=== PATIENT | female | born 1935 | race Caucasian/White ===

== ENCOUNTER 2017-08-19 23:49 | Emergency (ER) | payer MEDICARE, SELFPAY ==
[2017-08-19 23:57] VITALS: BP 188/83; PULSE 70; RESP 16; TEMP 36.3; O2SAT 97; BMI 29.0
[2017-08-20 00:06] VITALS: BP 188/83; PULSE 70; RESP 16; TEMP 36.3; O2SAT 97; BMI 29.0
--- NOTE | 2017-08-20 00:19 | ED_ITS ---
HPI - Animal Bite General Chief Complaint: Animal Bite Stated Complaint: her cat bit her on the right hand Time Seen by Provider: 08/19/17 23:51 Source: patient Mode of arrival: ambulatory Limitations: no limitations History of Present Illness HPI narrative: 82-year-old female here for evaluation of a cat bite to right hand. Patient states that just prior to arrival her domesticated cat who is up- to-date on its shots bit her in the right hand. Patient does not know when her last tetanus shot was. She has not done anything the wound prior to arrival. Related Data Home Medications Medication Instructions Recorded Confirmed ESTRADIOL (Estrace) 1 mg PO AM #0 07/06/09 NITROGLYCERIN (Nitrostat) 0.4 mg SUBLINGUAL PRN #0 07/06/09 POTASSIUM CHLORIDE (K-Dur) 10 meq PO Q DAY #0 07/06/09 SPIRONOLACTONE (Aldactone) 25 mg PO Q DAY #0 07/06/09 amlodipine [Norvasc] 20 mg PO QDAY #0 05/30/12 cyclobenzaprine 10 mg PO TIDP PRN #0 10/05/16 Previous Rx's Medication Instructions Recorded indomethacin 25 mg PO Q8HP PRN #15 cap 10/05/16 prednisone 50 mg PO AMCC #4 tab 10/05/16 amoxicillin-pot clavulanate 1 tab PO Q12H 5 Days #10 tab 08/20/17 Allergies Allergy/AdvReac Type Severity Reaction Status Date / Time MJ Inhibitors Allergy Intermediate Verified 08/19/17 23:57 guaifenesin Allergy Intermediate Verified 08/19/17 23:57 azithromycin Allergy Unknown Verified 08/19/17 23:57 dextromethorphan Allergy Unknown Verified 08/19/17 23:57 enalapril Allergy Unknown Verified 08/19/17 23:57 meloxicam Allergy Unknown Verified 08/19/17 23:57 pneumococcal vaccine Allergy Unknown Verified 08/19/17 23:57 [From PNEUMOVAX 23] ibuprofen AdvReac Unknown Verified 08/19/17 23:57 lidocaine AdvReac Unknown Verified 08/19/17 23:57 morphine AdvReac Unknown Verified 08/19/17 23:57 Review of Systems Constitutional Denies fever(s) Musculoskeletal Comments: Cat bite to right hand Integumentary/Breasts Comments: Cat bite to right hand Neurologic Comments: No sensation differences to right hand Hematologic/Lymphatic Denies easy bruising PFSH Social History Smoking Status: Never smoker Exam Initial Vital Signs Initial Vital Signs: Vital Signs Temperature 97.4 F L 08/19/17 23:57 Pulse Rate 70 08/19/17 23:57 Respiratory Rate 16 08/19/17 23:57 Blood Pressure 188/83 H 08/19/17 23:57 Pulse Oximetry 97 08/19/17 23:57 Const General: cooperative and well developed Nutritional Appearance: well nourished Orientation: alert, awake, oriented x3 and not confused Skin Other: Patient with 2x 1 cm cuts to the dorsum aspect her right hand radial aspect. No active bleeding. Neuro Other: Sensation intact to light touch right and Extrem Other: Full range of motion right elbow right forearm right hand right fingers Course Orders Ordered: Discontinued Medications Amoxicillin/Clavulanate Potassium (Augmentin 875-125 Mg) 1 tab PO NOW ONE Stop: 08/20/17 00:19 Last Admin: 08/20/17 00:22 Dose: 1 tab Diphtheria/Tetanus/Acell Pertussis (Adacel) 0.5 ml IM .ONCE ONE Stop: 08/20/17 00:20 Last Admin: 08/20/17 00:23 Dose: 0.5 ml Vital Signs - 8 hr 08/19/17 23:57 08/20/17 00:06 08/20/17 00:36 Temperature 97.4 F L 97.4 F L 97.1 F L Pulse Rate 70 70 61 Respiratory Rate 16 16 16 Blood Pressure 188/83 H 188/83 H 161/77 H Pulse Oximetry 97 97 100 MDM - Animal Bite MDM Narrative Medical decision making narrative: Patient with superficial cuts to her right hand. No need for sutures. Patient wound was irrigated here in the emergency department with tap water and soap. Her tetanus was updated. Will send home with antibiotics secondary to the fact that it was an animal bite is on her hand. She was given return precautions with regard to infection. She expressed understanding and agreement with plan Discharge Plan Departure Patient Disposition: Home, Self-Care Clinical Impression: Bite by animal Discharge Date/Time: 08/20/17 00:36 Interventions: ED Discharge Assessment Last Done: 08/20/17 00:36 Instructions: How to Care for a Domestic Animal Bite, DI for Animal Bites Activity Restrictions/Additional Instructions: Take the antibiotics as directed. Keep the wound clean with soap and water. Return to the emergency department for any new symptoms, pain, increasing redness, or any other concerning symptoms Prescriptions: New amoxicillin-pot clavulanate 875-125 mg tablet 1 tab PO Q12H 5 Days Qty: 10 RF: 0 No Action POTASSIUM CHLORIDE (K-Dur) 10 meq PO Q DAY Qty: 0 RF: 0 ESTRADIOL (Estrace) 1 mg PO AM Qty: 0 RF: 0 SPIRONOLACTONE (Aldactone) 25 mg PO Q DAY Qty: 0 RF: 0 NITROGLYCERIN (Nitrostat) 0.4 mg Sublingual PRN Qty: 0 RF: 0 amlodipine [Norvasc] 5 MG tablet 20 mg PO QDAY Qty: 0 RF: 0 cyclobenzaprine 10 MG tablet 10 mg PO TIDP PRNQty: 0 RF: 0 prednisone 50 MG tablet 50 mg PO AMCC Qty: 4 RF: 0 indomethacin 25 MG capsule 25 mg PO Q8HP PRNQty: 15 RF: 0
[2017-08-20] MEDS: AMOXICILLIN/CLAV 875/125 MG 1 TAB PO (00:22)
[2017-08-20] MEDS: TET,DIPH,PERTUSS(ACELL),VAC/PF 0.5 ML SYRINGE IM (00:23)
[2017-08-20 00:36] VITALS: BP 161/77; PULSE 61; RESP 16; TEMP 36.2; O2SAT 100
--- NOTE | 2017-08-20 10:39 | PC.NURSE ---
Patient called ED stating that she did not have prescription for medication from last nights visit. This was confirmed. Scott (Donna) called and verbal prescription given. Pt aware and verbalized understanding.
== END 2017-08-20 00:36 | disposition home or self-care (01) ==
PROVIDERS: Emergency Provider Emergency Medicine; Family Provider Family Medicine; PCP Family Medicine
DX: S69.91XA Unspecified injury of right wrist, hand and finger(s), initial encounter (principal); W55.01XA Bitten by cat, initial encounter
CPT/HCPCS: 90471; 99282; 99283; 90715

== ENCOUNTER → 2017-09-06 08:38 | Outpatient (CLI) | payer MEDICARE, SELFPAY ==
--- NOTE | 2017-09-06 | DI.RAD.S_ITS ---
PROCEDURE: FL UPPER GI SMALL BOWEL INDICATIONS: 82 year-old female status post remote fundoplication surgery, with recurrent reflux symptoms. COMPARISON: [facility], , UPPER GI AIR CONTRAST WITH KUB, 02/27/2015, 9:22. FINDINGS: KUB: Preprocedural solar energy specialist film shows a normal bowel gas pattern. Patient is status post cholecystectomy. Additional epigastric abdominal surgical clips are present, presumably from remote fundoplication surgery. No suspicious abdominal calcifications. Visualized solid organ contours appear normal in size. No suspicious bony abnormalities. Esophagus: Air-contrast views demonstrate a normal mucosal pattern of the esophagus and hypopharynx. On single-contrast views, there is normal peristalsis. No fixed strictures or diverticula. There is a large paraesophageal hiatal hernia as before, exerting extrinsic mass effect on the distal esophagus. No elicited gastroesophageal reflux with patient rollover, coughing, or Valsalva. There is delayed transit of a calibrated barium tablet through the esophagus. Stomach: The gastric lumen is normally distensible, and has normal rugal fold thickness. No mucosal masses or ulcers. The pylorus and duodenal bulb have a normal morphology. Small bowel: Duodenal folds appear normal in thickness. There is normal transit time of barium through the small intestine of less than 15 minutes. Small bowel loops appear normal in caliber throughout. Jejunal and ileal folds are smooth and normal in thickness. No strictures, intraluminal masses, or extrinsic mass effects. The terminal ileum is identified and appears normal. IMPRESSION: 1. Large paraesophageal hernia is unchanged since February 2015, exerting extrinsic mass effect on the distal esophagus, with delayed transit of a calibrated barium tablet. 2. No mucosal abnormalities identified of the esophagus or stomach. 3. Normal morphology to the small bowel, with rapid overall transit time of oral contrast into the colon. Dictated by: Mauro Fung M.D. on 09/06/2017 at 10:47 Approved by: Mauro Fung M.D. on 09/06/2017 at 10:53
== END ==
PROVIDERS: Family Provider Family Medicine; PCP Family Medicine; Visit Provider Specialist
DX: K44.9 Diaphragmatic hernia without obstruction or gangrene (principal)
CPT/HCPCS: 74245

== ENCOUNTER 2017-09-15 07:22 | Emergency (ER) | payer MEDICARE, SELFPAY ==
[2017-09-15 07:33] VITALS: BP 161/85; PULSE 82; RESP 18; TEMP 36.6; O2SAT 97
--- NOTE | 2017-09-15 07:39 | ED.BACK ---
HPI - Back Pain/Injury General Chief Complaint: Back Pain/Injury Stated Complaint: headaches, falling spells Time Seen by Provider: 09/15/17 07:38 History of Present Illness HPI Narrative: Patient is an 82-year-old female presents after 2 falls. She says she was prescribed a muscle relaxer by her primary and she fell once a couple nights ago and then the following day. She does have an abrasion on her head she has been having some back pain and she has a bruise all on her hip as well. She has been ambulatory. She did not fall yesterday or last night. She denies any dizziness nausea or vomiting. No vision changes no weakness. SHe has not had any fever chills chest pain shortness of breath abdominal pain MD Complaint: back pain Related Data Home Medications Medication Instructions Recorded Confirmed ESTRADIOL (Estrace) 1 mg PO AM #0 07/06/09 NITROGLYCERIN (Nitrostat) 0.4 mg SUBLINGUAL PRN #0 07/06/09 POTASSIUM CHLORIDE (K-Dur) 10 meq PO Q DAY #0 07/06/09 08/30/17 SPIRONOLACTONE (Aldactone) 25 mg PO Q DAY #0 07/06/09 cyclobenzaprine 10 mg PO TIDP PRN #0 10/05/16 amlodipine 5 mg tablet 10 mg PO QDAY #0 tab 08/30/17 08/30/17 atenolol 100 mg tablet 100 mg PO DAILY 08/30/17 08/30/17 doxepin 25 mg capsule 25 mg PO BEDTIME 08/30/17 08/30/[address] 40 mg 40 mg PO DAILY 08/30/17 08/30/17 granules delayed release for susp fluoxetine 20 mg capsule 20 mg PO DAILY 08/30/17 08/30/17 lovastatin 20 mg tablet 20 mg PO BEDTIME 08/30/17 08/30/17 metformin 500 mg tablet 500 mg PO QAM tab 08/30/17 08/30/17 Previous Rx's Medication Instructions Recorded indomethacin 25 mg PO Q8HP PRN #15 cap 10/05/16 prednisone 50 mg PO AMCC #4 tab 10/05/16 Allergies Allergy/AdvReac Type Severity Reaction Status Date / Time MJ Inhibitors Allergy Intermediate Verified 08/30/17 15:17 guaifenesin Allergy Intermediate Verified 06/19/18 15:17 azithromycin Allergy Unknown Verified 08/30/17 15:17 dextromethorphan Allergy Unknown Verified 08/30/17 15:17 enalapril Allergy Unknown Verified 08/30/17 15:17 meloxicam Allergy Unknown Verified 08/30/17 15:17 pneumococcal vaccine Allergy Unknown Verified 08/30/17 15:17 [From PNEUMOVAX 23] ibuprofen AdvReac Unknown Verified 08/30/17 15:17 lidocaine AdvReac Unknown Verified 08/30/17 15:17 morphine AdvReac Unknown Verified 08/30/17 15:17 Review of Systems Review of Systems All systems reviewed & are unremarkable except as noted in HPI and below Constitutional Denies chills, Denies fever(s), Reports frequent falls, Denies headache(s), Denies lethargy and Denies weakness Eyes Denies change in vision, Denies eye discharge, Denies irritation and Denies loss of vision ENT Ears, Nose, Mouth, and Throat: Denies vertigo, Denies dizziness, Denies headache(s), Denies hearing loss and Reports neck pain Cardiovascular Denies chest pain, Denies irregular heart rhythm, Denies lightheadedness, Denies palpitations, Denies dyspnea, Denies dyspnea on exertion and Denies orthopnea Respiratory Denies cough, Denies dyspnea, Denies dyspnea on exertion and Denies wheezing Gastrointestinal Gastrointestinal: Denies abdominal pain, Denies change in bowel habits, Denies diarrhea, Denies nausea and Denies vomiting Musculoskeletal Reports back pain, Denies deformity, Denies muscle cramps, Denies muscle weakness, Reports neck pain and Denies numbness Integumentary/Breasts Comments: Ecchymosis, left hip and chest Neurologic Denies vertigo, Denies dizziness, Reports frequent falls, Denies headache(s), Denies loss of vision, Denies numbness and Denies weakness Endocrine Denies palpitations Allergic/Immunologic Denies wheezing [facility] Social History Smoking Status: Never smoker Exam Initial Vital Signs Initial Vital Signs: Vital Signs Temperature 97.9 F 09/15/17 07:33 Pulse Rate 82 09/15/17 07:33 Respiratory Rate 18 09/15/17 07:33 Blood Pressure 161/85 H 09/15/17 07:33 Pulse Oximetry 97 09/15/17 07:33 Const General: cooperative and well developed Nutritional Appearance: well nourished Orientation: alert, awake, oriented x3 and not confused HENMT Head: abrasion (right temporal), No laceration, No scalp tenderness and No periorbital ecchymosis Nose: external nose normal Face and sinus: normal facial exam Chest Chest: normal palpation of entire chest wall and abnormal inspection of the chest Resp Effort & Inspection: normal respiratory effort, able to speak in complete sentences, no respiratory distress and no use of accessory muscles Auscultation: clear to auscultation bilaterally, no rales, no rhonchi and no wheezes Cardio Rate: regular rate Rhythm: regular rhythm Heart Sounds: no click, no gallops, no murmurs and no rubs Pulses: normal peripheral pulses GI Inspection: non-distended Palpation: soft, no hepatosplenomegaly, No guarding, No pulsatile mass and No tender Auscultation: normal bowel sounds Back/Spine/Pelvis Cervical Spine: collar present and cervical spinal tenderness (Tender C7-T1 area no step-offs) Skin General: ecchymosis (right chest and left back) Neuro General: alert, oriented x3, gait normal and no focal motor deficits Cranial Nerves: CN's II-XI intact bilaterally Speech: speech normal Motor: muscle tone normal throughout and strength 5/5 throughout Sensory Exam: no sensory deficits noted Extrem General: normal to inspection Right upper extremity: normal to inspection Left upper extremity: normal to inspection Right lower extremity: normal to inspection Left lower extremity: normal to inspection Course Orders Ordered: ED Orders 09/15/17 08:06 XR chest 2V Stat 09/15/17 08:07 CT cervical spine wo con Stat CT head/brain wo con Stat 09/15/17 08:30 Complete Blood Count AUTO DIFF Stat Comprehensive Metabolic Panel Stat Vital Signs - 8 hr 09/15/17 07:33 09/15/17 08:00 09/15/17 10:00 Temperature 97.9 F Pulse Rate 82 72 72 Respiratory Rate 18 18 16 Blood Pressure 161/85 H Blood Pressure [Right Arm] 162/79 H 173/79 H Pulse Oximetry 97 98 MDM - Back Pain/Injury Lab Data Result diagrams: 09/15/17 08:30 09/15/17 08:30 Lab Results 09/15/17 09/15/17 Range/Units 08:30 08:30 WBC 12.4 H (4.5-11.0) X10^3/uL RBC 4.01 (4.0-5.2) X10^6/uL Hgb 10.0 L (12.0-16.0) g/dL Hct 32.0 L (36-46) % MCV 79.9 L (80-100) fL MCH 25.0 L (26-34) PG MCHC 31.3 (30-36) % RDW 15.9 H (11.6-14.8) % Plt Count 252 (150-400) X10^3/uL Neut % (Auto) 48.3 L (50-75) % Lymph % (Auto) 40.7 H (25-40) % Nye % (Auto) 8.8 (3-14) % Eos % (Auto) 1.8 L (2-4) % Baso % (Auto) 0.4 (0-2) % Neut # (Auto) 6000 H (3007-3058) /uL Sodium 137 (137-145) mmol/L Potassium 4.4 (3.4-5.1) mmol/L Chloride 97 L (98-107) mmol/L Carbon Dioxide 28 (22-32) mmol/L BUN 12 (7-17) mg/dL Creatinine 0.70 (0.52-1.04) mg/dL Estimated GFR > 60.0 (>60) mL/min BUN/Creatinine Ratio 17.1 (6-22) Glucose 119 H (80-110) mg/dL Calcium 9.0 (8.4-10.2) mg/dL Total Bilirubin 0.5 (0.2-1.3) mg/dL AST 19 (14-36) IU/L ALT 19 (9-52) IU/L Alkaline Phosphatase 50 (38-126) U/L Total Protein 7.5 (6.3-8.2) g/dL Albumin 4.2 (3.5-5.0) g/dL Globulin 3.3 (1.7-4.1) g/dL Albumin/Globulin Ratio 1.3 (1.0-2.8) Imaging Data CT scan - head: Radiologist's impression: PROCEDURE: CT HEAD/BRAIN WO CON INDICATIONS: 82 year-old woman with multiple falls. TECHNIQUE: Noncontrast 4.5 mm thick angled axial sections acquired from the foramen magnum to the vertex, with coronal and sagittal reformats. For radiation dose reduction, the following was used: automated exposure control, adjustment of mA and/or kV according to patient size. [facility], 7:46. FINDINGS: Image quality: Excellent. CSF spaces: Basal cisterns are patent. No extra-axial fluid collections. The ventricles are symmetric in size and shape. Brain: There is a small focus of hyperdensity in the left frontal lobe along a sulcus, probably dystrophic calcification. No intracranial bleeds or masses. There is mild cerebral volume loss for age, with resultant ventricular and sulcal prominence. There are mild periventricular and deep white matter chronic small vessel ischemic changes. There is intracranial internal carotid artery atherosclerosis. Skull and face: Calvarium and visualized facial bones appear intact, without suspicious lesions. Sinuses: Visualized sinuses and mastoids are clear. IMPRESSION: 1. No acute intracranial abnormalities. 2. A small focus of hyperdensity in the left frontal lobe along a sulcus, most likely related to dystrophic calcification or vascular calcification rather than intracranial bleed. 3. Mild cerebral volume loss and chronic microvascular ischemic changes. Dictated by: Emilee Marcelo M.D. on 09/15/2017 at 8:27 ct c spine: Radiologist's impression: PROCEDURE: CT CERVICAL SPINE WO CON INDICATIONS: fall x2 with neck pain midline C7 trina TECHNIQUE: Noncontrast 3 mm thick sections acquired from the skull base to the T4 level. Sagittal and coronal reformats were then constructed. For radiation dose reduction, the following was used: automated exposure control, adjustment of mA and/or kV according to patient size. [facility], 05/16/2008, 10:59. [facility] 2-3V, 11/22/2004, 11:09. [facility] C-[facility] 4-6V, 02/04/2003, 9:48. [facility] C-SPINE W/O CONTRAST, 03/17/2000, 11:04. FINDINGS: Image quality: Excellent. Bones: There is grade 1 anterolisthesis of C3 on C4, which is new since 05/17/2008. No fractures or dislocations. There is severe degenerative disc disease at C4-C5, C5-C6 and C6-C7. Bilateral facet arthropathy, severe C2-C3 and C3-C4. Visualized superior ribs are intact. Soft tissues: Prevertebral soft tissues are normal in thickness. No paravertebral hematomas. No apical pneumothoraces. Ossified nodules are noted in the left thyroid lobe. IMPRESSION: 1. No fractures. 2. Severe degenerative disc disease and facet arthropathy in cervical spine. 3. Grade 1 anterolisthesis of C3 on C4, new since 05/17/2008. Although this finding is most likely secondary to degenerative facet disease, ligamentous injuries are not excluded. If clinical symptoms persist or clinical suspicion for pathology is high, MRI is suggested for further evaluation. Dictated by: Emilee Marcelo M.D. on 09/15/2017 at 8:33 Approved by: Emilee Marcelo M.D. on 09/15/2017 at 8:39 Chest x-ray: Radiologist's impression: PROCEDURE: XR CHEST 2V INDICATIONS: multiple falls TECHNIQUE: 2 views of the chest were acquired. COMPARISON: [facility], , CHEST 2 VIEW, 03/15/2016, 13:05. [facility], , CHEST 2 VIEW, 08/22/2012, 9:40. FINDINGS: Surgical changes and devices: None. Lungs and pleura: No pleural effusions or pneumothorax. Lungs are clear. Mediastinum: Mediastinal contours are normal except for moderate-sized hiatal hernia behind the heart. Heart size is normal. Bones and chest wall: No suspicious bony abnormalities. Soft tissues appear unremarkable. IMPRESSION: Moderate-sized hiatal hernia behind the heart. Dictated by: Warren Aguilera M.D. on 09/15/2017 at 8:30 [facility] Narrative Medical decision making narrative: Patient are has not fallen the last 24 hr. I think that her Flexeril has made her on steady on her feet. No sign of acute trauma or electrolyte abnormality. She is ambulatory in the ED. I instructed her not to take this medication any longer. She agrees she understands. Discharge Plan Departure Patient Disposition: Home, Self-Care Clinical Impression: Closed head injury, Contusion Discharge Date/Time: 09/15/17 10:12 Interventions: ED Discharge Assessment Last Done: 09/15/17 10:12 Instructions: Closed Head Injury Activity Restrictions/Additional Instructions: *You have been diagnosed with closed head injury and contusion *What to do: Falls are likely related to muscle relaxer-cyclobenzaprine stop taking this medication *Continue to take medications as directed -stop taking cyclobenzaprine *Follow up with your primary care provider in 2-3 days *Return to ER if you should have increased pain, recurrent and multiple falls, unsteadiness, confusion, weakness or any new, worsening or concerning symptoms Prescriptions: No Action POTASSIUM CHLORIDE (K-Dur) 10 meq PO Q DAY Qty: 0 RF: 0 ESTRADIOL (Estrace) 1 mg PO AM Qty: 0 RF: 0 SPIRONOLACTONE (Aldactone) 25 mg PO Q DAY Qty: 0 RF: 0 NITROGLYCERIN (Nitrostat) 0.4 mg Sublingual PRN Qty: 0 RF: 0 cyclobenzaprine 10 MG tablet 10 mg PO TIDP PRNQty: 0 RF: 0 prednisone 50 MG tablet 50 mg PO AMCC Qty: 4 RF: 0 indomethacin 25 MG capsule 25 mg PO Q8HP PRNQty: 15 RF: 0 amlodipine [Norvasc] 5 mg tablet 10 mg PO QDAY Qty: 0 RF: 0 lovastatin 20 mg tablet 20 mg PO BEDTIME RF: 0 atenolol 100 mg tablet 100 mg PO DAILY RF: 0 metformin 500 mg tablet 500 mg PO QAM RF: 0 esomeprazole magnesium [address] for susp in packet 40 mg PO DAILY RF: 0 fluoxetine 20 mg capsule 20 mg PO DAILY RF: 0 doxepin 25 mg capsule 25 mg PO BEDTIME RF: 0 Referrals: Kennedy Acosta MD [Primary Care Provider] -
[2017-09-15 08:00] VITALS: BP 162/79; PULSE 72; RESP 18; O2SAT 98
--- NOTE | 2017-09-15 08:06 | DI.RAD.S_ITS ---
PROCEDURE: XR CHEST 2V INDICATIONS: multiple falls TECHNIQUE: 2 views of the chest were acquired. COMPARISON: [facility], CHEST 2 VIEW, 03/15/2016, 13:05. [facility], CHEST 2 VIEW, 08/22/2012, 9:40. FINDINGS: Surgical changes and devices: None. Lungs and pleura: No pleural effusions or pneumothorax. Lungs are clear. Mediastinum: Mediastinal contours are normal except for moderate-sized hiatal hernia behind the heart. Heart size is normal. Bones and chest wall: No suspicious bony abnormalities. Soft tissues appear unremarkable. IMPRESSION: Moderate-sized hiatal hernia behind the heart. Dictated by: Warren Aguilera M.D. on 09/15/2017 at 8:30 Approved by: Warren Aguilera M.D. on 09/15/2017 at 8:31
--- NOTE | 2017-09-15 08:07 | DI.CT.S_ITS ---
PROCEDURE: CT CERVICAL SPINE WO CON INDICATIONS: fall x2 with neck pain midline C7 trina TECHNIQUE: Noncontrast 3 mm thick sections acquired from the skull base to the T4 level. Sagittal and coronal reformats were then constructed. For radiation dose reduction, the following was used: automated exposure control, adjustment of mA and/or kV according to patient size. COMPARISON: [facility], , CERVICAL SPINE 2 OR 3 VIEWS, 05/16/2008, 10:59. [facility], RG, XR C-SPINE 2-3V, 11/22/2004, 11:09. [facility], RG, XR C-SPINE 4-6V, 02/04/2003, 9:48. [facility], , MRI C-SPINE W/O CONTRAST, 03/17/2000, 11:04. FINDINGS: Image quality: Excellent. Bones: There is grade 1 anterolisthesis of C3 on C4, which is new since 05/17/2008. No fractures or dislocations. There is severe degenerative disc disease at C4-C5, C5-C6 and C6-C7. Bilateral facet arthropathy, severe C2-C3 and C3-C4. Visualized superior ribs are intact. Soft tissues: Prevertebral soft tissues are normal in thickness. No paravertebral hematomas. No apical pneumothoraces. Ossified nodules are noted in the left thyroid lobe. IMPRESSION: 1. No fractures. 2. Severe degenerative disc disease and facet arthropathy in cervical spine. 3. Grade 1 anterolisthesis of C3 on C4, new since 05/17/2008. Although this finding is most likely secondary to degenerative facet disease, ligamentous injuries are not excluded. If clinical symptoms persist or clinical suspicion for pathology is high, MRI is suggested for further evaluation. Dictated by: Emilee Marcelo M.D. on 09/15/2017 at 8:33 Approved by: Emilee Marcelo M.D. on 09/15/2017 at 8:39
--- NOTE | 2017-09-15 08:07 | DI.CT.S_ITS ---
PROCEDURE: CT HEAD/BRAIN WO CON INDICATIONS: 82 year-old woman with multiple falls. TECHNIQUE: Noncontrast 4.5 mm thick angled axial sections acquired from the foramen magnum to the vertex, with coronal and sagittal reformats. For radiation dose reduction, the following was used: automated exposure control, adjustment of mA and/or kV according to patient size. COMPARISON: [facility], , CT HEAD W/O CONTRAST, 04/09/2004, 7:46. FINDINGS: Image quality: Excellent. CSF spaces: Basal cisterns are patent. No extra-axial fluid collections. The ventricles are symmetric in size and shape. Brain: There is a small focus of hyperdensity in the left frontal lobe along a sulcus, probably dystrophic calcification. No intracranial bleeds or masses. There is mild cerebral volume loss for age, with resultant ventricular and sulcal prominence. There are mild periventricular and deep white matter chronic small vessel ischemic changes. There is intracranial internal carotid artery atherosclerosis. Skull and face: Calvarium and visualized facial bones appear intact, without suspicious lesions. Sinuses: Visualized sinuses and mastoids are clear. IMPRESSION: 1. No acute intracranial abnormalities. 2. A small focus of hyperdensity in the left frontal lobe along a sulcus, most likely related to dystrophic calcification or vascular calcification rather than intracranial bleed. 3. Mild cerebral volume loss and chronic microvascular ischemic changes. Dictated by: Emilee Marcelo M.D. on 09/15/2017 at 8:27 Approved by: Emilee Marcelo M.D. on 09/15/2017 at 8:33
--- NOTE | 2017-09-15 08:33 | PC.NURSE ---
pt states, took muscle relaxant, pt fell last tuesday and again the next day, pt here due to neck and upper back pain, bilateral shoulder pain, at one time left forearm and wrist was numb, but resolved now. noted bruising right upper chest, left hip area. pt alert and awake no resp distress maews. pt ambulate to room 10 with steady gait.
[2017-09-15 08:47] LABS: Add Manual Diff / Slide Review NO; Basophils Percent Auto 0.4 % (0-2); Eosinophils Percent Auto 1.8 % (2-4); Lymphocytes Percent Auto 40.7 % (25-40); Mean Corpuscular HGB Conc 31.3 % (30-36); Mean Corpuscular Volume 79.9 fL (80-100); Monocytes Percent Auto 8.8 % (3-14); Neutrophils Absolute Auto 6000 /uL (3000-5900); Neutrophils Percent Auto 48.3 % (50-75); Platelet Count 252 X10^3/uL (150-400); Red Blood Cell Count 4.01 X10^6/uL (4.0-5.2); Red Cell Distribution Width 15.9 % (11.6-14.8); White Blood Cell Count 12.4 X10^3/uL (4.5-11.0)
[2017-09-15 09:01] LABS: Alanine Aminotransferase 19 IU/L (9-52); Albumin 4.2 g/dL (3.5-5.0); Albumin Globulin Ratio 1.3 (1.0-2.8); Alkaline Phosphatase 50 U/L (38-126); Aspartate Aminotransferase 19 IU/L (14-36); BUN Creatinine Ratio 17.1 (6-22); Bilirubin Total 0.5 mg/dL (0.2-1.3); Blood Urea Nitrogen 12 mg/dL (7-17); Carbon Dioxide 28 mmol/L (22-32); Chloride 97 mmol/L (98-107); Estimated Glomerular Filt Rate > 60.0 mL/min (>60); Globulin 3.3 g/dL (1.7-4.1); Glucose 119 mg/dL (80-110); HEMOLYSIS < 15 (0-50); Potassium 4.4 mmol/L (3.4-5.1); Sodium 137 mmol/L (137-145); Total Protein 7.5 g/dL (6.3-8.2)
[2017-09-15 10:00] VITALS: BP 173/79; PULSE 72; RESP 16
== END 2017-09-15 10:12 | disposition home or self-care (01) ==
PROVIDERS: Emergency Provider Emergency Medicine; Family Provider Family Medicine; PCP Family Medicine
DX: S09.90XA Unspecified injury of head, initial encounter (principal); S00.93XA Contusion of unspecified part of head, initial encounter; W18.30XA Fall on same level, unspecified, initial encounter
CPT/HCPCS: 36591; 70450; 71046; 72125; 80053; 85025; 99283; 99284

== ENCOUNTER → 2017-09-17 10:58 | Outpatient (CLI) | payer MEDICARE, SELFPAY ==
--- NOTE | 2017-09-17 | DI.RAD.S_ITS ---
PROCEDURE: XR WRIST LT MIN 3V INDICATIONS: LEFT WRIST ARM PAIN TECHNIQUE: 4 views of the wrist were acquired. COMPARISON: None. FINDINGS: Bones: No definite fractures or dislocations. There is mild widening of the scapholunate interval. There is ulnar negative variance. No suspicious bony lesions. Scaphoid view: Limited evaluation of the scaphoid secondary to projection. Soft tissues: No suspicious soft tissue calcifications. IMPRESSION: 1. No definite fracture or dislocation. 2. Mild widening of the scapholunate interval may reflect ligamentous injury. Dictated by: Donovan Lechuga M.D. on 09/17/2017 at 12:09 Approved by: Donovan Lechuga M.D. on 09/17/2017 at 12:13
== END ==
PROVIDERS: PCP Family Medicine; Visit Provider Family Medicine
DX: M79.602 Pain in left arm (principal)
CPT/HCPCS: 73110

== ENCOUNTER 2017-09-18 23:13 | Emergency (ER) | payer MEDICARE, SELFPAY ==
[2017-09-18 23:35] VITALS: BP 157/68; PULSE 74; RESP 16; TEMP 36.5; O2SAT 98; BMI 28.7
--- NOTE | 2017-09-18 23:40 | PC.NURSE ---
left hand grossly swollen - no injury
[2017-09-18 23:57] VITALS: BP 129/64; PULSE 68; RESP 18; O2SAT 99
[2017-09-19 00:34] LABS: Add Manual Diff / Slide Review NO; Basophils Percent Auto 0.4 % (0-2); Eosinophils Percent Auto 1.2 % (2-4); Hematocrit 29.7 % (36-46); Hemoglobin 9.5 g/dL (12.0-16.0); Lymphocytes Percent Auto 53.9 % (25-40); Mean Corpuscular HGB Conc 32.2 % (30-36); Mean Corpuscular Hemoglobin 25.7 PG (26-34); Mean Corpuscular Volume 79.7 fL (80-100); Monocytes Percent Auto 8.5 % (3-14); Neutrophils Absolute Auto 5100 /uL (3000-5900); Platelet Count 288 X10^3/uL (150-400); Red Blood Cell Count 3.72 X10^6/uL (4.0-5.2); Red Cell Distribution Width 15.4 % (11.6-14.8); White Blood Cell Count 14.2 X10^3/uL (4.5-11.0)
[2017-09-19 00:55] LABS: Blood Urea Nitrogen 16 mg/dL (7-17); C-Reactive Protein Quant 4.2 mg/dL (<1.0); Calcium 8.9 mg/dL (8.4-10.2); Carbon Dioxide 26 mmol/L (22-32); Chloride 93 mmol/L (98-107); Estimated Glomerular Filt Rate > 60.0 mL/min (>60); Glucose 182 mg/dL (80-110); HEMOLYSIS < 15 (0-50); Potassium 3.6 mmol/L (3.4-5.1); Sodium 129 mmol/L (137-145)
[2017-09-19 01:06] LABS: Erythrocyte Sedimentation Rate 62 MM/HR (0-20)
[2017-09-19 01:35] LABS: Procalcitonin < 0.05 ng/mL (<0.5)
--- NOTE | 2017-09-19 02:04 | ED.EXTPRO ---
HPI - Extremity Problem General Chief complaint: Extremity Problem,Nontraumatic Stated complaint: left hand swelling Time Seen by Provider: 09/18/17 23:30 Source: patient and family Mode of arrival: ambulatory Limitations: no limitations History of Present Illness HPI Narrative: Patient to the ED with complaint of pain and swelling of L hand in the absence of injury. She denies fever or chills. She denies any cuts, scrapes, or bites. She does have history of gout. Pain is worse with motion of hand. She can make a fist. She denies red streaks. MD Complaint: extremity pain and extremity swelling Onset (ago): day(s) Pain Consistency: constant Location: left Quality: aching Radiation: none Relieving factors: nothing Exacerbating factors: range of motion Associated symptoms: denies other symptoms Related Data Home Medications Medication Instructions Recorded Confirmed ESTRADIOL (Estrace) 1 mg PO AM #0 07/06/09 NITROGLYCERIN (Nitrostat) 0.4 mg SUBLINGUAL PRN #0 07/06/09 POTASSIUM CHLORIDE (K-Dur) 10 meq PO Q DAY #0 07/06/09 08/30/17 SPIRONOLACTONE (Aldactone) 25 mg PO Q DAY #0 07/06/09 cyclobenzaprine 10 mg PO TIDP PRN #0 10/05/16 amlodipine 5 mg tablet 10 mg PO QDAY #0 tab 08/30/17 08/30/17 atenolol 100 mg tablet 100 mg PO DAILY 08/30/17 08/30/17 doxepin 25 mg capsule 25 mg PO BEDTIME 08/30/17 08/30/[address] 40 mg 40 mg PO DAILY 08/30/17 08/30/17 granules delayed release for susp fluoxetine 20 mg capsule 20 mg PO DAILY 08/30/17 08/30/17 lovastatin 20 mg tablet 20 mg PO BEDTIME 08/30/17 08/30/17 metformin 500 mg tablet 500 mg PO QAM tab 08/30/17 08/30/17 Previous Rx's Medication Instructions Recorded indomethacin 25 mg PO Q8HP PRN #15 cap 10/05/16 prednisone 50 mg PO AMCC #4 tab 10/05/16 doxycycline hyclate 100 mg PO BID 10 Days #20 tab 09/19/17 Allergies Allergy/AdvReac Type Severity Reaction Status Date / Time MJ Inhibitors Allergy Intermediate Verified 08/30/17 15:17 guaifenesin Allergy Intermediate Verified 08/30/17 15:17 azithromycin Allergy Unknown Verified 08/30/17 15:17 dextromethorphan Allergy Unknown Verified 08/30/17 15:17 enalapril Allergy Unknown Verified 08/30/17 15:17 meloxicam Allergy Unknown Verified 08/30/17 15:17 pneumococcal vaccine Allergy Unknown Verified 08/30/17 15:17 [From PNEUMOVAX 23] ibuprofen AdvReac Unknown Verified 08/30/17 15:17 lidocaine AdvReac Unknown Verified 08/30/17 15:17 morphine AdvReac Unknown Verified 08/30/17 15:17 Review of Systems Review of Systems All systems reviewed & are unremarkable except as noted in HPI and below Constitutional Denies chills, Denies fever(s), Denies lethargy and Denies weakness Eyes Denies change in vision, Denies eye discharge, Denies irritation and Denies loss of vision ENT Ears, Nose, Mouth, and Throat: Denies change in voice, Denies neck pain and Denies sore throat Cardiovascular Denies chest pain, Denies irregular heart rhythm, Denies lightheadedness, Denies palpitations, Denies dyspnea, Denies dyspnea on exertion and Denies orthopnea Respiratory Denies cough, Denies dyspnea, Denies dyspnea on exertion and Denies wheezing Gastrointestinal Gastrointestinal: Denies abdominal pain, Denies change in bowel habits, Denies diarrhea, Denies nausea and Denies vomiting Genitourinary Denies hematuria, Denies flank pain, Denies urinary incontinence and Denies urinary urgency Musculoskeletal Reports joint swelling, Reports limited range of motion, Denies neck pain, Reports radiating pain into limb and Reports stiffness Integumentary/Breasts Denies pruritus, Reports erythema, Denies rash and Denies wounds Neurologic Denies confusion, Denies loss of vision and Denies weakness Psychiatric Denies anxiety, Denies confusion, Denies depression, Denies homicidal ideation and Denies suicidal ideation Endocrine Denies palpitations Hematologic/Lymphatic Denies easy bruising Allergic/Immunologic Denies wheezing [facility] Medical History Diabetes mellitus type II, non insulin dependent (Chronic) HTN (hypertension) (Chronic) Hypercholesterolemia (Chronic) Social History Smoking Status: Never smoker Exam Initial Vital Signs Initial Vital Signs: Vital Signs Temperature 97.7 F 09/18/17 23:35 Pulse Rate 74 09/18/17 23:35 Respiratory Rate 16 09/18/17 23:35 Blood Pressure 157/68 H 09/18/17 23:35 Pulse Oximetry 98 09/18/17 23:35 Const General: cooperative and well developed Nutritional Appearance: well nourished Orientation: alert, awake, oriented x3 and not confused [facility] Head: normocephalic and atraumatic Ears: external ears normal and TM's normal bilaterally Nose: external nose normal and No nasal discharge Face and sinus: sinuses nontender, face symmetric, no sinus tenderness and No dry mucous membranes Mouth: oral mucosae normal and moist mucous membranes Teeth and gingiva: dentition normal Throat: tonsils normal and uvula midline Eyes General: appearance normal, both eyes and all related structures Eyelids: eyelids normal Conjunctivae: conjunctivae normal Sclera: sclerae normal Pupils: PERRL EOM: EOM intact bilaterally Neck Neck: normal visual inspection, trachea midline, No lymphadenopathy, No midline deformity and No JVD Lymphatic: No lymphedema Chest Chest: normal inspection of the chest Resp Effort & Inspection: normal respiratory effort, able to speak in complete sentences, no respiratory distress and no use of accessory muscles Auscultation: clear to auscultation bilaterally, no rales, no rhonchi and no wheezes Cardio Rate: regular rate Rhythm: regular rhythm Heart Sounds: no click, no gallops, no murmurs and no rubs Pulses: normal peripheral pulses GI Inspection: non-distended Palpation: soft, no hepatosplenomegaly, No guarding, No pulsatile mass and No tender Auscultation: normal bowel sounds Back/Spine/Pelvis Back: No CVA tenderness Cervical Spine: cervical ROM normal and No pain with cervical ROM Thoracic/Lumbar Spine: thoracic and lumbar spine normal to inspection Skin General: no rashes or lesions noted, erythema (left hand only), No jaundice and No petechiae Neuro General: alert, oriented x3, gait normal and no focal motor deficits Speech: speech normal Extrem General: full ROM, no clubbing, cyanosis or edema, no pedal edema and no calf tenderness Left upper extremity: hand Details: neurosensory exam abnormal, tenderness, warmth and swelling; no ecchymosis Psych Appearance: well kempt Mental Status: mental status grossly normal Attitude: cooperative Thought Content: normal and suicidality Judgment: judgment good Course Orders Ordered: ED Orders 09/19/17 00:09 Basic Metabolic Panel Stat C-Reactive Protein Quant Stat Complete Blood Count AUTO DIFF Stat Erythrocyte Sedimentation Rate Stat Procalcitonin Stat 09/19/17 01:59 Uric Acid Stat Discontinued Medications Doxycycline Hyclate (Vibramycin) 100 mg PO NOW ONE Stop: 09/19/17 02:41 Vital Signs - 8 hr 09/18/17 23:35 09/18/17 23:57 09/19/17 02:05 Temperature 97.7 F Pulse Rate 74 68 73 Respiratory Rate 16 18 Blood Pressure 157/68 H Blood Pressure [Left Arm] 129/64 H 154/66 H Pulse Oximetry 98 99 95 MDM - Extremity (Nontraumatic) Lab Data Result diagrams: 09/18/17 23:48 09/18/17 23:48 Lab Results 09/18/17 09/18/17 09/18/17 Range/Units 23:48 23:48 23:48 WBC 14.2 H (4.5-11.0) X10^3/uL RBC 3.72 L (4.0-5.2) X10^6/uL Hgb 9.5 L (12.0-16.0) g/dL Hct 29.7 L (36-46) % MCV 79.7 L (80-100) fL MCH 25.7 L (26-34) PG MCHC 32.2 (30-36) % RDW 15.4 H (11.6-14.8) % Plt Count 288 (150-400) X10^3/uL Neut % (Auto) 36.0 L (50-75) % Lymph % (Auto) 53.9 H (25-40) % [place] % (Auto) 8.5 (3-14) % Eos % (Auto) 1.2 L (2-4) % Baso % (Auto) 0.4 (0-2) % Neut # (Auto) 5100 (5604-1030) /uL ESR 62 H (0-20) MM/HR Sodium 129 L (137-145) mmol/L Potassium 3.6 (3.4-5.1) mmol/L Chloride 93 L (98-107) mmol/L Carbon Dioxide 26 (22-32) mmol/L BUN 16 (7-17) mg/dL Creatinine 0.80 (0.52-1.04) mg/dL Estimated GFR > 60.0 (>60) mL/min BUN/Creatinine Ratio 20.0 (6-22) Glucose 182 H (80-110) mg/dL Uric Acid (2.5-6.2) mg/dL Calcium 8.9 (8.4-10.2) mg/dL C-Reactive Protein 4.2 H (<1.0) mg/dL Procalcitonin < 0.05 (<0.5) ng/mL 09/18/17 Range/Units 23:48 WBC (4.5-11.0) X10^3/uL RBC (4.0-5.2) X10^6/uL Hgb (12.0-16.0) g/dL Hct (36-46) % MCV (80-100) fL MCH (26-34) PG MCHC (30-36) % RDW (11.6-14.8) % Plt Count (150-400) X10^3/uL Neut % (Auto) (50-75) % Lymph % (Auto) (25-40) % [place] % (Auto) (3-14) % Eos % (Auto) (2-4) % Baso % (Auto) (0-2) % Neut # (Auto) (6269-6504) /uL ESR (0-20) MM/HR Sodium (137-145) mmol/L Potassium (3.4-5.1) mmol/L Chloride (98-107) mmol/L Carbon Dioxide (22-32) mmol/L BUN (7-17) mg/dL Creatinine (0.52-1.04) mg/dL Estimated GFR (>60) mL/min BUN/Creatinine Ratio (6-22) Glucose (80-110) mg/dL Uric Acid 4.0 (2.5-6.2) mg/dL Calcium (8.4-10.2) mg/dL C-Reactive Protein (<1.0) mg/dL Procalcitonin (<0.5) ng/mL [facility] Narrative Medical decision making narrative: patient presents with red, swollen, warm left hand and absence of injury. She denies any fever or chills nor any red streaks but does state it has been worsening over the course of the day. It is not isolated to a solitary joint. Additionally patient is diabetic. The white blood cells and procalcitonin were normal it seems most likely to be cellulitis as opposed to gout. Will treat with antibiotics and encourage close follow-up with her primary Discharge Plan Departure Patient Disposition: Home, Self-Care Clinical Impression: Cellulitis Instructions: DI for Cellulitis -- Adult Activity Restrictions/Additional Instructions: *You have been diagnosed with [ acute left hand cellulitis ] *What to do: *Take medications as directed *Follow up with your primary care provider in 2-3 days, call in the morning for appointmen *Return to ER if you should have any new, worsening or concerning symptomts Prescriptions: New doxycycline hyclate 100 mg tablet 100 mg PO BID 10 Days Qty: 20 RF: 0 No Action POTASSIUM CHLORIDE (K-Dur) 10 meq PO Q DAY Qty: 0 RF: 0 ESTRADIOL (Estrace) 1 mg PO AM Qty: 0 RF: 0 SPIRONOLACTONE (Aldactone) 25 mg PO Q DAY Qty: 0 RF: 0 NITROGLYCERIN (Nitrostat) 0.4 mg Sublingual PRN Qty: 0 RF: 0 cyclobenzaprine 10 MG tablet 10 mg PO TIDP PRNQty: 0 RF: 0 prednisone 50 MG tablet 50 mg PO AMCC Qty: 4 RF: 0 indomethacin 25 MG capsule 25 mg PO Q8HP PRNQty: 15 RF: 0 amlodipine [Norvasc] 5 mg tablet 10 mg PO QDAY Qty: 0 RF: 0 lovastatin 20 mg tablet 20 mg PO BEDTIME RF: 0 atenolol 100 mg tablet 100 mg PO DAILY RF: 0 metformin 500 mg tablet 500 mg PO QAM RF: 0 esomeprazole magnesium [address] for susp in packet 40 mg PO DAILY RF: 0 fluoxetine 20 mg capsule 20 mg PO DAILY RF: 0 doxepin 25 mg capsule 25 mg PO BEDTIME RF: 0 Referrals: Kennedy Acosta MD [Primary Care Provider] -
[2017-09-19 02:05] VITALS: BP 154/66; PULSE 73; O2SAT 95
[2017-09-19] MEDS: DOXYCYCLINE HYCLATE 100 MG TABLET PO (02:53)
== END 2017-09-19 02:59 | disposition home or self-care (01) ==
PROVIDERS: Emergency Provider Emergency Medicine; Family Provider Family Medicine; PCP Family Medicine
DX: L03.114 Cellulitis of left upper limb (principal)
CPT/HCPCS: 36591; 80048; 84145; 84550; 85025; 85651; 86140; 99283

== ENCOUNTER → 2017-09-30 09:44 | Outpatient (CLI) | payer MEDICARE, SELFPAY ==
--- NOTE | 2017-09-30 | DI.US.S_ITS ---
PROCEDURE: US CAROTID DOPPLER BI INDICATIONS: DIZZINESS TECHNIQUE: Color and pulse Doppler interrogation was performed of both carotid systems, with image documentation and velocity measurements. COMPARISON: None. FINDINGS: Stenosis calculations are based on SRU (Society of Radiologists in Ultrasound) criteria. Right side: Brachial blood pressure: 183/81 mm Hg. Common carotid artery peak systolic velocity: 72 cm/sec. Internal carotid artery peak systolic velocity: 62 cm/sec. Internal carotid artery end diastolic velocity: 12 cm/sec. External carotid artery peak systolic velocity: 67 cm/sec. ICA/CCA peak systolic ratio: 0.86. Kennedy scale imaging description: Mild echogenic plaque Percent internal carotid artery stenosis: Less than 50%. Vertebral artery: Flow direction is antegrade. Left side: Brachial blood pressure: 149/79 mm Hg. Common carotid artery peak systolic velocity: 85 cm/sec. Internal carotid artery peak systolic velocity: 79 cm/sec. Internal carotid artery end diastolic velocity: 19 cm/sec. External carotid artery peak systolic velocity: 65 cm/sec. ICA/CCA peak systolic ratio: 0.93. Kennedy scale imaging description: Mild echogenic plaque Percent internal carotid artery stenosis: Less than 50%. Vertebral artery: Flow direction is antegrade. IMPRESSION: 1. Mild atheromatous plaque bilaterally with no hemodynamically significant stenosis. 2. Hypertension. Asymmetry in systolic pressure is right to left Dictated by: Misael Narayan M.D. on 09/30/2017 at 13:29 Approved by: Misael Narayan M.D. on 09/30/2017 at 13:32
== END ==
PROVIDERS: Family Provider Family Medicine; PCP Family Medicine; Visit Provider Family Medicine
DX: R42 Dizziness and giddiness (principal); I10 Essential (primary) hypertension
CPT/HCPCS: 93880

== ENCOUNTER → 2018-03-20 14:43 | Outpatient (CLI) | payer MEDICARE, SELFPAY ==
--- NOTE | 2018-03-20 | DI.MG.S_ITS ---
BILATERAL DIGITAL SCREENING MAMMOGRAM 3D/2D WITH CAD: 03/20/2018 CLINICAL: Routine screening. Family history of breast cancer. Comparison is made to exams dated: 01/27/2017 mammogram, 01/09/2015 mammogram, and 12/17/2013 mammogram - [facility]. The tissue of both breasts is heterogeneously dense. This may lower the sensitivity of mammography. Current study was also evaluated with a Computer Aided Detection (CAD) system. There are benign vascular calcifications in both breasts. No significant masses, calcifications, or other findings are seen in either breast. There has been no significant interval change. IMPRESSION: There is no mammographic evidence of malignancy. A 1 year screening mammogram is recommended. This exam was interpreted at Station ID: [id number]. NOTE: For mammograms, a report in lay terms will be sent to the patient. Approximately 15% of breast malignancies will not be visualized mammographically. In the management of a palpable breast mass, a negative mammogram must not discourage biopsy of a clinically suspicious lesion. Electronically Signed By: Donovan larios/jon:03/20/2018 15:56:42 letter sent: Normal Exam ACR BI-RADS Category 2: Benign Finding(s) 3342F
== END ==
PROVIDERS: Family Provider Family Medicine; PCP Family Medicine; Visit Provider Family Medicine
DX: Z12.31 Encounter for screening mammogram for malignant neoplasm of breast (principal); Z80.3 Family history of malignant neoplasm of breast
CPT/HCPCS: 77063; 77067

== ENCOUNTER 2018-04-25 16:19 | Emergency (ER) | payer MEDICARE, SELFPAY ==
[2018-04-25 16:37] VITALS: BP 163/72; PULSE 64; RESP 16; TEMP 36.8; O2SAT 98; BMI 28.3
--- NOTE | 2018-04-25 16:43 | DI.RAD.S_ITS ---
PROCEDURE: XR WRIST LT MIN 3V INDICATIONS: fell out of bed, now with left wrist pain TECHNIQUE: 4 views of the wrist were acquired. COMPARISON: [facility], CR, XR WRIST LT MIN 3V, 09/17/2017, 10:52. FINDINGS: Bones: No fractures or dislocations. No suspicious bony lesions. Scaphoid view: Negative Soft tissues: No suspicious soft tissue calcifications. IMPRESSION: No acute fracture. No osseous lesion. If symptoms and/or clinical suspicion for pathology persist, further assessment with repeat, or advanced imaging (e.g., CT, MRI, or bone scan) may be helpful for further assessment. Dictated by: Eduardo López M.D. on 04/25/2018 at 16:07 Approved by: Eduardo López M.D. on 04/25/2018 at 16:08
--- NOTE | 2018-04-25 19:11 | ED.UPPEXIN ---
HPI - Extremity Injury (Upper) General Chief Complaint: Extremity Injury, Upper Stated Complaint: FALL LEFT ARM INJURY Time Seen by Provider: 04/25/18 18:58 Source: patient History of Present Illness HPI narrative: patient is an 82-year-old female who presents with left wrist pain. She says she recently got a new bed to help her with acid reflux. His about 4 days ago she fell out of bed landing on her wrist. She denies any head injury shoulder injury. She does have significant pain is in her carpal bones And distal wrist. She has had some swelling. She actually also had 2 teeth pulled 2 days ago and has been placed on amoxicillin. She does take aspirin daily. No other injuries. She currently does have an Jose Francisco wrap on her left wrist. MD complaint: injury to: left Related Data Home Medications Medication Instructions Recorded Confirmed nitroglycerin [Nitrostat] 0.4 mg SUBLINGUAL Q5-15M PRN #0 07/06/09 04/25/18 atenolol 100 mg tablet 100 mg PO DAILY 08/30/17 04/25/18 doxepin 25 mg capsule 25 mg PO BEDTIME 08/30/17 04/25/18 fluoxetine 20 mg capsule 40 mg PO DAILY 08/30/17 04/25/18 amlodipine 10 mg PO DAILY 04/25/18 04/25/18 amoxicillin 500 mg PO TID 04/25/18 04/25/18 esomeprazole magnesium 80 mg PO DAILY 04/25/18 04/25/18 estradiol 0.5 mg PO DAILY 04/25/18 04/25/18 furosemide 20 mg PO DAILY 04/25/18 04/25/18 lovastatin 20 mg PO BEDTIME 04/25/18 04/25/18 metformin 500 mg PO QAM 04/25/18 04/25/18 potassium chloride 10 meq PO DAILY 04/25/18 04/25/18 triamcinolone acetonide 1 applic TOPICAL BID-TID 04/25/18 Allergies Allergy/AdvReac Type Severity Reaction Status Date / Time JOSE FRANCISCO Inhibitors Allergy Intermediate Verified 04/25/18 16:41 guaifenesin Allergy Intermediate Verified 04/25/18 16:41 azithromycin Allergy Unknown Verified 04/25/18 16:41 dextromethorphan Allergy Unknown Verified 04/25/18 16:41 enalapril Allergy Unknown Verified 04/25/18 16:41 meloxicam Allergy Unknown Verified 04/25/18 16:41 pneumococcal vaccine Allergy Unknown Verified 04/25/18 16:41 [From PNEUMOVAX 23] ibuprofen AdvReac Unknown Verified 04/25/18 16:41 lidocaine AdvReac Unknown Verified 04/25/18 16:41 morphine AdvReac Unknown Verified 04/25/18 16:41 Review of Systems Review of Systems ROS Unobtainable: All systems reviewed & are unremarkable except as noted in HPI and below Constitutional Denies chills, Denies fever(s), Denies lethargy and Denies weakness ENT Ears, Nose, Mouth, and Throat: Denies neck pain Cardiovascular Denies chest pain, Denies irregular heart rhythm, Denies lightheadedness, Denies palpitations, Denies dyspnea, Denies dyspnea on exertion and Denies orthopnea Respiratory Denies cough, Denies dyspnea, Denies dyspnea on exertion and Denies wheezing Gastrointestinal Gastrointestinal: Denies abdominal pain, Denies change in bowel habits, Denies diarrhea, Denies nausea and Denies vomiting Musculoskeletal Reports as per HPI, Reports joint swelling ( Left wrist) and Denies neck pain Integumentary/Breasts Denies pruritus, Denies erythema, Denies rash and Denies wounds Neurologic Denies weakness Endocrine Denies palpitations Allergic/Immunologic Denies wheezing [facility] Medical History Diabetes mellitus type II, non insulin dependent (Chronic) HTN (hypertension) (Chronic) Hypercholesterolemia (Chronic) Surgical History History of repair of hiatal hernia (Chronic) History of bladder surgery (Resolved) Status post hysterectomy (Resolved) History of cholecystectomy (Inactive) Family History Sister Cancer Brother Cancer Sister Cancer Mother Cancer Social History Smoking Status: Never smoker Family History Sister Cancer Brother Cancer Sister Cancer Mother Cancer Social History Smoking Status: Never smoker Exam Initial Vital Signs Initial Vital Signs: Vital Signs Temperature 98.3 F 04/25/18 16:37 Pulse Rate 64 04/25/18 16:37 Respiratory Rate 16 04/25/18 16:37 Blood Pressure 163/72 H 04/25/18 16:37 Pulse Oximetry 98 04/25/18 16:37 GENERAL: alert pleasant elderly female no acute distress HEENT: Head atraumatic,EOMI, pupils reactive, no cervical pain CARDIOVASCULAR: Regular rate and rhythm without murmurs, rubs or gallops. RESPIRATORY: Breath sounds equal bilaterally, no wheezes rales or rhonchi. ABDOMEN: Soft, nontender. Normoactive bowel sounds all 4 quadrants. No guarding or rebound. EXTREMITIES: Normal range of motion, no clubbing or edema. Neurovascularly intact left upper extremity. Mild distal swelling decreased his thenar opposition, and wrist flexion and extension. Pain in carpal bones. Neurovascularly intact. no sign of contusion NEUROLOGICAL: Alert and oriented x4.Normal gait and speech. Cranial nerves II through XII grossly intact. SKIN: Warm, dry, no laceration, no petechiae, no rashes or lesions. Procedures Orthopedic Splinting/Casting Injury #1: Side: left Upper Extremity Injury Location: wrist Upper Extremity Immobilizer: thumb spica ( Velcro) Post splinting neuro exam: intact and no change Post splinting vascular exam: intact Placed by: Nursing Course Orders Ordered: ED Orders 04/25/18 16:43 XR wrist LT min 3V Stat Vital Signs - 8 hr 04/25/18 16:37 04/25/18 19:30 Temperature 98.3 F 98.1 F Pulse Rate 64 61 Respiratory Rate 16 18 Blood Pressure 163/72 H Blood Pressure [Right Arm] 156/63 H Pulse Oximetry 98 100 MDM - Extremity Injury (Upper) Imaging Data left wrist x-ray: Radiologist's impression: PROCEDURE: XR WRIST LT MIN 3V INDICATIONS: fell out of bed, now with left wrist pain TECHNIQUE: 4 views of the wrist were acquired. COMPARISON: [facility], [place], XR WRIST LT MIN 3V, 09/17/2017, 10:52. FINDINGS: Bones: No fractures or dislocations. No suspicious bony lesions. Scaphoid view: Negative Soft tissues: No suspicious soft tissue calcifications. IMPRESSION: No acute fracture. No osseous lesion. If symptoms and/or clinical suspicion for pathology persist, further assessment with repeat, or advanced imaging (e.g., CT, MRI, or bone scan) may be helpful for further assessment. Dictated by: Eduardo López M.D. on 04/25/2018 at 16:07 Discharge Plan Departure Patient Disposition: Home Clinical Impression: Left wrist sprain Qualifiers: Encounter type: initial encounter Qualified Code(s): S63.502A - Unspecified sprain of left wrist, initial encounter Discharge Date/Time: 04/25/18 19:33 Interventions: ED Discharge Assessment Last Done: 04/25/18 19:32 Instructions: DI for Wrist Sprain Activity Restrictions/Additional Instructions: *You have been diagnosed with left wrist sprain *What to do: wear splint as needed, may take off to shower/ bathe. Ice 20 minutes at time if needed. If still having the pain is in 7-10 days and may require repeat x-ray shows either your primary doctor, walking sinus it ER. *Continue to take medications as directed - Tylenol 650 mg every 4-6 hours if needed for pain *Follow up with your primary care provider in 2-3 days *Return to ER if you should have Increasing pain, numbness, tingling the, weakness or any new, worsening or concerning symptoms Prescriptions: No Action nitroglycerin [Nitrostat] 0.4 mg Tablet, Sublingual 0.4 mg SUBLINGUAL Q5-15M PRN (Reason: Chest Pain) Qty: 0 RF: 0 atenolol 100 mg tablet 100 mg PO DAILY RF: 0 fluoxetine 20 mg capsule 40 mg PO DAILY RF: 0 doxepin 25 mg capsule 25 mg PO BEDTIME RF: 0 amoxicillin 500 mg capsule 500 mg PO TID RF: 0 metformin 500 mg tablet 500 mg PO QAM RF: 0 potassium chloride 10 mEq tablet extended release 10 meq PO DAILY RF: 0 amlodipine 10 mg tablet 10 mg PO DAILY RF: 0 esomeprazole magnesium 40 mg capsule,delayed release(DR/EC) 80 mg PO DAILY RF: 0 furosemide 20 mg tablet 20 mg PO DAILY RF: 0 estradiol 0.5 mg tablet 0.5 mg PO DAILY RF: 0 lovastatin 20 mg tablet 20 mg PO BEDTIME RF: 0 triamcinolone acetonide 0.025 % cream 1 applic Topical BID-TID RF: 0 Referrals: Kennedy Acosta MD [Primary Care Provider] -
[2018-04-25 19:30] VITALS: BP 156/63; PULSE 61; RESP 18; TEMP 36.7; O2SAT 100
== END 2018-04-25 19:33 | disposition home or self-care (01) ==
PROVIDERS: Emergency Provider Emergency Medicine; Family Provider Family Medicine; PCP Family Medicine
DX: S63.502A Unspecified sprain of left wrist, initial encounter (principal); W06.XXXA Fall from bed, initial encounter
CPT/HCPCS: 73110; 99282; 99283

== ENCOUNTER 2018-05-06 11:30 | Emergency (ER) | payer MEDICARE, SELFPAY ==
[2018-05-06 11:41] VITALS: BP 179/72; PULSE 69; RESP 18; TEMP 36.6; O2SAT 99
--- NOTE | 2018-05-06 12:14 | ED.EYEPROB ---
HPI - Eye Problem General Chief complaint: Eye Problems Stated complaint: FELL OFF BED/SWOLLEN EYE Time Seen by Provider: 05/06/18 11:50 Source: patient Mode of arrival: ambulatory Limitations: no limitations History of Present Illness HPI Narrative: patient is a 82-year-old female who presents with right eye pain. She rolled out of bed about 1 week ago. She landed on the right side of her face she was initially doing okay however over time she has noted some redness around her eye and some tearing. She denies any foreign body sensation no gross drainage from the eye no blurry vision or double vision. She denies loss of consciousness there is an obvious contusion on her forehead. She denies any neck injury numbness or tingling. MD chief complaint: eye injury Onset (ago): day(s) () Onset description: sudden Location: right eye Related Data Home Medications Medication Instructions Recorded Confirmed nitroglycerin [Nitrostat] 0.4 mg SUBLINGUAL Q5-15M PRN #0 07/06/09 04/25/18 atenolol 100 mg tablet 100 mg PO DAILY 08/30/17 04/25/18 doxepin 25 mg capsule 25 mg PO BEDTIME 08/30/17 04/25/18 fluoxetine 20 mg capsule 40 mg PO DAILY 08/30/17 04/25/18 amlodipine 10 mg PO DAILY 04/25/18 04/25/18 amoxicillin 500 mg PO TID 04/25/18 04/25/18 esomeprazole magnesium 80 mg PO DAILY 04/25/18 04/25/18 estradiol 0.5 mg PO DAILY 04/25/18 04/25/18 furosemide 20 mg PO DAILY 04/25/18 04/25/18 lovastatin 20 mg PO BEDTIME 04/25/18 04/25/18 metformin 500 mg PO QAM 04/25/18 04/25/18 potassium chloride 10 meq PO DAILY 04/25/18 04/25/18 triamcinolone acetonide 1 applic TOPICAL BID-TID 04/25/18 Allergies Allergy/AdvReac Type Severity Reaction Status Date / Time MJ Inhibitors Allergy Intermediate Verified 05/06/18 12:09 guaifenesin Allergy Intermediate Verified 05/06/18 12:09 azithromycin Allergy Unknown Verified 05/06/18 12:09 dextromethorphan Allergy Unknown Verified 05/06/18 12:09 enalapril Allergy Unknown Verified 05/06/18 12:09 meloxicam Allergy Unknown Verified 05/06/18 12:09 pneumococcal vaccine Allergy Unknown Verified 05/06/18 12:09 [From PNEUMOVAX ] ibuprofen AdvReac Unknown Verified 05/06/18 12:09 lidocaine AdvReac Unknown Verified 05/06/18 12:09 morphine AdvReac Unknown Verified 05/06/18 12:09 Review of Systems Review of Systems ROS Unobtainable: All systems reviewed & are unremarkable except as noted in HPI and below Constitutional Denies chills, Denies fever(s), Denies lethargy and Denies weakness Eyes Reports as per HPI ENT Ears, Nose, Mouth, and Throat: Denies change in voice, Denies neck pain and Denies sore throat Genitourinary Denies hematuria, Denies flank pain, Denies urinary incontinence and Denies urinary urgency Musculoskeletal Denies neck pain Integumentary/Breasts Denies pruritus, Denies erythema, Denies rash and Denies wounds Neurologic Denies weakness [facility] Social History Smoking Status: Never smoker Exam Initial Vital Signs Initial Vital Signs: Vital Signs Temperature 97.8 F 05/06/18 11:41 Pulse Rate 69 05/06/18 11:41 Respiratory Rate 18 05/06/18 11:41 Blood Pressure 179/72 H 05/06/18 11:41 Pulse Oximetry 99 05/06/18 11:41 GENERAL: alert pleasant elderly female no acute distress HEENT: Head atraumatic,EOMI, pupils reactive, face symmetric, neck is supple full range of motion. No vertebral tenderness no step-offs EYES: pressure in right eye and 19 mg of mercury, pressure and left eye 25 mg making. EOMI. right eye has minimal swelling periorbital, she is able to open eye completely. she also has some mild erythema and contusion CARDIOVASCULAR: Regular rate and rhythm without murmurs, rubs or gallops. RESPIRATORY: Breath sounds equal bilaterally, no wheezes rales or rhonchi. ABDOMEN: Soft, nontender. Normoactive bowel sounds all 4 quadrants. No guarding or rebound. EXTREMITIES: Normal range of motion, no clubbing or edema. Neurovascularly intact NEUROLOGICAL: Alert and oriented x4.Normal gait and speech. Cranial nerves II through XII grossly intact. Towel Cabinet Repairer strength equal bilaterally good [id number] SKIN: Warm, dry, no laceration, no petechiae, no rashes or lesions. Course Orders Ordered: ED Orders 05/06/18 12:15 CT facial bones wo con Stat CT head/brain wo con Stat Discontinued Medications Proparacaine HCl (Parcaine 0.5% Ophth Lolis) 1 drops EYE-RIGHT NOW ONE Stop: 05/06/18 13:13 Last Admin: 05/06/18 13:15 Dose: 1 drops Vital Signs - 8 hr 05/06/18 11:41 05/06/18 13:11 Temperature 97.8 F Pulse Rate 69 63 Respiratory Rate 18 18 Blood Pressure 179/72 H Blood Pressure [Left Arm] 164/68 H Pulse Oximetry 99 96 MDM - Eye Problem Imaging Data CT scan - head: Radiologist's impression: PROCEDURE: CT HEAD/BRAIN WO CON INDICATIONS: fall off bed TECHNIQUE: Noncontrast 4.5 mm thick angled axial sections acquired from the foramen magnum to the vertex, with coronal and sagittal reformats. For radiation dose reduction, the following was used: automated exposure control, adjustment of mA and/or kV according to patient size. COMPARISON: [facility], CT, CT CERVICAL SPINE WO CON, 09/15/2017, 8:04. [facility], CT, CT HEAD/BRAIN WO CON, 09/15/2017, 8:04. FINDINGS: Image quality: Excellent. CSF spaces: Basal cisterns are patent. No extra-axial fluid collections. The ventricles are symmetric in size and shape. Brain: No intracranial bleeds or masses. There is cerebral volume loss for age, with resultant ventricular and sulcal prominence. There are periventricular and deep white matter chronic small vessel ischemic changes. There is intracranial internal carotid artery and vertebral artery atherosclerosis. Skull and face: Calvarium and visualized facial bones appear intact, without suspicious lesions. Minimal right frontal/right periorbital soft tissue swelling. Sinuses: Visualized sinuses and mastoids are clear. IMPRESSION: No acute intracranial disease process. Dictated by: Bertha Yanez MD, PhD on 05/06/2018 at 12:55 ct facial: Radiologist's impression: PROCEDURE: CT FACIAL BONES WO CON INDICATIONS: fall off bed brusing right eye TECHNIQUE: Noncontrast 2.5 mm thick axial images acquired from the mandible through the frontal sinuses, with coronal and sagittal reformatting. For radiation dose reduction, the following was used: automated exposure control, adjustment of mA and/or kV according to patient size. COMPARISON: None. FINDINGS: Image quality: Excellent. Bones and teeth: Orbital singer are intact. Sinus singer show no fracture or deformity. Nasal bones and septum are intact. Visualized portions of the mandible demonstrate no fractures or subluxation. Zygomatic arches are intact. Pterygoid plates are intact. Visualized portions of the skull base and auditory canals are intact. Upper augmentation is absent. Numerous low teeth are missing. 3 mm of C3-C4 anterolisthesis noted. Sinuses: Mild mucosal thickening noted in the left maxillary sinus. Mastoid air cells are aerated. Soft tissues: No edema, masses, or fluid collections. No enlarged lymph nodes. No soft tissue lacerations or debris. Vascular: Visualized vascular structures appear normal in the absence of contrast. Bony vascular foramina and canals are intact. Atherosclerotic calcifications noted in the cavernous segments of the internal carotid arteries. IMPRESSION: No facial bone fracture Dictated by: Bertha Yanez MD, PhD on 05/06/2018 at 12:51 MDM Narrative Medical decision making narrative: CT does not show any sign of fracture. Fall from bed 1 week ago. This is still likely contusion healing pressure in eye within normal limits. Discharge Plan Departure Patient Disposition: Home Clinical Impression: Contusion of eye, right Qualifiers: Encounter type: initial encounter Qualified Code(s): S05.11XA - Contusion of eyeball and orbital tissues, right eye, initial encounter Discharge Date/Time: 05/06/18 13:17 Interventions: ED Discharge Assessment Last Done: 05/06/18 13:17 Instructions: DI for Eye Contusion Activity Restrictions/Additional Instructions: *You have been diagnosed with right eye contusion *What to do: no injury or fracture noted to the eye this will heal on its own continue with Tylenol if needed for pain *Continue to take medications as directed *Follow up with your primary care provider in 2-3 days *Return to ER if you should have blurry vision, double vision, weakness or any new, worsening or concerning symptoms Prescriptions: No Action nitroglycerin [Nitrostat] 0.4 mg Tablet, Sublingual 0.4 mg SUBLINGUAL Q5-15M PRN (Reason: Chest Pain) Qty: 0 RF: 0 atenolol 100 mg tablet 100 mg PO DAILY RF: 0 fluoxetine 20 mg capsule 40 mg PO DAILY RF: 0 doxepin 25 mg capsule 25 mg PO BEDTIME RF: 0 amoxicillin 500 mg capsule 500 mg PO TID RF: 0 metformin 500 mg tablet 500 mg PO QAM RF: 0 potassium chloride 10 mEq tablet extended release 10 meq PO DAILY RF: 0 amlodipine 10 mg tablet 10 mg PO DAILY RF: 0 esomeprazole magnesium 40 mg capsule,delayed release(DR/EC) 80 mg PO DAILY RF: 0 furosemide 20 mg tablet 20 mg PO DAILY RF: 0 estradiol 0.5 mg tablet 0.5 mg PO DAILY RF: 0 lovastatin 20 mg tablet 20 mg PO BEDTIME RF: 0 triamcinolone acetonide 0.025 % cream 1 applic Topical BID-TID RF: 0 Referrals: Kennedy Acosta MD [Primary Care Provider] -
--- NOTE | 2018-05-06 12:36 | PC.NURSE ---
R eye teary and lids red and swollen. Denies rashes on temporal or eyelids prior the fall and injury to R side face. Noticed dry abrasion on R side forehead and bruises to R side face. Bilateral upper thigh have ecchymosis
[2018-05-06 13:11] VITALS: BP 164/68; PULSE 63; RESP 18; O2SAT 96
[2018-05-06] MEDS: PROPARACAINE 0.5% OPHTH SOL 1 DROPS EYE-RIGHT (13:15)
== END 2018-05-06 13:17 | disposition home or self-care (01) ==
PROVIDERS: Emergency Provider Emergency Medicine; Family Provider Family Medicine; PCP Family Medicine
DX: S05.11XA Contusion of eyeball and orbital tissues, right eye, initial encounter (principal); W06.XXXA Fall from bed, initial encounter
CPT/HCPCS: 70450; 70486; 99283; 99284

== ENCOUNTER 2018-06-20 15:17 | Emergency (ER) | payer MEDICARE, SELFPAY ==
[2018-06-20 15:20] VITALS: BP 183/87; PULSE 74; RESP 18; O2SAT 100; BMI 27.4
--- NOTE | 2018-06-20 15:25 | DI.RAD.S_ITS ---
PROCEDURE: XR WRIST RT MIN 3V INDICATIONS: pain TECHNIQUE: 3 views of the wrist were acquired. COMPARISON: [facility], [place], XR WRIST LT MIN 3V, 04/25/2018, 16:57. FINDINGS: Bones: No fractures or dislocations. No suspicious bony lesions. Slight widening of scapholunate interval is seen, concerning for scapholunate ligament injury. Scaphoid view: Scaphoid is grossly intact. Soft tissues: No suspicious soft tissue calcifications. IMPRESSION: No acute wrist fracture or dislocation. Widening of scapholunate interval concerning for injury to scapholunate ligament. Dictated by: Abhilash Espinoza M.D. on 06/20/2018 at 15:51 Approved by: Abhilash Espinoza M.D. on 06/20/2018 at 15:56
--- NOTE | 2018-06-20 17:17 | ED_ITS ---
HPI - Extremity Problem <Loraine Ibrahim PA-C - Last Filed: 06/20/18 22:25> General Chief complaint: Extremity Problem,Nontraumatic Stated complaint: woke up with pain in rt hand, cant move hand Time Seen by Provider: 06/20/18 17:13 Source: patient Mode of arrival: ambulatory Limitations: no limitations History of Present Illness HPI Narrative: This 83-year-old female awoke with throbbing, achy pain in her right wrist this morning, more severe with any movement of her wrist or fingers. She denies any specific trauma, but states that she woke with her hand curled under her a little bit (shows inverted slightly flexed wrist). She states she has not had symptoms like this before, no history of gout. She denies any fever, recent bites or wounds. She has not taken any pain medicine, states that she usually takes Tylenol and has also used prednisone before for joint problems and inflammation. Medical history does show gout Related Data Home Medications Medication Instructions Recorded Confirmed nitroglycerin [Nitrostat] 0.4 mg SUBLINGUAL Q5-15M PRN #0 07/06/09 04/25/18 atenolol 100 mg tablet 100 mg PO DAILY 08/30/17 06/20/18 doxepin 25 mg capsule 25 mg PO BEDTIME 08/30/17 06/20/18 fluoxetine 20 mg capsule 40 mg PO DAILY 08/30/17 06/20/18 amlodipine 10 mg PO DAILY 04/25/18 06/20/18 esomeprazole magnesium 80 mg PO DAILY 04/25/18 06/20/18 estradiol 0.5 mg PO DAILY 04/25/18 06/20/18 furosemide 20 mg PO DAILY 04/25/18 06/20/18 lovastatin 20 mg PO BEDTIME 04/25/18 06/20/18 metformin 500 mg PO QAM 04/25/18 06/20/18 potassium chloride 10 meq PO DAILY 04/25/18 06/20/18 triamcinolone acetonide 1 applic TOPICAL BID-TID 04/25/18 06/20/18 hydroxyzine HCl 10 mg PO QID 06/20/18 06/20/18 Previous Rx's Medication Instructions Recorded prednisone 20 mg PO DAILY 4 Days #4 tab 06/20/18 Allergies Allergy/AdvReac Type Severity Reaction Status Date / Time MJ Inhibitors Allergy Intermediate Verified 05/06/18 12:09 guaifenesin Allergy Intermediate Verified 05/06/18 12:09 azithromycin Allergy Unknown Verified 05/06/18 12:09 dextromethorphan Allergy Unknown Verified 05/06/18 12:09 enalapril Allergy Unknown Verified 05/06/18 12:09 meloxicam Allergy Unknown Verified 05/06/18 12:09 pneumococcal vaccine Allergy Unknown Verified 05/06/18 12:09 [From PNEUMOVAX 23] ibuprofen AdvReac Unknown Verified 05/06/18 12:09 lidocaine AdvReac Unknown Verified 05/06/18 12:09 morphine AdvReac Unknown Verified 05/06/18 12:09 Review of Systems <Loraine Ibrahim PA-C - Last Filed: 06/20/18 22:25> Review of Systems ROS Unobtainable: All systems reviewed & are unremarkable except as noted in HPI and below PFSH <Loraine Ibrahmi PA-C - Last Filed: 06/20/18 22:25> Medical History Diabetes mellitus type II, non insulin dependent (Chronic) HTN (hypertension) (Chronic) Hypercholesterolemia (Chronic) Surgical History History of repair of hiatal hernia (Chronic) History of bladder surgery (Resolved) Status post hysterectomy (Resolved) History of cholecystectomy (Inactive) Family History Sister Cancer Brother Cancer Sister Cancer Mother Cancer Social History Smoking Status: Never smoker Social History Smoking Status: Never smoker Exam <Loraine Ibrahim PA-C - Last Filed: 06/20/18 22:25> Narrative Exam Narrative: GENERAL APPEARANCE: Patient sitting comfortably, in no distress. LUNGS: Clear to auscultation bilaterally. HEART: Rate and rhythm regular without murmur, normal S1 and S2, no S3 or S4. MUSCULOSKELETAL: Right wrist there is moderate effusion, no erythema. No warmth to touch. There is tenderness across the joint line more on the anterior surface, also some tenderness through the proximal forearm. She has very limited range of motion in the wrist and fingers secondary to tenderness, strength in the fingers appears to be intact against resistance. Able to flex the elbow. DERMATOLOGIC: No right upper extremity erythema or wounds NEUROVASCULAR: Right radial and ulnar pulses intact, fingers are warm and pink, sensation is grossly intact Initial Vital Signs Initial Vital Signs: Vital Signs Pulse Rate 74 06/20/18 15:20 Respiratory Rate 18 06/20/18 15:20 Blood Pressure 183/87 H 06/20/18 15:20 Pulse Oximetry 100 06/20/18 15:20 <Jun Coon DO - Last Filed: 06/21/18 03:29> Initial Vital Signs Initial Vital Signs: Vital Signs Pulse Rate 74 06/20/18 15:20 Respiratory Rate 18 06/20/18 15:20 Blood Pressure 183/87 H 06/20/18 15:20 Pulse Oximetry 100 06/20/18 15:20 Course <Loraine Ibrahim PA-C - Last Filed: 06/20/18 22:25> Orders Ordered: Discontinued Medications Acetaminophen (Tylenol) 650 mg PO NOW ONE Stop: 06/20/18 17:40 Last Admin: 06/20/18 17:48 Dose: 650 mg Prednisone (Deltasone) 20 mg PO NOW ONE Stop: 06/20/18 17:40 Last Admin: 06/20/18 17:48 Dose: 20 mg Vital Signs - 8 hr 06/20/18 15:20 06/20/18 18:28 Pulse Rate 74 58 L Respiratory Rate 18 20 Blood Pressure 183/87 H 166/77 H Pulse Oximetry 100 100 <Jun Coon DO - Last Filed: 06/21/18 03:29> Orders Ordered: Discontinued Medications Acetaminophen (Tylenol) 650 mg PO NOW ONE Stop: 06/20/18 17:40 Last Admin: 06/20/18 17:48 Dose: 650 mg Prednisone (Deltasone) 20 mg PO NOW ONE Stop: 06/20/18 17:40 Last Admin: 06/20/18 17:48 Dose: 20 mg Vital Signs - 8 hr 06/20/18 15:20 06/20/18 18:28 Pulse Rate 74 58 L Respiratory Rate 18 20 Blood Pressure 183/87 H 166/77 H Pulse Oximetry 100 100 MDM - Extremity (Nontraumatic) <Loraine Ibrahim PA-C - Last Filed: 06/20/18 22:25> Imaging Data wrist: Radiologist's impression: [address] [address] XRay Report Signed Patient: Deyanira Mauricio MMR#: [id number] : 8Acct:[id number] Age/Sex: 83 / FDate of Service: 06/20/18 Loc: ED Accession Number: [id number] Procedure: XR wrist RT min 3V Ordering Provider: Twan Fonseca D.O. PROCEDURE: XR WRIST RT MIN 3V INDICATIONS: pain TECHNIQUE: 3 views of the wrist were acquired. COMPARISON: [facility], [place], XR WRIST LT MIN 3V, 04/25/2018, 16:57. FINDINGS: Bones: No fractures or dislocations. No suspicious bony lesions. Slight widening of scapholunate interval is seen, concerning for scapholunate ligament injury. Scaphoid view: Scaphoid is grossly intact. Soft tissues: No suspicious soft tissue calcifications. IMPRESSION: No acute wrist fracture or dislocation. Widening of scapholunate interval concerning for injury to scapholunate ligament. Dictated by: Abhilash Espinoza M.D. on 06/20/2018 at 15:51 Approved by: Abhilash Espinoza M.D. on 06/20/2018 at 15:56 Discharge Plan Departure Patient Disposition: Home Clinical Impression: Right wrist tendinitis Gout attack Qualifiers: Gout site: wrist Gout etiology: unspecified cause Laterality: right Qualified Code(s): M10.9 - Gout, unspecified Discharge Date/Time: 06/20/18 18:30 Interventions: ED Discharge Assessment Last Done: 06/20/18 18:28 Instructions: DI for Tendinitis, DI for Gout Activity Restrictions/Additional Instructions: Please wear the wrist immobilizer splint for protection and to help with pain. take Tylenol every 4-6 hours for the next day or 2 (or you can take Tylenol Arthritis/extended release every 8 hours) to help with pain. bulk picker the additional prednisone tomorrow and continue that once daily as well. if this is at least partly due to a gout attack, the prednisone should help quickly. Please call your PCP office tomorrow and arrange a follow-up visit for recheck this week. Return if you have any acutely worsening symptoms in the interim Prescriptions: New prednisone 20 mg tablet 20 mg PO DAILY 4 Days Qty: 4 RF: 0 No Action nitroglycerin [Nitrostat] 0.4 mg Tablet, Sublingual 0.4 mg SUBLINGUAL Q5-15M PRN (Reason: Chest Pain) Qty: 0 RF: 0 atenolol 100 mg tablet 100 mg PO DAILY RF: 0 fluoxetine 20 mg capsule 40 mg PO DAILY RF: 0 doxepin 25 mg capsule 25 mg PO BEDTIME RF: 0 metformin 500 mg tablet 500 mg PO QAM RF: 0 potassium chloride 10 mEq tablet extended release 10 meq PO DAILY RF: 0 amlodipine 10 mg tablet 10 mg PO DAILY RF: 0 esomeprazole magnesium 40 mg capsule,delayed release(DR/EC) 80 mg PO DAILY RF: 0 furosemide 20 mg tablet 20 mg PO DAILY RF: 0 estradiol 0.5 mg tablet 0.5 mg PO DAILY RF: 0 lovastatin 20 mg tablet 20 mg PO BEDTIME RF: 0 triamcinolone acetonide 0.025 % cream 1 applic Topical BID-TID RF: 0 hydroxyzine HCl 10 mg tablet 10 mg PO QID RF: 0 Referrals: Kennedy Acosta MD [Primary Care Provider] - <Jun Coon DO - Last Filed: 06/21/18 03:29> Cosign ED Attending Lucia Attestation: I was immediately available in the department for consultation. Documentation has been reviewed. I agree with assessment and plan.
--- NOTE | 2018-06-20 17:22 | PC.NURSE ---
Patient not moving wrist secondary to pain. States it hurts just to touch the lateral aspect of right wrist and cannot tolerate movement.
[2018-06-20] MEDS: ACETAMINOPHEN 325 MG TABLET 650 MG PO (17:48)
[2018-06-20] MEDS: predniSONE 20 MG TABLET PO (17:48)
[2018-06-20 18:28] VITALS: BP 166/77; PULSE 58; RESP 20; O2SAT 100
== END 2018-06-20 18:30 | disposition home or self-care (01) ==
PROVIDERS: Emergency Provider Internal Medicine; PCP Family Medicine
DX: M77.8 Other enthesopathies, not elsewhere classified (principal)
CPT/HCPCS: 73110; 99283

== ENCOUNTER 2018-11-20 16:02 | Emergency (ER) | payer OTHER, SELFPAY ==
[2018-11-20 16:11] VITALS: BP 151/67; PULSE 66; RESP 20; TEMP 36.8; O2SAT 97
--- NOTE | 2018-11-20 16:17 | DI.CT.S_ITS ---
PROCEDURE: CT HEAD/BRAIN WO CON INDICATIONS: fall, hit head, lt side headache TECHNIQUE: Noncontrast 4.5 mm thick angled axial sections acquired from the foramen magnum to the vertex, with coronal and sagittal reformats. For radiation dose reduction, the following was used: automated exposure control, adjustment of mA and/or kV according to patient size. COMPARISON: [facility], CT, CT HEAD/BRAIN WO CON, 05/06/2018, 12:16. FINDINGS: Image quality: Excellent. CSF spaces: Basal cisterns are patent. No extra-axial fluid collections. The ventricles are symmetric in size and shape. Brain: No intracranial bleeds or masses. There is cerebral volume loss for age, with resultant ventricular and sulcal prominence. There are periventricular and deep white matter chronic small vessel ischemic changes. There is intracranial internal carotid artery atherosclerosis. Skull and face: Calvarium and visualized facial bones appear intact, without suspicious lesions. Sinuses: Visualized sinuses and mastoids are clear. IMPRESSION: 1. Stable findings: Age related volume loss and small vessel ischemic change. 2. No evidence acute stroke, hemorrhage, or mass. Dictated by: Darius Rizo M.D. on 11/20/2018 at 16:42 Approved by: Darius Rizo M.D. on 11/20/2018 at 16:43
--- NOTE | 2018-11-20 16:17 | DI.CT.S_ITS ---
PROCEDURE: CT CERVICAL SPINE WO CON INDICATIONS: fall, hit head, lt side headache TECHNIQUE: Noncontrast 3 mm thick sections acquired from the skull base to the T4 level. Sagittal and coronal reformats were then constructed. For radiation dose reduction, the following was used: automated exposure control, adjustment of mA and/or kV according to patient size. COMPARISON: [facility], CT, CT CERVICAL SPINE WO CON, 09/15/2017, 8:04. FINDINGS: Image quality: Excellent. Bones: No fractures or dislocations. Severe cervical spondylitic change with multilevel severe chronic disc height loss and a lateral uncovertebral joint hypertrophy at C4-C5 and C5-C6. Advanced bilateral cervical facet arthropathy, most notably at C2-C3 through C4-C5. Slight interval increase in grade 1 anterolisthesis of C3 on C4, now 3 mm, secondary to facet arthropathy. Visualized superior ribs are intact. Soft tissues: Prevertebral soft tissues are normal in thickness. No paravertebral hematomas. No apical pneumothoraces. IMPRESSION: 1. No evidence acute cervical fracture or dislocation. 2. Severe cervical spondylitic change. 3. Slight interval increase in anterolisthesis of C3 on C4, secondary to facet arthropathy. Dictated by: Darius Rizo M.D. on 11/20/2018 at 16:37 Approved by: Darius Rizo M.D. on 11/20/2018 at 16:42
--- NOTE | 2018-11-20 17:34 | DI.US.S_ITS ---
PROCEDURE: US PERIPH VENOUS LOW EXTREM RT INDICATIONS: PAIN TECHNIQUE: Real-time imaging, as well as color and pulse Doppler interrogation, were performed of the lower extremity deep veins from the inguinal ligament to the popliteal fossa. COMPARISON: None. FINDINGS: The common femoral, femoral and popliteal veins are normally compressible, and free of intraluminal thrombus. Color and pulse Doppler demonstrate normal phasic intraluminal flow. There is normal augmentation response to distal compression maneuver. IMPRESSION: No deep venous thrombosis. Mild lower extremity soft tissue edema is present. Dictated by: Karen Guzman M.D. on 11/20/2018 at 17:50 Approved by: Karen Guzman M.D. on 11/20/2018 at 17:50
--- NOTE | 2018-11-20 17:49 | ED.HA ---
HPI - Headache <DELLA Marie - Last Filed: 11/20/18 22:06> General Chief Complaint: Fall Stated Complaint: FALL HEADACHE GOES TO ONE SIDE Time Seen by Provider: 11/20/18 16:26 Source: patient Mode of arrival: ambulatory Limitations: no limitations History of Present Illness HPI Narrative: This is 83-year-old female, nonsmoker, who presents to ED with fall x2 about a week ago and now she is having headache, bilateral neck pain, right lower extremity swelling, discomfort. Patient was sent by her primary care physician. The patient reports she fell out of bed and found herself on a carpeted floor during the sleep. Patient denies having chest pain, palpitation, irregular heartbeat, breathing difficulty prior or during fall. Patient denies nausea, seizure, but states has dizziness and balance problem, vision change, tingling/numbness. Patient denies using any ambulatory pediatric physician assistant device such as walker or cane at home. Also she reports right leg swelling and pain from her mid food to groin area for last 1-2 weeks. Patient reports bearing weight aggravates pain. She was using Jose Francisco wrap prior to ED. Patient denies warmth or redness to affected side. Related Data Home Medications Medication Instructions Recorded Confirmed nitroglycerin [Nitrostat] 0.4 mg SUBLINGUAL Q5-15M PRN #0 07/06/09 04/25/18 atenolol 100 mg tablet 100 mg PO DAILY 08/30/17 11/20/18 doxepin 25 mg capsule 25 mg PO BEDTIME 08/30/17 11/20/18 fluoxetine 20 mg capsule 40 mg PO DAILY 08/30/17 06/20/18 amlodipine 10 mg PO DAILY 04/25/18 06/20/18 esomeprazole magnesium 80 mg PO DAILY 04/25/18 06/20/18 estradiol 0.5 mg PO DAILY 04/25/18 06/20/18 furosemide 20 mg PO DAILY 04/25/18 11/20/18 lovastatin 20 mg PO BEDTIME 04/25/18 06/20/18 metformin 500 mg PO QAM 04/25/18 06/20/18 triamcinolone acetonide 1 applic TOPICAL BID-TID 04/25/18 06/20/18 hydroxyzine HCl 10 mg PO QID 06/20/18 06/20/18 fluocinonide 1 applic TOPICAL DIRECTED 11/20/18 11/20/18 permethrin 1 applic TOPICAL DIRECTED 11/20/18 11/20/18 potassium chloride 10 meq PO DAILY 11/20/18 11/20/18 Allergies Allergy/AdvReac Type Severity Reaction Status Date / Time JOSE FRANCISCO Inhibitors Allergy Intermediate Verified 05/06/18 12:09 guaifenesin Allergy Intermediate Verified 05/06/18 12:09 azithromycin Allergy Unknown Verified 05/06/18 12:09 dextromethorphan Allergy Unknown Verified 05/06/18 12:09 enalapril Allergy Unknown Verified 05/06/18 12:09 meloxicam Allergy Unknown Verified 05/06/18 12:09 pneumococcal vaccine Allergy Unknown Verified 05/06/18 12:09 [From PNEUMOVAX 23] ibuprofen AdvReac Unknown Verified 05/06/18 12:09 lidocaine AdvReac Unknown Verified 05/06/18 12:09 morphine AdvReac Unknown Verified 05/06/18 12:09 Review of Systems <DELLA Marie - Last Filed: 11/20/18 22:06> Review of Systems Narrative: General: Denies fever, chills, fatigue, malaise, sweats. HEENT: Denies sinus pain, ear pain, sore throat, difficulty swallowing, dizziness. Respiratory: Denies dyspnea, cough, wheezing, hemoptysis, sputum. Cardiovascular: Denies chest pain, palpitations, orthopnea, edema. Gastrointestinal: Denies nausea, vomiting, abdominal pain, diarrhea, constipation, melena. : Denies dysuria, frequency, incontinence, hematuria, urinary retention. Musculoskeletal: See HPI Skin: See HPI Neurologic: See HPI Psychiatric: No concerning psychosocial issues. 12-point review of systems is negative except for those stated above. PFS <DELLA Marie - Last Filed: 11/20/18 22:06> Medical History Diabetes mellitus type II, non insulin dependent (Chronic) HTN (hypertension) (Chronic) Hypercholesterolemia (Chronic) Surgical History History of bladder surgery (Resolved) History of cholecystectomy (Inactive) History of repair of hiatal hernia (Chronic) Status post hysterectomy (Resolved) Family History Sister Cancer Brother Cancer Sister Cancer Mother Cancer Social History Smoking Status: Never smoker Family History Sister Cancer Brother Cancer Sister Cancer Mother Cancer Social History Smoking Status: Never smoker Exam <DELLA Marie - Last Filed: 11/20/18 22:06> Narrative Exam Narrative: General appearance: well developed, well nourished, in no acute distress. Head: normocephalic, atraumatic, no scalp lesions, non-tender. Eye: pupil equal, round. EOMI. Nose: nares patent. Oral: mucosa moist. Neck/Thyroid: neck supple, full range of motion, no visible masses. Skin: no suspicious rashes, lesions over visible areas. Warm and dry. Heart: no clubbing, no cyanosis, no edema. Lungs: Breathing even and unlabored. No stridor. No accessory muscles used. Chest: normal shape and expansion. Abdomen: non-obese, non-distended. Neurologic: alert and oriented. Cognitive exam, FOURDRINIER TENDER and PNS grossly intact on informal exam. Psych: good eye contact, normal affect. Initial Vital Signs Initial Vital Signs: Vital Signs Temperature 98.3 F 11/20/18 16:11 Pulse Rate 66 11/20/18 16:11 Respiratory Rate 20 11/20/18 16:11 Blood Pressure 151/67 H 11/20/18 16:11 Pulse Oximetry 97 11/20/18 16:11 Extrem Right upper extremity: normal to inspection and full ROM Left upper extremity: normal to inspection and full ROM Right lower extremity: lower leg Details: tenderness, localized swelling and non-pitting edema; no deformity and no unusual warmth, ankle Details: tenderness, swelling, edema and abnormal ROM Details: pain with passive ROM; no unusual warmth and foot Details: normal capillary refill, tenderness, toes with normal ROM, edema and vascular exam Details: dorsalis pedis pulse present; no unusual warmth Left lower extremity: normal to inspection and full ROM <Andreea Carter DO - Last Filed: 11/21/18 08:16> Initial Vital Signs Initial Vital Signs: Vital Signs Temperature 98.3 F 11/20/18 16:11 Pulse Rate 66 11/20/18 16:11 Respiratory Rate 20 11/20/18 16:11 Blood Pressure 151/67 H 11/20/18 16:11 Pulse Oximetry 97 11/20/18 16:11 Procedures <SANJEEV MarieP - Last Filed: 11/20/18 22:06> Orthopedic Splinting/Casting Injury #1: Other Orthopedic Equipment: cane Post splinting neuro exam: intact Post splinting vascular exam: intact Placed by: Nursing Additional Comments: Applied patient's own acewrap and provided a cane for support, balance and ambulation. Scores <SANJEEV MarieP - Last Filed: 11/20/18 22:06> GCS [place] coma scale eye opening: Spontaneous [place] coma scale verbal response: Orientated [place] coma scale motor response: Obey commands [place] coma scale total score: 15 Nexus Score for C-Spine Focal Neurologic deficit present: No Midline spinal tenderness present: No Altered level of conciousness present: No Intoxication present: No Distracting Injury Present: Yes Nexus Criteria for C-spine: 1 Citation:: Due to patient's advanced age and headache, decided to proceed with CT scan of head and neck. Course <SANJEEV MarieP - Last Filed: 11/20/18 22:06> Orders Ordered: ED Orders 11/20/18 16:17 CT cervical spine wo con Stat CT head/brain wo con Stat 11/20/18 17:34 US periph venous low extrem rt Stat 11/20/18 17:51 XR foot RT min 3V Stat XR tibia fibula RT 2V Stat Vital Signs Vital signs: Vital Signs - 8 hr 11/20/18 16:11 11/20/18 18:41 11/20/18 19:00 Temperature 98.3 F Pulse Rate 66 65 69 Respiratory Rate 20 19 18 Blood Pressure 151/67 H Blood Pressure [Left Arm] 162/67 H 157/58 H Pulse Oximetry 97 98 97 11/20/18 19:30 Temperature 97.6 F Pulse Rate 67 Respiratory Rate 18 Blood Pressure Blood Pressure [Left Arm] 157/65 H Pulse Oximetry 100 <Andreea Carter DO - Last Filed: 11/21/18 08:16> Orders Ordered: ED Orders 11/20/18 16:17 CT cervical spine wo con Stat CT head/brain wo con Stat 11/20/18 17:34 US periph venous low extrem rt Stat 11/20/18 17:51 XR foot RT min 3V Stat XR tibia fibula RT 2V Stat Vital Signs Vital signs: Vital Signs - 8 hr 11/20/18 16:11 11/20/18 18:41 11/20/18 19:00 Temperature 98.3 F Pulse Rate 66 65 69 Respiratory Rate 20 19 18 Blood Pressure 151/67 H Blood Pressure [Left Arm] 162/67 H 157/58 H Pulse Oximetry 97 98 97 11/20/18 19:30 Temperature 97.6 F Pulse Rate 67 Respiratory Rate 18 Blood Pressure Blood Pressure [Left Arm] 157/65 H Pulse Oximetry 100 MDM - Headache <DELLA Marie - Last Filed: 11/20/18 22:06> Differential Diagnosis Differential diagnosis: Likely headache and other (Closed head injury, DVT, sprain of right ankle and foot, fracture of ankle or foot) Medical Records Attestation: I reviewed the patient's medical records. Imaging Data CT scan - head: Radiologist's impression: [place] [address] CT Scan Report Signed Patient: Deyanira Mauricio MMR#: [id number] : 8Acct:[id number] Age/Sex: 83 / FDate of Service: 11/20/18 Loc: ED Accession Number: [id number] Procedure: CT head/brain wo con Ordering Provider: Vidal Alonso PROCEDURE: CT HEAD/BRAIN WO CON INDICATIONS: fall, hit head, lt side headache TECHNIQUE: Noncontrast 4.5 mm thick angled axial sections acquired from the foramen magnum to the vertex, with coronal and sagittal reformats. For radiation dose reduction, the following was used: automated exposure control, adjustment of mA and/or kV according to patient size. COMPARISON: [facility], CT, CT HEAD/BRAIN WO CON, 05/06/2018, 12:16. FINDINGS: Image quality: Excellent. CSF spaces: Basal cisterns are patent. No extra-axial fluid collections. The ventricles are symmetric in size and shape. Brain: No intracranial bleeds or masses. There is cerebral volume loss for age, with resultant ventricular and sulcal prominence. There are periventricular and deep white matter chronic small vessel ischemic changes. There is intracranial internal carotid artery atherosclerosis. Skull and face: Calvarium and visualized facial bones appear intact, without suspicious lesions. Sinuses: Visualized sinuses and mastoids are clear. IMPRESSION: 1. Stable findings: Age related volume loss and small vessel ischemic change. 2. No evidence acute stroke, hemorrhage, or mass. Dictated by: Darius Rizo M.D. on 11/20/2018 at 16:42 Approved by: Darius Rizo M.D. on 11/20/2018 at 16:43 CT-neck: Radiologist's impression: [address] [address] [address] Scan Report Signed Patient: Deyanira Mauricio [facility]#: [id number] : 8Acct:[id number] Age/Sex: 83 / FDate of Service: 11/20/18 Loc: ED Accession Number: [id number] Procedure: CT cervical spine wo con Ordering Provider: Vidal Alonso PROCEDURE: CT CERVICAL SPINE WO CON INDICATIONS: fall, hit head, lt side headache TECHNIQUE: Noncontrast 3 mm thick sections acquired from the skull base to the T4 level. Sagittal and coronal reformats were then constructed. For radiation dose reduction, the following was used: automated exposure control, adjustment of mA and/or kV according to patient size. COMPARISON: [facility], CT, CT CERVICAL SPINE WO CON, 09/15/2017, 8:04. FINDINGS: Image quality: Excellent. Bones: No fractures or dislocations. Severe cervical spondylitic change with multilevel severe chronic disc height loss and a lateral uncovertebral joint hypertrophy at C4-C5 and C5-C6. Advanced bilateral cervical facet arthropathy, most notably at C2-C3 through C4-C5. Slight interval increase in grade 1 anterolisthesis of C3 on C4, now 3 mm, secondary to facet arthropathy. Visualized superior ribs are intact. Soft tissues: Prevertebral soft tissues are normal in thickness. No paravertebral hematomas. No apical pneumothoraces. IMPRESSION: 1. No evidence acute cervical fracture or dislocation. 2. Severe cervical spondylitic change. 3. Slight interval increase in anterolisthesis of C3 on C4, secondary to facet arthropathy. Dictated by: Darius Rizo M.D. on 11/20/2018 at 16:37 Approved by: Darius Rizo M.D. on 11/20/2018 at 16:42 US-venous RT LLE: Radiologist's impression: [address] [address] Ultrasound Report Signed Patient: Deyanira Mauricio MMR#: [id number] : 8Acct:[id number] Age/Sex: 83 / FDate of Service: 11/20/18 Loc: ED Accession Number: [id number] Procedure: US periph venous low extrem rt Ordering Provider: Vidal Alonso PROCEDURE: US PERIPH VENOUS LOW EXTREM RT INDICATIONS: PAIN TECHNIQUE: Real-time imaging, as well as color and pulse Doppler interrogation, were performed of the lower extremity deep veins from the inguinal ligament to the popliteal fossa. COMPARISON: None. FINDINGS: The common femoral, femoral and popliteal veins are normally compressible, and free of intraluminal thrombus. Color and pulse Doppler demonstrate normal phasic intraluminal flow. There is normal augmentation response to distal compression maneuver. IMPRESSION: No deep venous thrombosis. Mild lower extremity soft tissue edema is present. Dictated by: Karen Guzman M.D. on 11/20/2018 at 17:50 Approved by: Karen Guzman M.D. on 11/20/2018 at 17:50 XR-Foot R: Radiologist's impression: [address] [address] XRay Report Signed Patient: Deyanira Mauricio MMR#: [id number] : 8Acct:[id number] Age/Sex: 83 / FDate of Service: 11/20/18 Loc: ED Accession Number: [id number] Procedure: XR foot RT min 3V Ordering Provider: Vidal Alonso PROCEDURE: XR FOOT RT MIN 3V INDICATIONS: R midfoot pain and swelling, s/p fall TECHNIQUE: 3 views of the foot were acquired. COMPARISON: [facility], , FOOT 3V RIGHT, 05/17/2017, 16:09. FINDINGS: Bones: No fractures or dislocations. There is moderate mid foot degeneration redemonstrated with joint space narrowing and osteophytosis most prominent along the 2nd through 4th tarsometatarsal joints. There is also moderate degeneration of the 1st metatarsophalangeal joint again noted. No suspicious bony lesions. Soft tissues: There is dorsal soft tissue swelling in the forefoot. No tibiotalar joint effusion. Achilles tendon appears intact. IMPRESSION: 1. No definite fracture or dislocation. 2. Moderate mid foot degeneration and moderate degeneration of the 1st metatarsophalangeal joint redemonstrated. Dictated by: Donovan Lechuga M.D. on 11/20/2018 at 18:46 Approved by: Donovan Lechuga M.D. on 11/20/2018 at 18:47 XR-Tib/fib RT: Radiologist's impression: [place] [address] XRay Report Signed Patient: Deyanira Mauricio [facility]#: [id number] : 1935cct:[id number] Age/Sex: 83 / FDate of Service: 11/20/18 Loc: ED Accession Number: [id number] Procedure: XR tibia fibula RT 2V Ordering Provider: Vidal Alonso PROCEDURE: XR TIBIA FUBULA RT 2V INDICATIONS: R lower leg pain and swelling, s/p fall TECHNIQUE: 2 views of the tibia and fibula were acquired. COMPARISON: [facility], , KNEE 3V RIGHT, 05/17/2017, 16:09. [facility], CR, TIB/FIB 2V LEFT, 05/28/2014, 14:43. FINDINGS: Bones: No fractures or dislocations. There is a lateral unicompartmental arthroplasty partially visualized. No suspicious bony lesions. Soft tissues: No suspicious soft tissue calcifications or masses. IMPRESSION: 1. No definite fracture or dislocation of the visualized tibia or fibula. 2. Partially visualized lateral unicompartmental arthroplasty in the proximal tibia. Dictated by: Donovan Lechuga M.D. on 11/20/2018 at 18:45 Approved by: Donovan Lechuga M.D. on 11/20/2018 at 18:46 MDM Narrative Medical decision making narrative: The patient was referred to ED by her primary care physician after she sustained a fallx2 off her bed during sleep and she had headache, right leg pain. Due to her advanced age and headache, CT scan of head and neck was obtained. There was no acute findings were found her this imaging. Her GCS was 15. She is neurological intact. She reports has been having dizziness, balance problem recently but is not using ambulation assisting device at this time. Patient also has moderate swelling to right lower leg for last 1-2 weeks. Patient reports discomfort in mid food and ankle by palpation. Her neurovascular exam was intact distally. Patient has been using Jose Francisco wrap at home. X-ray test was obtained on right foot and tib-fib and no acute findings such as fracture or dislocation was found. Venous ultrasound on right lower leg and there was no DVT but mild lower extremity soft tissue edema was indicated. Patient was provided with a cane for ambulation assistance and to help with balance. The patient is own jose francisco wrap was reapplied on right leg for support and swelling. The patient was advised to follow up with her primary care physician for re-evaluation and possible a referral to physical therapy for gait evaluation and balance. Patient advised to take [id number] Tylenol and/or Motrin as needed for pain and elevated affected limb during rest for swelling. Patient agrees with treatment plan a further questions were expressed at this time. Discharge Plan Departure Patient Disposition: Home Clinical Impression: Contusion of leg, right Qualifiers: Encounter type: initial encounter Qualified Code(s): S80.11XA - Contusion of right lower leg, initial encounter Fall Qualifiers: Encounter type: initial encounter Qualified Code(s): W19.XXXA - Unspecified fall, initial encounter Head injury Qualifiers: Encounter type: initial encounter Qualified Code(s): S09.90XA - Unspecified injury of head, initial encounter Discharge Date/Time: 11/20/18 19:55 Instructions: DI for Contusion, How to Prevent Falls, DI for Closed Head Injury Activity Restrictions/Additional Instructions: You have been diagnosed with [right leg contusion from fall, balance difficulty, and closed head injury. Your x-ray test on your low right leg not have acute findings such as fracture, the CT scan of head and neck without acute findings as well. There was no signs of blood clot in you're right leg. Please use a cane that has been provided to you for support and balance to prevent further falls. You may need your doctors referral to physical therapy for gait evaluation and therapy for balance]. What to do: *Take your medications as directed. *Follow up with your primary care provider in 2-3 days, call for an appointment. Let them know you were seen in the ED and that we asked you to be seen in follow up. *Return to ED if you have any new, worsening, or concerning symptoms, such as [chest pain, breathing difficulty, unable to tolerate fluids, severe dizziness, any acute findings]. Prescriptions: No Action nitroglycerin [Nitrostat] 0.4 mg Tablet, Sublingual 0.4 mg SUBLINGUAL Q5-15M PRN (Reason: Chest Pain) Qty: 0 RF: 0 atenolol 100 mg tablet 100 mg PO DAILY RF: 0 fluoxetine 20 mg capsule 40 mg PO DAILY RF: 0 doxepin 25 mg capsule 25 mg PO BEDTIME RF: 0 permethrin 5 % cream 1 applic TOPICAL DIRECTED RF: 0 potassium chloride 10 mEq tablet extended release 10 meq PO DAILY RF: 0 fluocinonide 0.05 % ointment 1 applic TOPICAL DIRECTED RF: 0 metformin 500 mg tablet 500 mg PO QAM RF: 0 amlodipine 10 mg tablet 10 mg PO DAILY RF: 0 esomeprazole magnesium 40 mg capsule,delayed release(DR/EC) 80 mg PO DAILY RF: 0 furosemide 20 mg tablet 20 mg PO DAILY RF: 0 estradiol 0.5 mg tablet 0.5 mg PO DAILY RF: 0 lovastatin 20 mg tablet 20 mg PO BEDTIME RF: 0 triamcinolone acetonide 0.025 % cream 1 applic Topical BID-TID RF: 0 hydroxyzine HCl 10 mg tablet 10 mg PO QID RF: 0 Referrals: Kennedy Acosta MD [Primary Care Provider] -
[2018-11-20 18:41] VITALS: BP 162/67; PULSE 65; RESP 19; O2SAT 98
[2018-11-20 19:00] VITALS: BP 157/58; PULSE 69; RESP 18; O2SAT 97
[2018-11-20 19:30] VITALS: BP 157/65; PULSE 67; RESP 18; TEMP 36.4; O2SAT 100
== END 2018-11-20 19:55 | disposition home or self-care (01) ==
PROVIDERS: Emergency Provider Nurse Practitioner Family; PCP Family Medicine
DX: S80.11XA Contusion of right lower leg, initial encounter (principal); S09.90XA Unspecified injury of head, initial encounter; W19.XXXA Unspecified fall, initial encounter
CPT/HCPCS: 70450; 72125; 73590; 73630; 93971; 99283

== ENCOUNTER 2018-11-22 23:38 | Emergency (ER) | payer OTHER, SELFPAY ==
--- NOTE | 2018-11-22 23:40 | DI.RAD.S_ITS ---
PROCEDURE: XR ANKLE RT MIN 3V INDICATIONS: fall 2 days ago with right ankle pain TECHNIQUE: 3 views of the ankle were acquired. COMPARISON: None. FINDINGS: Bones: No fractures or dislocations. Ankle mortise is normally aligned. No suspicious bony lesions. Calcaneal bone spur. Soft tissues: No tibiotalar joint effusion. Achilles tendon appears normal. Lateral soft tissue swelling is noted and ligamentous injury cannot be excluded. IMPRESSION: No fracture. No acute osseous lesion. If symptoms and/or clinical suspicion for pathology persists, further assessment with repeat radiographs (7-10 days) or advanced imaging (e.g. CT, MRI or bone scan) may be helpful. Dictated by: Bertha Yanez MD, PhD on 11/23/2018 at 9:27 Approved by: Bertha Yanez MD, PhD on 11/23/2018 at 9:28
--- NOTE | 2018-11-22 23:40 | DI.RAD.S_ITS ---
PROCEDURE: XR TIBIA FUBULA RT 2V INDICATIONS: fall 2 days ago withright leg pain TECHNIQUE: 2 views of the tibia and fibula were acquired. COMPARISON: [facility], CR, XR TIBIA FIBULA RT 2V, 11/20/2018, 18:01. FINDINGS: Bones: No fractures or dislocations. No suspicious bony lesions. Postsurgical changes compatible with lateral compartment unicondylar arthroplasty. Soft tissues: No suspicious soft tissue calcifications or masses. Atherosclerotic calcifications noted. IMPRESSION: No fracture. No osseous lesion. If symptoms and/or clinical suspicion for pathology persists, further assessment with repeat radiographs (7-10 days) or advanced imaging (e.g. CT, MRI or bone scan) may be helpful. Dictated by: Bertha Yanez MD, PhD on 11/23/2018 at 9:26 Approved by: Bertha Yanez MD, PhD on 11/23/2018 at 9:27
--- NOTE | 2018-11-22 23:41 | ED.LOWEXIN ---
HPI - Extremity Injury (Lower) General Chief Complaint: Extremity Injury, Lower Stated Complaint: ankle injury Time Seen by Provider: 11/22/18 23:39 Source: patient Mode of arrival: EMS Limitations: no limitations History of Present Illness HPI Narrative: 83-year-old female here for evaluation of right ankle and leg injury. Approximately 2 weeks ago patient sustained a mechanical fall injuring her right ankle. She states that her symptoms were improving until 2 days ago where she tripped while going up some stairs after taking the garbage out and re-injuring the ankle. She has had pain and swelling since then. She arrived by EMS for evaluation of these symptoms. She has been keeping her leg elevated and putting ice on it. Related Data Home Medications Medication Instructions Recorded Confirmed nitroglycerin [Nitrostat] 0.4 mg SUBLINGUAL Q5-15M PRN #0 07/06/09 04/25/18 atenolol 100 mg tablet 100 mg PO DAILY 08/30/17 11/20/18 doxepin 25 mg capsule 25 mg PO BEDTIME 08/30/17 11/20/18 fluoxetine 20 mg capsule 40 mg PO DAILY 08/30/17 06/20/18 amlodipine 10 mg PO DAILY 04/25/18 06/20/18 esomeprazole magnesium 80 mg PO DAILY 04/25/18 06/20/18 estradiol 0.5 mg PO DAILY 04/25/18 06/20/18 furosemide 20 mg PO DAILY 04/25/18 11/20/18 lovastatin 20 mg PO BEDTIME 04/25/18 06/20/18 metformin 500 mg PO QAM 04/25/18 06/20/18 triamcinolone acetonide 1 applic TOPICAL BID-TID 04/25/18 06/20/18 hydroxyzine HCl 10 mg PO QID 06/20/18 06/20/18 fluocinonide 1 applic TOPICAL DIRECTED 11/20/18 11/20/18 permethrin 1 applic TOPICAL DIRECTED 11/20/18 11/20/18 potassium chloride 10 meq PO DAILY 11/20/18 11/20/18 Allergies Allergy/AdvReac Type Severity Reaction Status Date / Time JOSE FRANCISCO Inhibitors Allergy Intermediate Verified 05/06/18 12:09 guaifenesin Allergy Intermediate Verified 05/06/18 12:09 azithromycin Allergy Unknown Verified 05/06/18 12:09 dextromethorphan Allergy Unknown Verified 05/06/18 12:09 enalapril Allergy Unknown Verified 05/06/18 12:09 meloxicam Allergy Unknown Verified 05/06/18 12:09 pneumococcal vaccine Allergy Unknown Verified 05/06/18 12:09 [From PNEUMOVAX 23] ibuprofen AdvReac Unknown Verified 05/06/18 12:09 lidocaine AdvReac Unknown Verified 05/06/18 12:09 morphine AdvReac Unknown Verified 05/06/18 12:09 Review of Systems Constitutional Constitutional: Denies fever(s) Musculoskeletal Musculoskeletal: Reports tingling Comments: Right ankle pain Integumentary/Breasts Comments: Bruising around the right ankle Neurologic Neurologic: Reports tingling Hematologic/Lymphatic Hematologic/Lymphatic: Denies easy bleeding and Denies easy bruising [facility] Medical History Diabetes mellitus type II, non insulin dependent (Chronic) HTN (hypertension) (Chronic) Hypercholesterolemia (Chronic) Social History Smoking Status: Never smoker Exam Initial Vital Signs Initial Vital Signs: Vital Signs Temperature 99.2 F 11/22/18 23:45 Pulse Rate 73 11/22/18 23:45 Respiratory Rate 20 11/22/18 23:45 Blood Pressure 164/66 H 11/22/18 23:45 Pulse Oximetry 99 11/22/18 23:45 Const General: cooperative Orientation: alert and awake Resp Effort & Inspection: normal respiratory effort Cardio Rate: regular rate Pulses: dorsalis pedis present on the right Skin Other: Bruising below the lateral malleolus and around the toes. Neuro Other: Patient states she can feel sensation to light touch but other times states that her foot is ?numb ? Extrem General: edema Other: Patient with tenderness to palpation of the proximal fibula and along the lateral malleolus of the right ankle Procedures Orthopedic Splinting/Casting Injury #1: Side: right Lower Extremity Injury Location: ankle Lower Extremity Immobilizer: Jose Francisco wrap Post splinting neuro exam: intact Post splinting vascular exam: intact Placed by: Nursing Course Orders Ordered: ED Orders 11/22/18 23:40 XR ankle RT min 3V Stat XR tibia fibula RT 2V Stat Discontinued Medications Acetaminophen/Codeine Phosphate (Tylenol #3 Prepack) 1 bottle MISC SEEINSTR ONE Stop: 11/23/18 00:08 Acetaminophen/Codeine Phosphate (Tylenol #3) 1 tab PO NOW ONE Stop: 11/23/18 00:08 Vital Signs Vital signs: Vital Signs - 8 hr 11/22/18 23:45 Temperature 99.2 F Pulse Rate 73 Respiratory Rate 20 Blood Pressure 164/66 H Pulse Oximetry 99 MDM - Extremity Injury (Lower) Imaging Data X-ray tib-fib right: Attestation: I personally reviewed and interpreted this imaging study as follows: My impression: No fractures, no dislocations, X-ray ankle right: Attestation: I personally reviewed and interpreted this imaging study as follows: My impression: No fractures, no dislocations, MDM Narrative Medical decision making narrative: Patient is neurovascularly intact. This was a mechanical fall that occurred 2 days ago. There were no fractures on the tib-fib or the ankle x-rays. I suspect ankle sprain. We did discuss rice, patient was given pain control here in the ER. She does have a cane with her. We did discuss the use of a walker as needed where she could get a walker. We will hold on crutches due to the fall risk associated with these. Patient given return precautions and follow-up instructions. She expressed understanding and agreement with plan. Discharge Plan Departure Patient Disposition: Home Clinical Impression: Right ankle sprain Qualifiers: Encounter type: initial encounter Involved ligament of ankle: unspecified ligament Qualified Code(s): S93.401A - Sprain of unspecified ligament of right ankle, initial encounter Instructions: DI for Ankle Sprain, How To Perform RICE (Rest, Ice, Compress, Elevate), How to Apply an Elastic Wrap on Ankle Activity Restrictions/Additional Instructions: There were no fractures noted on the x-rays. Use the Jose Francisco bandage as directed in as needed. Keep your foot elevated and iced. Contact your primary provider for a follow-up. Continue all of your medications. You can walk on your ankle as tolerated. Return to the emergency department for any new symptoms Prescriptions: No Action nitroglycerin [Nitrostat] 0.4 mg Tablet, Sublingual 0.4 mg SUBLINGUAL Q5-15M PRN (Reason: Chest Pain) Qty: 0 RF: 0 atenolol 100 mg tablet 100 mg PO DAILY RF: 0 fluoxetine 20 mg capsule 40 mg PO DAILY RF: 0 doxepin 25 mg capsule 25 mg PO BEDTIME RF: 0 permethrin 5 % cream 1 applic TOPICAL DIRECTED RF: 0 potassium chloride 10 mEq tablet extended release 10 meq PO DAILY RF: 0 fluocinonide 0.05 % ointment 1 applic TOPICAL DIRECTED RF: 0 metformin 500 mg tablet 500 mg PO QAM RF: 0 amlodipine 10 mg tablet 10 mg PO DAILY RF: 0 esomeprazole magnesium 40 mg capsule,delayed release(DR/EC) 80 mg PO DAILY RF: 0 furosemide 20 mg tablet 20 mg PO DAILY RF: 0 estradiol 0.5 mg tablet 0.5 mg PO DAILY RF: 0 lovastatin 20 mg tablet 20 mg PO BEDTIME RF: 0 triamcinolone acetonide 0.025 % cream 1 applic Topical BID-TID RF: 0 hydroxyzine HCl 10 mg tablet 10 mg PO QID RF: 0 Referrals: Kennedy Acosta MD [Primary Care Provider] -
[2018-11-22 23:45] VITALS: BP 164/66; PULSE 73; RESP 20; TEMP 37.3; O2SAT 99
[2018-11-23] MEDS: CODEINE/APAP 30/300 PREPACK 1 BOTTLE MISC (00:16)
[2018-11-23] MEDS: CODEINE/ACETAMINOPHEN 30/300 TABLET 1 TAB PO (00:16)
[2018-11-23 00:32] VITALS: BP 153/76; PULSE 69; O2SAT 99
== END 2018-11-23 00:32 | disposition home or self-care (01) ==
LOC: ED 11-23 00:28
PROVIDERS: Emergency Provider Emergency Medicine
DX: S93.401A Sprain of unspecified ligament of right ankle, initial encounter (principal); W01.0XXA Fall on same level from slipping, tripping and stumbling without subsequent striking against object, initial encounter
CPT/HCPCS: 73590; 73610; 99282; 99283

== ENCOUNTER 2018-11-25 10:36 | Emergency (ER) | payer OTHER, SELFPAY ==
[2018-11-25 10:43] VITALS: BP 155/79; PULSE 62; RESP 18; TEMP 36.4; O2SAT 96
== END 2018-11-25 12:54 | disposition left against medical advice (07) ==
PROVIDERS: Emergency Provider Emergency Medicine
DX: R21 Rash and other nonspecific skin eruption (principal)
CPT/HCPCS: 99281

== ENCOUNTER → 2018-12-01 10:36 | Outpatient (CLI) | payer OTHER, SELFPAY ==
--- NOTE | 2018-12-01 | DI.RAD.S_ITS ---
PROCEDURE: XR ANKLE RT MIN 3V INDICATIONS: RIGHT ANKLE PAIN TECHNIQUE: 3 views of the ankle were acquired. COMPARISON: [facility], CR, XR ANKLE RT MIN 3V, 11/22/2018, 23:41. [facility], , ANKLE 3 VIEWS RIGHT, 10/05/2016, 19:25. FINDINGS: Bones: No fractures or dislocations. Ankle mortise is normally aligned. No suspicious bony lesions. Soft tissues: No tibiotalar joint effusion. Achilles tendon appears normal. IMPRESSION: Normal for age, source of current ankle pain symptoms is not seen. Dictated by: Warren Aguilera M.D. on 12/01/2018 at 11:31 Approved by: Warren Aguilera M.D. on 12/01/2018 at 11:32
== END ==
PROVIDERS: PCP Student in an Organized Health Care Education/Training Program; Visit Provider Student in an Organized Health Care Education/Training Program
DX: M25.571 Pain in right ankle and joints of right foot (principal)
CPT/HCPCS: 73610

== ENCOUNTER 2018-12-10 07:51 | Inpatient (IN) | payer OTHER, SELFPAY ==
[2018-12-10] VITALS (13 sets, daily range): BP systolic 132–176; BP diastolic 54–93; PULSE 69–94; RESP 16–26; TEMP 36.6–37.7; O2SAT 93–99; BMI 28.7
--- NOTE | 2018-12-10 07:59 | DI.RAD.S_ITS ---
PROCEDURE: XR CHEST 1V INDICATIONS: short of breath TECHNIQUE: One view of the chest was acquired. COMPARISON: [facility], CR, XR CHEST 2V, 09/15/2017, 8:13. FINDINGS: Surgical changes and devices: None. Lungs and pleura: There is bilateral moderate pulmonary edema. Bibasilar medial opacities are also demonstrated consistent with consolidation/pneumonia or atelectasis. The distribution also suggests possible aspiration. There is hyperinflation of the lungs with flattening of the hemidiaphragms compatible with COPD. No definite pleural effusions or pneumothorax. Mediastinum: There is a large hiatal hernia redemonstrated. Heart size appears enlarged, increased in size from the prior study. Bones and chest wall: No suspicious bony lesions. Overlying soft tissues appear unremarkable. IMPRESSION: 1. Moderate pulmonary edema. 2. Bibasilar medial opacities consistent with consolidation/pneumonia versus atelectasis. The distribution of findings also suggests possible aspiration. 3. Enlargement of the cardiac contour compared to the prior study. Although this may be due in part to differences in technique, the findings also raise the possibility of a pericardial effusion and correlation is recommended clinically. 4. Findings consistent with COPD redemonstrated. Dictated by: Donovan Lechuga M.D. on 12/10/2018 at 7:42 Approved by: Donovan Lechuga M.D. on 12/10/2018 at 7:48
[2018-12-10] MEDS: ALBUTEROL/IPRATROPIUM 3 ML AMPUL INH (08:17)
--- NOTE | 2018-12-10 08:30 | ED.SOB ---
HPI - SOB/Dyspnea General Chief Complaint: Shortness of Breath/Dyspnea Stated Complaint: SOB Time Seen by Provider: 12/10/18 07:58 Source: patient Mode of arrival: EMS History of Present Illness HPI Narrative: Patient is a 83-year-old female who presents with increasing shortness of breath. She says this started suddenly this morning. EMS thought that she was warm with low-grade fever. She feels like she can't get her breath. She denies any history of smoking. She said she had some cough yesterday she was having some difficulty getting around a doing things yesterday she was able to sleep flat last night. She denies any chest pain. MD Complaint: shortness of breath Onset (ago): hour(s) Severity: moderate Relieving factors: oxygen Exacerbating factors: nothing Related Data Home Medications Medication Instructions Recorded Confirmed nitroglycerin [Nitrostat] 0.4 mg SUBLINGUAL Q5-15M PRN #0 07/06/09 04/25/18 atenolol 100 mg tablet 100 mg PO DAILY 08/30/17 11/20/18 doxepin 25 mg capsule 25 mg PO BEDTIME 08/30/17 11/20/18 fluoxetine 20 mg capsule 40 mg PO DAILY 08/30/17 06/20/18 amlodipine 10 mg PO DAILY 04/25/18 06/20/18 esomeprazole magnesium 80 mg PO DAILY 04/25/18 06/20/18 estradiol 0.5 mg PO DAILY 04/25/18 06/20/18 furosemide 20 mg PO DAILY 04/25/18 11/20/18 lovastatin 20 mg PO BEDTIME 04/25/18 06/20/18 metformin 500 mg PO QAM 04/25/18 06/20/18 triamcinolone acetonide 1 applic TOPICAL BID-TID 04/25/18 06/20/18 hydroxyzine HCl 10 mg PO QID 06/20/18 06/20/18 fluocinonide 1 applic TOPICAL DIRECTED 11/20/18 11/20/18 permethrin 1 applic TOPICAL DIRECTED 11/20/18 11/20/18 potassium chloride 10 meq PO DAILY 11/20/18 11/20/18 Allergies Allergy/AdvReac Type Severity Reaction Status Date / Time MJ Inhibitors Allergy Intermediate Verified 11/25/18 10:46 guaifenesin Allergy Intermediate Verified 11/25/18 10:46 azithromycin Allergy Unknown Verified 11/25/18 10:46 dextromethorphan Allergy Unknown Verified 11/25/18 10:46 enalapril Allergy Unknown Verified 11/25/18 10:46 meloxicam Allergy Unknown Verified 11/25/18 10:46 pneumococcal vaccine Allergy Unknown Verified 11/25/18 10:46 [From PNEUMOVAX 23] ibuprofen AdvReac Unknown Verified 11/25/18 10:46 lidocaine AdvReac Unknown Verified 11/25/18 10:46 morphine AdvReac Unknown Verified 11/25/18 10:46 Review of Systems Review of Systems ROS Unobtainable: All systems reviewed & are unremarkable except as noted in HPI and below Constitutional Constitutional: Denies chills, Denies fever(s), Denies lethargy and Denies weakness Eyes Eyes: Denies change in vision, Denies eye discharge, Denies irritation and Denies loss of vision ENT Ears, Nose, Mouth, and Throat: Denies change in voice, Denies neck pain and Denies sore throat Cardiovascular Cardiovascular: Denies chest pain, Denies irregular heart rhythm, Denies lightheadedness, Denies palpitations, Reports dyspnea and Denies orthopnea Respiratory Respiratory: Reports as per HPI, Reports cough and Reports dyspnea Gastrointestinal Gastrointestinal: Denies abdominal pain, Denies change in bowel habits, Denies diarrhea, Denies nausea and Denies vomiting Genitourinary Genitourinary: Denies hematuria, Denies flank pain, Denies urinary incontinence and Denies urinary urgency Musculoskeletal Musculoskeletal: Denies neck pain Integumentary/Breasts Skin/Breast: Denies pruritus, Denies erythema, Denies rash and Denies wounds Neurologic Neurologic: Denies loss of vision and Denies weakness Endocrine Endocrine: Denies palpitations [facility] Medical History Diabetes mellitus type II, non insulin dependent (Chronic) HTN (hypertension) (Chronic) Hypercholesterolemia (Chronic) Surgical History History of bladder surgery (Resolved) History of cholecystectomy (Inactive) History of repair of hiatal hernia (Chronic) Status post hysterectomy (Resolved) Family History Sister Cancer Brother Cancer Sister Cancer Mother Cancer Social History Smoking Status: Never smoker Family History Sister Cancer Brother Cancer Sister Cancer Mother Cancer Social History household members: significant other Smoking Status: Never smoker Exam Initial Vital Signs Initial Vital Signs: Vital Signs Temperature 98.8 F 12/10/18 07:58 Pulse Rate 94 H 12/10/18 07:58 Respiratory Rate 24 12/10/18 07:58 Blood Pressure 176/65 H 12/10/18 07:58 Pulse Oximetry 98 12/10/18 07:58 GENERAL: Alert elderly female in [id number] respiratory distress and in no acute distress. HEENT: Head atraumatic,EOMI, pupils reactive, face symmetric, CARDIOVASCULAR: Regular rate and rhythm without murmurs, rubs or gallops. RESPIRATORY: Breath sounds equal bilaterally, no wheezes rales or rhonchi. ABDOMEN: Soft, nontender. Normoactive bowel sounds all 4 quadrants. No guarding or rebound. EXTREMITIES: Normal range of motion, no clubbing or edema. Neurovascularly intact RECTAL: Hemorrhoids noted guaiac-negative NEUROLOGICAL: Alert and oriented x4.Normal gait and speech. Cranial nerves II through XII grossly intact. SKIN: Multiple sores all over body legs arms Course Orders Ordered: ED Orders 12/10/18 07:58 Consult to Respiratory Therapy Evaluate & Treat EKG-12 Lead Stat 12/10/18 07:59 XR chest 1V Stat 12/10/18 08:19 B Type Natriuretic Peptide Stat Complete Blood Count AUTO DIFF Stat Comprehensive Metabolic Panel Stat Lactate (Lactic Acid) Stat Magnesium Stat Partial Thromboplastin Time Stat Procalcitonin Stat Prothrombin Time INR Stat Troponin & CK Cardiac Panel Stat 12/10/18 08:50 Blood Culture Stat 12/10/18 09:30 Packed Cells Stat Type and Screen Stat Urinalysis and Microscopic Stat Urine Culture Stat Discontinued Medications Albuterol/Ipratropium (Duoneb) 3 ml INH NOW ONE Stop: 12/10/18 07:59 Last Admin: 12/10/18 08:17 Dose: 3 ml Documented by: JFREELA Furosemide (Lasix) 40 mg IV NOW ONE Stop: 12/10/18 08:55 Last Admin: 12/10/18 09:10 Dose: 40 mg Documented by: JOSE Furosemide (Lasix) 20 mg IV NOW ONE Stop: 12/10/18 10:06 Levofloxacin (Levaquin) 750 mg in 150 mls @ 100 mls/hr IV NOW ONE Stop: 12/10/18 10:23 Last Admin: 12/10/18 09:10 Dose: 100 mls/hr Documented by: JOSE Vital Signs Vital signs: Vital Signs - 8 hr 12/10/18 07:58 12/10/18 08:18 12/10/18 08:30 Temperature 98.8 F Pulse Rate 94 H 89 83 Respiratory Rate 24 23 18 Blood Pressure 176/65 H Blood Pressure [Right Arm] 166/78 H Pulse Oximetry 98 99 96 12/10/18 09:00 Temperature Pulse Rate 86 Respiratory Rate 26 H Blood Pressure Blood Pressure [Right Arm] 143/54 H Pulse Oximetry 94 MDM - SOB/Dyspnea Lab Data Attestation: I reviewed the patient's lab results. Result diagrams: 12/10/18 08:19 12/10/18 08:19 Labs: Lab Results 12/10/18 12/10/18 12/10/18 Range/Units 08:19 08:19 08:19 WBC 11.5 H (4.5-11.0) X10^3/uL RBC 3.20 L (4.0-5.2) X10^6/uL Hgb 7.5 L (12.0-16.0) g/dL Hct 24.1 L (36-46) % MCV 75.4 L (80-100) fL MCH 23.4 L (26-34) PG MCHC 31.0 (30-36) % RDW 16.7 H (11.6-14.8) % Plt Count 288 (150-400) X10^3/uL Neut % (Auto) 58.2 (50-75) % Lymph % (Auto) 29.6 (25-40) % [place] % (Auto) 9.4 (3-14) % Eos % (Auto) 2.4 (2-4) % Baso % (Auto) 0.4 (0-2) % Neut # (Auto) 6700 (6590-6076) /uL Lymph # (Auto) 3400 (0917-1282) /uL [place] # (Auto) 1100 H (0-900) /uL Eos # (Auto) 300 (0-450) /uL Baso # (Auto) 0 (0-100) /uL PT 13.1 H (10.1-12.7) SECONDS INR 1.1 (0.9-1.3) APTT 29 (26.4-36.2) SECONDS Sodium (137-145) mmol/L Potassium (3.4-5.1) mmol/L Chloride (98-107) mmol/L Carbon Dioxide (22-32) mmol/L BUN (7-17) mg/dL Creatinine (0.52-1.04) mg/dL Estimated GFR (>60) mL/min BUN/Creatinine Ratio (6-22) Glucose (80-110) mg/dL Lactate (0.7-2.1) mmol/L Calcium (8.4-10.2) mg/dL Magnesium 1.6 (1.6-2.3) mg/dL Total Bilirubin (0.2-1.3) mg/dL AST (14-36) IU/L ALT (9-52) IU/L Alkaline Phosphatase (38-126) U/L Total Creatine Kinase 49 (30-135) U/L CK-MB (CK-2) TNP CK-MB (CK-2) Rel Index TNP Troponin I < 0.012 (0.01-0.034) ng/mL B-Natriuretic Peptide 695 H (<100) Total Protein (6.3-8.2) g/dL Albumin (3.5-5.0) g/dL Globulin (1.7-4.1) g/dL Albumin/Globulin Ratio (1.0-2.8) Procalcitonin (<0.5) ng/mL Urine Color Urine Appearance Urine pH (4.5-8.0) Ur Specific [place] (1.000-1.035) Urine Protein (Negative) Urine Glucose (UA) (Negative) g/dL Urine Ketones (NEGATIVE) Urine Occult Blood (Negative) Urine Nitrate (Negative) Urine Bilirubin (NEGATIVE) Urine Urobilinogen (0.2) E.U./dL Ur Leukocyte Esterase (NEGATIVE) Urine RBC (0-5/HPF) Urine WBC (0-5/HPF) Urine Bacteria (None) Ur Culture Indicated? Blood Type Antibody Screen Crossmatch 12/10/18 12/10/18 12/10/18 Range/Units 08:19 08:19 08:19 WBC (4.5-11.0) X10^3/uL RBC (4.0-5.2) X10^6/uL Hgb (12.0-16.0) g/dL Hct (36-46) % MCV (80-100) fL MCH (26-34) PG MCHC (30-36) % RDW (11.6-14.8) % Plt Count (150-400) X10^3/uL Neut % (Auto) (50-75) % Lymph % (Auto) (25-40) % [place] % (Auto) (3-14) % Eos % (Auto) (2-4) % Baso % (Auto) (0-2) % Neut # (Auto) (0004-0763) /uL Lymph # (Auto) (1782-6394) /uL [place] # (Auto) (0-900) /uL Eos # (Auto) (0-450) /uL Baso # (Auto) (0-100) /uL PT (10.1-12.7) SECONDS INR (0.9-1.3) APTT (26.4-36.2) SECONDS Sodium 137 (137-145) mmol/L Potassium 3.4 (3.4-5.1) mmol/L Chloride 98 (98-107) mmol/L Carbon Dioxide 29 (22-32) mmol/L BUN 14 (7-17) mg/dL Creatinine 0.60 (0.52-1.04) mg/dL Estimated GFR > 60.0 (>60) mL/min BUN/Creatinine Ratio 23.3 H (6-22) Glucose 146 H (80-110) mg/dL Lactate 1.0 (0.7-2.1) mmol/L Calcium 9.0 (8.4-10.2) mg/dL Magnesium (1.6-2.3) mg/dL Total Bilirubin 0.6 (0.2-1.3) mg/dL AST 20 (14-36) IU/L ALT 15 (9-52) IU/L Alkaline Phosphatase 45 (38-126) U/L Total Creatine Kinase (30-135) U/L CK-MB (CK-2) CK-MB (CK-2) Rel Index Troponin I (0.01-0.034) ng/mL B-Natriuretic Peptide (<100) Total Protein 6.7 (6.3-8.2) g/dL Albumin 3.8 (3.5-5.0) g/dL Globulin 2.9 (1.7-4.1) g/dL Albumin/Globulin Ratio 1.3 (1.0-2.8) Procalcitonin < 0.05 (<0.5) ng/mL Urine Color Urine Appearance Urine pH (4.5-8.0) Ur Specific [place] (1.000-1.035) Urine Protein (Negative) Urine Glucose (UA) (Negative) g/dL Urine Ketones (NEGATIVE) Urine Occult Blood (Negative) Urine Nitrate (Negative) Urine Bilirubin (NEGATIVE) Urine Urobilinogen (0.2) E.U./dL Ur Leukocyte Esterase (NEGATIVE) Urine RBC (0-5/HPF) Urine WBC (0-5/HPF) Urine Bacteria (None) Ur Culture Indicated? Blood Type Antibody Screen Crossmatch 12/10/18 12/10/18 Range/Units 09:30 09:30 WBC (4.5-11.0) X10^3/uL RBC (4.0-5.2) X10^6/uL Hgb (12.0-16.0) g/dL Hct (36-46) % MCV (80-100) fL MCH (26-34) PG MCHC (30-36) % RDW (11.6-14.8) % Plt Count (150-400) X10^3/uL Neut % (Auto) (50-75) % Lymph % (Auto) (25-40) % [place] % (Auto) (3-14) % Eos % (Auto) (2-4) % Baso % (Auto) (0-2) % Neut # (Auto) (8304-6702) /uL Lymph # (Auto) (4687-9967) /uL [place] # (Auto) (0-900) /uL Eos # (Auto) (0-450) /uL Baso # (Auto) (0-100) /uL PT (10.1-12.7) SECONDS INR (0.9-1.3) APTT (26.4-36.2) SECONDS Sodium (137-145) mmol/L Potassium (3.4-5.1) mmol/L Chloride (98-107) mmol/L Carbon Dioxide (22-32) mmol/L BUN (7-17) mg/dL Creatinine (0.52-1.04) mg/dL Estimated GFR (>60) mL/min BUN/Creatinine Ratio (6-22) Glucose (80-110) mg/dL Lactate (0.7-2.1) mmol/L Calcium (8.4-10.2) mg/dL Magnesium (1.6-2.3) mg/dL Total Bilirubin (0.2-1.3) mg/dL AST (14-36) IU/L ALT (9-52) IU/L Alkaline Phosphatase (38-126) U/L Total Creatine Kinase (30-135) U/L CK-MB (CK-2) CK-MB (CK-2) Rel Index Troponin I (0.01-0.034) ng/mL B-Natriuretic Peptide (<100) Total Protein (6.3-8.2) g/dL Albumin (3.5-5.0) g/dL Globulin (1.7-4.1) g/dL Albumin/Globulin Ratio (1.0-2.8) Procalcitonin (<0.5) ng/mL Urine Color Yellow Urine Appearance Cloudy Urine pH 7.0 (4.5-8.0) Ur Specific [place] 1.010 (1.000-1.035) Urine Protein Negative (Negative) Urine Glucose (UA) Negative (Negative) g/dL Urine Ketones Negative (NEGATIVE) Urine Occult Blood Trace-lysed (Negative) Urine Nitrate Positive (Negative) Urine Bilirubin Negative (NEGATIVE) Urine Urobilinogen 0.2 (0.2) E.U./dL Ur Leukocyte Esterase 3+ H (NEGATIVE) Urine RBC 0-1/hpf (0-5/HPF) Urine WBC >100/hpf H (0-5/HPF) Urine Bacteria Many (>30) H (None) Ur Culture Indicated? Specimen cultured Blood Type A Positive Antibody Screen Negative Crossmatch See Detail Imaging Data Chest x-ray: Radiologist's impression: PROCEDURE: XR CHEST 1V INDICATIONS: short of breath TECHNIQUE: One view of the chest was acquired. COMPARISON: [facility], CR, XR CHEST 2V, 09/15/2017, 8:13. FINDINGS: Surgical changes and devices: None. Lungs and pleura: There is bilateral moderate pulmonary edema. Bibasilar medial opacities are also demonstrated consistent with consolidation/pneumonia or atelectasis. The distribution also suggests possible aspiration. There is hyperinflation of the lungs with flattening of the hemidiaphragms compatible with COPD. No definite pleural effusions or pneumothorax. Mediastinum: There is a large hiatal hernia redemonstrated. Heart size appears enlarged, increased in size from the prior study. Bones and chest wall: No suspicious bony lesions. Overlying soft tissues appear unremarkable. IMPRESSION: 1. Moderate pulmonary edema. 2. Bibasilar medial opacities consistent with consolidation/pneumonia versus atelectasis. The distribution of findings also suggests possible aspiration. 3. Enlargement of the cardiac contour compared to the prior study. Although this may be due in part to differences in technique, the findings also raise the possibility of a pericardial effusion and correlation is recommended clinically. 4. Findings consistent with COPD redemonstrated. Dictated by: Donovan Lechuga M.D. on 12/10/2018 at 7:42 Approved by: Donovan Lechuga M.D. on 12/10/2018 at 7:48 MDM Narrative Medical decision making narrative: Patient overall breathing much better after oxygen administration. She did get a DuoNeb treatment it seemed to help a little bit. X-ray does demonstrate some pulmonary edema questionable pneumonia. Her BNP is also noted to be slightly elevated at 695 she appears to be on Lasix at home no history of CHF that I see. She is given Lasix, and Levaquin she is allergic to azithromycin. He is also found to be anemic. She denies any bloody or black stool she says she does have some blood when she strains but has known hemorrhoids. Guaiac has no gross blood. I called and spoke with Dr. last, who agrees with admission blood transfusion and Lasix between units Discharge Plan Departure Patient Disposition: Admitted As Inpatient Clinical Impression: Ventral incisional hernia without obstruction or gangrene Discharge Date/Time: 12/10/18 11:04 Admit Date/Time: 12/10/18 10:14 Admit Provider: Samaria Last
[2018-12-10 08:35] LABS: Add Manual Diff / Slide Review NO; Basophils Absolute Auto 0 /uL (0-100); Basophils Percent Auto 0.4 % (0-2); Eosinophils Absolute Auto 300 /uL (0-450); Eosinophils Percent Auto 2.4 % (2-4); Hematocrit 24.1 % (36-46); Hemoglobin 7.5 g/dL (12.0-16.0); Lymphocytes Absolute Auto 3400 /uL (1100-4500); Lymphocytes Percent Auto 29.6 % (25-40); Mean Corpuscular Hemoglobin 23.4 PG (26-34); Mean Corpuscular Volume 75.4 fL (80-100); Monocytes Absolute Auto 1100 /uL (0-900); Monocytes Percent Auto 9.4 % (3-14); Neutrophils Absolute Auto 6700 /uL (1500-7000); Neutrophils Percent Auto 58.2 % (50-75); Platelet Count 288 X10^3/uL (150-400); Red Cell Distribution Width 16.7 % (11.6-14.8); White Blood Cell Count 11.5 X10^3/uL (4.5-11.0)
[2018-12-10 08:45] LABS: INR 1.1 (0.9-1.3); Prothrombin Time 13.1 SECONDS (10.1-12.7)
[2018-12-10 08:48] LABS: PTT Partial Thromboplastin Tim 29 SECONDS (26.4-36.2)
[2018-12-10 08:49] LABS: Creatine Kinase 49 U/L (30-135); Magnesium 1.6 mg/dL (1.6-2.3)
[2018-12-10 08:50] LABS: Alanine Aminotransferase 15 IU/L (9-52); Albumin 3.8 g/dL (3.5-5.0); Albumin Globulin Ratio 1.3 (1.0-2.8); Alkaline Phosphatase 45 U/L (38-126); Aspartate Aminotransferase 20 IU/L (14-36); BUN Creatinine Ratio 23.3 (6-22); Bilirubin Total 0.6 mg/dL (0.2-1.3); Blood Urea Nitrogen 14 mg/dL (7-17); Carbon Dioxide 29 mmol/L (22-32); Chloride 98 mmol/L (98-107); Estimated Glomerular Filt Rate > 60.0 mL/min (>60); Globulin 2.9 g/dL (1.7-4.1); Glucose 146 mg/dL (80-110); HEMOLYSIS < 15 (0-50); Potassium 3.4 mmol/L (3.4-5.1); Sodium 137 mmol/L (137-145); Total Protein 6.7 g/dL (6.3-8.2)
[2018-12-10 09:01] LABS: Troponin I < 0.012 ng/mL (0.01-0.034)
[2018-12-10 09:10] LABS: Procalcitonin < 0.05 ng/mL (<0.5)
[2018-12-10] MEDS: FUROSEMIDE 40 MG/4 ML VIAL IV (09:10)
[2018-12-10] MEDS: levoFLOXacin 750 MG/150 ML PIGGYBACK 100 MG IV (09:10)
[2018-12-10 09:11] LABS: B Type Natriuretic Peptide 695 (<100)
[2018-12-10 09:35] LABS: Appearance Urine UA CLOUDY; Bilirubin Urine UA NEGATIVE (NEGATIVE); Color Urine UA YELLOW; Glucose Urine UA NEGATIVE (Negative); Ketones Urine UA NEGATIVE (NEGATIVE); Leukocyte Esterase Urine UA 3+ (NEGATIVE); Nitrite Urine UA POSITIVE (Negative); Occult Blood Urine UA TRACE-LYSED (Negative); Protein Urine UA NEGATIVE (Negative); Urobilinogen Urine UA 0.2 E.U./dL (0.2)
[2018-12-10 09:51] LABS: Bacteria Urine Many (>30); RBC Urine 0-1/HPF (0-5/HPF); WBC Urine >100/HPF (0-5/HPF)
[2018-12-10 09:52] LABS: Culture Indicated Urine Specimen Cultured
--- NOTE | 2018-12-10 14:28 | PC.NURSE ---
Addendum entered by Vitor Naidu R.N. 12/10/18 14:51: Dr. Last here to see Pt. see new orders. Original Note: Pt alert and oriented., URI somewhat coarse intermittent wheeze. BT's hypo. IV AC. Blood TX 1st unit started at 14:07. running at 75cc/hr. needs lasix then second unit. Dr. Last here to see Pt. Orders to follow. S.O. Hector home get Pt's teeth and glasses.
--- NOTE | 2018-12-10 14:39 | DI.ECHO.S_ITS ---
[facility]---------+ [facility] +---------+ : : [address] : : : : [id number] : : : : Phone: [phone]+ Echocardiogram Report + + :Name: NICCI PEREZ Study Date: 12/11/2018 Height: 62 in : :[facility] Weight: 157 lb : : Gender: Female BSA: 1.7 m2 : :: 1935 Age: 83 yrs BP: 140/71 mmHg: :Reason For Study: SOB : : Performed By: Makenzie Tate : :Referring: CAROL GUTIÉRREZ : + + Interpretation Summary Left ventricular wall thickness is mild-moderately increased. The left ventricular ejection fraction is normal. Diastolic parameters suggest a restrictive filling pattern consistent with probable significantly elevated filling pressures. The right ventricle grossly appears normal in size with probable normal systolic function. The right ventricular systolic pressure is estimated to be at least 57 mmHg based on an estimated right atrial pressure of 8 mm Hg. -Overall this echo shows diastolic dysfunction with elevated filling pressures, moderate MR and moderate pulmonary hypertension. -There is no prior echocardiogram for comparison. Procedure: A two-dimensional transthoracic echocardiogram with color flow and Doppler was performed. The study quality was technically good. There is no prior echocardiogram noted for this patient. The patient was in normal sinus rhythm during the exam. Left Ventricle: The left ventricle is normal in size. Left ventricular wall thickness is mild-moderately increased. The ejection fraction is estimated to be 60-65%. The left ventricular ejection fraction is normal. Diastolic parameters suggest a restrictive filling pattern consistent with probable significantly elevated filling pressures. Right Ventricle: The right ventricle grossly appears normal in size with probable normal systolic function. Atria: The left atrium is severely dilated. The right atrium is mildly dilated. The interatrial septum is intact with no evidence for an atrial septal defect. Mitral Valve: The mitral valve leaflets appear mildly thickened, but open well. There is moderate mitral regurgitation. There is an eccentric jet of mitral regurgitation that is directed posteriorly. Aortic Valve: The aortic valve is trileaflet. The aortic valve opens well. No aortic regurgitation is present. Tricuspid Valve: The tricuspid valve leaflets are thin and pliable. There is mild tricuspid regurgitation. The right ventricular systolic pressure is estimated to be at least 57 mmHg based on an estimated right atrial pressure of 8 mm Hg. Pulmonic Valve: The pulmonic valve is not well seen, but is grossly normal. There is trace pulmonic regurgitation. Great Vessels: The aortic root is normal size. The dimensions of the ascending aorta are normal. The aortic arch is at the upper limits of normal in size. The IVC is dilated (diameter is greater than 2.1 cm) yet it collapses greater than 50% with a sniff. This suggests a right atrial pressure of 8 mm Hg. Pericardium/ Pleura There is no pericardial effusion. There is no pleural effusion. MMode/2D Measurements & Calculations LVIDd: 5.3 cm LVOT diam: 3.0 cm LVIDs: 3.3 cm Ao root diam: 3.0 cm FS: 37.5 % Aortic Jxn: 2.3 cm IVSd: 1.1 cm asc Aorta Diam: 2.9 cm LVPWd: 1.0 cm Ao Arch Diam (Prox Trans): 3.2 cm LV dunn. diameter/BSA (cm/m^2): 3.1 LV sys. diameter/BSA (cm/m^2): 1.9 LA dimension: 3.9 cm RA long axis: 6.0 cm LA A2 area: 28.3 cm2 RA area: 22.4 cm2 LA A4 area: 29.9 cm2 RA vol: 71.0 ml LA length (vol): 6.2 cm RA : 41.2 ml/m2 LA vol: 115.5 ml IVC diam: 1.9 cm LA vol index: 67.0 ml/m2 RVDd major: 4.8 cm RVD1 (basal): 3.0 cm LVAd ap2: 27.7 cm2 RVD2 (mid): 2.7 cm LVLd ap2: 7.4 cm LVAs ap2: 15.8 cm2 LVLs ap2: 6.1 cm Doppler Measurements & Calculations Ao V2 max: 156.4 cm/sec MV E max brandon: 172.5 cm/sec Ao V2 mean: 95.6 cm/sec MV A max brandon: 118.6 cm/sec Ao max P.8 mmHg MV E/A: 1.5 Ao mean P.5 mmHg Med Peak E' Brandon: 6.3 cm/sec Ao V2 VTI: 35.5 cm E/E' med: 27.3 Lat Peak E' Brandon: 7.2 cm/sec E/E' lat: 24.1 E/e' average: 25.7 MV dec time: 0.15 sec MV P1/2t: 43.1 msec MR ERO: 0.12 cm2 TR max brandon: 351.5 cm/sec MV P1/2t max brandon: 172.6 cm/sec TR max P.4 mmHg MVA(P1/2t): 5.1 cm2 PA V2 max: 89.1 cm/sec PA V2 mean: 57.6 cm/sec PA mean P.6 mmHg PA Accel Time: 0.17 sec MR flow rate: 66.7 cm3/sec MR PISA radius: 0.52 cm Electronically signed by: Jewel Jenkins M.D. on Reading Physician:12/11/2018 02:14 PM
--- NOTE | 2018-12-10 15:11 | P.HP_ITS ---
History of Present Illness History of Present Illness Date Patient Seen: 12/10/18 Time Patient Seen: 15:14 Chief complaint: SOB Narrative: Patient presented to emergency room shortness of breath. She was found to have significant anemia and hypoxemia in the ER. It was thought that hypoxemia etiology was multifocal including related to anemia, possible congestive heart failure exacerbation, possible COPD exacerbation, possible pneumonia, possible UTI. She was given IV Lasix, oxygen and IV Levaquin 750 mg. She states that she is feeling less short of breath at that time. She has been in her usual state health however has been suffering from a diffuse body rash that causes itching to the point that she scratches it and that it bleeds. She has seen her primary care provider at by Dr. Reyes as well as ict project manager and they have not provided any solution but have given her multiple different topical creams. This is caused her difficulty sleeping so she has been less energetic and over the last 1-2 weeks has felt much less energetic. She states that yesterday she walked to the store and had to sit down because she was so breathless when she was walking home. She awakened this morning panicky struggling for air and sat up and that was the point that she contacted her boyfriend and told him to take her to the ER. She denies any palpitations. She denies any lightheadedness or dizziness but admits that her balance has been poor over the last year so. She has had multiple falls on review of her history in her chart. She has not had any chest pain. She does state she has had a cough and that she ?picked up a cold 2 days ago ?. She den ies any GI blood loss or change in her bowel movements although does have hemorrhoids which from time to time she will have bright red blood per rectum. She has felt tired. She has felt weak. She has not had nausea or vomiting or fever. She has not had headaches. Past medical history: 1. Type 2 diabetes well controlled with oral medications 2. Hypertension 3. Hyperlipidemia 4. Depression 5. Degenerative joint disease 6. GERD Past surgical history: 1. Bladder surgery 2. Cholecystectomy 3. Hiatal hernia repair 4. Status post hysterectomy for benign reasons 5. Right total knee replacement Family history: Two daughters recently for unknown reason Siblings have from various cancers Mother from cancer of unknown type No family history of strokes or heart attacks Health related behavior Patient has intermittently spoke but never very much. She has not smoked for a long time. She does not use alcohol on a regular basis. She does not use illicit drugs. She describes herself as an active person Social history: Patient lives here in and [place] close to the hospital. Patient is a of 6 years and has been living with her boyfriend for the last 3 years. She had 6 children and 2 have Patient History Medical History Diabetes mellitus type II, non insulin dependent (Chronic) HTN (hypertension) (Chronic) Hypercholesterolemia (Chronic) Surgical History History of bladder surgery (Resolved) History of cholecystectomy (Inactive) History of repair of hiatal hernia (Chronic) Status post hysterectomy (Resolved) Family History Sister Cancer Brother Cancer Sister Cancer Mother Cancer Social History Smoking Status: Never smoker Family & Social History Family History Sister Cancer Brother Cancer Sister Cancer Mother Cancer Social History: household members significant other Prior Living Arrangements Apartment/Condo Safety & Behavioral: Feels Safe in Current Yes Environment Been Physically Hurt or No Threatened By a Person Tobacco & Substance use: Smoking Status Never smoker alcohol intake frequency 0-2 drinks per day Substance Use Type does not use Meds Home Medications and Allergies Home Medications Medication Instructions Recorded Confirmed Type nitroglycerin [Nitrostat] 0.4 mg SUBLINGUAL Q5-15M PRN #0 07/06/09 04/25/18 History atenolol 100 mg tablet 100 mg PO DAILY 08/30/17 11/20/18 History doxepin 25 mg capsule 25 mg PO BEDTIME 08/30/17 11/20/18 History fluoxetine 20 mg capsule 40 mg PO DAILY 08/30/17 06/20/18 History amlodipine 10 mg PO DAILY 04/25/18 06/20/18 History esomeprazole magnesium 80 mg PO DAILY 04/25/18 06/20/18 History estradiol 0.5 mg PO DAILY 04/25/18 06/20/18 History furosemide 20 mg PO DAILY 04/25/18 11/20/18 History lovastatin 20 mg PO BEDTIME 04/25/18 06/20/18 History metformin 500 mg PO QAM 04/25/18 06/20/18 History triamcinolone acetonide 1 applic TOPICAL BID-TID 04/25/18 06/20/18 History hydroxyzine HCl 10 mg PO QID 06/20/18 06/20/18 History fluocinonide 1 applic TOPICAL DIRECTED 11/20/18 11/20/18 History permethrin 1 applic TOPICAL DIRECTED 11/20/18 11/20/18 History potassium chloride 10 meq PO DAILY 11/20/18 11/20/18 History Allergies Allergy/AdvReac Type Severity Reaction Status Date / Time MJ Inhibitors Allergy Intermediate Verified 11/25/18 10:46 guaifenesin Allergy Intermediate Verified 11/25/18 10:46 azithromycin Allergy Unknown Verified 11/25/18 10:46 dextromethorphan Allergy Unknown Verified 11/25/18 10:46 enalapril Allergy Unknown Verified 11/25/18 10:46 meloxicam Allergy Unknown Verified 11/25/18 10:46 pneumococcal vaccine Allergy Unknown Verified 11/25/18 10:46 [From PNEUMOVAX 23] ibuprofen AdvReac Unknown Verified 11/25/18 10:46 lidocaine AdvReac Unknown Verified 11/25/18 10:46 morphine AdvReac Unknown Verified 11/25/18 10:46 Review of Systems Cardiovascular Cardiovascular: Reports shortness of breath with activity, Reports shortness of breath when lying down and Reports shortness of breath causing sudden awakening Respiratory Respiratory: Reports cough and Reports dyspnea on exertion Gastrointestinal Gastrointestinal: Reports change in bowel habits Comments: Denies any bright red blood per rectum or black tarry stools but does have a history of hemorrhoids and intermittently when they are flaring will have blood per rectum but no acute problems Genitourinary Genitourinary: Reports urinary urgency Comments: Complains of pressure in pelvis as well as some slightly distention urine may be pinkish Musculoskeletal Comments: Right ankle pain Neurologic Comments: Feels balance is not good and on review of her chart she has had multiple ER visits for falling Psychiatric Comments: Has some sadness because recently lost 2 children Exam Vital Signs (past 8 hours): - 12/10/18 07:58 12/10/18 08:18 12/10/18 08:30 Temperature 98.8 F Pulse Rate 94 H 89 83 Respiratory Rate 24 23 18 Blood Pressure 176/65 H Blood Pressure [Right Arm] 166/78 H Pulse Oximetry 98 99 96 12/10/18 09:00 12/10/18 11:03 12/10/18 12:18 Temperature 98.1 F Pulse Rate 86 76 83 Respiratory Rate 26 H 18 18 Blood Pressure 142/58 H 144/93 H Blood Pressure [Right Arm] 143/54 H Pulse Oximetry 94 96 94 12/10/18 14:13 12/10/18 14:30 12/10/18 14:32 Temperature 99.1 F 99.8 F H 99.8 F H Pulse Rate 83 78 78 Respiratory Rate 22 24 24 Blood Pressure 154/66 H 155/70 H 155/70 H Blood Pressure [Right Arm] Pulse Oximetry 95 Oxygen Delivery Method Nasal Cannula Oxygen Flow Rate 2 Narrative Exam Narrative: Alert and oriented x3. Very pleasant elderly woman who is s omewhat difficult to understand because she is edentulous. She is in no apparent distress HEENT: Unremarkable other than edentulous Neck: Supple without adenopathy, jugular venous distention or bruit. No masses Chest: Decreased breath sounds baseline with scattered expiratory wheezes and rhonchi. No increased work of breathing, intercostal retraction or nasal flaring Cor: Regular rate and rhythm with distant S1 and S2 Abdomen: Positive bowel sounds, soft, nontender, nondistended, no hepa tosplenomegaly Extremities: Trace lower extremity edema right greater than left. Right knee with some tenderness to palpation previous knee replacement Skin diffuse excoriated macules legs arms back Objective Labs Result Diagrams: 12/10/18 08:19 12/10/18 08:19 Labs: Laboratory Results - last 24 hr 12/10/18 12/10/18 12/10/18 08:19 08:19 08:19 WBC 11.5 H RBC 3.20 L Hgb 7.5 L Hct 24.1 L MCV 75.4 L MCH 23.4 L MCHC 31.0 RDW 16.7 H Plt Count 288 Neut % (Auto) 58.2 Lymph % (Auto) 29.6 [place] % (Auto) 9.4 Eos % (Auto) 2.4 Baso % (Auto) 0.4 Neut # (Auto) 6700 Lymph # (Auto) 3400 [place] # (Auto) 1100 H Eos # (Auto) 300 Baso # (Auto) 0 PT 13.1 H INR 1.1 APTT 29 Sodium Potassium Chloride Carbon Dioxide BUN Creatinine Estimated GFR BUN/Creatinine Ratio Glucose Lactate Calcium Magnesium 1.6 Total Bilirubin AST ALT Alkaline Phosphatase Total Creatine Kinase 49 CK-MB (CK-2) TNP CK-MB (CK-2) Rel Index TNP Troponin I < 0.012 B-Natriuretic Peptide 695 H Total Protein Albumin Globulin Albumin/Globulin Ratio Procalcitonin Urine Color Urine Appearance Urine pH Ur Specific [place] Urine Protein Urine Glucose (UA) Urine Ketones Urine Occult Blood Urine Nitrate Urine Bilirubin Urine Urobilinogen Ur Leukocyte Esterase Urine RBC Urine WBC Urine Bacteria Ur Culture Indicated? Blood Type Antibody Screen Crossmatch 12/10/18 12/10/18 12/10/18 08:19 08:19 08:19 WBC RBC Hgb Hct MCV MCH MCHC RDW Plt Count Neut % (Auto) Lymph % (Auto) [place] % (Auto) Eos % (Auto) Baso % (Auto) Neut # (Auto) Lymph # (Auto) [place] # (Auto) Eos # (Auto) Baso # (Auto) PT INR APTT Sodium 137 Potassium 3.4 Chloride 98 Carbon Dioxide 29 BUN 14 Creatinine 0.60 Estimated GFR > 60.0 BUN/Creatinine Ratio 23.3 H Glucose 146 H Lactate 1.0 Calcium 9.0 Magnesium Total Bilirubin 0.6 AST 20 ALT 15 Alkaline Phosphatase 45 Total Creatine Kinase CK-MB (CK-2) CK-MB (CK-2) Rel Index Troponin I B-Natriuretic Peptide Total Protein 6.7 Albumin 3.8 Globulin 2.9 Albumin/Globulin Ratio 1.3 Procalcitonin < 0.05 Urine Color Urine Appearance Urine pH Ur Specific [place] Urine Protein Urine Glucose (UA) Urine Ketones Urine Occult Blood Urine Nitrate Urine Bilirubin Urine Urobilinogen Ur Leukocyte Esterase Urine RBC Urine WBC Urine Bacteria Ur Culture Indicated? Blood Type Antibody Screen Crossmatch 12/10/18 12/10/18 09:30 09:30 WBC RBC Hgb Hct MCV MCH MCHC RDW Plt Count Neut % (Auto) Lymph % (Auto) [place] % (Auto) Eos % (Auto) Baso % (Auto) Neut # (Auto) Lymph # (Auto) [place] # (Auto) Eos # (Auto) Baso # (Auto) PT INR APTT Sodium Potassium Chloride Carbon Dioxide BUN Creatinine Estimated GFR BUN/Creatinine Ratio Glucose Lactate Calcium Magnesium Total Bilirubin AST ALT Alkaline Phosphatase Total Creatine Kinase CK-MB (CK-2) CK-MB (CK-2) Rel Index Troponin I B-Natriuretic Peptide Total Protein Albumin Globulin Albumin/Globulin Ratio Procalcitonin Urine Color Yellow Urine Appearance Cloudy Urine pH 7.0 Ur Specific [place] 1.010 Urine Protein Negative Urine Glucose (UA) Negative Urine Ketones Negative Urine Occult Blood Trace-lysed Urine Nitrate Positive Urine Bilirubin Negative Urine Urobilinogen 0.2 Ur Leukocyte Esterase 3+ H Urine RBC 0-1/hpf Urine WBC >100/hpf H Urine Bacteria Many (>30) H Ur Culture Indicated? Specimen cultured Blood Type A Positive Antibody Screen Negative Crossmatch See Detail Assessment & Plan Assessment & Plan narrative: 83-year-old female admitted for hypoxemia suspect multifactorial Assessment 1. Possible pneumonia Plan: Continuous supplemental oxygen and IV Levaquin will give 750 mg IV Q 48 hours could she has normal renal function. And because of her age. Repeat CBC in a.m. Assessment 2. Hypoxemia with elevated BNP and history of possible heart failure. Unclear if this is an acute exacerbation but certainly complicated by possible pneumonia and anemia Plan: Patient received Lasix. We will give additional Lasix after 1 unit of blood. We will reassess in a.m.. We will continue with supplemental oxygen. We will watch for recurrence. We will do echo in a.m.. We will continue atenolol which patient has been on as an outpatient. Assessment 3. Normocytic anemia without evidence of acute blood loss Plan: Will transfuse 1 unit of blood. Will give IV Lasix after. Will guaiac stools. Will continue to monitor closely. Will continue with proton pump inhibitor Assessment 4. Infectious Disease. Chest x-ray with possible pneumonia and urine suspicious for bacteremia with some symptoms Plan: Continue with Levaquin. Await culture of urine. Assessment 5. Hypertension stable Plan: Continue with outpatient medications amlodipine 10 mg daily, atenolol 100 mg daily, Lasix 20 mg daily but I will not write for this we will reassess in the a.m.. To see her fluid status. Assessment 6. History of hypokalemia on potassium Plan continue outpatient supplement Assessment 7. Depression without acute exacerbation Plan: Continue on doxepin, fluoxetine Assessment 8. Frequent falls with weakness and balance instability Plan: PT evaluate and treat Assessment 9. Diffuse pruritus Plan: Will continue with outpatient treatment. Hydroxyzine as needed and triamcinolone as needed Assessment 10. GERD Pl an: Continue proton pump inhibitor Assessment 11. Type 2 diabetes Plan: Will continue outpatient treatment with metformin. Will do CBGS q.a.c. and q.h.s. and will do sliding scale insulin Code status: Full code Son is durable power of water systems designer. She will discuss this further with him.
[2018-12-10] MEDS: ATENOLOL 50 MG TABLET 100 MG PO (15:43)
[2018-12-10] MEDS: FLUoxetine 20 MG CAPSULE 40 MG PO (15:43)
[2018-12-10] MEDS: POTASSIUM CHLORIDE 10 MEQ TAB PO (15:44)
--- NOTE | 2018-12-10 16:17 | PC.NURSE ---
Addendum entered by Klarissa Virk R.N. 12/10/18 21:39: Blood transfusion complete at 1720. Lasix given, IV saline locked. Patient voiding q1-2 hours, SBA w/4ww to BSC. Remains Ox3, cooperative & friendly. VS are stable. Weaned to 1L O2 with sats 92-96%, patient reports less SOB tonight, respirations 18/minute, lungs diminished posteriorly with slight expiratory wheeze anteriorly. Sitting in bed watching TV, instructed to call nurse if has any needs/concerns--she agrees to this plan. Original Note: Evening note: Deyanira resting in bed, denies SOB at rest. 2L O2 sat 92-93% 1st unit of PRBC's transfusing to LAC with no observed difficulty, VS remain stable. Low grade temp 99.8. Patient voided 350 ml clear dilute yellow urine, 1 asst to BSC. She is oriented to situation & using call button appropriately, fall precautions in place for high fall risk.
[2018-12-10] MEDS: FUROSEMIDE 20 MG/2 ML VIAL IV (18:42)
[2018-12-10] MEDS: LOVASTATIN 20 MG TABLET PO (21:14)
[2018-12-10] MEDS: PANTOPRAZOLE 40 MG TABLET PO (21:15)
[2018-12-10] MEDS: DOXEPIN 25 MG CAPSULE PO (21:15)
[2018-12-11] VITALS (8 sets, daily range): BP systolic 140–153; BP diastolic 63–93; PULSE 59–70; RESP 15–24; TEMP 36.4–36.9; O2SAT 92–97
[2018-12-11 05:17] LABS: Add Manual Diff / Slide Review NO; Basophils Absolute Auto 100 /uL (0-100); Basophils Percent Auto 1.2 % (0-2); Eosinophils Absolute Auto 100 /uL (0-450); Eosinophils Percent Auto 0.5 % (2-4); Hemoglobin 8.3 g/dL (12.0-16.0); Lymphocytes Absolute Auto 3500 /uL (1100-4500); Lymphocytes Percent Auto 29.7 % (25-40); Mean Corpuscular HGB Conc 32.6 % (30-36); Mean Corpuscular Hemoglobin 24.6 PG (26-34); Mean Corpuscular Volume 75.5 fL (80-100); Monocytes Absolute Auto 1100 /uL (0-900); Monocytes Percent Auto 9.7 % (3-14); Neutrophils Absolute Auto 6900 /uL (1500-7000); Neutrophils Percent Auto 58.9 % (50-75); Platelet Count 244 X10^3/uL (150-400); Red Blood Cell Count 3.36 X10^6/uL (4.0-5.2); Red Cell Distribution Width 17.5 % (11.6-14.8); White Blood Cell Count 11.6 X10^3/uL (4.5-11.0)
[2018-12-11 05:23] LABS: Hematocrit 25.3 % (36-46)
[2018-12-11 05:24] LABS: Alanine Aminotransferase 19 IU/L (9-52); Albumin 3.5 g/dL (3.5-5.0); Albumin Globulin Ratio 1.3 (1.0-2.8); Alkaline Phosphatase 40 U/L (38-126); Aspartate Aminotransferase 17 IU/L (14-36); BUN Creatinine Ratio 18.3 (6-22); Bilirubin Total 0.9 mg/dL (0.2-1.3); Blood Urea Nitrogen 11 mg/dL (7-17); Calcium 8.6 mg/dL (8.4-10.2); Carbon Dioxide 30 mmol/L (22-32); Chloride 95 mmol/L (98-107); Estimated Glomerular Filt Rate > 60.0 mL/min (>60); Globulin 2.8 g/dL (1.7-4.1); Glucose 114 mg/dL (80-110); HEMOLYSIS < 15 (0-50); Potassium 3.7 mmol/L (3.4-5.1); Sodium 135 mmol/L (137-145); Total Protein 6.3 g/dL (6.3-8.2)
[2018-12-11 05:43] LABS: B Type Natriuretic Peptide 763 (<100)
--- NOTE | 2018-12-11 06:25 | PC.NURSE ---
Pt has been up in chair this night, she states that it feels more comfortable. Pt has been on 2 liters NC at 94%. Pt has bilateral Diminished lung sounds and wheezing. Pt is unable to lie flat and has SOB on exertion. Pt is stand by assist to the bathroom. Pt has rgt sided lower leg and foot edema 1+. Pt is on tele: NS.
[2018-12-11] MEDS: PANTOPRAZOLE 40 MG TABLET PO ×2 (08:14→21:00)
[2018-12-11] MEDS: METFORMIN HCL 500 MG TABLET PO (08:15)
[2018-12-11] MEDS: POTASSIUM CHLORIDE 10 MEQ TAB PO (08:15)
[2018-12-11] MEDS: AMLODIPINE 5 MG TABLET 10 MG PO (08:17)
[2018-12-11] MEDS: ATENOLOL 50 MG TABLET 100 MG PO (08:18)
[2018-12-11] MEDS: ESTRADIOL 0.5 MG TABLET PO (08:18)
[2018-12-11] MEDS: FLUoxetine 20 MG CAPSULE 40 MG PO (08:19)
--- NOTE | 2018-12-11 08:19 | PM.PN.1 ---
Subjective Subjective Date Patient Seen: 12/11/18 Time Patient Seen: 08:19 Interval history: Doing better this morning, breathing improved. Awaiting echo. Tolerating diet, no nausea or vomiting. Denies pain. Main complaint is her rash, very itchy, denies that she has had any cream placed on it. Exam Vital Signs (past 8 hours): - 12/11/18 04:00 12/11/18 04:06 12/11/18 08:06 Temperature 97.7 F 97.7 F 97.6 F Pulse Rate 70 70 69 Respiratory Rate 20 20 24 Blood Pressure 153/71 H 153/71 H 140/71 Pulse Oximetry 94 94 97 Oxygen Delivery Method Nasal Cannula Oxygen Flow Rate 2 Narrative Exam Narrative: GENERAL: Alert and oriented, appearing stated age and in no acute distress. HEENT: Head normocephalic/atraumatic. Pupils equal, round, and reactive to light and accomodation. Extraocular muscles intact. Tympanic membranes clear. Nasal mucosa moist, septum midline. Oral mucosa moist, no lesions. Neck soft and supple, no lymphadenopathy. LUNGS: Diminished inspiratory effort, mild expiratory wheeze heard throughout. No crackles. CV: Normal S1 and S2 with regular rate and rhythm, 3/5 systolic murmurs, no rubs or gallops. ABDOMEN: Soft, non-tender, non-distended, no organomegaly. Positive bowel sounds. EXTREMITIES: No clubbing, cyanosis, or edema. NEURO: Cranial nerves II through XII grossly intact, no focal deficits. PSYCH: Alert and oriented x 3. SKIN: Generalized, pruritic, ulcerated rash sparing soles, feet, groin with multiple excoriations. Objective Labs Result Diagrams: 12/11/18 05:00 12/11/18 05:00 Labs: Laboratory Results - last 24 hr 12/10/18 12/10/18 12/10/18 08:19 08:19 08:19 WBC 11.5 H RBC 3.20 L Hgb 7.5 L Hct 24.1 L MCV 75.4 L MCH 23.4 L MCHC 31.0 RDW 16.7 H Plt Count 288 Neut % (Auto) 58.2 Lymph % (Auto) 29.6 [place] % (Auto) 9.4 Eos % (Auto) 2.4 Baso % (Auto) 0.4 Neut # (Auto) 6700 Lymph # (Auto) 3400 [place] # (Auto) 1100 H Eos # (Auto) 300 Baso # (Auto) 0 PT 13.1 H INR 1.1 APTT 29 Sodium Potassium Chloride Carbon Dioxide BUN Creatinine Estimated GFR BUN/Creatinine Ratio Glucose Lactate Calcium Magnesium 1.6 Total Bilirubin AST ALT Alkaline Phosphatase Total Creatine Kinase 49 CK-MB (CK-2) TNP CK-MB (CK-2) Rel Index TNP Troponin I < 0.012 B-Natriuretic Peptide 695 H Total Protein Albumin Globulin Albumin/Globulin Ratio Procalcitonin Urine Color Urine Appearance Urine pH Ur Specific [place] Urine Protein Urine Glucose (UA) Urine Ketones Urine Occult Blood Urine Nitrate Urine Bilirubin Urine Urobilinogen Ur Leukocyte Esterase Urine RBC Urine WBC Urine Bacteria Ur Culture Indicated? Blood Type Antibody Screen Crossmatch 12/10/18 12/10/18 12/10/18 08:19 08:19 08:19 WBC RBC Hgb Hct MCV MCH MCHC RDW Plt Count Neut % (Auto) Lymph % (Auto) [place] % (Auto) Eos % (Auto) Baso % (Auto) Neut # (Auto) Lymph # (Auto) [place] # (Auto) Eos # (Auto) Baso # (Auto) PT INR APTT Sodium 137 Potassium 3.4 Chloride 98 Carbon Dioxide 29 BUN 14 Creatinine 0.60 Estimated GFR > 60.0 BUN/Creatinine Ratio 23.3 H Glucose 146 H Lactate 1.0 Calcium 9.0 Magnesium Total Bilirubin 0.6 AST 20 ALT 15 Alkaline Phosphatase 45 Total Creatine Kinase CK-MB (CK-2) CK-MB (CK-2) Rel Index Troponin I B-Natriuretic Peptide Total Protein 6.7 Albumin 3.8 Globulin 2.9 Albumin/Globulin Ratio 1.3 Procalcitonin < 0.05 Urine Color Urine Appearance Urine pH Ur Specific [place] Urine Protein Urine Glucose (UA) Urine Ketones Urine Occult Blood Urine Nitrate Urine Bilirubin Urine Urobilinogen Ur Leukocyte Esterase Urine RBC Urine WBC Urine Bacteria Ur Culture Indicated? Blood Type Antibody Screen Crossmatch 12/10/18 12/10/18 12/11/18 09: 09: 05:00 WBC 11.6 H RBC 3.36 L Hgb 8.3 L Hct 25.3 L MCV 75.5 L MCH 24.6 L MCHC 32.6 RDW 17.5 H Plt Count 244 Neut % (Auto) 58.9 Lymph % (Auto) 29.7 [place] % (Auto) 9.7 Eos % (Auto) 0.5 L Baso % (Auto) 1.2 Neut # (Auto) 6900 Lymph # (Auto) 3500 [place] # (Auto) 1100 H Eos # (Auto) 100 Baso # (Auto) 100 PT INR APTT Sodium Potassium Chloride Carbon Dioxide BUN Creatinine Estimated GFR BUN/Creatinine Ratio Glucose Lactate Calcium Magnesium Total Bilirubin AST ALT Alkaline Phosphatase Total Creatine Kinase CK-MB (CK-2) CK-MB (CK-2) Rel Index Troponin I B-Natriuretic Peptide 763 H Total Protein Albumin Globulin Albumin/Globulin Ratio Procalcitonin Urine Color Yellow Urine Appearance Cloudy Urine pH 7.0 Ur Specific [place] 1.010 Urine Protein Negative Urine Glucose (UA) Negative Urine Ketones Negative Urine Occult Blood Trace-lysed Urine Nitrate Positive Urine Bilirubin Negative Urine Urobilinogen 0.2 Ur Leukocyte Esterase 3+ H Urine RBC 0-1/hpf Urine WBC >100/hpf H Urine Bacteria Many (>30) H Ur Culture Indicated? Specimen cultured Blood Type A Positive Antibody Screen Negative Crossmatch See Detail 12/11/18 05:00 WBC RBC Hgb Hct MCV MCH MCHC RDW Plt Count Neut % (Auto) Lymph % (Auto) [place] % (Auto) Eos % (Auto) Baso % (Auto) Neut # (Auto) Lymph # (Auto) [place] # (Auto) Eos # (Auto) Baso # (Auto) PT INR APTT Sodium 135 L Potassium 3.7 Chloride 95 L Carbon Dioxide 30 BUN 11 Creatinine 0.60 Estimated GFR > 60.0 BUN/Creatinine Ratio 18.3 Glucose 114 H Lactate Calcium 8.6 Magnesium Total Bilirubin 0.9 AST 17 ALT 19 Alkaline Phosphatase 40 Total Creatine Kinase CK-MB (CK-2) CK-MB (CK-2) Rel Index Troponin I B-Natriuretic Peptide Total Protein 6.3 Albumin 3.5 Globulin 2.8 Albumin/Globulin Ratio 1.3 Procalcitonin Urine Color Urine Appearance Urine pH Ur Specific [place] Urine Protein Urine Glucose (UA) Urine Ketones Urine Occult Blood Urine Nitrate Urine Bilirubin Urine Urobilinogen Ur Leukocyte Esterase Urine RBC Urine WBC Urine Bacteria Ur Culture Indicated? Blood Type Antibody Screen Crossmatch Assessment & Plan Assessment & Plan narrative: 83 yo F admitted for hypoxemia suspect multifactorial. Assessment 1. Possible pneumonia Plan: Continue supplemental oxygen and IV Levaquin 750 mg IV Q 48 hours, renal dosing. Repeat CBC in a.m. Assessment 2. Hypoxemia with elevated BNP and history of possible heart failure. Unclear if this is acute exacerbation but certainly complicated by possible pneumonia and anemia. Plan: Patient received Lasix in ED and again after 1 unit of blood. H/H improved, BNP worsened. Will give additional dose of lasix and continue with supplemental oxygen. Echo pending this a.m.. Continue outpatient atenolol. BNP in am. Assessment 3. Normocytic anemia without evidence of acute blood loss, improving status post transfusion. Plan: Status post 1 unit of blood. BUN trending up, we will repeat Lasix 40 mg IV x1. Guaiac pending. Will continue to monitor closely with repeat CBC and BMP in am. Will continue with proton pump inhibitor Assessment 4. Infectious Disease. Chest x-ray with possible pneumonia and urine suspicious for bacteremia with some symptoms Plan: Continue with Levaquin. Await culture of urine. Assessment 5. Hypertension stable Plan: Continue with outpatient medications amlodipine 10 mg daily and atenolol 100 mg daily. Holding patient's usual dose of oral Lasix secondary to IV Lasix. Assessment 6. History of hypokalemia on potassium, stable. Plan: Continue outpatient supplement. Assessment 7. Depression without acute exacerbation Plan: Continue on doxepin, fluoxetine. Assessment 8. Frequent falls with weakness and balance instability Plan: PT evaluate and treat. Assessment 9. Diffuse pruritus Plan: Will continue with outpatient treatment, patient has Dermatology follow-up. Hydroxyzine as needed and triamcinolone as needed. Assessment 10. GERD Plan: Continue proton pump inhibitor. Assessment 11. Type 2 diabetes Plan: Will continue outpatient treatment with metformin. Will do CBGS q.a.c. and q.h.s. and will do sliding scale insulin. Code status: Full code Son is durable power of commonwealth attorney. She will discuss this further with him.
--- NOTE | 2018-12-11 08:27 | PC.NURSE ---
Addendum entered by Nany Francois R.N. 12/11/18 11:34: Patient ambulated with PT. Denied SOB, O2 removed, patient stating at 96% on room air. Original Note: Paitient sitting on edge of bed eating breakfast. Denies SOB, or pain at this time. On NC at 2 L, pulse ox taken off for breakfast. Pt. knows we need to collect a stool guiac. Hat placed. Patient A/O x4. Denies further needs at this time.
--- NOTE | 2018-12-11 09:17 | PT.IIE ---
Surgical History (Last Reviewed 12/10/18 @ 08:37 by Andreea Carter DO) History of bladder surgery (Resolved) History of cholecystectomy (Inactive) History of repair of hiatal hernia (Chronic) Status post hysterectomy (Resolved) Medical History (Last Reviewed 12/10/18 @ 08:37 by Andreea Carter DO) Diabetes mellitus type II, non insulin dependent (Chronic) HTN (hypertension) (Chronic) Hypercholesterolemia (Chronic) Physical Therapy Inpatient Evaluation/Re-Eval M1 PT/OT-IP Prior Functional Status Start: 12/11/18 08:18 Freq: NEEDED Status: Active Protocol: Document 12/11/18 09:06 RS (Rec: 12/11/18 09:17 RS [id number]) Medical Review Prior Functional Status Medical History Reviewed Yes Diet/Fluid Consistency Regular Communication no known deficits Mobility and Gait recently was given a SPC but rarely uses it, mostly ind without AD for household and community amb, will walk to the store with a rolling basket/buggy (pt describes using it for her groceries and for support on the longer walk) Activities of Daily Living and IADL's denies needing assist with any self-care Prior Functional Level (Other details) doesn't drive, does endorse a few falls mostly because I'm not paying attention to where I'm going Social History Household Members significant other Living Arrangements Apartment/Condo Number of Floors (Floors) One Floor Number of Stairs To Enter/Railing? 0 Home Equipment Straight Cane Additional Social History Comment pt reports SO can help as much as is needed M2 PT-IP Current Condition Start: 12/11/18 08:18 Freq: NEEDED Status: Active Protocol: Document 12/11/18 09:06 RS (Rec: 12/11/18 09:17 RS [id number]) Physical Therapy Current Condition Current Condition Evaluation Date 12/11/18 Treatment Diagnosis SOB, limited activity tolerance Onset Date a few days ago M3 PT-IP Subjective Start: 12/11/18 08:18 Freq: NEEDED Status: Active Protocol: Document 12/11/18 09:06 RS (Rec: 12/11/18 09:17 RS [id number]) Subjective Physical Therapy Visit Type Type Initial Evaluation Visit Start Time 08:08 Visit Stop Time 09:06 Total Visit Minutes 58 Number of TRAINING SYSTEMS OFFICER Visits 0 Physical Therapy Visit Comments Patient Comments Pt reports not feeling back to 100% but does feel significantly better than she did before the blood transfusion Patient Goals go back to apartment with SO Therapy Pain Assessment Pain When Pain Assessed During Mobility Pain Present Pain Present Denied Pain M4 PT-IP Mobility and Gait Start: 12/11/18 08:18 Freq: NEEDED Status: Active Protocol: Document 12/11/18 09:06 RS (Rec: 12/11/18 09:17 RS [id number]) PT-Bed Mobility Assessment Supine to Sit Supine to Sit Independent Sit to Supine Sit to Supine Independent Scooting Scooting to Edge of Bed Independent Scooting Up and Down in Bed Independent PT-Transfer Assessment Sit to and From Stand Sit to and from Stand Standby Assistance Equipment Transfer Assistive Device Gait Belt Transfers Transfer Destination Bed,Chair Transfer Technique walked Transfer Ability Level of Assist Standby Assistance Gait Assessment Gait Gait Assistance Required: Standby Assistance Distance (Feet) 250 Assistive Devices Assistive Device Gait Belt Gait Deviations General Gait Pattern Within Normal Limits PT-Balance Assessment Sitting Balance and Reactions Static Sitting Balance Ability Normal Dynamic Sitting Balance Ability Normal Standing Balance and Reactions Static Standing Balance Ability Normal Dynamic Standing Balance Ability Good Device Used none M5 PT-IP Objective Assessments Start: 12/11/18 08:18 Freq: NEEDED Status: Active Protocol: Document 12/11/18 09:06 RS (Rec: 12/11/18 09:17 RS [id number]) Orientation Orientation/Cognition Level of Alertness Alert Orientation Name,Age,Birthday,Month,Date, Year,Day of Week,Place, Situation Language Function Ability No Deficits Noted Safety Awareness Understands Safety Issues Memory Description No Deficits Noted Gross Range of Motion Upper Extremity ROM Assessment Within Functional Limits Lower Extremity ROM Assessment Within Functional Limits Strength Upper Extremity Strength Assessment Within Functional Limits Lower Extremity Strength Assessment Within Functional Limits M6 PT-IP Treatment Start: 12/11/18 08:18 Freq: NEEDED Status: Active Protocol: Document 12/11/18 09:06 RS (Rec: 12/11/18 09:17 RS [id number]) Physical Therapy Treatment Education Education Provided Safety M7 PT-IP Assessment and Plan Start: 12/11/18 08:18 Freq: NEEDED Status: Active Protocol: Document 12/11/18 09:06 RS (Rec: 12/11/18 09:17 RS [id number]) PT Summary Assessment and Plan Potential Rehabilitation Potential Excellent Status of Condition at Evaluation Stable Summary Impairments Activity Tolerance Progress Towards Goals Safe For Discharge Assessment Summary Pt presents with significantly improving SOB with activity but still with limited activity tolerance compared to reported baseline. Pt is currently requiring SBA<> supervision for all OOB mobility, but this is more of a precaution as pt was just weaned from 2L to RA during this session. Anticipate that with regular/frequent mobility with nursing staff during the day that pt will be back to completely ind mobility by time of discharge. Pt will be seen by acute PT while still admitted to also address activity tolerance in addition to some higher level balance deficits. Pt will be safe for discharge home once medically ready, no DME needed, likely no f/u therapy. Goals Bed Mobility Goal Independent Transfer Goal Independent Gait Goal Independent Gait Distance 500 Days to Meet Goals 3 Frequency of Treatment Frequency Of Treatment Once a Day Treatment Plan Physical Therapy Treatment Plan Gait Training,Balance Retraining,Discharge Planning Other Recommendations and Next Treatment balance and longer gait Focus distance Recommendations To Nursing Amount of Assist Needed Standby Assistance Discharge Recommendations PT Discharge Recommendations Home with Assistance Other Discharge Recommendations might benefit from OPPT for balance (does have a hx of falls), but this isn't related to why pt is here Equipment Needed for Home Before none Discharge
[2018-12-11] MEDS: FUROSEMIDE 40 MG/4 ML VIAL IV (09:55)
--- NOTE | 2018-12-11 12:31 | CM.DANOTE ---
Discharge Planning/Care Management DCP: assessment: case received, EMR reviewed and met with pt. Introduced self and role. Pt as found sitting on edge of bed, eating lunch. Agreed to discussion. Info re current living situation obtained: see Template below. Pt is an 83 year old female who admitted to care of Dr. Last yesterday. Her PCP: Dr. Mariajose Reyes saw her today. She also follows with a retread mold operator for on ongoing generalized rash. Payer: [employer]. Admissions status: INPT: confirmed by [facility] RN Donovan. PT Soila (Marva) has worked with pt today and reports she did very well and says should be fine for return to the home setting. She does say PT will continue to see her during her stay. Pt does admit to some falls in past. She says the last one was related to a new medication she received and made her feel woozy and like I was standing out in a field somewhere. Did ask about HH services but pt at this point does not consider herself homebound. Will check in tomorrow and follow prn. P: likely home when stable for same with continued prn support from Alberto and Erasmo. She reports that Erasmo does live in [place] but checks in with them frequently. CM Discharge Assessment Start: 12/11/18 12:23 Freq: Status: Active Protocol: Document 12/11/18 12:26 ITV (Rec: 12/11/18 12:31 ITV [id number]) Discharge Planning Assessment Advance Directives? No History Provided By Patient,Significant Other Prior Living Arrangements Apartment/Condo Household Members significant other Comment pt says she lives with my boyfriend Hector (Jaydon Jasso Type of transporation used prior to Relies on Others admit Comment Erasmo and pt's nephew Alberto/ DPOA do the driving. Pt says she is NOT homebound and enjoys getting out. DME Already Rented / Owned Cane Comment just started using a cane at the recommendation of ER staff Transportation Arrangement via Alberto or Erasmo Whiteboard Updated in Patient Room with Yes name and ext. # of It Consulting Director Review Status In Process
[2018-12-11] MEDS: DOXEPIN 25 MG CAPSULE PO (20:59)
[2018-12-11] MEDS: LOVASTATIN 20 MG TABLET PO (21:00)
[2018-12-11] MEDS: TRIAMCINOLONE 0.5% CREAM 1 APPLIC TOP (21:02)
--- NOTE | 2018-12-11 23:27 | PC.NURSE ---
Converted to A-fib at 2209, per VALVE FITTER watching tele monitor. HR briefly tachy up to 180 bpm, then dropped to 110-120's, AFIB/RVR. VALVE FITTER ordered 12-lead EKG which confirmed AFIB/RVR. Patient denied chest pain or SOB, RA oxygen 96%, dozing intermittently on her side. She did say I just blew my nose really hard. I paged Dr Pratt twice now through [facility] answering service, 1st page around [phone], 2nd page at [phone], still no response from physician. Full patient report given to Leonela MONTANA RN who is aware of this situation.
[2018-12-12] VITALS (13 sets, daily range): BP systolic 120–169; BP diastolic 49–80; PULSE 53–129; RESP 14–18; TEMP 36.2–37.1; O2SAT 90–99
--- NOTE | 2018-12-12 01:07 | PC.NURSE ---
Dr Pratt called at 0100. Notified that the patient's heart rate is varying from 108 to 140's with a new onset rhythm of atrial fibrillation. Ordered cardizem PO every six hours with parameters in place.
[2018-12-12] MEDS: dilTIAZem 30 MG TABLET PO (01:27)
[2018-12-12] MEDS: levoFLOXacin 750 MG/150 ML PIGGYBACK 100 MG IV (06:47)
[2018-12-12] MEDS: PANTOPRAZOLE 40 MG TABLET PO ×2 (06:47→21:11)
[2018-12-12 06:59] LABS: BUN Creatinine Ratio 23.3 (6-22); Blood Urea Nitrogen 14 mg/dL (7-17); Calcium 8.3 mg/dL (8.4-10.2); Carbon Dioxide 31 mmol/L (22-32); Chloride 97 mmol/L (98-107); Estimated Glomerular Filt Rate > 60.0 mL/min (>60); Glucose 102 mg/dL (80-110); HEMOLYSIS < 15 (0-50); Potassium 2.8 mmol/L (3.4-5.1); Sodium 135 mmol/L (137-145)
[2018-12-12 07:01] LABS: Hematocrit 26.6 % (36-46); Hemoglobin 8.5 g/dL (12.0-16.0); Mean Corpuscular Hemoglobin 24.4 PG (26-34); Platelet Count 251 X10^3/uL (150-400); Red Blood Cell Count 3.51 X10^6/uL (4.0-5.2); Red Cell Distribution Width 17.5 % (11.6-14.8); White Blood Cell Count 8.7 X10^3/uL (4.5-11.0)
[2018-12-12 07:18] LABS: B Type Natriuretic Peptide 617 (<100)
[2018-12-12 07:35] LABS: Neutrophils Absolute Manual 4524 /uL (3000-5900); Total Cells Counted 100
[2018-12-12 07:36] LABS: Anisocytosis 1+
[2018-12-12 07:37] LABS: Hypochromasia 1+; Microcytosis 1+; Polychromasia 1+; Smudge Cells 1+
--- NOTE | 2018-12-12 08:36 | P.PN_ITS ---
Subjective Subjective Date Patient Seen: 12/12/18 Time Patient Seen: 08:37 Interval history: Had episode of atrial fibrillation overnight, was started on oral diltiazem 30 mg PO q 6 hours, heart rate now 53 beats per minute. First time echo yesterday revealed a normal left ventricular ejection fraction. She did have moderate mitral regurgitation and diastolic dysfunction restrictive filling pattern. She also has hypertension. Reports that her breathing is im proved. Tolerating diet, no nausea or vomiting. Denies pain. Continues to complain of her rash, very itchy, worsening yesterday when lotion applied. Nursing reports possible difficulty with swallowing, concern for aspiration risk. Exam Vital Signs (past 8 hours): - 12/12/18 01:27 12/12/18 03:37 12/12/18 05:46 Temperature 97.9 F Pulse Rate 122 H 54 L 53 L Respiratory Rate 18 Blood Pressure 128/80 120/49 L Pulse Oximetry 99 Oxygen Delivery Method Room Air Oxygen Flow Rate 2 Narrative Exam Narrative: GENERAL: Alert and oriented, appearing stated age and in no acute distress. HEENT: Head normocephalic/atraumatic. Pupils equal, round, and reactive to light and accomodation. Extraocular muscles intact. Tympanic membranes clear. Nasal mucosa moist, septum midline. Oral mucosa moist, no lesions. Neck soft and supple, no lymphadenopathy. LUNGS: Diminished inspiratory effort, mild expiratory wheeze heard throughout. No crackles. CV: Normal S1 and S2 with regular rate and rhythm, 3/5 systolic murmur, no rubs or gallops. ABDOMEN: Soft, non-tender, non-distended, no organomegaly. Positive bowel sounds. EXTREMITIES: No clubbing, cyanosis, or edema. NEURO: Cranial nerves II through XII grossly intact, no focal deficits. PSYCH: Alert and oriented x 3. SKIN: Generalized, pruritic, ulcerated rash sparing soles, feet, groin with multiple excoriations. Objective Labs Result Diagrams: 12/12/18 06:30 12/12/18 06:30 Labs: Laboratory Results - last 24 hr 12/12/18 12/12/18 06:30 06:30 WBC 8.7 RBC 3.51 L Hgb 8.5 L Hct 26.6 L MCV 76.0 L MCH 24.4 L MCHC 32.0 RDW 17.5 H Plt Count 251 Total Counted 100 Seg Neutrophils % 51.0 Band Neutrophils % 1.0 L Lymphocytes % (Manual) 30.0 Atypical Lymphs % 3.0 H Monocytes % (Manual) 9.0 Eosinophils % (Manual) 5.0 H Basophils % (Manual) 1.0 Neutrophils # (Manual) 4524 Smudge Cells 1+ H RBC Morphology See below Polychromasia 1+ H Hypochromasia 1+ H Anisocytosis 1+ H Microcytosis 1+ H Sodium 135 L Potassium 2.8 L Chloride 97 L Carbon Dioxide 31 BUN 14 Creatinine 0.60 Estimated GFR > 60.0 BUN/Creatinine Ratio 23.3 H Glucose 102 Calcium 8.3 L B-Natriuretic Peptide 617 H Assessment & Plan Assessment & Plan narrative: 83 yo F admitted for hypoxemia suspect multifactorial. New onset atrial fibrillation might have occurred prior to admission and prompted the hypoxemia. Assessment 1. Possible pneumonia, WBC normalized. Risk for aspiration. Plan: Continue supplemental oxygen and IV Levaquin 750 mg IV Q 48 hours, renal dosing. Repeat CBC in a.m. Swallow study today. Assessment 2. Hypoxemia with diastolic heart failure in the setting of new onset atrial fibrillation; complicated by possible pneumonia, UTI and anemia. Atrial fibrillation could be secondary to patient's infectious state, unclear at this point. Plan: Patient received Lasix in ED and again after 1 unit of blood. H/H improved, BNP now trending down. Will continue with higher dose of lasix and continue with supplemental oxygen. Continue outpatient atenolol and amlodipine. Continue new dose of diltiazem in the short term for the fibrilation, will watch heart rate closely and consult cardiology for persistent disease as patient may need anticoagulation and antiarrhythmics. BNP in am. Assessment 3. Anemia, hypochromic, microcytic. Status post transfusion. Peripheral smear now atypical with anisocytosis, polychromasia, hypochromasia, and smudge cells, concern for chronic lymphocytic leukemia. Plan: Status post 1 unit of blood. Guaiac pending. Will consult Hematology/Oncology. Will continue to monitor closely with repeat CBC and BMP in am. Will get iron studies and start iron if indicated. Assessment 4. Infectious Disease. Chest x-ray with possible pneumonia and urine suspicious for bacteremia with some symptoms. Plan: Continue with Levaquin. Await culture of urine. Assessment 5. Hypertension stable Plan: Continue with outpatient medications amlodipine 10 mg daily and atenolol 100 mg daily. Holding patient's usual dose of oral Lasix secondary to IV Lasix. Assessment 6. History of hypokalemia on potassium, trending down with increased lasix. Plan: Will increase potassium to 40 meq p.o. q.day and trend labs. Assessment 7. Depression without acute exacerbation Plan: Continue on doxepin, fluoxetine. Assessment 8. Frequent falls with weakness and balance instability Plan: PT evaluate and treat. Assessment 9. Diffuse pruritus Plan: Will continue with outpatient treatment, patient has Dermatology follow- up. Hydroxyzine as needed and triamcinolone as needed. Avoid lotion. Assessment 10. GERD Plan: Continue proton pump inhibitor. Assessment 11. Type 2 diabetes Plan: Will continue outpatient treatment with metformin. Will do CBGS q.a.c. and q.h.s. and will do sliding scale insulin. Code status: Full code Son is durable power of attorney recruiter. She will discuss this further with him.
[2018-12-12] MEDS: METFORMIN HCL 500 MG TABLET PO (10:25)
[2018-12-12] MEDS: FLUoxetine 20 MG CAPSULE 40 MG PO (10:25)
[2018-12-12] MEDS: ESTRADIOL 0.5 MG TABLET PO (10:26)
[2018-12-12] MEDS: ATENOLOL 50 MG TABLET 100 MG PO (10:28)
[2018-12-12] MEDS: AMLODIPINE 5 MG TABLET 10 MG PO (10:35)
[2018-12-12] MEDS: FUROSEMIDE 40 MG/4 ML VIAL IV (10:42)
--- NOTE | 2018-12-12 11:44 | PT.IPTN ---
Current Diagnoses Pneumonia, unspecified organism (12/10/18) Physical Therapy Treatment Note M2 PT-IP Current Condition Start: 12/11/18 08:18 Freq: NEEDED Status: Active Protocol: Document 12/11/18 09:06 RS (Rec: 12/11/18 09:17 RS [id number]) Physical Therapy Current Condition Current Condition Evaluation Date 12/11/18 Treatment Diagnosis SOB, limited activity tolerance Onset Date a few days ago M3 PT-IP Subjective Start: 12/11/18 08:18 Freq: NEEDED Status: Active Protocol: Document 12/12/18 11:25 CLB (Rec: 12/12/18 13:17 CLB [id number]) Subjective Physical Therapy Visit Type Type Treatment Note Visit Start Time 11:25 Visit Stop Time 11:44 Total Visit Minutes 19 Number of EDUCATIONAL MANAGER Visits 1 Physical Therapy Visit Comments Patient Comments Pt eager to take a walk. Patient Goals go back to apartment with SO Therapy Pain Assessment Pain When Pain Assessed During Mobility Pain Present Pain Present Denied Pain M4 PT-IP Mobility and Gait Start: 12/11/18 08:18 Freq: NEEDED Status: Active Protocol: Document 12/12/18 11:25 CLB (Rec: 12/12/18 13:17 CLB [id number]) PT-Transfer Assessment Sit to and From Stand Sit to and from Stand Standby Assistance Equipment Transfer Assistive Device Gait Belt Transfers Transfer Destination Chair Transfer Technique walked Transfer Ability Level of Assist Standby Assistance Gait Assessment Gait Gait Assistance Required: Standby Assistance Distance (Feet) 250 Assistive Devices Assistive Device Gait Belt M5 PT-IP Objective Assessments Start: 12/11/18 08:18 Freq: NEEDED Status: Active Protocol: Document 12/11/18 09:06 RS (Rec: 12/11/18 09:17 RS [id number]) Orientation Orientation/Cognition Level of Alertness Alert Orientation Name,Age,Birthday,Month,Date, Year,Day of Week,Place, Situation Language Function Ability No Deficits Noted Safety Awareness Understands Safety Issues Memory Description No Deficits Noted Gross Range of Motion Upper Extremity ROM Assessment Within Functional Limits Lower Extremity ROM Assessment Within Functional Limits Strength Upper Extremity Strength Assessment Within Functional Limits Lower Extremity Strength Assessment Within Functional Limits M6 PT-IP Treatment Start: 12/11/18 08:18 Freq: NEEDED Status: Active Protocol: Document 12/12/18 11:25 CLB (Rec: 12/12/18 13:17 CLB [id number]) Physical Therapy Treatment Other Treatments Other Treatment Performed Standing balance: NBOS EO/EC, modified tandem EO/EC M7 PT-IP Assessment and Plan Start: 12/11/18 08:18 Freq: NEEDED Status: Active Protocol: Document 12/12/18 11:25 CLB (Rec: 12/12/18 13:17 CLB [id number]) PT Summary Assessment and Plan Summary Assessment Summary Pt requires SBA for all mobility and gait. Pt able to ambulate ~250ft in [place] without c/o SOB or need of rest break. Goals Bed Mobility Goal Independent Transfer Goal Independent Gait Goal Independent Gait Distance 500 Days to Meet Goals 3 Frequency of Treatment Frequency Of Treatment Once a Day Treatment Plan Physical Therapy Treatment Plan Gait Training,Balance Retraining,Discharge Planning Other Recommendations and Next Treatment balance and longer gait Focus distance Recommendations To Nursing Amount of Assist Needed Standby Assistance Discharge Recommendations PT Discharge Recommendations Home with Assistance Other Discharge Recommendations might benefit from OPPT for balance (does have a hx of falls), but this isn't related to why pt is here Equipment Needed for Home Before none Discharge
[2018-12-12] MEDS: POTASSIUM CHLORIDE 20 MEQ TAB 40 MEQ PO (13:20)
[2018-12-12 14:26] LABS: Add Manual Diff / Slide Review NO; Basophils Absolute Auto 100 /uL (0-100); Basophils Percent Auto 0.9 % (0-2); Eosinophils Absolute Auto 300 /uL (0-450); Eosinophils Percent Auto 2.6 % (2-4); Hematocrit 27.8 % (36-46); Hemoglobin 8.8 g/dL (12.0-16.0); Lymphocytes Absolute Auto 3100 /uL (1100-4500); Lymphocytes Percent Auto 30.7 % (25-40); Mean Corpuscular HGB Conc 31.6 % (30-36); Mean Corpuscular Hemoglobin 24.1 PG (26-34); Mean Corpuscular Volume 76.5 fL (80-100); Monocytes Absolute Auto 1100 /uL (0-900); Monocytes Percent Auto 10.6 % (3-14); Neutrophils Absolute Auto 5500 /uL (1500-7000); Neutrophils Percent Auto 55.2 % (50-75); Platelet Count 256 X10^3/uL (150-400); Red Blood Cell Count 3.63 X10^6/uL (4.0-5.2); Red Cell Distribution Width 17.7 % (11.6-14.8)
--- NOTE | 2018-12-12 15:29 | PC.NURSE ---
Pt has a red rash to her trunk. Red in color. Unable to edit physical assessment. Pt is getting cream for this .
--- NOTE | 2018-12-12 17:11 | P.CONONC_ITS ---
History of Present Illness - Data of Consult Consult date: 12/12/18 Requesting Physician: Dr Reyes Primary Care Provider: Mariajose Reyes MD - Consult Narrative Narrative: Diagnosis: Anemia and presence of smudge cells on peripheral smear History of present illness: Deyanira Mauricio is a 83 year old female who was hospitalized 2 days ago with acute onset of shortness of breath. She was brought to the emergency room and found to have hypoxia in addition to a significant anemia. Her white count was 11.5 hemoglobin 7.5 hematocrit 24.1 with an MCV of 75 and platelets were normal at 288,000 hundred eighty eight thousand. She had an echocardiogram done that showed a normal ejection fraction. She did get a unit of blood and felt better after that. She notes that her shortness of breath has improved. She has had some easy bruising. She has had some skin rash on her back arms and legs that been present for several months. She has had some bleeding from excoriated lesions. She also has had hemorrhoids with occasional blood in the bowel movements. She has not noted any other unusual bleeding. She denies any epistaxis or gingival bleeding. She has not had any vaginal bleeding or hematuria. She has never required a prior transfusion. She is unaware of any history of anemia. However, review of old CBC shows that she is generally run hematocrit around 32 dating back as far as 2017. She has not been taking any iron that she has been aware of. She does not believe that she has ever had a colonoscopy. She has been bothered by a persistent rash. She has been working with a cargo and container inspector and tells me that she has had a biopsy. She has been using some various creams but has not found them to be helpful. Her appetite has been low. She has lost about 30 lb over the last several months. She does report some early satiety. She denies any nausea vomiting or abdominal pain. Bowels have been moving normally. She has not noticed any adenopathy. No fevers chills or night sweats. Her past medical history is notable for prior hysterectomy. She has had a history of a hiatal hernia. She has had a prior cholecystectomy and knee replacement. She has a history of hypertension and arthritis as well as GERD. Social history: She does not smoke. She does not use alcohol. Family history: She had a brother from colon cancer. She thinks someone else had stomach cancer. There is no family history of blood dyscrasias. CC: Samaria Last MD Home Medications and Allergies Home Medications Medication Instructions Recorded Confirmed Type nitroglycerin [Nitrostat] 0.4 mg SUBLINGUAL Q5-15M PRN #0 07/06/09 12/11/18 History atenolol 100 mg tablet 100 mg PO DAILY 08/30/17 12/11/18 History doxepin 25 mg capsule 25 mg PO BEDTIME 08/30/17 12/11/18 History fluoxetine 20 mg capsule 40 mg PO DAILY 08/30/17 12/11/18 History amlodipine 10 mg PO DAILY 04/25/18 12/11/18 History esomeprazole magnesium 80 mg PO DAILY 04/25/18 12/11/18 History estradiol 0.5 mg PO DAILY 04/25/18 12/11/18 History furosemide 20 mg PO DAILY 04/25/18 12/11/18 History lovastatin 20 mg PO BEDTIME 04/25/18 06/20/18 History metformin 500 mg PO QAM 04/25/18 12/11/18 History hydroxyzine HCl 10 mg PO QID 06/20/18 06/20/18 History fluocinonide 1 applic TOPICAL DIRECTED 11/20/18 12/11/18 History permethrin 1 applic TOPICAL DIRECTED 11/20/18 11/20/18 History potassium chloride 10 meq PO DAILY 11/20/18 12/11/18 History clobetasol 1 applic TOPICAL DIRECTED 12/11/18 12/11/18 History triamcinolone acetonide 1 applic TOPICAL DIRECTED 12/11/18 12/11/18 History Allergies Allergy/AdvReac Type Severity Reaction Status Date / Time MJ Inhibitors Allergy Intermediate Verified 11/25/18 10:46 guaifenesin Allergy Intermediate Verified 11/25/18 10:46 azithromycin Allergy Unknown Verified 11/25/18 10:46 dextromethorphan Allergy Unknown Verified 11/25/18 10:46 enalapril Allergy Unknown Verified 11/25/18 10:46 meloxicam Allergy Unknown Verified 11/25/18 10:46 pneumococcal vaccine Allergy Unknown Verified 11/25/18 10:46 [From PNEUMOVAX 23] ibuprofen AdvReac Unknown Verified 11/25/18 10:46 lidocaine AdvReac Unknown Verified 11/25/18 10:46 morphine AdvReac Unknown Verified 11/25/18 10:46 Medical History - Medical, Surgical, Family History Medical History: Medical History (Last Reviewed 12/10/18 @ 08:37 by Andreea Carter DO) Diabetes mellitus type II, non insulin dependent HTN (hypertension) Hypercholesterolemia Surgical History: Surgical History (Last Reviewed 12/10/18 @ 08:37 by Andreea Carter DO) History of bladder surgery History of cholecystectomy History of repair of hiatal hernia Status post hysterectomy Family History: Family History (Last Reviewed 12/10/18 @ 08:37 by Andreea Carter DO) Sister Cancer Brother Cancer Sister Cancer Mother Cancer - Social History Smoking Status: Never smoker Review of Systems Constitutional: weight loss, decreased activity level Ears, nose, mouth, throat: no headaches Cardiovascular: dyspnea on exertion Respiratory: shortness of breath Gastrointestinal: change in appetite, hemorrhoids, no constipation, no diarrhea Integumentary: rash, bleeding or bruising, itching Hematologic/Lymphatic: anemia, no enlarged lymph nodes Exam Vital signs: Vital Signs Temp Pulse Resp BP Pulse Ox 12/12/18 16:36 55 L 12/12/18 16:00 98.3 F 61 16 151/71 H 97 12/12/18 13:45 97.4 F L 61 14 147/67 H 96 12/12/18 11:50 97.3 F L 61 18 147/67 H 96 12/12/18 10:03 96 12/12/18 09:54 63 99 12/12/18 08:20 97.2 F L 74 14 169/78 H 96 12/12/18 05:46 53 L 12/12/18 03:37 97.9 F 54 L 18 120/49 L 99 12/12/18 01:27 122 H 128/80 12/12/18 00:00 129 H 18 136/72 90 L 12/11/18 19:40 98.5 F 59 L 17 148/93 H 95 Intake and Output 12/12/18 12/12/18 12/12/18 07:59 15:59 23:59 Intake Total 1050 / 1050 Output Total 150 / 700 550 / 700 Balance -150 / 350 500 / 350 Intake: IV 150 / 150 levoFLOXacin 750 mg In 150 ml @ 150 / 150 100 mls/hr IV Q48H [facility] Rx#: [id number] Oral 900 / 900 Output: Urine 150 / 700 550 / 700 Other: Percent Meal Consumed 75% Weight 67.5 kg 67.4 kg Patient Weight 12/12/18 23:59 Weight 67.4 kg - Constitutional positive no acute distress, positive average body habitus - Routine HEENT Exam Head: Present: normocephalic, atraumatic Eye: Present: EOMI, PERRL. Absent: conjunctival icterus, scleral injection ENT: Present: mucous membranes moist, oropharynx clear - Routine Neck Exam Present: supple. Absent: lymphadenopathy, thyromegaly - Routine Chest/Breast/Axilla Exam Axillae: Absent: lymphadenopathy - Routine Respiratory Exam Present: Clear to auscultation bilaterally. Absent: rales, wheezes - Routine Cardiovascular Exam Present: RRR, S1, S2. Absent: murmur - Routine Abdominal Exam Present: soft, normoactive bowel sounds. Absent: tenderness, organomegaly, mass - Routine Extremities Exam Absent: cyanosis, clubbing, edema - Routine Back/Spine Exam Back/Spine: Absent: vertebral tenderness, pain with flexion - Routine Skin Exam Present: intact, rash. Absent: petechiae Comments: She has a rash involving her back arms and legs. She has a little bit on the scalp as well. There are some punctate lesions other somewhat raised. Several them are excoriated in scabbed. There is no purulence or drainage. There is no erythema between the lesions. - Routine Neurological Exam Present: alert, oriented X3 - Routine Psychiatric Exam Present: normal affect, normal thought process Results - Labs Laboratory Last Values WBC 10.0 X10^3/uL (4.5-11.0) 12/12/18 14:00 RBC 3.63 X10^6/uL (4.0-5.2) L 12/12/18 14:00 Hgb 8.8 g/dL (12.0-16.0) L 12/12/18 14:00 Hct 27.8 % (36-46) L 12/12/18 14:00 MCV 76.5 fL (80-100) L 12/12/18 14:00 MCH 24.1 PG (26-34) L 12/12/18 14:00 MCHC 31.6 % (30-36) 12/12/18 14:00 RDW 17.7 % (11.6-14.8) H 12/12/18 14:00 Plt Count 256 X10^3/uL (150-400) 12/12/18 14:00 Neut % (Auto) 55.2 % (50-75) 12/12/18 14:00 Lymph % (Auto) 30.7 % (25-40) 12/12/18 14:00 [place] % (Auto) 10.6 % (3-14) 12/12/18 14:00 Eos % (Auto) 2.6 % (2-4) 12/12/18 14:00 Baso % (Auto) 0.9 % (0-2) 12/12/18 14:00 Neut # (Auto) 5500 /uL (1729-6511) 12/12/18 14:00 Lymph # (Auto) 3100 /uL (3489-0532) 12/12/18 14:00 [place] # (Auto) 1100 /uL (0-900) H 12/12/18 14:00 Eos # (Auto) 300 /uL (0-450) 12/12/18 14:00 Baso # (Auto) 100 /uL (0-100) 12/12/18 14:00 Total Counted 100 12/12/18 06:30 Seg Neutrophils % 51.0 % (38-70) 12/12/18 06:30 Band Neutrophils % 1.0 % (3-7) L 12/12/18 06:30 Lymphocytes % (Manual) 30.0 % (25-45) 12/12/18 06:30 Atypical Lymphs % 3.0 % (-0) H 12/12/18 06:30 Monocytes % (Manual) 9.0 % (2-11) 12/12/18 06:30 Eosinophils % (Manual) 5.0 % (2-4) H 12/12/18 06:30 Basophils % (Manual) 1.0 % (0-1) 12/12/18 06:30 Neutrophils # (Manual) 4524 /uL (9437-4897) 12/12/18 06:30 Smudge Cells 1+ H 12/12/18 06:30 RBC Morphology See below 12/12/18 06:30 Polychromasia 1+ H 12/12/18 06:30 Hypochromasia 1+ H 12/12/18 06:30 Anisocytosis 1+ H 12/12/18 06:30 Microcytosis 1+ H 12/12/18 06:30 PT 13.1 SECONDS (10.1-12.7) H 12/10/18 08:19 INR 1.1 (0.9-1.3) 12/10/18 08:19 APTT 29 SECONDS (26.4-36.2) 12/10/18 08:19 Sodium 135 mmol/L (137-145) L 12/12/18 06:30 Potassium 2.8 mmol/L (3.4-5.1) L 12/12/18 06:30 Chloride 97 mmol/L (98-107) L 12/12/18 06:30 Carbon Dioxide 31 mmol/L (22-32) 12/12/18 06:30 BUN 14 mg/dL (7-17) 12/12/18 06:30 Creatinine 0.60 mg/dL (0.52-1.04) 12/12/18 06:30 Estimated GFR > 60.0 mL/min (>60) 12/12/18 06:30 BUN/Creatinine Ratio 23.3 (6-22) H 12/12/18 06:30 Glucose 102 mg/dL (80-110) 12/12/18 06:30 Lactate 1.0 mmol/L (0.7-2.1) 12/10/18 08:19 Calcium 8.3 mg/dL (8.4-10.2) L 12/12/18 06:30 Magnesium 1.6 mg/dL (1.6-2.3) 12/10/18 08:19 Total Bilirubin 0.9 mg/dL (0.2-1.3) 12/11/18 05:00 AST 17 IU/L (14-36) 12/11/18 05:00 ALT 19 IU/L (9-52) 12/11/18 05:00 Alkaline Phosphatase 40 U/L (38-126) 12/11/18 05:00 Total Creatine Kinase 49 U/L (30-135) 12/10/18 08:19 CK-MB (CK-2) TNP 12/10/18 08:19 CK-MB (CK-2) Rel Index TNP 12/10/18 08:19 Troponin I < 0.012 ng/mL (0.01-0.034) 12/10/18 08:19 B-Natriuretic Peptide 617 (<100) H 12/12/18 06:30 Total Protein 6.3 g/dL (6.3-8.2) 12/11/18 05:00 Albumin 3.5 g/dL (3.5-5.0) 12/11/18 05:00 Globulin 2.8 g/dL (1.7-4.1) 12/11/18 05:00 Albumin/Globulin Ratio 1.3 (1.0-2.8) 12/11/18 05:00 Procalcitonin < 0.05 ng/mL (<0.5) 12/10/18 08:19 Urine Color Yellow 12/10/18 09:30 Urine Appearance Cloudy 12/10/18 09:30 Urine pH 7.0 (4.5-8.0) 12/10/18 09:30 Ur Specific [place] 1.010 (1.000-1.035) 12/10/18 09:30 Urine Protein Negative (Negative) 12/10/18 09:30 Urine Glucose (UA) Negative g/dL (Negative) 12/10/18 09:30 Urine Ketones Negative (NEGATIVE) 12/10/18 09:30 Urine Occult Blood Trace-lysed (Negative) 12/10/18 09:30 Urine Nitrate Positive (Negative) 12/10/18 09:30 Urine Bilirubin Negative (NEGATIVE) 12/10/18 09:30 Urine Urobilinogen 0.2 E.U./dL (0.2) 12/10/18 09:30 Ur Leukocyte Esterase 3+ (NEGATIVE) H 12/10/18 09:30 Urine RBC 0-1/hpf (0-5/HPF) 12/10/18 09:30 Urine WBC >100/hpf (0-5/HPF) H 12/10/18 09:30 Urine Bacteria Many (>30) (None) H 12/10/18 09:30 Ur Culture Indicated? Specimen cultured 12/10/18 09:30 Blood Type A Positive 12/10/18 09:30 Antibody Screen Negative 12/10/18 09:30 Crossmatch See Detail 12/10/18 09:30 - Imaging Additional studies: Procedures Control of epistaxis by anterior nasal packing (11/01/10) Control of epistaxis by cauterization (and packing) (05/30/12) Injection of anesthetic into spinal canal for analgesia (08/27/13) Injection of other agent into spinal canal (08/27/13) Injection of steroid (08/27/13) Other x-ray of lumbosacral spine (08/27/13) Assessment and Plan (1) Anemia Problem details: 83-year-old woman with chronic mild anemia with acute w orsening. She does have microcytosis. The most likely etiology would be iron deficiency. She does have iron studies ordered for tomorrow. If iron deficiency is confirmed, she should start on oral replacement. She may benefit from a colonoscopy with as well. If her labs are not consistent with iron deficiency, may be reasonable to look at the a reticulocyte count, B12, folate, TSH, SPEP and UPEP for further evaluation. She does have rather noticeable weight loss. If no other obvious diagnosis is made, we might want to consider a bone marrow biopsy. She did have some smudge cells noted on her peripheral smear. This would raise the specter of CLL. She does not however have an absolute lymphocytosis or adenopathy. There is no evidence of hepatosplenomegaly on exam. It is possible that this may represent a monoclonal B-cell lymphocytosis. The it is reasonable to check flow cytometry to evaluate for monoclonal B-cell process. I am not sure that her anemia or smudge cells are in any way related to her rash. Current visit: Yes Status: Acute
[2018-12-12] MEDS: DOXEPIN 25 MG CAPSULE PO (21:11)
[2018-12-12] MEDS: LOVASTATIN 20 MG TABLET PO (21:11)
[2018-12-13] VITALS (10 sets, daily range): BP systolic 134–158; BP diastolic 63–78; PULSE 60–78; RESP 14–20; TEMP 36.4–37.1; O2SAT 94–98
[2018-12-13] MEDS: PANTOPRAZOLE 40 MG TABLET PO ×2 (05:43→20:26)
[2018-12-13 05:59] LABS: Add Manual Diff / Slide Review NO; Basophils Absolute Auto 0 /uL (0-100); Basophils Percent Auto 0.5 % (0-2); Eosinophils Absolute Auto 400 /uL (0-450); Hematocrit 28.2 % (36-46); Hemoglobin 8.9 g/dL (12.0-16.0); Lymphocytes Absolute Auto 3300 /uL (1100-4500); Lymphocytes Percent Auto 32.2 % (25-40); Mean Corpuscular HGB Conc 31.6 % (30-36); Mean Corpuscular Hemoglobin 24.3 PG (26-34); Mean Corpuscular Volume 77.1 fL (80-100); Monocytes Absolute Auto 1200 /uL (0-900); Monocytes Percent Auto 11.5 % (3-14); Neutrophils Absolute Auto 5300 /uL (1500-7000); Neutrophils Percent Auto 51.8 % (50-75); Platelet Count 254 X10^3/uL (150-400); Red Blood Cell Count 3.65 X10^6/uL (4.0-5.2); Red Cell Distribution Width 17.7 % (11.6-14.8); White Blood Cell Count 10.1 X10^3/uL (4.5-11.0)
[2018-12-13 06:01] LABS: Blood Urea Nitrogen 15 mg/dL (7-17); Calcium 8.8 mg/dL (8.4-10.2); Carbon Dioxide 28 mmol/L (22-32); Chloride 98 mmol/L (98-107); Estimated Glomerular Filt Rate > 60.0 mL/min (>60); Glucose 118 mg/dL (80-110); HEMOLYSIS < 15 (0-50); Potassium 3.8 mmol/L (3.4-5.1); Sodium 134 mmol/L (137-145)
[2018-12-13 06:11] LABS: B Type Natriuretic Peptide 428 (<100); Total Iron Binding Capacity 367 ug/dL (265-497); Transferrin 286 mg/dL (206-381)
[2018-12-13 06:38] LABS: Ferritin 27.6 ng/mL (11.1-264)
--- NOTE | 2018-12-13 08:10 | P.PN_ITS ---
Subjective Subjective Date Patient Seen: 12/13/18 Time Patient Seen: 09:21 Interval history: Patient is present with her son this morning. She reports that she is feeling much better, the best since she arrived in the hospital. They are feeding me well. No n/v. Has been up to ambulate to the bathroom. Still feels tired and weak with some dizziness upon changing positions. Iron studies returned and confirmed iron deficiency anemia. Denies a history of ma labsorption. No family history of celiac disease or bleeding disorders. Last colonoscopy in 2012 secondary to change of bowel habits family history of colon cancer was incomplete in no polyps were found but pooling of fluid was noted. Other than baby aspirin, denies regular NSAID use. Rash slightly better. Exam Vital Signs (past 8 hours): - 12/13/18 00:16 12/13/18 04:50 12/13/18 05:46 Temperature 97.7 F Pulse Rate 60 78 62 Respiratory Rate 19 Blood Pressure 151/63 H Pulse Oximetry 94 Oxygen Delivery Method Room Air Oxygen Flow Rate 0 Narrative Exam Narrative: GENERAL: Alert and oriented, appearing stated age and in no acute distress. HEENT: Head normocephalic/atraumatic. Pupils equal, round, and reactive to light and accomodation. Extraocular muscles intact. Tympanic membranes clear. Nasal mucosa moist, septum midline. Oral mucosa moist, no lesions. Neck soft and supple, no lymphadenopathy. LUNGS: Diminished inspiratory effort, mild expiratory wheeze heard throughout. No crackles. CV: Normal S1 and S2 with regular rate and rhythm, 3/5 systolic murmur, no rubs or gallops. ABDOMEN: Soft, non-tender, non-distended, no organomegaly. Positive bowel sounds. EXTREMITIES: No clubbing, cyanosis, or edema. NEURO: Cranial nerves II through XII grossly intact, no focal deficits. PSYCH: Alert and oriented x 3. SKIN: Generalized, pruritic, ulcerated rash sparing soles, feet, groin with multiple excoriations. Objective Labs Result Diagrams: 12/13/18 05:30 12/13/18 05:30 Labs: Laboratory Results - last 24 hr 12/12/18 12/13/18 12/13/18 14:00 05:30 05:30 WBC 10.0 10.1 RBC 3.63 L 3.65 L Hgb 8.8 L 8.9 L Hct 27.8 L 28.2 L MCV 76.5 L 77.1 L MCH 24.1 L 24.3 L MCHC 31.6 31.6 RDW 17.7 H 17.7 H Plt Count 256 254 Neut % (Auto) 55.2 51.8 Lymph % (Auto) 30.7 32.2 [place] % (Auto) 10.6 11.5 Eos % (Auto) 2.6 4.0 Baso % (Auto) 0.9 0.5 Neut # (Auto) 5500 5300 Lymph # (Auto) 3100 3300 [place] # (Auto) 1100 H 1200 H Eos # (Auto) 300 400 Baso # (Auto) 100 0 Sodium Potassium Chloride Carbon Dioxide BUN Creatinine Estimated GFR BUN/Creatinine Ratio Glucose Calcium Iron 27 L TIBC 367 Transferrin 286 Ferritin B-Natriuretic Peptide 428 H 12/13/18 12/13/18 05:30 05:30 WBC RBC Hgb Hct MCV MCH MCHC RDW Plt Count Neut % (Auto) Lymph % (Auto) [place] % (Auto) Eos % (Auto) Baso % (Auto) Neut # (Auto) Lymph # (Auto) [place] # (Auto) Eos # (Auto) Baso # (Auto) Sodium 134 L Potassium 3.8 Chloride 98 Carbon Dioxide 28 BUN 15 Creatinine 0.60 Estimated GFR > 60.0 BUN/Creatinine Ratio 25.0 H Glucose 118 H Calcium 8.8 Iron TIBC Transferrin Ferritin 27.6 B-Natriuretic Peptide Assessment & Plan Assessment & Plan narrative: 83 yo F admitted for hypoxemia suspect multifactorial. New onset atrial fibrillation might have occurred prior to admission and prompted the hypoxemia. Assessment 1. Possible pneumonia, WBC normalized. Risk for aspiration, swallow study pending. Patient denies any difficulty with swallowing. Plan: Continue supplemental oxygen and IV Levaquin 750 mg IV Q 48 hours, renal d osing. Repeat CBC in a.m. Assessment 2. Hypoxemia with diastolic heart failure in the setting of new onset atrial fibrillation; complicated by possible pneumonia, UTI and anemia. Atrial fibrillation could be secondary to patient's infectious state, unclear at this point. Plan: Patient received Lasix in ED and again after 1 unit of blood. H/H improved, BNP now trending down. Will continue with higher dose of lasix and continue with supplemental oxygen as needed. Continue outpatient atenolol and amlodipine. Continue new dose of diltiazem in the short term for the fibrilation, will watch heart rate closely and consult cardiology for persistent disease as patient may need anticoagulation and antiarrhythmics. BNP in am. Assessment 3. Anemia, iron deficiency. Peripheral smear atypical with anisocytosis, polychromasia, hypochromasia, and smudge cells, concern for chronic lymphocytic leukemia. Status post transfusion of 1 unit of PRBCs. Plan: Will start IV iron today, 200 mg of iron sucrose, will continue weekly in the outpatient setting for a total of 5 doses if needed. Patient is not a good candidate for oral therapy secondary to her age, GERD, and infectious state. G uaiac pending as patient has yet had a bowel movement. Will also start workup for etiology including tissue transglutaminase and possibly EGD/colonoscopy. Patient is fragile and will not plan to do endoscopic procedures in the inpatient setting. Will discuss the appropriateness of this after discharge. Dr. Last did see her yesterday and his consultation is appreciated. Will continue to coordinate care. Repeat CBC and BMP in the morning. Assessment 4. Infectious Disease. Chest x-ray with possible pneumonia and E coli UTI. Plan: Continue with Levaquin. Assessment 5. Hypertension, has been elevated during inpatient stay. Patient is on extra Lasix and diltiazem, not bradycardic, watching closely. Plan: Continue with outpatient medications amlodipine 10 mg daily and atenolol 100 mg daily. Holding patient's usual dose of oral Lasix secondary to IV Lasix. Diltiazem as noted above. Assessment 6. History of hypokalemia on potassium, normalized. Plan: Continue potassium 40 meq p.o. q.day and trend labs. Assessment 7. Depression without acute exacerbation Plan: Continue on doxepin, fluoxetine. Assessment 8. Frequent falls with weakness and balance instability Plan: PT evaluate and treat. Assessment 9. Diffuse pruritus Plan: Will continue with outpatient treatment, patient has Dermatology follow- up. Hydroxyzine as needed and triamcinolone as needed. Avoid lotion. Assessment 10. GERD Plan: Continue proton pump inhibitor. Assessment 11. Type 2 diabetes Plan: Will continue outpatient treatment with metformin. Will do CBGS q.a.c. and q.h.s. and will do sliding scale insulin. Code status: Full code Son is durable power of commercial real estate attorney. She will discuss this further with him.
[2018-12-13] MEDS: POTASSIUM CHLORIDE 20 MEQ TAB 40 MEQ PO (08:35)
[2018-12-13] MEDS: FLUoxetine 20 MG CAPSULE 40 MG PO (08:35)
[2018-12-13] MEDS: ESTRADIOL 0.5 MG TABLET PO (08:35)
[2018-12-13] MEDS: METFORMIN HCL 500 MG TABLET PO (08:36)
[2018-12-13] MEDS: ATENOLOL 50 MG TABLET 100 MG PO (08:36)
[2018-12-13] MEDS: AMLODIPINE 5 MG TABLET 10 MG PO (08:36)
[2018-12-13] MEDS: TRIAMCINOLONE 0.5% CREAM 1 APPLIC TOP (08:42)
--- NOTE | 2018-12-13 10:08 | PT.IPTN ---
Current Diagnoses Iron deficiency anemia, unspecified (12/10/18) Pneumonia, unspecified organism (12/10/18) Physical Therapy Treatment Note M2 PT-IP Current Condition Start: 12/11/18 08:18 Freq: NEEDED Status: Active Protocol: Document 12/11/18 09:06 RS (Rec: 12/11/18 09:17 RS [id number]) Physical Therapy Current Condition Current Condition Evaluation Date 12/11/18 Treatment Diagnosis SOB, limited activity tolerance Onset Date a few days ago M3 PT-IP Subjective Start: 12/11/18 08:18 Freq: NEEDED Status: Active Protocol: Document 12/13/18 10:01 SAK (Rec: 12/13/18 10:05 SAK [email or web address]) Subjective Physical Therapy Visit Type Type Treatment Note Visit Start Time 09:27 Visit Stop Time 09:58 Total Visit Minutes 31 Number of INSPECTOR REPA[employer]ER S[employer]STONE Visits 0 Physical Therapy Visit Comments Patient Comments Patient reports feeling a little better, willing to participate in PT. Patient Goals go back to apartment with SO M4 PT-IP Mobility and Gait Start: 12/11/18 08:18 Freq: NEEDED Status: Active Protocol: Document 12/13/18 10:01 SAK (Rec: 12/13/18 10:08 SAK [email or web address]) PT-Transfer Assessment Sit to and From Stand Sit to and from Stand Standby Assistance Equipment Transfer Assistive Device Gait Belt Transfers Transfer Destination Chair Transfer Technique walked Transfer Ability Level of Assist Standby Assistance,Contact Guard Assistance Gait Assessment Gait Gait Assistance Required: Standby Assistance Distance (Feet) 75 Assistive Devices Assistive Device Gait Belt,Front Wheeled Walker Gait Deviations General Gait Pattern Decreased Stride Length,Flexed Trunk Comments Gait Comments CGA and verbal cues for gait with use of quad cane for 100' M5 PT-IP Objective Assessments Start: 12/11/18 08:18 Freq: NEEDED Status: Active Protocol: Document 12/11/18 09:06 RS (Rec: 12/11/18 09:17 RS [id number]) Orientation Orientation/Cognition Level of Alertness Alert Orientation Name,Age,Birthday,Month,Date, Year,Day of Week,Place, Situation Language Function Ability No Deficits Noted Safety Awareness Understands Safety Issues Memory Description No Deficits Noted Gross Range of Motion Upper Extremity ROM Assessment Within Functional Limits Lower Extremity ROM Assessment Within Functional Limits Strength Upper Extremity Strength Assessment Within Functional Limits Lower Extremity Strength Assessment Within Functional Limits M6 PT-IP Treatment Start: 12/11/18 08:18 Freq: NEEDED Status: Active Protocol: Document 12/13/18 10:01 SAK (Rec: 12/13/18 10:05 [facility] [email or web address]) Physical Therapy Treatment Other Treatments Other Treatment Performed Standing balance: NBOS EO/EC, heel raises, sidestepping M7 PT-IP Assessment and Plan Start: 12/11/18 08:18 Freq: NEEDED Status: Active Protocol: Document 12/13/18 10:01 SAK (Rec: 12/13/18 10:05 [facility] [email or web address]) PT Summary Assessment and Plan Summary Assessment Summary Patient required CGA with use of quad cane, SBA with FWW. She agreed she would like to obtain a FWW and interested in outpatient PT after discharge to work on gait and balance. Goals Bed Mobility Goal Independent Transfer Goal Independent Gait Goal Independent Gait Distance 500 Days to Meet Goals 3 Frequency of Treatment Frequency Of Treatment Once a Day Treatment Plan Physical Therapy Treatment Plan Gait Training,Balance Retraining,Discharge Planning Other Recommendations and Next Treatment balance and longer gait Focus distance Recommendations To Nursing Amount of Assist Needed Standby Assistance,1 Person Assist Discharge Recommendations PT Discharge Recommendations Home with Assistance, Outpatient PT
[2018-12-13] MEDS: FUROSEMIDE 40 MG/4 ML VIAL IV (10:11)
[2018-12-13] MEDS: IRON SUCROSE 200 MG in SODIUM CHLORIDE 0.9% 100 ML 220 ML IV (10:12)
--- NOTE | 2018-12-13 10:18 | ST.IPSCREEN ---
Order for swallowing evaluation received. Pt was in the room with family. She indicated that she can swallow just fine. Initiated swallow screen. Pt observed with thin liquids swallowing x3 without overt s/sx aspiration. Pt reported that yesterday she did have a large pill that caused her to cough, but stated I tried to swallow it too fast.
--- NOTE | 2018-12-13 11:35 | PC.NURSE ---
Pt has a rash on her trunk and faintly on her arms and legs. Applying special creams to area and helpful.. Pt has scabbed area's that look like old hives. She as an iron infusion going now and is heplocked after. Crit up to 28. Working with physical therapy and walking with walker. Tolerating well. Denies pain or itching.
--- NOTE | 2018-12-13 15:12 | ONC.PN ---
PN -Subjective Interval history: Diagnosis: Anemia, likely iron deficiency Interval history: Patient is an 83-year-old woman who I saw initially yesterday. She presented with acute onset of shortness of breath and was found to have significant anemia as well as hypoxia. She has had some improvement in her symptoms after transfusion. She has not been aware of any unusual bleeding or bruising. No fevers or chills. She has not noticed any adenopathy. She has been eating well. She still has some cough. She has been able to walk with physical therapy and a walker. Home Medications and Allergies Home Medications Medication Instructions Recorded Confirmed Type nitroglycerin [Nitrostat] 0.4 mg SUBLINGUAL Q5-15M PRN #0 07/06/09 12/11/18 History atenolol 100 mg tablet 100 mg PO DAILY 08/30/17 12/11/18 History doxepin 25 mg capsule 25 mg PO BEDTIME 08/30/17 12/11/18 History fluoxetine 20 mg capsule 40 mg PO DAILY 08/30/17 12/11/18 History amlodipine 10 mg PO DAILY 04/25/18 12/11/18 History esomeprazole magnesium 80 mg PO DAILY 04/25/18 12/11/18 History estradiol 0.5 mg PO DAILY 04/25/18 12/11/18 History furosemide 20 mg PO DAILY 04/25/18 12/11/18 History lovastatin 20 mg PO BEDTIME 04/25/18 06/20/18 History metformin 500 mg PO QAM 04/25/18 12/11/18 History hydroxyzine HCl 10 mg PO QID 06/20/18 06/20/18 History fluocinonide 1 applic TOPICAL DIRECTED 11/20/18 12/11/18 History permethrin 1 applic TOPICAL DIRECTED 11/20/18 11/20/18 History potassium chloride 10 meq PO DAILY 11/20/18 12/11/18 History clobetasol 1 applic TOPICAL DIRECTED 12/11/18 12/11/18 History triamcinolone acetonide 1 applic TOPICAL DIRECTED 12/11/18 12/11/18 History Allergies Allergy/AdvReac Type Severity Reaction Status Date / Time MJ Inhibitors Allergy Intermediate Verified 11/25/18 10:46 guaifenesin Allergy Intermediate Verified 11/25/18 10:46 azithromycin Allergy Unknown Verified 11/25/18 10:46 dextromethorphan Allergy Unknown Verified 11/25/18 10:46 enalapril Allergy Unknown Verified 11/25/18 10:46 meloxicam Allergy Unknown Verified 11/25/18 10:46 pneumococcal vaccine Allergy Unknown Verified 11/25/18 10:46 [From PNEUMOVAX 23] ibuprofen AdvReac Unknown Verified 11/25/18 10:46 lidocaine AdvReac Unknown Verified 11/25/18 10:46 morphine AdvReac Unknown Verified 11/25/18 10:46 Exam Vital signs: Vital Signs Temp Pulse Resp BP Pulse Ox 12/13/18 12:00 98.7 F 63 14 151/74 H 97 12/13/18 08:00 97.9 F 65 15 158/78 H 98 12/13/18 05:46 62 12/13/18 04:50 97.7 F 78 19 151/63 H 94 12/13/18 00:16 60 12/12/18 23:50 98.7 F 70 17 143/59 H 95 12/12/18 20:00 98.7 F 66 16 149/74 H 95 12/12/18 16:36 55 L 12/12/18 16:00 98.3 F 61 16 151/71 H 97 Intake and Output 12/12/18 12/13/18 12/13/18 23:59 07:59 15:59 Intake Total 350 / 1400 200 / 200 Output Total 150 / 850 800 / 1000 200 / 1000 Balance 200 / 550 -600 / -800 -200 / -800 Intake: Oral 350 / 1250 200 / 200 Output: Urine 150 / 850 800 / 1000 200 / 1000 Other: Percent Meal Consumed 50% Stool Size Moderate # Unmeasured Voids 1 # Bowel Movements 1 Weight 65.1 kg Patient Weight 12/13/18 23:59 Weight 65.1 kg - Constitutional positive no acute distress, positive average body habitus Comments: She is coughing on exam. She is not further examined. Results - Labs Laboratory Last Values WBC 10.1 X10^3/uL (4.5-11.0) 12/13/18 05:30 RBC 3.65 X10^6/uL (4.0-5.2) L 12/13/18 05:30 Hgb 8.9 g/dL (12.0-16.0) L 12/13/18 05:30 Hct 28.2 % (36-46) L 12/13/18 05:30 MCV 77.1 fL (80-100) L 12/13/18 05:30 MCH 24.3 PG (26-34) L 12/13/18 05:30 MCHC 31.6 % (30-36) 12/13/18 05:30 RDW 17.7 % (11.6-14.8) H 12/13/18 05:30 Plt Count 254 X10^3/uL (150-400) 12/13/18 05:30 Neut % (Auto) 51.8 % (50-75) 12/13/18 05:30 Lymph % (Auto) 32.2 % (25-40) 12/13/18 05:30 [place] % (Auto) 11.5 % (3-14) 12/13/18 05:30 Eos % (Auto) 4.0 % (2-4) 12/13/18 05:30 Baso % (Auto) 0.5 % (0-2) 12/13/18 05:30 Neut # (Auto) 5300 /uL (1289-8103) 12/13/18 05:30 Lymph # (Auto) 3300 /uL (6300-9623) 12/13/18 05:30 [place] # (Auto) 1200 /uL (0-900) H 12/13/18 05:30 Eos # (Auto) 400 /uL (0-450) 12/13/18 05:30 Baso # (Auto) 0 /uL (0-100) 12/13/18 05:30 Total Counted 100 12/12/18 06:30 Seg Neutrophils % 51.0 % (38-70) 12/12/18 06:30 Band Neutrophils % 1.0 % (3-7) L 12/12/18 06:30 Lymphocytes % (Manual) 30.0 % (25-45) 12/12/18 06:30 Atypical Lymphs % 3.0 % (-0) H 12/12/18 06:30 Monocytes % (Manual) 9.0 % (2-11) 12/12/18 06:30 Eosinophils % (Manual) 5.0 % (2-4) H 12/12/18 06:30 Basophils % (Manual) 1.0 % (0-1) 12/12/18 06:30 Neutrophils # (Manual) 4524 /uL (6237-6563) 12/12/18 06:30 Smudge Cells 1+ H 12/12/18 06:30 RBC Morphology See below 12/12/18 06:30 Polychromasia 1+ H 12/12/18 06:30 Hypochromasia 1+ H 12/12/18 06:30 Anisocytosis 1+ H 12/12/18 06:30 Microcytosis 1+ H 12/12/18 06:30 PT 13.1 SECONDS (10.1-12.7) H 12/10/18 08:19 INR 1.1 (0.9-1.3) 12/10/18 08: APTT 29 SECONDS (26.4-36.2) 12/10/18 08:19 Sodium 134 mmol/L (137-145) L 12/13/18 05:30 Potassium 3.8 mmol/L (3.4-5.1) 12/13/18 05:30 Chloride 98 mmol/L (98-107) 12/13/18 05:30 Carbon Dioxide 28 mmol/L (22-32) 12/13/18 05:30 BUN 15 mg/dL (7-17) 12/13/18 05:30 Creatinine 0.60 mg/dL (0.52-1.04) 12/13/18 05:30 Estimated GFR > 60.0 mL/min (>60) 12/13/18 05:30 BUN/Creatinine Ratio 25.0 (6-22) H 12/13/18 05:30 Glucose 118 mg/dL (80-110) H 12/13/18 05:30 Lactate 1.0 mmol/L (0.7-2.1) 12/10/18 08:19 Calcium 8.8 mg/dL (8.4-10.2) 12/13/18 05:30 Magnesium 1.6 mg/dL (1.6-2.3) 12/10/18 08:19 Iron 27 ug/dL (37-170) L 12/13/18 05:30 TIBC 367 ug/dL (265-497) 12/13/18 05:30 Transferrin 286 mg/dL (206-381) 12/13/18 05:30 Ferritin 27.6 ng/mL (11.1-264) 12/13/18 05:30 Total Bilirubin 0.9 mg/dL (0.2-1.3) 12/11/18 05:00 AST 17 IU/L (14-36) 12/11/18 05:00 ALT 19 IU/L (9-52) 12/11/18 05:00 Alkaline Phosphatase 40 U/L (38-126) 12/11/18 05:00 Total Creatine Kinase 49 U/L (30-135) 12/10/18 08:19 CK-MB (CK-2) TNP 12/10/18 08:19 CK-MB (CK-2) Rel Index TNP 12/10/18 08: Troponin I < 0.012 ng/mL (0.01-0.034) 12/10/18 08: B-Natriuretic Peptide 428 (<100) H 12/13/18 05:30 Total Protein 6.3 g/dL (6.3-8.2) 12/11/18 05:00 Albumin 3.5 g/dL (3.5-5.0) 12/11/18 05:00 Globulin 2.8 g/dL (1.7-4.1) 12/11/18 05:00 Albumin/Globulin Ratio 1.3 (1.0-2.8) 12/11/18 05:00 Procalcitonin < 0.05 ng/mL (<0.5) 12/10/18 08:19 Urine Color Yellow 12/10/18 09:30 Urine Appearance Cloudy 12/10/18 09:30 Urine pH 7.0 (4.5-8.0) 12/10/18 09:30 Ur Specific [place] 1.010 (1.000-1.035) 12/10/18 09:30 Urine Protein Negative (Negative) 12/10/18 09:30 Urine Glucose (UA) Negative g/dL (Negative) 12/10/18 09:30 Urine Ketones Negative (NEGATIVE) 12/10/18 09:30 Urine Occult Blood Trace-lysed (Negative) 12/10/18 09:30 Urine Nitrate Positive (Negative) 12/10/18 09:30 Urine Bilirubin Negative (NEGATIVE) 12/10/18 09:30 Urine Urobilinogen 0.2 E.U./dL (0.2) 09/29/19 09:30 Ur Leukocyte Esterase 3+ (NEGATIVE) H 12/10/18 09:30 Urine RBC 0-1/hpf (0-5/HPF) 12/10/18 09:30 Urine WBC >100/hpf (0-5/HPF) H 12/10/18 09:30 Urine Bacteria Many (>30) (None) H 12/10/18 09:30 Ur Culture Indicated? Specimen cultured 12/10/18 09:30 Blood Type A Positive 12/10/18 09:30 Antibody Screen Negative 12/10/18 09:30 Crossmatch See Detail 12/10/18 09:30 - Imaging Additional studies: Procedures Control of epistaxis by anterior nasal packing (11/01/10) Control of epistaxis by cauterization (and packing) (05/30/12) Injection of anesthetic into spinal canal for analgesia (08/27/13) Injection of other agent into spinal canal (08/27/13) Injection of steroid (08/27/13) Other x-ray of lumbosacral spine (08/27/13) Assessment and Plan (1) Anemia Problem details: 83-year-old woman with chronic mild anemia with acute worsening. Symptomaticly, she is improved after transfusion. Her iron level was low. Her ferritin was low normal and TIBC was normal. This is compatible with iron deficiency although typically TIBC will be elevated. Ferritin is an acute phase reactant and could be falsely elevated. I agree with treating her with IV iron. If iron deficiency truly is only reason for her anemia, her hemoglobin should improve by a about 1/2 to 1 g weekly. Will have her follow up in clinic in about 3-4 weeks to make sure that she is improving. I think it is reasonable to look at other possible causes of anemia in the meantime. She did have some smudge cells noted on her peripheral smear. This would raise the specter of CLL. She does not however have an absolute lymphocytosis or adenopathy. There is no evidence of hepatosplenomegaly on exam. It is possible that this may represent a monoclonal B-cell lymphocytosis. The it is reasonable to check flow cytometry to evaluate for monoclonal B-cell process. I am not sure that her anemia or smudge cells are in any way related to her rash. Current visit: Yes Status: Acute
--- NOTE | 2018-12-13 15:39 | CM.DPC ---
DCP Cont: Was able to meet with patient. Introduced self and role. Patient was sitting on the edge of her bed. Alert and oriented, had just seen Dr. Reyes. Patient stated, she will probably be here for several more days, according to her provider. She was not on oxygen when this case planner spoke to her. She mentioned that her significant, alberto, is supportive at home. She stated that she had lost her recently, as well as her significant had also lost his. Let patient know that this case liner is available for any needs. Confirmed that Alberto takes patient to her appointments, for she is not driving. P: DCP to continue to follow closely and be available for any needs. Plan is for home when she is medically stable. Rachel Bui RN/Religious Education Teacher
--- NOTE | 2018-12-13 17:38 | PC.NURSE ---
Addendum entered by Aga Costa R.N. 12/13/18 21:00: Pt resting quietly at this time. HL intact/patent. Tele shows NSR fper ICU staff. Condition remains essentially unchanged. Call light w/in reach, bed alarm on for pt safety. Continue w/plan of care. Original Note: Pt sitting in chair. Denies discomfort, SpO2 96% RA Lungs clear, HL left wrist, intact/patent. Call light w/in reach, chair alarm on for pt safety.
[2018-12-13] MEDS: LOVASTATIN 20 MG TABLET PO (20:24)
[2018-12-13] MEDS: DOXEPIN 25 MG CAPSULE PO (20:26)
[2018-12-13 22:16] LABS: HEMOLYSIS < 15 (0-50)
[2018-12-13 22:17] LABS: Iron 27 ug/dL (37-170); Percent Iron Saturation 7 % (15-50)
[2018-12-14] VITALS (8 sets, daily range): BP systolic 129–149; BP diastolic 44–68; PULSE 60–70; RESP 16–18; TEMP 36.3–37.5; O2SAT 91–98
--- NOTE | 2018-12-14 | PC.NURSE ---
Financial Reporting Specialist Note: 2350: Awake, assisted up to bathroom. Vital signs stable. Pt alert,oriented X3. She denies pain or discomfort. IV in place in lt wrist. Pt remains on telemetry.
[2018-12-14 06:46] LABS: Add Manual Diff / Slide Review NO; Basophils Absolute Auto 0 /uL (0-100); Basophils Percent Auto 0.4 % (0-2); Eosinophils Absolute Auto 300 /uL (0-450); Eosinophils Percent Auto 2.3 % (2-4); Hematocrit 28.9 % (36-46); Hemoglobin 9.3 g/dL (12.0-16.0); Lymphocytes Absolute Auto 4100 /uL (1100-4500); Mean Corpuscular HGB Conc 32.2 % (30-36); Mean Corpuscular Hemoglobin 24.4 PG (26-34); Mean Corpuscular Volume 75.6 fL (80-100); Monocytes Absolute Auto 1300 /uL (0-900); Monocytes Percent Auto 11.5 % (3-14); Neutrophils Absolute Auto 5400 /uL (1500-7000); Neutrophils Percent Auto 48.8 % (50-75); Platelet Count 261 X10^3/uL (150-400); Red Blood Cell Count 3.83 X10^6/uL (4.0-5.2); Red Cell Distribution Width 18.1 % (11.6-14.8); White Blood Cell Count 11.1 X10^3/uL (4.5-11.0)
[2018-12-14] MEDS: PANTOPRAZOLE 40 MG TABLET PO ×2 (06:49→21:00)
[2018-12-14] MEDS: dilTIAZem 30 MG TABLET PO (06:49)
[2018-12-14 06:53] LABS: BUN Creatinine Ratio 23.3 (6-22); Blood Urea Nitrogen 14 mg/dL (7-17); Carbon Dioxide 29 mmol/L (22-32); Chloride 97 mmol/L (98-107); Estimated Glomerular Filt Rate > 60.0 mL/min (>60); Glucose 111 mg/dL (80-110); HEMOLYSIS < 15 (0-50); Potassium 3.4 mmol/L (3.4-5.1); Sodium 135 mmol/L (137-145)
--- NOTE | 2018-12-14 07:09 | PM.PN.1 ---
Subjective Subjective Date Patient Seen: 12/14/18 Time Patient Seen: 07:09 Interval history: Feeling better this morning after the iron therapy. Rash has improved and is less itchy. She is tolerating her diet with no nausea or vomiting. Dyspnea improved. Blood pressure remains elevated. Exam Vital Signs (past 8 hours): - 12/13/18 23:35 12/13/18 23:58 12/14/18 05:20 Temperature 97.6 F 98.7 F Pulse Rate 73 66 70 Respiratory Rate 18 18 Blood Pressure 147/66 H 149/65 H Pulse Oximetry 94 91 12/14/18 06:49 Temperature Pulse Rate 70 Respiratory Rate Blood Pressure 149/64 H Pulse Oximetry Oxygen Delivery Method Room Air Oxygen Flow Rate 0 Narrative Exam Narrative: GENERAL: Alert and oriented, appearing stated age and in no acute distress. HEENT: Head normocephalic/atraumatic. Pupils equal, round, and reactive to light and accomodation. Extraocular muscles intact. Tympanic membranes clear. Nasal mucosa moist, septum midline. Oral mucosa moist, no lesions. Neck soft and supple, no lymphadenopathy. LUNGS: Diminished inspiratory effort, mild expiratory wheeze heard throughout. No crackles. CV: Normal S1 and S2 with regular rate and rhythm, 3/5 systolic murmur, no rubs or gallops. ABDOMEN: Soft, non-tender, non-distended, no organomegaly. Positive bowel sounds. EXTREMITIES: No clubbing, cyanosis, or edema. NEURO: Cranial nerves II through XII grossly intact, no focal deficits. PSYCH: Alert and oriented x 3. SKIN: Generalized, pruritic, ulcerated rash sparing soles, feet, groin with multiple excoriations. Objective Labs Result Diagrams: 12/14/18 06:20 12/14/18 06:20 Labs: Laboratory Results - last 24 hr 12/10/18 12/13/18 12/14/18 09:30 05:30 06:20 WBC 11.1 H RBC 3.83 L Hgb 9.3 L Hct 28.9 L MCV 75.6 L MCH 24.4 L MCHC 32.2 RDW 18.1 H Plt Count 261 Neut % (Auto) 48.8 L Lymph % (Auto) 37.0 [place] % (Auto) 11.5 Eos % (Auto) 2.3 Baso % (Auto) 0.4 Neut # (Auto) 5400 Lymph # (Auto) 4100 [place] # (Auto) 1300 H Eos # (Auto) 300 Baso # (Auto) 0 Sodium Potassium Chloride Carbon Dioxide BUN Creatinine Estimated GFR BUN/Creatinine Ratio Glucose Calcium Iron 27 L TIBC 367 % Saturation 7 L Transferrin 286 Crossmatch See Detail 12/14/18 06:20 WBC RBC Hgb Hct MCV MCH MCHC RDW Plt Count Neut % (Auto) Lymph % (Auto) [place] % (Auto) Eos % (Auto) Baso % (Auto) Neut # (Auto) Lymph # (Auto) [place] # (Auto) Eos # (Auto) Baso # (Auto) Sodium 135 L Potassium 3.4 Chloride 97 L Carbon Dioxide 29 BUN 14 Creatinine 0.60 Estimated GFR > 60.0 BUN/Creatinine Ratio 23.3 H Glucose 111 H Calcium 9.0 Iron TIBC % Saturation Transferrin Crossmatch Assessment & Plan Assessment & Plan narrative: 83 yo F admitted for hypoxemia suspect multifactorial. New onset atrial fibrillation might have occurred prior to admission and prompted the hypoxemia. Assessment 1. Possible pneumonia, WBC has normalized, now with slight upward trend but clinically improved. Risk for aspiration, swallow study still pending. Patient denies any difficulty with swallowing. Plan: Continue supplemental oxygen and will transition Levaquin 750 mg to PO dosing Q 48 hours, renal dosing. Repeat CBC in a.m. Assessment 2. Hypoxemia with diastolic heart failure in the setting of new onset atrial fibrillation x 1 episode that responded to oral diltiazem; complicated by possible pneumonia, UTI and anemia. Atrial fibrillation could be secondary to patient's infectious state, unclear at this point. [id number] = 5. Plan: Patient received Lasix in ED and again after 1 unit of blood. H/H improved, BNP now trending up again. Will transition back to oral lasix at increased dose of 60 mg daily. Patient is off her oxygen. Spoke with Dr. Guzman today, cardiology. He recommended discontinuing atenolol and amlodipine secondary to uncontrolled blood pressures and in setting of new onset atrial fibrillation, increasing diltiazem to 360 mg p.o. q.a.m. and adding losartan 50 mg p.o. q.day. Advised titrating losartan as needed to achieve good blood pressure control prior to discharge. Discussed patient's poor candidacy for anticoagulation secondary to her iron deficiency anemia and risk of falls. Will watch blood pressure closely today and trend labs in the morning. Dr. Guzman will see patient in outpatient setting. Assessment 3. Anemia, iron deficiency. Peripheral smear atypical with anisocytosis, polychromasia, hypochromasia, and smudge cells, concern for chronic lymphocytic leukemia. Status post transfusion of [address] Last consulting. Plan: Status post 200 mg of IV iron sucrose x 1. Will continue weekly therapy in the outpatient setting for a total of 5 doses, if needed. Patient is not a good candidate for oral therapy secondary to her age, GERD, and infectious state. Guaiac pending as patient has yet had a bowel movement. Will also start workup for etiology including tissue transglutaminase (pending) and possibly EGD/colonoscopy. Patient is fragile and will not plan to do endoscopic procedures in the inpatient setting. Will discuss the appropriateness of this after discharge. Dr. Last follow up as an outpatient. Will continue to coordinate care. Repeat CBC and BMP in the morning. Assessment 4. Infectious Disease. Chest x-ray with possible pneumonia and E coli UTI. Plan: Continue with Levaquin, transitioning to orals, will complete 10 day course. Assessment 5. Hypertension, has been elevated during inpatient stay. Plan: Please see #2. Assessment 6. History of hypokalemia on potassium, normalized. Plan: Continue potassium 40 meq p.o. q.day and trend labs. Assessment 7. Depression without acute exacerbation Plan: Continue on doxepin, fluoxetine. Assessment 8. Frequent falls with weakness and balance instability Plan: PT evaluate and treat. Contraindication for anticoagulation for atrial fibrillation. Assessment 9. Diffuse pruritus Plan: Will continue with outpatient treatment, patient has Dermatology follow-up. Hydroxyzine as needed and triamcinolone as needed. Avoid lotion. Assessment 10. GERD Plan: Continue proton pump inhibitor. Assessment 11. Type 2 diabetes Plan: Will continue outpatient treatment with metformin. Will do CBGS q.a.c. and q.h.s. and will do sliding scale insulin. Code status: Full code Son is durable power of divorce attorney. She will discuss this further with him.
[2018-12-14 07:11] LABS: Reticulocyte Count, Percent 2.5 % (1.06-2.63)
[2018-12-14 07:13] LABS: B Type Natriuretic Peptide 562 (<100)
[2018-12-14 07:26] LABS: TSH w/ Reflex to FT4 1.49 uIU/mL (0.47-4.68)
[2018-12-14 07:42] LABS: Vitamin B12 450 pg/mL (239-931)
[2018-12-14 07:59] LABS: Folate 9.1 ng/mL (2.76-20.0)
[2018-12-14] MEDS: FLUoxetine 20 MG CAPSULE 40 MG PO (09:45)
[2018-12-14] MEDS: POTASSIUM CHLORIDE 20 MEQ TAB 40 MEQ PO (09:46)
[2018-12-14] MEDS: FUROSEMIDE 20 MG TABLET 60 MG PO (09:47)
[2018-12-14] MEDS: LOSARTAN 50 MG TABLET PO (09:48)
[2018-12-14] MEDS: levoFLOXacin 250 MG TABLET 750 MG PO (09:50)
[2018-12-14] MEDS: METFORMIN HCL 500 MG TABLET PO (09:50)
[2018-12-14] MEDS: ESTRADIOL 0.5 MG TABLET PO (09:52)
[2018-12-14] MEDS: dilTIAZem CD 180 MG CAP 360 MG PO (09:52)
--- NOTE | 2018-12-14 12:06 | PT.IPTN ---
Current Diagnoses Iron deficiency anemia, unspecified (12/10/18) Anemia, unspecified (12/10/18) Pneumonia, unspecified organism (12/10/18) Physical Therapy Treatment Note M2 PT-IP Current Condition Start: 12/11/18 08:18 Freq: NEEDED Status: Active Protocol: Document 12/11/18 09:06 RS (Rec: 12/11/18 09:17 RS [id number]) Physical Therapy Current Condition Current Condition Evaluation Date 12/11/18 Treatment Diagnosis SOB, limited activity tolerance Onset Date a few days ago M3 PT-IP Subjective Start: 12/11/18 08:18 Freq: NEEDED Status: Active Protocol: Document 12/14/18 11:50 AW (Rec: 12/14/18 12:06 AW [id number]) Subjective Physical Therapy Visit Type Type Treatment Note Visit Start Time 11:31 Visit Stop Time 11:48 Total Visit Minutes 17 Number of DOCTOR OF PODIATRIC MEDICINE Visits 0 Physical Therapy Visit Comments Patient Comments Pt sitting up in bed, ambiable and happy to work with PT. Therapy Pain Assessment Pain When Pain Assessed During Mobility Pain Present Pain Present Denied Pain M4 PT-IP Mobility and Gait Start: 12/11/18 08:18 Freq: NEEDED Status: Active Protocol: Document 12/14/18 11:50 AW (Rec: 12/14/18 12:06 AW [id number]) PT-Bed Mobility Assessment Supine to Sit Supine to Sit Standby Assistance Scooting Scooting to Edge of Bed Standby Assistance PT-Transfer Assessment Sit to and From Stand Sit to and from Stand Standby Assistance Equipment Transfer Assistive Device Gait Belt,Front Wheeled Walker Orthotic/Prosthetic Devices or Brace: No Transfers Transfer Destination Chair,Toilet Transfer Technique pt ambulated with FWW Transfer Ability Level of Assist Standby Assistance Comments Mobility Comments Pt able to manage undergarments and transfer to toilet SBA. Gait Assessment Gait Gait Assistance Required: Standby Assistance Distance (Feet) 200 Assistive Devices Assistive Device Gait Belt,Front Wheeled Walker Gait Deviations General Gait Pattern Decreased Stride Length,Flexed Trunk Comments Gait Comments Pt ambulated 200 feet using FWW SBA. She was able to change speeds and perform head turns/nods during ambulation with only mild path deviations noted with head turns. M5 PT-IP Objective Assessments Start: 12/11/18 08:18 Freq: NEEDED Status: Active Protocol: Document 12/11/18 09:06 RS (Rec: 12/11/18 09:17 RS [id number]) Orientation Orientation/Cognition Level of Alertness Alert Orientation Name,Age,Birthday,Month,Date, Year,Day of Week,Place, Situation Language Function Ability No Deficits Noted Safety Awareness Understands Safety Issues Memory Description No Deficits Noted Gross Range of Motion Upper Extremity ROM Assessment Within Functional Limits Lower Extremity ROM Assessment Within Functional Limits Strength Upper Extremity Strength Assessment Within Functional Limits Lower Extremity Strength Assessment Within Functional Limits M6 PT-IP Treatment Start: 12/11/18 08:18 Freq: NEEDED Status: Active Protocol: Document 12/14/18 11:50 AW (Rec: 12/14/18 12:06 AW [id number]) Physical Therapy Treatment Other Treatments Other Treatment Performed Standing balance: NBOS EO/EC, heel raises, staggered stance M7 PT-IP Assessment and Plan Start: 12/11/18 08:18 Freq: NEEDED Status: Active Protocol: Document 12/14/18 11:50 AW (Rec: 12/14/18 12:06 AW [id number]) PT Summary Assessment and Plan Summary Assessment Summary Pt required SBA for all mobilities including managing undergarments for toileting with no UE support. She reported no SOB and had no need for rest breaks. She reported feeling much steadier with FWW and would like to have one for home use. Pt will be safe to discharge home when cleared medically. Goals Bed Mobility Goal Independent Transfer Goal Independent Gait Goal Independent Gait Distance 500 Days to Meet Goals 2 Frequency of Treatment Frequency Of Treatment Once a Day Treatment Plan Physical Therapy Treatment Plan Gait Training,Balance Retraining,Discharge Planning Other Recommendations and Next Treatment balance and longer gait Focus distance Recommendations To Nursing Amount of Assist Needed Standby Assistance Discharge Recommendations PT Discharge Recommendations Home with Assistance, Outpatient PT Equipment Needed for Home Before FWW for home use Discharge
[2018-12-14] MEDS: TRIAMCINOLONE 0.5% CREAM 1 APPLIC TOP (12:59)
--- NOTE | 2018-12-14 13:03 | CM.DPC ---
DCP Cont: Left message with son, Alberto, to reach out and discuss discharge plan. At this time, patient is requesting home, but is still medically unstable. Will continue to be available for any concerns. Dr. Reyes had seen patient today. P: DCP to continue to follow closely and assist with any needs or resources. Rachel Bui RN/Coroner/Medical Examiner
[2018-12-14] MEDS: DOXEPIN 25 MG CAPSULE PO (21:00)
[2018-12-14] MEDS: LOVASTATIN 20 MG TABLET PO (21:01)
[2018-12-15 03:56] VITALS: O2SAT 97
--- NOTE | 2018-12-15 04:01 | PC.NURSE ---
Doctor Assistant Note: 0010: Resting in bed. Vital signs stable. Remains on telemetry. IV in place in lt wrist. Pt denies any pain or discomfort. Bed alarm remains on.
[2018-12-15 05:25] VITALS: BP 144/72; PULSE 71; RESP 16; TEMP 36.9; O2SAT 93
[2018-12-15 05:30] LABS: Add Manual Diff / Slide Review NO; Basophils Absolute Auto 0 /uL (0-100); Basophils Percent Auto 0.3 % (0-2); Eosinophils Absolute Auto 200 /uL (0-450); Eosinophils Percent Auto 1.3 % (2-4); Hematocrit 29.1 % (36-46); Hemoglobin 9.1 g/dL (12.0-16.0); Lymphocytes Absolute Auto 4100 /uL (1100-4500); Lymphocytes Percent Auto 33.4 % (25-40); Mean Corpuscular HGB Conc 31.2 % (30-36); Mean Corpuscular Hemoglobin 24.1 PG (26-34); Mean Corpuscular Volume 77.3 fL (80-100); Monocytes Absolute Auto 1500 /uL (0-900); Monocytes Percent Auto 12.5 % (3-14); Neutrophils Absolute Auto 6400 /uL (1500-7000); Neutrophils Percent Auto 52.5 % (50-75); Platelet Count 235 X10^3/uL (150-400); Red Blood Cell Count 3.76 X10^6/uL (4.0-5.2); Red Cell Distribution Width 18.7 % (11.6-14.8); White Blood Cell Count 12.2 X10^3/uL (4.5-11.0)
[2018-12-15 05:47] LABS: B Type Natriuretic Peptide 242 (<100)
[2018-12-15 05:51] LABS: BUN Creatinine Ratio 21.4 (6-22); Blood Urea Nitrogen 15 mg/dL (7-17); Calcium 8.9 mg/dL (8.4-10.2); Carbon Dioxide 29 mmol/L (22-32); Chloride 97 mmol/L (98-107); Estimated Glomerular Filt Rate > 60.0 mL/min (>60); Glucose 117 mg/dL (80-110); HEMOLYSIS < 15 (0-50); Potassium 4.1 mmol/L (3.4-5.1); Sodium 135 mmol/L (137-145)
[2018-12-15 07:20] VITALS: BP 143/67; PULSE 67; RESP 18; TEMP 36.6; O2SAT 97
--- NOTE | 2018-12-15 08:37 | P.DS_ITS ---
History of Present Illness History of Present Illness Date Patient Seen: 12/15/18 Time Patient Seen: 08:37 Chief complaint: SOB Narrative: Patient presented to emergency room shortness of breath. She was found to have significant anemia and hypoxemia in the ER. It was thought that hypoxemia etiology was multifocal including related to anemia, possible congestive heart failure exacerbation, possible COPD exacerbation, possible pneumonia, possible UTI. She was given IV Lasix, oxygen and IV Levaquin 750 mg. She states that she is feeling less short of breath at that time. She has been in her usual state health however has been suffering from a diffuse body rash that causes itching to the point that she scratches it and that it bleeds. She has seen her primary care provider at by Dr. Reyes as well as electrical engineer and they have not provided any solution but have given her multiple different topical creams. This is caused her difficulty sleeping so she has been less energetic and over the last 1-2 weeks has felt much less energetic. She states that yesterday she walked to the store and had to sit down because she was so breathless when she was walking home. She awakened this morning panicky struggling for air and sat up and that was the point that she contacted her boyfriend and told him to take her to the ER. She denies any palpitations. She denies any lightheadedness or dizziness but admits that her balance has been poor over the last year so. She has had multiple falls on review of her history in her chart. She has not had any chest pain. She does state she has had a cough and that she ?picked up a cold 2 days ago ?. She den ies any GI blood loss or change in her bowel movements although does have hemorrhoids which from time to time she will have bright red blood per rectum. She has felt tired. She has felt weak. She has not had nausea or vomiting or fever. She has not had headaches. Discharge Providers Provider Date of admission: 12/10/18 10:14 Discharge Date: 12/15/18 Primary care physician: Mariajose Reyes MD Consults: 12/10/18 07:58 Consult to Respiratory Therapy Evaluate & Treat Comment: Physician Instructions: Evaluate and treat 12/10/18 14:59 Consult to Physical Therapy Evaluate & Treat Comment: Physician Instructions: Evaluate and Treat 12/12/18 15:00 Consult to Speech Therapy Evaluate & Treat Comment: Physician Instructions: Evaluate and treat 12/14/18 12:07 Consult to Physical Therapy Evaluate & Treat Comment: Physician Instructions: FWW for home use Discharge provider: Mariajose Reyes MD Summary Hospital Course Discharge Diagnosis: 83 yo F admitted for hypoxemia suspect multifactorial. New onset atrial fibrillation might have occurred prior to admission and prompted the hypoxemia. 1. Hypoxemia, suspect multifactorial from possible community acquired versus aspiration pneumonia, e-coli UTI, singular episode of atrial fibrillation, iron- deficiency anemia, and possible CLL. 2. Diastolic heart failure 3. Hypertension, chronic, newly uncontrol 4. Hypokalemia, chronic, controlled on potassium 5. Depression without acute exacerbation 6. Frequent falls with weakness and balance instability 7. Diffuse pruritic rash 8. GERD 9. Type 2 diabetes Hospital Course: Hematology: Significant for an admission hemoglobin/hematocrit of 7.5/24.1, microcytic/microchromic. Status post 1 unit of blood, her hemoglobin/hematocrit trough was 8.3/25.3 and on day of discharge was 9.1/29.1. Iron studies were significant for iron deficiency anemia and she did receive 200 mg of IV iron sucrose on day prior to discharge. She will continue with weekly IV iron transfusions until her iron levels normalize. Peripheral smear during admission was abnormal and included smudge cells, concern for CLL. Dr. Last, oncology, was consulted and he will be following up with her in the outpatient setting in 3-4 weeks. CV: On hospital day 2, she had 1 episode of isolated atrial fibrillation that was treated with diltiazem 30 mg p.o. q.6 hours. She had no further episodes of fibrillation. Patient does have chronic hypertension and her blood pressures remained uncontrolled throughout her stay despite the addition of diltiazem. Dr. Guzman, cardiology, was consulted and he recommended changing her home blood pressure medications to diltiazem 360 mg p.o. q.day and losartan 50 mg p.o. q.day. Outpatient follow-up with him as scheduled in 2 weeks. Secondary to her history of anemia, increased fall risk, and age, anticoagulation was not started. Patient did have an echo while in the hospital that showed a normal ejection fraction with diastolic dysfunction and elevated filling pressures. Also showed moderate mitral regurgitation and moderate pulmonary hypertension. Her admission BNP was 695 and fell to 242 with daily Lasix. She was discharged on 60 mg of oral Lasix. BNP and BMP will need to be checked in the outpatient setting. Potassium was mostly stable but did have a low during her admission and increase Lasix, potassium was increased and on day of discharge, potassium level was 4.1. This will need to be rechecked in the outpatient setting. Infectious disease: Patient had a questionable pneumonia and culture positive e-coli UTI during her stay that was treated with antibiotics. Admission WBC 11.5, trough of 8.7. On day of discharge WBC was elevated at 12.2. Secondary to her age, patient was placed on a renal dosing of levofloxacin. As her WBC was trending up despite overall improved clinical status, she was discharged on regular dosing of levofloxacin daily and she will be followed closely in the outpatient setting with a repeat CBC in 1 week. Dermatology: Her generalized skin rash did improve with steroid cream during her stay. It is possible that she was unable to apply it properly to herself at home and was suboptimally treating herself. Dr. Last did not feel that it was related to her abnormal peripheral smear. It is possible that she has severely dry skin from her anemia. Will watch closely. Dermatology is consulting and we will ensure outpatient followup. Status at Discharge Cognitive/behavioral status at discharge: oriented Functional status at discharge: independent ambulation Overall status at discharge: patient is progressing back to baseline Time Spent with Patient Time spent: Greater than 30 minutes Exam Vital Signs (past 8 hours): - 12/15/18 03:56 12/15/18 05:25 Temperature 98.4 F Pulse Rate 71 Respiratory Rate 16 Blood Pressure 144/72 H Pulse Oximetry 97 93 Oxygen Delivery Method Room Air Oxygen Flow Rate 0 Narrative Exam Narrative: GENERAL: Alert and oriented, appearing stated age and in no acute distress. HEENT: Head normocephalic/atraumatic. Pupils equal, round, and reactive to light and accomodation. Extraocular muscles intact. Tympanic membranes clear. Nasal mucosa moist, septum midline. Oral mucosa moist, no lesions. Neck soft and supple, no lymphadenopathy. LUNGS: Diminished inspiratory effort, mild expiratory wheeze heard throughout. No crackles. CV: Normal S1 and S2 with regular rate and rhythm, 3/5 systolic murmur, no rubs or gallops. ABDOMEN: Soft, non-tender, non-distended, no organomegaly. Positive bowel sounds. EXTREMITIES: No clubbing, cyanosis, or edema. NEURO: Cranial nerves II through XII grossly intact, no focal deficits. PSYCH: Alert and oriented x 3. SKIN: Generalized, pruritic, ulcerated rash sparing soles, feet, groin with multiple excoriations. Objective Labs Result Diagrams: 12/15/18 05:05 12/15/18 05:05 Labs: Laboratory Results - last 24 hr 12/15/18 12/15/18 12/15/18 05:05 05:05 05:05 WBC 12.2 H RBC 3.76 L Hgb 9.1 L Hct 29.1 L MCV 77.3 L MCH 24.1 L MCHC 31.2 RDW 18.7 H Plt Count 235 Neut % (Auto) 52.5 Lymph % (Auto) 33.4 Sutton % (Auto) 12.5 Eos % (Auto) 1.3 L Baso % (Auto) 0.3 Neut # (Auto) 6400 Lymph # (Auto) 4100 Sutton # (Auto) 1500 H Eos # (Auto) 200 Baso # (Auto) 0 Sodium 135 L Potassium 4.1 Chloride 97 L Carbon Dioxide 29 BUN 15 Creatinine 0.70 Estimated GFR > 60.0 BUN/Creatinine Ratio 21.4 Glucose 117 H Calcium 8.9 B-Natriuretic Peptide 242 H Discharge Plan Discharge Plan Patient Disposition: Home Discharge Med Rec/Prescriptions Prescriptions: New diltiazem HCl 180 mg Capsule,Extended Release 24hr 360 mg PO DAILY 90 Days Qty: 180 RF: 3 levofloxacin 250 mg Tablet 750 mg PO DAILY 8 Days Qty: 24 RF: 0 furosemide 20 mg Tablet 60 mg PO DAILY Qty: 270 RF: 3 losartan 50 mg Tablet 50 mg PO DAILY Qty: 30 RF: 3 potassium chloride [Klor-Con M20] 20 mEq Tablet,Er Particles/Crystals 40 meq PO DAILYCC 90 Days Qty: 180 RF: 3 Continued nitroglycerin [Nitrostat] 0.4 mg Tablet, Sublingual 0.4 mg SUBLINGUAL Q5-15M PRN (Reason: Chest Pain) Qty: 0 RF: 0 fluoxetine 20 mg capsule 40 mg PO DAILY RF: 0 doxepin 25 mg capsule 25 mg PO BEDTIME RF: 0 fluocinonide 0.05 % ointment 1 applic TOPICAL DIRECTED RF: 0 triamcinolone acetonide 0.1 % cream 1 applic TOPICAL DIRECTED RF: 0 clobetasol 0.05 % solution 1 applic TOPICAL DIRECTED RF: 0 metformin 500 mg tablet 500 mg PO QAM RF: 0 esomeprazole magnesium 40 mg capsule,delayed release(DR/EC) 80 mg PO DAILY RF: 0 estradiol 0.5 mg tablet 0.5 mg PO DAILY RF: 0 lovastatin 20 mg tablet 20 mg PO BEDTIME RF: 0 hydroxyzine HCl 10 mg tablet 10 mg PO QID RF: 0 Discontinued atenolol 100 mg tablet 100 mg PO DAILY RF: 0 permethrin 5 % cream 1 applic TOPICAL DIRECTED RF: 0 potassium chloride 10 mEq tablet extended release 10 meq PO DAILY RF: 0 amlodipine 10 mg tablet 10 mg PO DAILY RF: 0 furosemide 20 mg tablet 20 mg PO DAILY RF: 0 Other Ambulatory Orders: Oncology Follow Up Appointments (Order) Timeframe: 28 Days Facility: [facility] - Location: Oncology Ordered By: Frank Last Follow up/Referrals: Mariajose Reyes MD [Primary Care Provider] - (appt:01/01 @ 11:[address] reyes please arrive 15 minutes prior to schedule appointment ) Provider Discharge Instructions Diet: Carb-consistent/Diabetic, Low-sodium and Low-cholesterol Activity: as tolerated Skin/Wound/Dressing Care Skin care: Apply steroid cream up to BID to affected areas, prn, rash Report to your healthcare provider any signs of infection, such as:: chills, fever, increased pain, unusual drainage and unusual redness Visit Report/Discharge Packet Instructions: DI for Iron Deficiency Anemia-Adult, Diltiazem (By mouth), Losartan (By mouth), Levofloxacin (By mouth) Discharge Data Primary Care Provider: Mariajose Reyes Discharges patient from system. Discharge Date/Time: 12/15/18 11:25
[2018-12-15] MEDS: POTASSIUM CHLORIDE 20 MEQ TAB 40 MEQ PO (09:46)
[2018-12-15] MEDS: FUROSEMIDE 20 MG TABLET 60 MG PO (09:46)
[2018-12-15] MEDS: FLUoxetine 20 MG CAPSULE 40 MG PO (09:46)
[2018-12-15] MEDS: PANTOPRAZOLE 40 MG TABLET PO (09:46)
[2018-12-15] MEDS: LOSARTAN 50 MG TABLET PO (09:47)
[2018-12-15] MEDS: METFORMIN HCL 500 MG TABLET PO (09:47)
[2018-12-15] MEDS: ESTRADIOL 0.5 MG TABLET PO (09:48)
[2018-12-15] MEDS: dilTIAZem CD 180 MG CAP 360 MG PO (09:48)
--- NOTE | 2018-12-15 11:25 | PC.NURSE ---
Discharge Pt denied pain. Up with SBA and FWW. d/c instructions provided to pt and her SO. Aware of f/u apt with PCP and to f/u with oncology. Pt aware to contact PCP with any additional questions or concerns as well. took all belongings with her. left in w/c with [employer] escort.
[2018-12-16 15:55] LABS: Free Kappa Light Chain 20.2 mg/L (3.3-19.4); Free Kappa/ Lambda Ratio 1.14 (0.26-1.65); Free Lambda 17.7 mg/L (5.7-26.3)
== END 2018-12-15 11:25 | disposition home or self-care (01) | DRG 193 ==
LOC: ED 08:58 → AC 10:15
PROVIDERS: Family Medicine; Admitting Provider Family Medicine; Emergency Provider Emergency Medicine; Family Provider Dermatology; PCP Student in an Organized Health Care Education/Training Program; Visit Provider Family Medicine
DX: J18.9 Pneumonia, unspecified organism (principal); I50.33 Acute on chronic diastolic (congestive) heart failure; N39.0 Urinary tract infection, site not specified; R09.02 Hypoxemia; E87.6 Hypokalemia; I11.0 Hypertensive heart disease with heart failure; I48.91 Unspecified atrial fibrillation; B96.20 Unspecified Escherichia coli [E. coli] as the cause of diseases classified elsewhere; D50.9 Iron deficiency anemia, unspecified; E11.9 Type 2 diabetes mellitus without complications; Z79.84 Long term (current) use of oral hypoglycemic drugs; F32.9 Major depressive disorder, single episode, unspecified; L29.9 Pruritus, unspecified
CPT/HCPCS: 36415; 36430; 71045; 80048; 80053; 81001; 82272; 82550; 82607; 82728; 82746; 82784; 82962; 83516; 83540; 83550; 83605; 83735; 83880; 83883; 84145; 84155; 84443; 84484; 85025; 85045; 85610; 85730; 86334; 86335; 86850; 86900; 86901; 87040; 87077; 87086; 87186; 93005; 93041; 93306; 94640; 94760; 96374; 96375; 97112; 97116; 97161; 97530; 99231; 99284; 99285; P9016; A9270; J1756; J1940; J1956

== ENCOUNTER → 2019-01-31 08:48 | Outpatient (CLI) | payer OTHER, SELFPAY ==
[2018-12-10 11:18] VITALS: BMI 28.7
[2019-01-31 10:15] LABS: BUN Creatinine Ratio 22.9 (6-22); Blood Urea Nitrogen 16 mg/dL (7-17); Calcium 9.5 mg/dL (8.4-10.2); Carbon Dioxide 29 mmol/L (22-32); Chloride 102 mmol/L (98-107); Estimated Glomerular Filt Rate > 60.0 mL/min (>60); Glucose 111 mg/dL (80-110); HEMOLYSIS < 15 (0-50); Potassium 5.1 mmol/L (3.4-5.1); Sodium 139 mmol/L (137-145)
== END ==
PROVIDERS: Family Provider Dermatology; PCP Student in an Organized Health Care Education/Training Program; Visit Provider Internal Medicine Cardiovascular Disease
DX: I50.30 Unspecified diastolic (congestive) heart failure (principal)
CPT/HCPCS: 36415; 80048

== ENCOUNTER 2019-04-26 10:56 | Emergency (ER) | payer MEDICARE, SELFPAY ==
[2019-04-23 12:13] VITALS: BMI 28.7
[2019-04-26 11:00] VITALS: BP 196/84; PULSE 118; RESP 15; TEMP 36.5; O2SAT 98; BMI 27.2
--- NOTE | 2019-04-26 11:55 | ED.SKABFB ---
HPI - Skin/Abscess/Foreign Bdy <Paula DwyerDELLA - Last Filed: 04/26/19 22:12> General Chief complaint: Skin/Abscess/Foreign Body Stated complaint: rash and bumps all over body Time Seen by Provider: 04/26/19 11:15 Source: patient Mode of arrival: Ambulatory History of Present Illness HPI narrative: 83-year-old female with a history of diabetes, hypertension, HLD, smoker, presents emergency department complaining of a pruritic rash to her arms, chest, and back she states this has been ongoing for months. She has been diagnosed with atopic dermatitis from a biopsy, she was given triamcinolone cream which she reports has made this worse and she has started taking Zyrtec to help with the pruritus. Patient states she has noted small clear fluid-filled blisters forming around her nipples from the rash. She states she was seeing a tapper operator but has stop seeing them due to insurance issues. She states she feels like in some areas the rash has became more red and painful, she describes the pain as ?burning, especially when she showers. She denies any purulent drainage, fevers, chills, nausea, vomiting, diarrhea, or other concerns. Related Data Home Medications Medication Instructions Recorded Confirmed nitroglycerin [Nitrostat] 0.4 mg SUBLINGUAL Q5-15M PRN #0 07/06/09 04/17/19 doxepin 25 mg capsule 25 mg PO BEDTIME 08/30/17 04/17/19 fluoxetine 20 mg capsule 40 mg PO DAILY 08/30/17 04/17/19 esomeprazole magnesium 80 mg PO DAILY 04/25/18 04/17/19 estradiol 0.5 mg PO DAILY 04/25/18 04/17/19 lovastatin 20 mg PO BEDTIME 04/25/18 04/17/19 metformin 500 mg PO QAM 04/25/18 04/17/19 triamcinolone acetonide 1 applic TOPICAL DIRECTED 12/11/18 04/17/19 diltiazem HCl 360 mg PO DAILY 04/17/19 03/06/19 losartan 100 mg PO DAILY 04/17/19 04/17/19 Previous Rx's Medication Instructions Recorded furosemide 60 mg PO DAILY #270 tab 12/15/18 potassium chloride [Klor-Con M20] 40 meq PO DAILYCC 90 Days #180 tab 12/15/18 cetirizine [Allergy Relief 10 mg PO DAILY PRN #30 cap 04/24/19 (cetirizine)] doxycycline hyclate 100 mg PO BID 7 Days #14 cap 04/26/19 hydroxyzine HCl 25 mg PO BEDTIME #14 tab 04/26/19 Allergies Allergy/AdvReac Type Severity Reaction Status Date / Time MJ Inhibitors Allergy Intermediate Verified 04/26/19 11:03 guaifenesin Allergy Intermediate Verified 04/26/19 11:03 azithromycin Allergy Unknown Verified 04/26/19 11:03 dextromethorphan Allergy Unknown Verified 04/26/19 11:03 enalapril Allergy Unknown Verified 04/26/19 11:03 meloxicam Allergy Unknown Verified 04/26/19 11:03 pneumococcal vaccine Allergy Unknown Verified 04/26/19 11:03 [From PNEUMOVAX 23] ibuprofen AdvReac Unknown Verified 04/26/19 11:03 lidocaine AdvReac Unknown Verified 04/26/19 11:03 morphine AdvReac Unknown Verified 04/26/19 11:03 Review of Systems <DELLA Miller - Last Filed: 04/26/19 22:12> Review of Systems Narrative: REVIEW OF SYSTEMS: GENERAL: Denies fever or chills. HENT: Denies headaches or rhinorrhea. EYE: Denies vision changes. CARDs: Denies chest pain. MUSCULOSKELETAL: Denies trauma or pain. INTEGUMENTARY: Reports rash, see HPI. NEURO: Denies numbness, tingling. Patient History <DELLA Miller - Last Filed: 04/26/19 22:12> Medical History Diabetes mellitus type II, non insulin dependent (Chronic) HTN (hypertension) (Chronic) Hypercholesterolemia (Chronic) Surgical History History of bladder surgery (Resolved) History of cholecystectomy (Inactive) History of repair of hiatal hernia (Chronic) Status post hysterectomy (Resolved) Family History Sister Cancer Brother Cancer Sister Cancer Mother Cancer Social History household members: significant other Smoking Status: Never smoker Smoking Status: Never smoker alcohol intake frequency: holidays/special occasions only Substance Use Type: does not use Exam <DELLA Miller - Last Filed: 04/26/19 22:12> Initial Vital Signs Initial Vital Signs: Vital Signs Temperature 97.7 F 04/26/19 11:00 Pulse Rate 118 H 04/26/19 11:00 Respiratory Rate 15 04/26/19 11:00 Blood Pressure 196/84 H 04/26/19 11:00 Pulse Oximetry 98 04/26/19 11:00 PHYSICAL EXAMINATION: GENERAL: Alert, and cooperative. Answers questions promptly and appropriately. HENT: Normocephalic, atraumatic. No rash noted to face. Oropharynx without erythema, no lesions on oral mucosa. RESPIRATORY: Normal respiratory rate, trachea midline, airway patent. No stridor, nasal flaring or accessory muscle use. MUSCULOSKELETAL: Normal gait and coordination. Equal tone and mass bilaterally. EXTREMITIES: CMS intact. Moves all extremities. SKIN: Warm, dry, soft, appropriate color for ethnicity. A dry patchy rash noted to back and top of arms bilaterally. Dry patchy rash noted to breasts, few below blisters with clear serosanguineous fluid noted surrounding nipples and increased erythema in this area, no lumps or significant tenderness with palpation. No purulent discharge. Small dark scabs noted to back. NEURO: Alert and Oriented X 3. Good coordination. PSYCH: Appropriate affect and mood. <Олег Wiggins MD - Last Filed: 04/27/19 07:43> Initial Vital Signs Initial Vital Signs: Vital Signs Temperature 97.7 F 04/26/19 11:00 Pulse Rate 118 H 04/26/19 11:00 Respiratory Rate 15 04/26/19 11:00 Blood Pressure 196/84 H 04/26/19 11:00 Pulse Oximetry 98 04/26/19 11:00 Course <DELLA Miller - Last Filed: 04/26/19 22:12> Course Course Narrative: Patient's pulse was re-evaluated after triage, rate was found to be 82. Vital Signs Vital signs: Vital Signs - 8 hr 04/26/19 11:00 Temperature 97.7 F Pulse Rate 118 H Respiratory Rate 15 Blood Pressure 196/84 H Pulse Oximetry 98 <Олег Wiggins MD - Last Filed: 04/27/19 07:43> Vital Signs Vital signs: Vital Signs - 8 hr 04/26/19 11:00 Temperature 97.7 F Pulse Rate 118 H Respiratory Rate 15 Blood Pressure 196/84 H Pulse Oximetry 98 [facility] - Skin/Abscess/Foreign Bdy <Paula VeraDELLA valdez - Last Filed: 04/26/19 22:12> Medical Records Attestation: I reviewed the patient's medical records. Lab Data Attestation: I reviewed the patient's lab results. [facility] Narrative Medical decision making narrative: 83-year-old female presenting emergency department for a known diagnosis of atopic dermatitis on biopsy with worsening pruritic symptoms and formation of blisters around her nipples. I suspect this is most likely an exacerbation of atopic dermatitis with associated dermatitis from scratching due to blisters and increasing erythema, as well as worsening ?burning?. Less likely shingles due to lack vesicles. Less likely scabies due to lack tracking. Less likely psoriasis due to presentation of rash. Patient states triamcinolone cream has not worked. She was given doxycycline, encouraged to use Aquaphor, and given a small dose of hydroxyzine to take at night. Patient was counseled extensively about sedating side effects of hydroxyzine, she agrees to not drive. Patient was encouraged to follow up with a tapper operator or her primary care provider whichever her insurance allows. Patient agrees to plan of care verbalized understanding. Discharge Plan Departure Patient Disposition: Home Clinical Impression: Eczema Qualifiers: Eczema type: unspecified Qualified Code(s): L30.9 - Dermatitis, unspecified Cellulitis Qualifiers: Site of cellulitis: trunk Site of cellulitis of trunk: unspecified site Qualified Code(s): L03.319 - Cellulitis of trunk, unspecified Discharge Date/Time: 04/26/19 12:27 Instructions: DI for Cellulitis -- Adult, DI for Atopic Dermatitis - Adult Activity Restrictions/Additional Instructions: Thank you for entrusting me with your care today. As discussed, it appears you have eczema with some associated skin infection from scratching. I have given you an antibiotic and a medication to take at nighttime to help with itching, these scripts were sent to [facility] in [place]. Please try not to scratch your skin, this increases infection. Apply Aquaphor lotion to the area 3 times a day (you can find this [id number]). Follow-up with your primary care provider as discussed. Return to the emergency department for any new or worsening symptoms such as chest pain, syncope, high fevers, uncontrollable vomiting, or other concerns. Prescriptions: New doxycycline hyclate 100 mg capsule 100 mg PO BID 7 Days Qty: 14 RF: 0 hydroxyzine HCl 25 mg tablet 25 mg PO BEDTIME Qty: 14 RF: 0 No Action nitroglycerin [Nitrostat] 0.4 mg Tablet, Sublingual 0.4 mg SUBLINGUAL Q5-15M PRN (Reason: Chest Pain) Qty: 0 RF: 0 fluoxetine 20 mg capsule 40 mg PO DAILY RF: 0 doxepin 25 mg capsule 25 mg PO BEDTIME RF: 0 triamcinolone acetonide 0.1 % cream 1 applic TOPICAL DIRECTED RF: 0 furosemide 20 mg Tablet 60 mg PO DAILY Qty: 270 RF: 3 potassium chloride [Klor-Con M20] 20 mEq Tablet,Er Particles/Crystals 40 meq PO DAILYCC 90 Days Qty: 180 RF: 3 metformin 500 mg tablet 500 mg PO QAM RF: 0 esomeprazole magnesium 40 mg capsule,delayed release(DR/EC) 80 mg PO DAILY RF: 0 estradiol 0.5 mg tablet 0.5 mg PO DAILY RF: 0 lovastatin 20 mg tablet 20 mg PO BEDTIME RF: 0 losartan 50 mg tablet 100 mg PO DAILY RF: 0 diltiazem HCl 180 mg capsule,extended release 24hr 360 mg PO DAILY RF: 0 Allergy Relief (cetirizine) 10 mg Capsule 10 mg PO DAILY PRN (Reason: maculopapular rashes) Qty: 30 RF: 1 Referrals: Mariajose Reyes MD [Primary Care Provider] -
[2019-04-26 12:01] VITALS: BP 163/72; PULSE 85; O2SAT 95
== END 2019-04-26 12:27 | disposition home or self-care (01) ==
PROVIDERS: Emergency Provider Nurse Practitioner; Family Provider Dermatology; PCP Student in an Organized Health Care Education/Training Program
DX: L30.9 Dermatitis, unspecified (principal); L03.319 Cellulitis of trunk, unspecified
CPT/HCPCS: 93005; 99281; 99283

== ENCOUNTER 2019-04-29 13:33 | Emergency (ER) | payer MEDICARE, SELFPAY ==
[2019-04-23 12:13] VITALS: BMI 28.7
[2019-04-29 13:43] VITALS: BP 151/70; PULSE 91; RESP 16; TEMP 36.8; O2SAT 100; BMI 27.2
[2019-04-29 18:11] VITALS: BP 143/66; PULSE 74; RESP 20; O2SAT 99
--- NOTE | 2019-04-29 22:33 | ED_ITS ---
HPI - Skin/Abscess/Foreign Bdy <Vidal DELLA Alonso - Last Filed: 04/29/19 23:25> General Chief complaint: Skin/Abscess/Foreign Body Stated complaint: dermititis cellulitis is getting worse seen 04/26 Time Seen by Provider: 04/29/19 16:57 Source: patient Mode of arrival: Ambulatory Limitations: no limitations History of Present Illness HPI narrative: This is a 83-year-old female, smoker, presents to ED with chief complaint of two serosanguineous filled blisters on left breast, rash, and burning discomfort. Patient reports she also has itching rashes on her arms, chest and back for months. Patient denies fever, chills, nausea or vomiting. Patient was seen in ED 3 days ago and was treated for cellulitis and discharged to home with doxycycline. Patient reports she has been taking the antibiotic medication and still has 7 pills to complete. She reports has not been using triamcinolone steroids cream because it stings her skin and she does not think hydroxyzine is helping her with the itching. Patient reports she has not followed up with Dr. Reyes since she was told there's nothing I can do for you and is waiting for her dermatology appointment on 05/10/19. She has history of hypertension, diabetes, hiatal hernia. Related Data Home Medications Medication Instructions Recorded Confirmed nitroglycerin [Nitrostat] 0.4 mg SUBLINGUAL Q5-15M PRN #0 07/06/09 04/17/19 doxepin 25 mg capsule 25 mg PO BEDTIME 08/30/17 04/17/19 fluoxetine 20 mg capsule 40 mg PO DAILY 08/30/17 04/17/19 esomeprazole magnesium 80 mg PO DAILY 04/25/18 04/17/19 estradiol 0.5 mg PO DAILY 04/25/18 04/17/19 lovastatin 20 mg PO BEDTIME 04/25/18 04/17/19 metformin 500 mg PO QAM 04/25/18 04/17/19 triamcinolone acetonide 1 applic TOPICAL DIRECTED 12/11/18 04/17/19 diltiazem HCl 360 mg PO DAILY 04/17/19 03/06/19 losartan 100 mg PO DAILY 04/17/19 04/17/19 Previous Rx's Medication Instructions Recorded furosemide 60 mg PO DAILY #270 tab 12/15/18 potassium chloride [Klor-Con M20] 40 meq PO DAILYCC 90 Days #180 tab 12/15/18 cetirizine [Allergy Relief 10 mg PO DAILY PRN #30 cap 04/24/19 (cetirizine)] doxycycline hyclate 100 mg PO BID 7 Days #14 cap 04/26/19 hydroxyzine HCl 25 mg PO BEDTIME #14 tab 04/26/19 hydroxyzine HCl 25 mg PO BEDTIME #10 tab 04/29/19 mupirocin 1 applictn TOP BID #30 gram 04/29/19 Allergies Allergy/AdvReac Type Severity Reaction Status Date / Time MJ Inhibitors Allergy Intermediate Verified 04/29/19 13:43 guaifenesin Allergy Intermediate Verified 04/29/19 13:43 azithromycin Allergy Unknown Verified 04/29/19 13:43 dextromethorphan Allergy Unknown Verified 04/29/19 13:43 enalapril Allergy Unknown Verified 04/29/19 13:43 meloxicam Allergy Unknown Verified 04/29/19 13:43 pneumococcal vaccine Allergy Unknown Verified 04/29/19 13:43 [From PNEUMOVAX 23] ibuprofen AdvReac Unknown Verified 04/29/19 13:43 lidocaine AdvReac Unknown Verified 04/29/19 13:43 morphine AdvReac Unknown Verified 04/29/19 13:43 Review of Systems <DELLA Marie - Last Filed: 04/29/19 23:25> Review of Systems Narrative: General: Denies fever, chills, fatigue, malaise, sweats. HEENT: Denies sinus pain, ear pain, sore throat, difficulty swallowing, dizziness. Respiratory: Denies dyspnea, cough, wheezing, hemoptysis, sputum. Cardiovascular: Denies chest pain, palpitations, orthopnea, edema. Gastrointestinal: Denies nausea, vomiting, abdominal pain, diarrhea, constipation, melena. : Denies dysuria, frequency, incontinence, hematuria, urinary retention. Musculoskeletal: Denies weakness, joint pain or bony pain. Skin: HPI Neurologic: Denies weakness, headache, numbness, change in speech, confusion, seizures, incoordination. Psychiatric: No concerning psychosocial issues. 12-point review of systems is negative except for those stated above. Patient History <DELLA Marie - Last Filed: 04/29/19 23:25> Medical History Diabetes mellitus type II, non insulin dependent (Chronic) HTN (hypertension) (Chronic) Hypercholesterolemia (Chronic) Surgical History History of bladder surgery (Resolved) History of cholecystectomy (Inactive) History of repair of hiatal hernia (Chronic) Status post hysterectomy (Resolved) Family History Sister Cancer Brother Cancer Sister Cancer Mother Cancer Social History household members: significant other Smoking Status: Never smoker Smoking Status: Never smoker alcohol intake frequency: holidays/special occasions only Substance Use Type: does not use Exam <DELLA Marie - Last Filed: 04/29/19 23:25> Narrative Exam Narrative: General appearance: well developed, well nourished, in no acute distress. Head: normocephalic, atraumatic, no scalp lesions, non-tender. ENT: Hearing grossly intact. Nose without bleeding, purulent discharge or deviation. Mucous membrane moist, no mucosal lesion. Throat without erythema, tonsillar hypertrophy or exudate. Uvula in midline, airway patent. Neck/Thyroid: neck supple, full range of motion, no visible masses or meningeal signs. No JVD, non-tender without lymphadenopathy. Skin: bilateral upper arm covered with flat-topped, polygonal, hypertrophic, scaly papular rash. Mutiple excoriated lesions on the bilateral back and the chest. Two serosanguineous filled blisters on left breast near nipple. Heart: no clubbing, no cyanosis, no edema. S1 and S2 normal. RRR with murmurs but no clicks, or bruits. Lungs: Breathing even and unlabored. No stridor. No accessory muscles used. Able to speak in full sentences. Chest: normal shape and expansion. Abdomen: non-obese, non-distended. Neurologic: alert and oriented. Cognitive exam, ANIMAL SHELTER CLERK and PNS grossly intact on informal exam. Psych: good eye contact, normal affect. Initial Vital Signs Initial Vital Signs: Vital Signs Temperature 98.2 F 04/29/19 13:43 Pulse Rate 91 H 04/29/19 13:43 Respiratory Rate 16 04/29/19 13:43 Blood Pressure 151/70 H 04/29/19 13:43 Pulse Oximetry 100 04/29/19 13:43 <Jun Coon DO - Last Filed: 04/30/19 05:17> Initial Vital Signs Initial Vital Signs: Vital Signs Temperature 98.2 F 04/29/19 13:43 Pulse Rate 91 H 04/29/19 13:43 Respiratory Rate 16 04/29/19 13:43 Blood Pressure 151/70 H 04/29/19 13:43 Pulse Oximetry 100 04/29/19 13:43 Scores <DELLA Marie - Last Filed: 04/29/19 23:25> GCS Mckinley coma scale eye opening: Spontaneous Mckinley coma scale verbal response: Orientated Mckinley coma scale motor response: Obey commands Bowman coma scale total score: 15 Course <DELLA Marie - Last Filed: 04/29/19 23:25> Vital Signs Vital signs: Vital Signs - 8 hr 04/29/19 18:11 Pulse Rate 74 Respiratory Rate 20 Blood Pressure [Right Arm] 143/66 H Pulse Oximetry 99 <Jun Coon DO - Last Filed: 04/30/19 05:17> Vital Signs Vital signs: Vital Signs - 8 hr 04/29/19 18:11 Pulse Rate 74 Respiratory Rate 20 Blood Pressure [Right Arm] 143/66 H Pulse Oximetry 99 [facility]DM - Skin/Abscess/Foreign Bdy <SANJEEV MarieP - Last Filed: 04/29/19 23:25> Differential Diagnosis Differential diagnosis: Likely herpes zoster, cellulitis and other (Bullous /hemorrhagic lichen sclerous, Lichen planus, eczema) Medical Records Attestation: I reviewed the patient's medical records. [facility] Narrative Medical decision making narrative: This is a 83 year old female who returned to ED after 3 days with for right ache rash and to serosanguineous field bullae on L breast. It appears to be patient has superimposed infection from scratching her skin. She was started on doxycycline during last visit and advised to use topical steroid and to take hydroxyzine for itching. Patient reports two bullae is slightly smaller but itching has not been improving much. Patient advised to use topical steroid mixed in Aquaphor ointment to decrease discomfort when she used on her skin. Patient advised to avoid scratching her skin since this can cause infection. Skin cool and avoid hot shower or bath and oat-based soap may sooth the ithcing. Patient advised to continue with current doxycycline and discharged to home with mupirocin ointment to use on excoriated, open skin, and over two bullae on left breast. Considered herpes zoster but since patient has this rash on bilateral back it is unlikely. Also lichen planus was considered since the shape of her rash on bilateral upper arm resembles this. Patient advised to follow-up with the bioinformatics software engineer in 05/10 as scheduled for for evaluation and treatment period. Returned precaution for discussed with the patient and patient verbalize-understanding and in agreement with treatment plan period. Discharge Plan Departure Patient Disposition: Home Clinical Impression: Cellulitis of multiple sites of trunk, Dermatitis Discharge Date/Time: 04/29/19 18:22 Instructions: DI for Cellulitis -- Adult, DI for Atopic Dermatitis - Adult Activity Restrictions/Additional Instructions: You have been diagnosed with [dermatitis/eczema with superimposed cellulitis]. What to do: *Take your medications as directed. I have ordered mupirocin ointment for open wounds and blister on the left chest for you to use. Please continue to use doxycycline antibiotic medication and complete this medication. You can use hydroxyzine for intense itching and night when you go to sleep to prevent scratching. Continue to take allergy medications daily. This medication has been transmitted to [facility] *Follow up with your primary care provider in 2-3 days, call for an appointment for wound recheck. Let them know you were seen in the ED and that we asked you to be seen in follow up. *Return to ED if you have any new, worsening, or concerning symptoms, such as [fever, increasing pain, breathing difficulty, chest pain, unable to tolerate fluids, redness/warmth/pain increasing around the wound or any acute concerns]. Prescriptions: New mupirocin 2 % ointment 1 applictn TOP BID Qty: 30 RF: 2 hydroxyzine HCl 25 mg tablet 25 mg PO BEDTIME Qty: 10 RF: 0 No Action nitroglycerin [Nitrostat] 0.4 mg Tablet, Sublingual 0.4 mg SUBLINGUAL Q5-15M PRN (Reason: Chest Pain) Qty: 0 RF: 0 fluoxetine 20 mg capsule 40 mg PO DAILY RF: 0 doxepin 25 mg capsule 25 mg PO BEDTIME RF: 0 triamcinolone acetonide 0.1 % cream 1 applic TOPICAL DIRECTED RF: 0 furosemide 20 mg Tablet 60 mg PO DAILY Qty: 270 RF: 3 potassium chloride [Klor-Con M20] 20 mEq Tablet,Er Particles/Crystals 40 meq PO DAILYCC 90 Days Qty: 180 RF: 3 doxycycline hyclate 100 mg capsule 100 mg PO BID 7 Days Qty: 14 RF: 0 hydroxyzine HCl 25 mg tablet 25 mg PO BEDTIME Qty: 14 RF: 0 metformin 500 mg tablet 500 mg PO QAM RF: 0 esomeprazole magnesium 40 mg capsule,delayed release(DR/EC) 80 mg PO DAILY RF: 0 estradiol 0.5 mg tablet 0.5 mg PO DAILY RF: 0 lovastatin 20 mg tablet 20 mg PO BEDTIME RF: 0 losartan 50 mg tablet 100 mg PO DAILY RF: 0 diltiazem HCl 180 mg capsule,extended release 24hr 360 mg PO DAILY RF: 0 Allergy Relief (cetirizine) 10 mg Capsule 10 mg PO DAILY PRN (Reason: maculopapular rashes) Qty: 30 RF: 1 Referrals: Mariajose Reyes MD [Primary Care Provider] -
== END 2019-04-29 18:22 | disposition home or self-care (01) ==
PROVIDERS: Emergency Provider Nurse Practitioner Family; Family Provider Dermatology; PCP Student in an Organized Health Care Education/Training Program
DX: L03.319 Cellulitis of trunk, unspecified (principal); L30.9 Dermatitis, unspecified
CPT/HCPCS: 99281; 99283

== ENCOUNTER 2019-05-02 10:13 | Emergency (ER) | payer MEDICARE, SELFPAY ==
[2019-04-23 12:13] VITALS: BMI 28.7
[2019-05-02 10:22] VITALS: BP 186/85; PULSE 87; RESP 18; TEMP 36.4; O2SAT 99
--- NOTE | 2019-05-02 10:30 | ED_ITS ---
HPI - Skin/Abscess/Foreign Bdy General Chief complaint: Skin/Abscess/Foreign Body Stated complaint: Rash Time Seen by Provider: 05/02/19 10:15 Source: patient and EMS Mode of arrival: EMS Limitations: no limitations History of Present Illness HPI narrative: 83-year-old female smoker with history of chronic anemia, eczema and GERD presents by EMS for evaluation ongoing irritating rash on her breasts and back. She has known eczema and various diagnosis of dermatitis and has been on antibiotics without much in the way of change. She has been taking antibiotics to cover for a possible cellulitic involvement and has an outstanding referral for Dermatology which is upcoming. The blood-filled blister on her left breast is unchanged and absent of surrounding erythema or underlying induration or fluctuance. She denies any fever or chills and has no nausea, vomiting or diarrhea. Her symptoms have been present for many months. Patient also states that she has felt episodes of generalized weakness off an on for the past few weeks. She denies chest pain or shortness of breath nor abdominal pain nor dysuria, frequency or urgency. MD complaint: rash Onset (ago): month(s) Tetanus up to date: yes Location: generalized Severity: mild Quality: constant and pruritic Exacerbating factors: none Context: none Treatments prior to arrival: antibiotic Related Data Home Medications Medication Instructions Recorded Confirmed nitroglycerin [Nitrostat] 0.4 mg SUBLINGUAL Q5-15M PRN #0 07/06/09 04/17/19 doxepin 25 mg capsule 25 mg PO BEDTIME 08/30/17 04/17/19 fluoxetine 20 mg capsule 40 mg PO DAILY 08/30/17 04/17/19 esomeprazole magnesium 80 mg PO DAILY 04/25/18 04/17/19 estradiol 0.5 mg PO DAILY 04/25/18 04/17/19 lovastatin 20 mg PO BEDTIME 04/25/18 04/17/19 metformin 500 mg PO QAM 04/25/18 04/17/19 triamcinolone acetonide 1 applic TOPICAL DIRECTED 12/11/18 04/17/19 diltiazem HCl 360 mg PO DAILY 04/17/19 03/06/19 losartan 100 mg PO DAILY 04/17/19 04/17/19 Previous Rx's Medication Instructions Recorded furosemide 60 mg PO DAILY #270 tab 12/15/18 potassium chloride [Klor-Con M20] 40 meq PO DAILYCC 90 Days #180 tab 12/15/18 cetirizine [Allergy Relief 10 mg PO DAILY PRN #30 cap 04/24/19 (cetirizine)] doxycycline hyclate 100 mg PO BID 7 Days #14 cap 04/26/19 hydroxyzine HCl 25 mg PO BEDTIME #14 tab 04/26/19 hydroxyzine HCl 25 mg PO BEDTIME #10 tab 04/29/19 mupirocin 1 applictn TOP BID #30 gram 04/29/19 Allergies Allergy/AdvReac Type Severity Reaction Status Date / Time MJ Inhibitors Allergy Intermediate Verified 04/29/19 13:43 guaifenesin Allergy Intermediate Verified 04/29/19 13:43 azithromycin Allergy Unknown Verified 04/29/19 13:43 dextromethorphan Allergy Unknown Verified 04/29/19 13:43 enalapril Allergy Unknown Verified 04/29/19 13:43 meloxicam Allergy Unknown Verified 04/29/19 13:43 pneumococcal vaccine Allergy Unknown Verified 04/29/19 13:43 [From PNEUMOVAX 23] ibuprofen AdvReac Unknown Verified 04/29/19 13:43 lidocaine AdvReac Unknown Verified 04/29/19 13:43 morphine AdvReac Unknown Verified 04/29/19 13:43 Review of Systems Constitutional Constitutional: Denies chills, Denies fatigue, Denies fever(s), Denies frequent falls, Denies lethargy and Reports weakness Eyes Eyes: Denies change in vision, Denies eye discharge, Denies irritation and Denies loss of vision ENT Ears, Nose, Mouth, and Throat: Denies change in voice, Denies dizziness, Denies neck pain, Denies sore throat and Denies throat swelling Cardiovascular Cardiovascular: Denies chest pain, Denies irregular heart rhythm, Denies lig htheadedness, Denies palpitations, Denies dyspnea, Denies dyspnea on exertion and Denies orthopnea Respiratory Respiratory: Denies cough, Denies dyspnea, Denies dyspnea on exertion and Denies wheezing Gastrointestinal Gastrointestinal: Denies abdominal pain, Denies change in bowel habits, Denies diarrhea, Denies nausea and Denies vomiting Genitourinary Genitourinary: Denies hematuria, Denies flank pain, Denies urinary incontinence and Denies urinary urgency Musculoskeletal Musculoskeletal: Denies back pain, Denies muscle weakness, Denies neck pain, Denies numbness and Denies tingling Integumentary/Breasts Skin/Breast: Reports pruritus, Denies erythema, Reports rash, Reports sores and Denies wounds Neurologic Neurologic: Denies behavioral changes, Denies confusion, Denies dizziness, Denies frequent falls, Denies loss of vision, Denies numbness, Denies tingling and Reports weakness Psychiatric Psychiatric: Denies anxiety, Denies behavioral changes, Denies confusion, Denies depression, Denies homicidal ideation and Denies suicidal ideation Endocrine Endocrine: Denies fatigue, Denies flushing and Denies palpitations Hematologic/Lymphatic Hematologic/Lymphatic: Denies easy bruising Allergic/Immunologic Allergic/Immunologic: Denies urticaria, Denies throat swelling and Denies wheezing Patient History Medical History Diabetes mellitus type II, non insulin dependent (Chronic) HTN (hypertension) (Chronic) Hypercholesterolemia (Chronic) Surgical History History of bladder surgery (Resolved) History of cholecystectomy (Inactive) History of repair of hiatal hernia (Chronic) Status post hysterectomy (Resolved) Family History Sister Cancer Brother Cancer Sister Cancer Mother Cancer Social History household members: significant other Smoking Status: Never smoker Smoking Status: Never smoker alcohol intake frequency: holidays/special occasions only Substance Use Type: does not use Exam Narrative Exam Narrative: GENERAL: [83] year old patient appears stated age. Well- nourished, well-developed patient, in mild distress. HEAD: Atraumatic. Normocephalic. EYES: Pupils equal round and reactive. Extraocular motions intact. No scleral icterus. No injection or drainage. ENT: Nose without bleeding, purulent drainage. Throat without erythema, tonsillar hypertrophy or exudate. Airway patent. NECK: Trachea midline. Non tender CARDIOVASCULAR: Regular rate and rhythm without murmurs, gallops, or rubs. RESPIRATORY: Clear to auscultation. Breath sounds equal bilaterally. No wheezes, rales, or rhonchi. GASTROINTESTINAL: Abdomen soft, non-tender, nondistended. EXTREMITIES: No edema or joint tenderness. BACK: Nontender without deformity or crepitance. No flank tenderness. NEURO: AOx3. SKIN: Widespread dry patches with some excoriations consistent with eczema. Left breast has a hemorrhagic bulla near nipple without surrounding erythema, tenderness or underlying induration or fluctuance. No drainage noted. Initial Vital Signs Initial Vital Signs: Vital Signs Temperature 97.6 F 05/02/19 10:22 Pulse Rate 87 05/02/19 10:22 Respiratory Rate 18 05/02/19 10:22 Blood Pressure 186/85 H 05/02/19 10:22 Pulse Oximetry 99 05/02/19 10:22 Course Orders Ordered: ED Orders 05/02/19 10:29 EKG-12 Lead Stat 05/02/19 10:40 Basic Metabolic Panel Stat Complete Blood Count AUTO DIFF Stat Discontinued Medications Potassium Chloride (Potassium Chloride) 40 meq PO NOW ONE Stop: 05/02/19 11:05 Last Admin: 05/02/19 11:24 Dose: 40 meq Documented by: BTONER Vital Signs Vital signs: Vital Signs - 8 hr 05/02/19 10:22 05/02/19 11:36 05/02/19 11:52 Temperature 97.6 F Pulse Rate 92 H Pulse Rate [Left] 87 Pulse Rate [Orthostatic Lying] 83 Pulse Rate [Orthostatic Sitting] 92 H Pulse Rate [Orthostatic Standing] 90 Respiratory Rate 18 18 Blood Pressure 150/71 H Blood Pressure [Left Arm] 186/85 H Blood Pressure [Orthostatic Lying] 156/67 H Blood Pressure [Orthostatic Sitting] 148/70 H Blood Pressure [Orthostatic Standing] 150/71 H Pulse Oximetry 99 98 MDM - Skin/Abscess/Foreign Bdy Lab Data Result diagrams: 05/02/19 10:40 05/02/19 10:40 Labs: Lab Results 05/02/19 05/02/19 Range/Units 10:40 10:40 WBC 11.7 H (4.5-11.0) X10^3/uL RBC 4.07 (4.0-5.2) X10^6/uL Hgb 11.6 L (12.0-16.0) g/dL Hct 35.2 L (36-46) % MCV 86.4 (80-100) fL MCH 28.6 (26-34) PG MCHC 33.1 (30-36) % RDW 16.3 H (11.6-14.8) % Plt Count 241 (150-400) X10^3/uL Neut % (Auto) 36.9 L (50-75) % Lymph % (Auto) 42.4 H (25-40) % [place] % (Auto) 7.0 (3-14) % Eos % (Auto) 13.0 H (2-4) % Baso % (Auto) 0.7 (0-2) % Neut # (Auto) 4300 (9502-4623) /uL Lymph # (Auto) 5000 H (0150-5034) /uL [place] # (Auto) 800 (0-900) /uL Eos # (Auto) 1500 H (0-450) /uL Baso # (Auto) 100 (0-100) /uL Sodium 136 L (137-145) mmol/L Potassium 3.2 L (3.4-5.1) mmol/L Chloride 100 (98-107) mmol/L Carbon Dioxide 26 (22-32) mmol/L BUN 21 H (7-17) mg/dL Creatinine 0.70 (0.52-1.04) mg/dL Estimated GFR > 60.0 (>60) mL/min BUN/Creatinine Ratio 30.0 H (6-22) Glucose 159 H (80-110) mg/dL Calcium 9.4 (8.4-10.2) mg/dL Discharge Plan Departure Patient Disposition: Home Clinical Impression: Eczema Qualifiers: Eczema type: other Qualified Code(s): L30.8 - Other specified dermatitis Discharge Date/Time: 05/02/19 11:52 Instructions: DI for Atopic Dermatitis - Adult Activity Restrictions/Additional Instructions: *You have been diagnosed with [eczema, an undifferentiated hemorrhagic bulla on left breast. Close follow-up with primary care is indicated, possible breast imaging needed] *What to do: *Take medications as directed *Follow up with your primary care provider in 2-3 days, call for an appointment. Let them know you were seen in the Emergency Department and that we ask that you be seen in follow up *Return to ER if you should have any new, worsening or concerning symptoms, such as [ ] Prescriptions: No Action nitroglycerin [Nitrostat] 0.4 mg Tablet, Sublingual 0.4 mg SUBLINGUAL Q5-15M PRN (Reason: Chest Pain) Qty: 0 RF: 0 fluoxetine 20 mg capsule 40 mg PO DAILY RF: 0 doxepin 25 mg capsule 25 mg PO BEDTIME RF: 0 triamcinolone acetonide 0.1 % cream 1 applic TOPICAL DIRECTED RF: 0 furosemide 20 mg Tablet 60 mg PO DAILY Qty: 270 RF: 3 potassium chloride [Klor-Con M20] 20 mEq Tablet,Er Particles/Crystals 40 meq PO DAILYCC 90 Days Qty: 180 RF: 3 doxycycline hyclate 100 mg capsule 100 mg PO BID 7 Days Qty: 14 RF: 0 hydroxyzine HCl 25 mg tablet 25 mg PO BEDTIME Qty: 14 RF: 0 metformin 500 mg tablet 500 mg PO QAM RF: 0 esomeprazole magnesium 40 mg capsule,delayed release(DR/EC) 80 mg PO DAILY RF: 0 estradiol 0.5 mg tablet 0.5 mg PO DAILY RF: 0 lovastatin 20 mg tablet 20 mg PO BEDTIME RF: 0 losartan 50 mg tablet 100 mg PO DAILY RF: 0 diltiazem HCl 180 mg capsule,extended release 24hr 360 mg PO DAILY RF: 0 Allergy Relief (cetirizine) 10 mg Capsule 10 mg PO DAILY PRN (Reason: maculopapular rashes) Qty: 30 RF: 1 mupirocin 2 % ointment 1 applictn TOP BID Qty: 30 RF: 2 hydroxyzine HCl 25 mg tablet 25 mg PO BEDTIME Qty: 10 RF: 0 Referrals: Mariajose Reyes MD [Primary Care Provider] -
[2019-05-02 10:47] LABS: Add Manual Diff / Slide Review NO; Basophils Absolute Auto 100 /uL (0-100); Basophils Percent Auto 0.7 % (0-2); Eosinophils Absolute Auto 1500 /uL (0-450); Hematocrit 35.2 % (36-46); Hemoglobin 11.6 g/dL (12.0-16.0); Lymphocytes Absolute Auto 5000 /uL (1100-4500); Lymphocytes Percent Auto 42.4 % (25-40); Mean Corpuscular HGB Conc 33.1 % (30-36); Mean Corpuscular Hemoglobin 28.6 PG (26-34); Mean Corpuscular Volume 86.4 fL (80-100); Monocytes Absolute Auto 800 /uL (0-900); Neutrophils Absolute Auto 4300 /uL (1500-7000); Neutrophils Percent Auto 36.9 % (50-75); Platelet Count 241 X10^3/uL (150-400); Red Blood Cell Count 4.07 X10^6/uL (4.0-5.2); Red Cell Distribution Width 16.3 % (11.6-14.8); White Blood Cell Count 11.7 X10^3/uL (4.5-11.0)
--- NOTE | 2019-05-02 10:59 | PC.NURSE ---
pt has a blister on each breast near nipple. pt had bleeding to left blister earlier but had resolved before arrival to ED.
[2019-05-02 11:01] LABS: Blood Urea Nitrogen 21 mg/dL (7-17); Calcium 9.4 mg/dL (8.4-10.2); Carbon Dioxide 26 mmol/L (22-32); Chloride 100 mmol/L (98-107); Estimated Glomerular Filt Rate > 60.0 mL/min (>60); Glucose 159 mg/dL (80-110); HEMOLYSIS < 15 (0-50); Potassium 3.2 mmol/L (3.4-5.1); Sodium 136 mmol/L (137-145)
[2019-05-02] MEDS: POTASSIUM CHLORIDE 20 MEQ/15 ML UDC 40 MEQ PO (11:24)
[2019-05-02 11:36] VITALS: BP 148/70; BP 150/71; BP 156/67; PULSE 83; PULSE 90; PULSE 92
[2019-05-02 11:52] VITALS: BP 150/71; PULSE 92; RESP 18; O2SAT 98
== END 2019-05-02 11:52 | disposition home or self-care (01) ==
PROVIDERS: Emergency Provider Emergency Medicine; Family Provider Dermatology; PCP Student in an Organized Health Care Education/Training Program
DX: L30.8 Other specified dermatitis (principal); R07.9 Chest pain, unspecified
CPT/HCPCS: 36415; 80048; 85025; 93005; 99284

== ENCOUNTER → 2019-05-14 11:02 | Outpatient (CLI) | payer MEDICARE, SELFPAY ==
[2019-04-23 12:13] VITALS: BMI 28.7
[2019-05-14 11:42] LABS: Add Manual Diff / Slide Review NO; Basophils Absolute Auto 100 /uL (0-100); Basophils Percent Auto 0.7 % (0-2); Eosinophils Absolute Auto 700 /uL (0-450); Hematocrit 36.7 % (36-46); Hemoglobin 11.9 g/dL (12.0-16.0); Lymphocytes Absolute Auto 10400 /uL (1100-4500); Lymphocytes Percent Auto 61.4 % (25-40); Mean Corpuscular HGB Conc 32.6 % (30-36); Mean Corpuscular Hemoglobin 28.6 PG (26-34); Mean Corpuscular Volume 87.9 fL (80-100); Monocytes Absolute Auto 1200 /uL (0-900); Neutrophils Absolute Auto 4500 /uL (1500-7000); Neutrophils Percent Auto 26.9 % (50-75); Platelet Count 371 X10^3/uL (150-400); Red Blood Cell Count 4.17 X10^6/uL (4.0-5.2); Red Cell Distribution Width 16.9 % (11.6-14.8); White Blood Cell Count 16.9 X10^3/uL (4.5-11.0)
[2019-05-14 12:15] LABS: Ferritin 23 ng/mL (11-264)
== END ==
PROVIDERS: Family Provider Dermatology; PCP Student in an Organized Health Care Education/Training Program; Referring Provider Internal Medicine Hematology & Oncology; Visit Provider Internal Medicine Hematology & Oncology
DX: D64.9 Anemia, unspecified (principal)
CPT/HCPCS: 36415; 82728; 85025

== ENCOUNTER 2019-10-01 06:39 | Emergency (ER) | payer MEDICARE, SELFPAY ==
[2019-04-23 12:13] VITALS: BMI 28.7
[2019-10-01 06:40] VITALS: BP 193/89; PULSE 87; RESP 16; TEMP 36.2; O2SAT 98
--- NOTE | 2019-10-01 06:50 | ED_ITS ---
HPI - Extremity Injury (Upper) General Chief Complaint: Extremity Injury, Upper Stated Complaint: hurt arm some way, right Time Seen by Provider: 10/01/19 06:45 Source: patient Mode of arrival: Ambulatory Limitations: no limitations History of Present Illness HPI narrative: The patient was mopping 2 days ago, she describes wringing the odd by hand. She can not describe any acute injury, but she now has swelling a nd tenderness to the right wrist. Pain is over the distal radius. There is warmth to the site. She denies a history of gout, but she does have a history of arthritis. She is right-hand dominant. There is no numbness or tingling in the right hand. She has full range of motion throughout the right hand. The erythema in the joint line is not migrating from the site. Related Data Home Medications Medication Instructions Recorded Confirmed nitroglycerin [Nitrostat] 0.4 mg SUBLINGUAL Q5-15M PRN #0 07/06/09 09/10/19 doxepin 25 mg capsule 25 mg PO BEDTIME 08/30/17 09/10/19 fluoxetine 20 mg capsule 40 mg PO DAILY 08/30/17 09/10/19 esomeprazole magnesium 80 mg PO DAILY 04/25/18 09/10/19 estradiol 0.5 mg PO DAILY 04/25/18 09/10/19 lovastatin 20 mg PO BEDTIME 04/25/18 09/10/19 metformin 500 mg PO QAM 04/25/18 09/10/19 triamcinolone acetonide 1 applic TOPICAL DIRECTED 12/11/18 09/10/19 diltiazem HCl 360 mg PO DAILY 04/17/19 09/10/19 losartan 100 mg PO DAILY 04/17/19 09/10/19 prednisone 30 mg DAILY 05/22/19 09/10/19 Previous Rx's Medication Instructions Recorded furosemide 60 mg PO DAILY #270 tab 12/15/18 potassium chloride [Klor-Con M20] 40 meq PO DAILYCC 90 Days #180 tab 12/15/18 cetirizine [Allergy Relief 10 mg PO DAILY PRN #30 cap 04/24/19 (cetirizine)] hydroxyzine HCl 25 mg PO BEDTIME #14 tab 04/26/19 hydroxyzine HCl 25 mg PO BEDTIME #10 tab 04/29/19 mupirocin 1 applictn TOP BID #30 gram 04/29/19 colchicine 0.6 mg PO BID #20 tab 10/01/19 Allergies Allergy/AdvReac Type Severity Reaction Status Date / Time MJ Inhibitors Allergy Intermediate Verified 05/03/19 13:11 guaifenesin Allergy Intermediate Verified 05/03/19 13:11 azithromycin Allergy Unknown Verified 05/03/19 13:11 dextromethorphan Allergy Unknown Verified 05/03/19 13:11 enalapril Allergy Unknown Verified 05/03/19 13:11 meloxicam Allergy Unknown Verified 05/03/19 13:11 pneumococcal vaccine Allergy Unknown Verified 05/03/19 13:11 [From PNEUMOVAX 23] ibuprofen AdvReac Unknown Verified 05/03/19 13:11 lidocaine AdvReac Unknown Verified 05/03/19 13:11 morphine AdvReac Unknown Verified 05/03/19 13:11 Review of Systems Constitutional Constitutional: Denies chills, Denies fever(s) and Denies weakness ENT Ears, Nose, Mouth, and Throat: Denies sore throat Cardiovascular Cardiovascular: Denies chest pain, Denies irregular heart rhythm, Denies lightheadedness, Denies dyspnea and Denies orthopnea Respiratory Respiratory: Denies cough, Denies dyspnea and Denies wheezing Musculoskeletal Comments: Right wrist pain and swelling is noted HPI. Neurologic Neurologic: Denies weakness Allergic/Immunologic Allergic/Immunologic: Denies wheezing Patient History Medical History Diabetes mellitus type II, non insulin dependent (Chronic) HTN (hypertension) (Chronic) Hypercholesterolemia (Chronic) Surgical History History of bladder surgery (Resolved) History of cholecystectomy (Inactive) History of repair of hiatal hernia (Chronic) Status post hysterectomy (Resolved) Family History Sister Cancer Brother Cancer Sister Cancer Mother Cancer Social History household members: significant other Smoking Status: Never smoker Smoking Status: Never smoker alcohol intake frequency: holidays/special occasions only Substance Use Type: does not use Exam Initial Vital Signs Initial Vital Signs: Vital Signs Temperature 97.2 F L 10/01/19 06:40 Pulse Rate 87 10/01/19 06:40 Respiratory Rate 16 10/01/19 06:40 Blood Pressure 193/89 H 10/01/19 06:40 Pulse Oximetry 98 10/01/19 06:40 Const General: cooperative and well developed Nutritional Appearance: well nourished Resp Effort & Inspection: normal respiratory effort and able to speak in complete se ntences Auscultation: clear to auscultation bilaterally, no rales, no rhonchi and no wheezes Cardio Rate: regular rate Rhythm: regular rhythm Heart Sounds: S1 normal, S2 normal, no click, no gallops, no murmurs and no rubs Pulses: normal peripheral pulses Skin General: no rashes or lesions noted and No petechiae Neuro General: patient alert, patient oriented x3, gait normal and no focal motor deficits Speech: speech normal Other: Specifically, motor and sensory exam of the right hand is intact. Extrem Other: Tenderness in the right wrist, at the distal radius. Decreased range of motion at the site due to pain. There is erythema, warmth and edema at the site. There are no palpable defects. She does not have snuffbox tenderness. She has normal range of motion throughout the digits of the right hand, with no obvious weakness. There are no right hand deformities. Procedures Orthopedic Splinting/Casting Injury #1: Side: right Upper Extremity Injury Location: wrist Upper Extremity Immobilizer: wrist splint (A preformed Velcro splint was placed.) Post splinting neuro exam: intact Post splinting vascular exam: intact Placed by: Nursing Course Course Course Narrative: The patient is feeling better after receiving Toradol. She still has focal tenderness as described in exam. X-ray is normal. She has elevated WBC count, labs are otherwise normal. Evaluation is most consistent with gout. I have started on colchicine. She has been placed in a splint for comfort, she is advised to recheck with her doctor in 2-3 days to recheck her wrist. Orders Ordered: Discontinued Medications Colchicine (Colcrys) 0.6 mg PO NOW ONE Stop: 10/01/19 10:00 Last Admin: 10/01/19 10:33 Dose: 0.6 mg Documented by: JOSEP Ketorolac Tromethamine (Toradol) 15 mg IV NOW ONE Stop: 10/01/19 07:20 Last Admin: 10/01/19 07:44 Dose: 15 mg Documented by: JOSE J Vital Signs Vital signs: Vital Signs - 8 hr 10/01/19 06:40 10/01/19 09:56 Temperature 97.2 F L Pulse Rate 87 76 Respiratory Rate 16 18 Blood Pressure 193/89 H 183/82 H Pulse Oximetry 98 99 MDM - Extremity Injury (Upper) Lab Data Result diagrams: 10/01/19 07:35 Labs: Lab Results 10/01/19 10/01/19 Range/Units 07:35 07:35 WBC 15.9 H (4.5-11.0) X10^3/uL RBC 3.83 L (4.0-5.2) X10^6/uL Hgb 11.2 L (12.0-16.0) g/dL Hct 34.3 L (36-46) % MCV 89.3 (80-100) fL MCH 29.2 (26-34) PG MCHC 32.6 (30-36) % RDW 14.3 (11.6-14.8) % Plt Count 237 (150-400) X10^3/uL Neut % (Auto) 43.5 L (50-75) % Lymph % (Auto) 47.3 H (25-40) % [place] % (Auto) 6.3 (3-14) % Eos % (Auto) 2.3 (2-4) % Baso % (Auto) 0.6 (0-2) % Neut # (Auto) 6900 (5228-3175) /uL Lymph # (Auto) 7500 H (8985-2878) /uL [place] # (Auto) 1000 H (0-900) /uL Eos # (Auto) 400 (0-450) /uL Baso # (Auto) 100 (0-100) /uL ESR 35 H (0-20) MM/HR Uric Acid 4.9 (2.5-6.2) mg/dL C-Reactive Protein < 0.5 (<1.0) mg/dL Imaging Data Right wrist x-ray:: Radiologist's Impression: 180 Mauricio Ring MD Find Patient Imaging - Deyanira Mauricio 84 F 1935 ACTIVITY DATE EXAM STATUS AUTHOR 10/01/19 07:[address] [place] [address] XRay Report Signed Patient: Deyanira Mauricio [facility]#: [id number] : 8Acct:[id number] Age/Sex: 84 / FDate of Service: 10/01/19 Loc: ED Accession Number: [id number] Procedure: XR wrist RT min 3V Ordering Provider: Mauricio Ring MD PROCEDURE: XR WRIST RT MIN 3V INDICATIONS: Inflammatory changes right distal radius TECHNIQUE: Four views of the wrist were acquired. COMPARISON: [facility], CR, XR WRIST RT MIN 3V, 06/20/2018, 15:31. [facility], CR, XR WRIST LT MIN 3V, 04/25/2018, 16:57. FINDINGS: Bones: No fractures or dislocations. No suspicious bony lesions. There is, however, mild osteoarthritis at the base of the 1st metacarpal and several of the intercarpal joints. Scaphoid view: No trauma found. Mild distal osteoarthritis. Soft tissues: No suspicious soft tissue calcifications. IMPRESSION: No fracture found. Mild osteoarthritis. If there is clinical concern for presence of hidden fracture follow-up by delayed plain films or advanced imaging, such as CT or MRI, could be obtained. The normal superimposition of multiple osseous margins in this area reduces the study's ability to detect nondisplaced fractures. Dictated by: Warren Aguilera M.D. on 10/01/2019 at 8:35 Approved by: Warren Aguilera M.D. on 10/01/2019 at 8:38 Discharge Plan Departure Patient Disposition: Home Clinical Impression: Gout Qualifiers: Gout site: wrist Gout etiology: unspecified cause Chronicity: acute Laterality: right Qualified Code(s): M10.9 - Gout, unspecified Discharge Date/Time: 10/01/19 10:47 Instructions: Gout Activity Restrictions/Additional Instructions: The right wrist changes are suggestive of gout. Advil 1 tablet every 6 hours as needed for pain. This is available [id number]. Colchicine 0.6 mg 2 times daily as prescribed. The prescription has been sent directly to [facility]. Use the splint as needed for pain, take the splint off when better. Return the ER if you develop significant increase in redness or swelling to the right wrist. Follow-up with your doctor in 2-3 days to recheck your wrist. Prescriptions: New colchicine 0.6 mg tablet 0.6 mg PO BID Qty: 20 RF: 0 No Action nitroglycerin [Nitrostat] 0.4 mg Tablet, Sublingual 0.4 mg SUBLINGUAL Q5-15M PRN (Reason: Chest Pain) Qty: 0 RF: 0 fluoxetine 20 mg capsule 40 mg PO DAILY RF: 0 doxepin 25 mg capsule 25 mg PO BEDTIME RF: 0 triamcinolone acetonide 0.1 % cream 1 applic TOPICAL DIRECTED RF: 0 furosemide 20 mg Tablet 60 mg PO DAILY Qty: 270 RF: 3 potassium chloride [Klor-Con M20] 20 mEq Tablet,Er Particles/Crystals 40 meq PO DAILYCC 90 Days Qty: 180 RF: 3 hydroxyzine HCl 25 mg tablet 25 mg PO BEDTIME Qty: 14 RF: 0 metformin 500 mg tablet 500 mg PO QAM RF: 0 esomeprazole magnesium 40 mg capsule,delayed release(DR/EC) 80 mg PO DAILY RF: 0 estradiol 0.5 mg tablet 0.5 mg PO DAILY RF: 0 lovastatin 20 mg tablet 20 mg PO BEDTIME RF: 0 losartan 50 mg tablet 100 mg PO DAILY RF: 0 diltiazem HCl 180 mg capsule,extended release 24hr 360 mg PO DAILY RF: 0 Allergy Relief (cetirizine) 10 mg Capsule 10 mg PO DAILY PRN (Reason: maculopapular rashes) Qty: 30 RF: 1 prednisone 10 mg Tablets,Dose Pack 30 mg DAILY RF: 0 mupirocin 2 % ointment 1 applictn TOP BID Qty: 30 RF: 2 hydroxyzine HCl 25 mg tablet 25 mg PO BEDTIME Qty: 10 RF: 0 Referrals: Mariajose Reyes MD [Primary Care Provider] -
--- NOTE | 2019-10-01 07:16 | DI.RAD.S_ITS ---
PROCEDURE: XR WRIST RT MIN 3V INDICATIONS: Inflammatory changes right distal radius TECHNIQUE: Four views of the wrist were acquired. COMPARISON: [facility], CR, XR WRIST RT MIN 3V, 06/20/2018, 15:31. [facility], CR, XR WRIST LT MIN 3V, 04/25/2018, 16:57. FINDINGS: Bones: No fractures or dislocations. No suspicious bony lesions. There is, however, mild osteoarthritis at the base of the 1st metacarpal and several of the intercarpal joints. Scaphoid view: No trauma found. Mild distal osteoarthritis. Soft tissues: No suspicious soft tissue calcifications. IMPRESSION: No fracture found. Mild osteoarthritis. If there is clinical concern for presence of hidden fracture follow-up by delayed plain films or advanced imaging, such as CT or MRI, could be obtained. The normal superimposition of multiple osseous margins in this area reduces the study's ability to detect nondisplaced fractures. Dictated by: Warren Aguilera M.D. on 10/01/2019 at 8:35 Approved by: Warren Aguilera M.D. on 10/01/2019 at 8:38
[2019-10-01] MEDS: KETOROLAC 60 MG/2 ML VIAL 15 MG IV (07:44)
[2019-10-01 07:47] LABS: Add Manual Diff / Slide Review NO; Basophils Absolute Auto 100 /uL (0-100); Basophils Percent Auto 0.6 % (0-2); Eosinophils Absolute Auto 400 /uL (0-450); Eosinophils Percent Auto 2.3 % (2-4); Hematocrit 34.3 % (36-46); Hemoglobin 11.2 g/dL (12.0-16.0); Lymphocytes Absolute Auto 7500 /uL (1100-4500); Lymphocytes Percent Auto 47.3 % (25-40); Mean Corpuscular HGB Conc 32.6 % (30-36); Mean Corpuscular Hemoglobin 29.2 PG (26-34); Mean Corpuscular Volume 89.3 fL (80-100); Monocytes Absolute Auto 1000 /uL (0-900); Monocytes Percent Auto 6.3 % (3-14); Neutrophils Absolute Auto 6900 /uL (1500-7000); Neutrophils Percent Auto 43.5 % (50-75); Platelet Count 237 X10^3/uL (150-400); Red Blood Cell Count 3.83 X10^6/uL (4.0-5.2); Red Cell Distribution Width 14.3 % (11.6-14.8); White Blood Cell Count 15.9 X10^3/uL (4.5-11.0)
[2019-10-01 08:01] LABS: Uric Acid 4.9 mg/dL (2.5-6.2)
[2019-10-01 08:04] LABS: C-Reactive Protein Quant < 0.5 mg/dL (<1.0); Erythrocyte Sedimentation Rate 35 MM/HR (0-20)
[2019-10-01 09:56] VITALS: BP 183/82; PULSE 76; RESP 18; O2SAT 99
[2019-10-01] MEDS: COLCHICINE 0.6 MG TABLET PO (10:33)
== END 2019-10-01 10:47 | disposition home or self-care (01) ==
PROVIDERS: Emergency Provider Emergency Medicine; Family Provider Dermatology; PCP Student in an Organized Health Care Education/Training Program
DX: M10.9 Gout, unspecified (principal); S69.91XA Unspecified injury of right wrist, hand and finger(s), initial encounter; Y93.E5 Activity, floor mopping and cleaning
CPT/HCPCS: 36415; 73110; 84550; 85025; 85651; 86140; 96374; 99284; J1885

== ENCOUNTER → 2019-10-15 13:59 | Outpatient (CLI) | payer MEDICARE, SELFPAY ==
[2019-10-04 15:45] VITALS: BMI 28.7
[2019-10-16 16:26] LABS: COVID19 Sendout Not Detected (Not Detect)
== END ==
PROVIDERS: Family Provider Dermatology; PCP Student in an Organized Health Care Education/Training Program; Visit Provider Physician Assistant
DX: Z11.59 Encounter for screening for other viral diseases (principal)
CPT/HCPCS: 87635

== ENCOUNTER 2019-10-18 06:38 | Day surgery (SDC) | payer MEDICARE, SELFPAY ==
[2019-10-04 15:45] VITALS: BMI 28.7
[2019-10-18] MEDS: PROPARACAINE 0.5% OPHTH SOL 2 DROPS EYE-OP (07:14)
[2019-10-18 07:21] VITALS: BMI 25.8
[2019-10-18] MEDS: CATARACT EYE COMPOUND (10 DROPS/SYRINGE) 3 DROPS EYE-OP (07:21)
[2019-10-18 07:27] VITALS: BP 159/70; PULSE 70; RESP 20; TEMP 36.6; O2SAT 99
--- NOTE | 2019-10-18 07:37 | PM.PREOP ---
Pre-operative Note COVID-19 COVID-19 status: Negative Result date/Date tested (Pos, Neg/Pending): 10/15/19 Interval Note History & Physical reviewed/Exam performed by Physician: Yes Changes to H&P: No
[2019-10-18] MEDS: CHONDROIDTIN/SOD HYALURONATE 1.05 ML SYRINGE INTRAOCULA (07:56)
[2019-10-18] MEDS: LIDOCAINE 2% INJ SDV 2 ML INJ (07:57)
[2019-10-18] MEDS: MOXIFLOXACIN INJ 5 MG/ML VIAL EYE-OP (07:57)
[2019-10-18] MEDS: TETRACAINE 0.5% OPHTH DROPS 4 ML 2 DROPS EYE-OP (07:58)
[2019-10-18] MEDS: PHENYLEPHRINE/LIDOCAINE VIAL (OR) 0.2 ML EYE-OP (07:58)
[2019-10-18] MEDS: BALANCED SALT IRRIG SOLN NO.2 15 ML 5 ML IRR (07:58)
[2019-10-18] MEDS: BALANCED SALT IRRIG SOLN NO.2 500 ML, EPINEPHrine 1 MG IRR (07:59)
--- NOTE | 2019-10-18 08:15 | PM.OP.1 ---
Procedure & Clinicians Procedure: Cataract extraction with intraocular lens implant, right. Same procedure as scheduled: Yes Indications: Visually significant age related nuclear sclerosis. Surgeon: Kamar Kumari Click Yes if Unassisted: Yes Anesthesia Type: MAC +/- Operative Notes Procedure in detail: The patient was brought to the operating suite. The correct patient, surgical site and lens were confirmed. 0.5 % tetracaine drops were placed in the right eye. The patient was prepped and draped in the typical sterile manner. A lid speculum was placed in the eye. 2% lidocaine was placed on the eye. A paracentesis port was created with a side-port blade. 0.1 mL of 1% preservative free lidocaine with phenylephrine was injected into the anterior chamber. Viscoelastic was injected into the anterior chamber. A 2.6mm keratome was used to create a clear corneal temporal incision. Cystotome and Utrata forceps were used to create a continuous curvilinear capsulorrhexis. Balanced salt solution was used to hydrodissect the nucleus. Phacoemulsification was used to remove the lens. The capsular bag was inflated with viscoelastic. A Norris ZCBOO +22.5D lens was inserted into the capsule. Viscoelastic was removed and the wound hydrated. The wound was found to be leak free and the eye was assessed to be at normal physiologic pressure. 0.1mL Moxifloxacin (5mg/mL) preservative free was injected into the anterior chamber. The lid speculum was removed and the patient left the operating room in excellent condition. Complications: none Post-operative Condition: stable Disposition: same day surgery
[2019-10-18 08:30] VITALS: BP 142/76; PULSE 69; RESP 18; TEMP 36.6; O2SAT 99
== END 2019-10-18 08:45 | disposition home or self-care (01) ==
LOC: OR 06:44
PROVIDERS: Family Provider Dermatology; PCP Student in an Organized Health Care Education/Training Program; Referring Provider Student in an Organized Health Care Education/Training Program; Visit Provider Ophthalmology
PROC: (CPT 66984; principal; 2019-10-18 07:45)
DX: H25.11 Age-related nuclear cataract, right eye (principal); E11.9 Type 2 diabetes mellitus without complications; Z79.84 Long term (current) use of oral hypoglycemic drugs; F32.9 Major depressive disorder, single episode, unspecified; R01.1 Cardiac murmur, unspecified; K21.9 Gastro-esophageal reflux disease without esophagitis; D64.9 Anemia, unspecified
CPT/HCPCS: 66984; J0171; J2250; J3010

== ENCOUNTER → 2019-10-29 14:14 | Outpatient (CLI) | payer MEDICARE, SELFPAY ==
[2019-10-04 15:45] VITALS: BMI 28.7
[2019-10-31 09:13] LABS: COVID19 Sendout Not Detected (Not Detect)
== END ==
PROVIDERS: Family Provider Dermatology; PCP Student in an Organized Health Care Education/Training Program; Visit Provider Physician Assistant
DX: Z11.59 Encounter for screening for other viral diseases (principal)
CPT/HCPCS: 87635

== ENCOUNTER 2019-11-01 06:56 | Day surgery (SDC) | payer MEDICARE, SELFPAY ==
[2019-10-04 15:45] VITALS: BMI 28.7
[2019-11-01] MEDS: CATARACT EYE COMPOUND (10 DROPS/SYRINGE) 3 DROPS EYE-OP (07:16)
[2019-11-01] MEDS: PROPARACAINE 0.5% OPHTH SOL 2 DROPS EYE-OP (07:16)
[2019-11-01 07:19] VITALS: BP 178/90; PULSE 82; RESP 20; TEMP 36.8; O2SAT 96; BMI 25.2
--- NOTE | 2019-11-01 07:34 | PM.PREOP ---
Pre-operative Note COVID-19 COVID-19 status: Negative Result date/Date tested (Pos, Neg/Pending): 10/29/19 Interval Note History & Physical reviewed/Exam performed by Physician: Yes Changes to H&P: No
[2019-11-01] MEDS: LIDOCAINE 2% INJ SDV 2 ML INJ (08:10)
[2019-11-01] MEDS: PHENYLEPHRINE/LIDOCAINE VIAL (OR) 0.2 ML EYE-OP (08:10)
[2019-11-01] MEDS: MOXIFLOXACIN INJ 5 MG/ML VIAL EYE-OP (08:10)
[2019-11-01] MEDS: TETRACAINE 0.5% OPHTH DROPS 4 ML 2 DROPS EYE-OP (08:11)
[2019-11-01] MEDS: BALANCED SALT IRRIG SOLN NO.2 15 ML 5 ML IRR (08:11)
[2019-11-01] MEDS: CHONDROIDTIN/SOD HYALURONATE 1.05 ML SYRINGE INTRAOCULA (08:11)
[2019-11-01] MEDS: BALANCED SALT IRRIG SOLN NO.2 500 ML, EPINEPHrine 1 MG IRR (08:12)
--- NOTE | 2019-11-01 08:29 | PM.OP.1 ---
Procedure & Clinicians Procedure: Cataract extraction with intraocular lens implant, left. Same procedure as scheduled: Yes Indications: Age related visually significant nuclear sclerosis Surgeon: Kamar Kumari Click Yes if Unassisted: Yes Anesthesia Type: MAC +/- Operative Notes Procedure in detail: The patient was brought to the operating suite. The correct patient, surgical site and lens were confirmed. 0.5 % tetracaine drops were placed in the left eye. The patient was prepped and draped in the typical sterile manner. A lid speculum was placed in the eye. 2% lidocaine was placed on the eye. A paracentesis port was created with a side-port blade. 0.1 mL of 1% preservative free lidocaine with phenylephrine was injected into the anterior chamber. Viscoelastic was injected into the anterior chamber. A 2.6mm keratome was used to create a clear corneal temporal incision. Cystotome and Utrata forceps were used to create a continuous curvilinear capsulorrhexis. Balanced salt solution was used to hydrodissect the nucleus. Phacoemulsification was used to remove the lens. The capsular bag was inflated with viscoelastic. A Norris ZCBOO +22.5D lens was inserted into the capsule. Viscoelastic was removed and the wound hydrated. The wound was found to be leak free and the eye was assessed to be at normal physiologic pressure. 0.1mL Moxifloxacin (5mg/mL) preservative free was injected into the anterior chamber. The lid speculum was removed and the patient left the operating room in excellent condition. Complications: none Post-operative Condition: stable Disposition: same day surgery
[2019-11-01 08:40] VITALS: BP 164/77; PULSE 72; RESP 16; TEMP 36.1; O2SAT 98
--- NOTE | 2019-11-01 08:41 | SUR.PHASEII ---
Patient to Phase II in stable condition, VSS. Denies any pain or nausea at this time. Coffee and crackers provided. Significant other to bedside.
== END 2019-11-01 09:09 | disposition home or self-care (01) ==
PROVIDERS: Family Provider Dermatology; PCP Student in an Organized Health Care Education/Training Program; Referring Provider Student in an Organized Health Care Education/Training Program; Visit Provider Ophthalmology
PROC: (CPT 66984; principal; 2019-11-01 07:45)
DX: H25.12 Age-related nuclear cataract, left eye (principal); E11.9 Type 2 diabetes mellitus without complications; I10 Essential (primary) hypertension; E78.5 Hyperlipidemia, unspecified; Z79.84 Long term (current) use of oral hypoglycemic drugs
CPT/HCPCS: 66984; J0171; J2250; J3010

== ENCOUNTER 2020-03-25 14:07 | Emergency (ER) | payer MEDICARE, SELFPAY ==
[2019-10-04 15:45] VITALS: BMI 28.7
[2020-03-25 14:10] VITALS: BP 160/69; PULSE 81; RESP 14; TEMP 36.7; O2SAT 97; BMI 24.5
[2020-03-25 14:13] VITALS: PULSE 87; O2SAT 98
[2020-03-25 14:14] VITALS: BP 160/69; PULSE 86; O2SAT 98
--- NOTE | 2020-03-25 14:25 | DI.CT.S_ITS ---
PROCEDURE: CT HEAD/BRAIN WO CON INDICATIONS: Hit head on coffee table TECHNIQUE: Noncontrast 4.5 mm thick angled axial sections acquired from the foramen magnum to the vertex, with coronal and sagittal reformats. For radiation dose reduction, the following was used: automated exposure control, adjustment of mA and/or kV according to patient size. COMPARISON: [facility], CT, CT HEAD/BRAIN WO CON, 05/06/2018, 12:16. FINDINGS: Image quality: Excellent. CSF spaces: Basal cisterns are patent. No extra-axial fluid collections. The ventricles are symmetric in size and shape. Brain: No intracranial bleeds or masses. There is cerebral volume loss for age, with resultant ventricular and sulcal prominence. There are periventricular and deep white matter chronic small vessel ischemic changes. There is intracranial internal carotid artery and vertebral artery atherosclerosis. Skull and face: Calvarium and visualized facial bones appear intact, without suspicious lesions. Sinuses: Visualized sinuses and mastoids are clear. IMPRESSION: No acute intracranial disease process. Dictated by: Bertha Yanez MD, PhD on 03/25/2020 at 14:46 Approved by: Bertha Yanez MD, PhD on 03/25/2020 at 14:50
--- NOTE | 2020-03-25 14:25 | DI.CT.S_ITS ---
PROCEDURE: CT FACIAL BONES WO CON INDICATIONS: brusing on nose, hit head on coffee table TECHNIQUE: Noncontrast 2.5 mm thick axial images acquired from the mandible through the frontal sinuses, with coronal and sagittal reformatting. For radiation dose reduction, the following was used: automated exposure control, adjustment of mA and/or kV according to patient size. COMPARISON: [facility], CT, CT CERVICAL SPINE WO CON, 11/20/2018, 16:17. [facility], CT, CT FACIAL BONES WO CON, 05/06/2018, 12:16. FINDINGS: Image quality: Excellent. Bones and teeth: Orbital singer are intact. Sinus singer show no fracture or deformity. Nasal bones and septum are intact. Visualized portions of the mandible demonstrate no fractures or subluxation. Zygomatic arches are intact. Pterygoid plates are intact. Visualized portions of the skull base and auditory canals are intact. Note is made of moderately severe degenerative disc disease and facet osteoarthritis from C4 through C6. There is moderate grade 1 anterolisthesis of C3 on C4, Sinuses: Paranasal sinuses are aerated, without fluid levels, mucosal thickening, or mucoceles. Mastoid air cells are aerated. Soft tissues: No edema, masses, or fluid collections. No enlarged lymph nodes. No soft tissue lacerations or debris. Vascular: Visualized vascular structures appear normal in the absence of contrast. Bony vascular foramina and canals are intact. IMPRESSION: No definite acute trauma found. Moderately severe to severe degenerative disc disease is present from C3-4 through C 6-C7. Which produces a [id number]-[id number] degree of spinal stenosis and moderate grade 1 anterolisthesis of C3 on C4, with potential for spinal and foraminal stenosis as a result at that level. MR scanning could be utilized to determine whether unexpected edema is present involving the ligament structures of cervical spine to confirm absence of acute trauma as the underlying cause. A prior CT from 11/20/18 includes this area, and a similar degree of anterolisthesis of C3 on C4 is present, approximately 3 mm. Dictated by: Warren Aguilera M.D. on 03/25/2020 at 15:13 Approved by: Warren Aguilera M.D. on 03/25/2020 at 15:16
[2020-03-25 14:30] VITALS: PULSE 79; O2SAT 97
--- NOTE | 2020-03-25 14:51 | ED.HEATRA ---
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 This happened yesterday, she denies any syncope or vomiting. She denied any symptoms prior to incident. She states she developed a headache and felt increased fatigue after. She denies any vision changes, fevers, chills, vomiting, nausea, abdominal pain, or any other concerns. Patient states she had lab work drawn yesterday for Dr Del Angel. Denies any current chemo or radiation. Related Data Home Medications Medication Instructions Recorded Confirmed nitroglycerin [Nitrostat] 0.4 mg SUBLINGUAL Q5-15M PRN #0 07/06/09 12/10/19 doxepin 25 mg capsule 25 mg PO BEDTIME 08/30/17 12/10/19 fluoxetine 20 mg capsule 40 mg PO DAILY 08/30/17 12/10/19 esomeprazole magnesium 80 mg PO DAILY 04/25/18 12/10/19 lovastatin 20 mg PO BEDTIME 04/25/18 12/10/19 metformin 500 mg PO QAM 04/25/18 12/10/19 diltiazem HCl 360 mg PO DAILY 04/17/19 12/10/19 losartan 100 mg PO DAILY 04/17/19 12/10/19 Previous Rx's Medication Instructions Recorded furosemide 60 mg PO DAILY #270 tab 12/15/18 potassium chloride [Klor-Con M20] 40 meq PO DAILYCC 90 Days #180 tab 12/15/18 cetirizine [Allergy Relief 10 mg PO DAILY PRN #30 cap 04/24/19 (cetirizine)] hydroxyzine HCl 25 mg PO BEDTIME #14 tab 04/26/19 colchicine 0.6 mg PO BID #20 tab 10/01/19 Allergies Allergy/AdvReac Type Severity Reaction Status Date / Time MJ Inhibitors Allergy Intermediate I dont Verified 03/25/20 14:15 remember guaifenesin Allergy Intermediate face Verified 03/25/20 14:15 swelling azithromycin Allergy Unknown I dont Verified 03/25/20 14:15 remember dextromethorphan Allergy Unknown I dont Verified 03/25/20 14:15 remember enalapril Allergy Unknown I dont Verified 03/25/20 14:15 remember meloxicam Allergy Unknown I dont Verified 03/25/20 14:15 remember pneumococcal vaccine Allergy Unknown face Verified 03/25/20 14:15 [From PNEUMOVAX 23] swelling morphine AdvReac Severe Nausea Verified 03/25/20 14:15 lidocaine AdvReac Unknown I dont Verified 03/25/20 14:15 remember Review of Systems <DELLA Miller - Last Filed: 03/25/20 16:21> Review of Systems Narrative: REVIEW OF SYSTEMS: GENERAL: Denies fever. HENT: Reports bruising to nasal bridge and forehead, see HPI. CARDIOVASCULAR: No chest pain. RESPIRATORY: No shortness of breath or cough. GASTROINTESTINAL: No nausea, vomiting, diarrhea, or constipation. GENITOURINARY: No flank pain, MUSCULOSKELETAL: No pain, weakness, or deformities. INTEGUMENTARY: No rash, lesions, or pruritus. NEURO: No numbness or tingling. No syncope. Patient History <DELLA Miller - Last Filed: 03/25/20 16:21> Medical History Diabetes mellitus type II, non insulin dependent HTN (hypertension) Hypercholesterolemia Surgical History History of bladder surgery History of cholecystectomy History of repair of hiatal hernia Status post hysterectomy Family History Sister Cancer Brother Cancer Sister Cancer Mother Cancer Social History household members: significant other Smoking Status: Never smoker alcohol intake: never Smoking Status: Never smoker alcohol intake frequency: holidays/special occasions only Substance Use Type: does not use Exam <DELLA Miller - Last Filed: 03/25/20 16:21> Initial Vital Signs Initial Vital Signs: Vital Signs Temperature 98.1 F 03/25/20 14:10 Pulse Rate 81 03/25/20 14:10 Respiratory Rate 14 03/25/20 14:10 Blood Pressure 160/69 H 03/25/20 14:10 Pulse Oximetry 97 03/25/20 14:10 PHYSICAL EXAMINATION: GENERAL: Awake and alert, well-appearing. No distress. HENT: Normocephalic a 2 cm x 2 cm area of ecchymosis and tenderness noted to forehead above nose. Mild ecchymosis noted across upper nasal bridge and under eyes bilaterally. Slight tenderness to nasal bridge. No tenderness to or vitals with palpation. EYES: PERRLA, EOMIs, conjunctiva pink, sclera white, no periorbital swelling. NECK: No tenderness to palpation of cervical spine. CHEST: Normal to inspection and without deformities. CARDIOVASCULAR: S1 and S2 sounds normal. Regular rate and rhythm, no murmurs, clicks, or bruits. No pedal edema. RESPIRATORY: Normal respiratory rate, trachea midline, airway patent. No stridor, nasal flaring or accessory muscle use. Lungs are clear in all mal[place] without wheeze, rhonchi, or crackles. GASTROINTESTINAL: Bowel sounds normoactive. Abdomen is soft and non-tender. No organomegaly. MUSCULOSKELETAL: Normal gait and coordination. Equal tone and mass bilaterally. No pain to palpation of upper lower extremities. EXTREMITIES: CMS intact. Moves all extremities. SKIN: Warm, dry, soft, appropriate color for ethnicity. No lesions, rashes, or wounds. NEURO: Alert and Oriented X 3. Good coordination. No ataxia, or sensory deficits, or cognitive issues. PSYCH: Appropriate affect and mood. <Andreea Carter DO - Last Filed: 03/25/20 19:29> Initial Vital Signs Initial Vital Signs: Vital Signs Temperature 98.1 F 03/25/20 14:10 Pulse Rate 81 03/25/20 14:10 Respiratory Rate 14 03/25/20 14:10 Blood Pressure 160/69 H 03/25/20 14:10 Pulse Oximetry 97 03/25/20 14:10 Scores <DELLA Miller - Last Filed: 03/25/20 16:21> Nexus Score for C-Spine Focal Neurologic deficit present: No Midline spinal tenderness present: No Altered level of conciousness present: No Intoxication present: No Distracting Injury Present: No Nexus Criteria for C-spine: 0 Course <DELLA Miller - Last Filed: 03/25/20 16:21> Course Course Narrative: Patient requesting Tylenol in the emergency department to help with pain. After 975 mg of Tylenol patient reports headache has resolved. Orders Ordered: ED Orders 03/25/20 14:25 CT facial bones wo con Stat CT head/brain wo con Stat Discontinued Medications Acetaminophen (Acetaminophen 325 Mg Tablet) 975 mg PO NOW ONE Stop: 03/25/20 14:30 Last Admin: 03/25/20 15:02 Dose: 975 mg Documented by: PEARL Consultations Consultation #1: Patient staffed with Dr. Carter, discussed test, test results, plan of care. Vital Signs Vital signs: Vital Signs - 8 hr 03/25/20 14:10 03/25/20 14:13 03/25/20 14:14 Temperature 98.1 F Pulse Rate 81 87 86 Respiratory Rate 14 Blood Pressure 160/69 H 160/69 H Pulse Oximetry 97 98 98 03/25/20 14:30 03/25/20 15:57 Temperature Pulse Rate 79 67 Respiratory Rate 14 Blood Pressure 169/78 H Pulse Oximetry 97 96 <Andreea Carter DO - Last Filed: 03/25/20 19:29> Orders Ordered: ED Orders 03/25/20 14:25 CT facial bones wo con Stat CT head/brain wo con Stat Discontinued Medications Acetaminophen (Acetaminophen 325 Mg Tablet) 975 mg PO NOW ONE Stop: 03/25/20 14:30 Last Admin: 03/25/20 15:02 Dose: 975 mg Documented by: PEARL Vital Signs Vital signs: Vital Signs - 8 hr 03/25/20 14:10 03/25/20 14:13 03/25/20 14:14 Temperature 98.1 F Pulse Rate 81 87 86 Respiratory Rate 14 Blood Pressure 160/69 H 160/69 H Pulse Oximetry 97 98 98 03/25/20 14:30 03/25/20 15:57 Temperature Pulse Rate 79 67 Respiratory Rate 14 Blood Pressure 169/78 H Pulse Oximetry 97 96 MDM - Head Injury <DELLA Miller - Last Filed: 03/25/20 16:21> Medical Records Attestation: I reviewed the patient's medical records. Lab Data Attestation: I reviewed the patient's lab results. Imaging Data CT scan - head: Radiologist's Impression: [address] [id number] Scan ReportSigned Patient: Deyanira Mauricio MMR#: [id number]: 8Acct:[id number]/Sex: 84 / FDate of Service: 03/25/20Loc: EDAccession Number: [id number] Procedure: CT head/brain wo con Ordering Provider: Paula Dwyer PROCEDURE: CT HEAD/BRAIN WO CON INDICATIONS: Hit head on coffee table TECHNIQUE: Noncontrast 4.5 mm thick angled axial sections acquired from the foramen magnum to the vertex, with coronal and sagittal reformats. For radiation dose reduction, the following was used: automated exposure control, adjustment of mA and/or kV according to patient size. COMPARISON: [facility], CT, CT HEAD/BRAIN WO CON, 05/06/2018, 12:16. FINDINGS: Image quality: Excellent. CSF spaces: Basal cisterns are patent. No extra-axial fluid collections. The ventricles are symmetric in size and shape. Brain: No intracranial bleeds or masses. There is cerebral volume loss for age, with resultant ventricular and sulcal prominence. There are periventricular and deep white matter chronic small vessel ischemic changes. There is intracranial internal carotid artery and vertebral artery atherosclerosis. Skull and face: Calvarium and visualized facial bones appear intact, without suspicious lesions. Sinuses: Visualized sinuses and mastoids are clear. IMPRESSION: No acute intracranial disease process. Dictated by: Bertha Yanez MD, PhD on 03/25/2020 at 14:46 Approved by: Bertha Yanez MD, PhD on 03/25/2020 at 14:50 CT FACE: Radiologist's Impression: [address] [id number] Scan ReportSigned Patient: Deyanira Mauricio MMR#: [id number]: 8Acct:[id number]/Sex: 84 / FDate of Service: 03/25/20Loc: EDAccession Number: [id number] Procedure: CT facial bones wo con Ordering Provider: Paula Dwyer PROCEDURE: CT FACIAL BONES WO CON INDICATIONS: brusing on nose, hit head on coffee table TECHNIQUE: Noncontrast 2.5 mm thick axial images acquired from the mandible through the frontal sinuses, with coronal and sagittal reformatting. For radiation dose reduction, the following was used: automated exposure control, adjustment of mA and/or kV according to patient size. COMPARISON: [facility], CT, CT CERVICAL SPINE WO CON, 11/20/2018, 16:17. [facility], CT, CT FACIAL BONES WO CON, 05/06/2018, 12:16. FINDINGS: Image quality: Excellent. Bones and teeth: Orbital singer are intact. Sinus singer show no fracture or deformity. Nasal bones and septum are intact. Visualized portions of the mandible demonstrate no fractures or subluxation. Zygomatic arches are intact. Pterygoid plates are intact. Visualized portions of the skull base and auditory canals are intact. Note is made of moderately severe degenerative disc disease and facet osteoarthritis from C4 through C6. There is moderate grade 1 anterolisthesis of C3 on C4, Sinuses: Paranasal sinuses are aerated, without fluid levels, mucosal thickening, or mucoceles. Mastoid air cells are aerated. Soft tissues: No edema, masses, or fluid collections. No enlarged lymph nodes. No soft tissue lacerations or debris. Vascular: Visualized vascular structures appear normal in the absence of contrast. Bony vascular foramina and canals are intact. IMPRESSION: No definite acute trauma found. Moderately severe to severe degenerative disc disease is present from C3-4 through C 6-C7. Which produces a [id number] degree of spinal stenosis and moderate grade 1 anterolisthesis of C3 on C4, with potential for spinal and foraminal stenosis as a result at that level. MR scanning could be utilized to determine whether unexpected edema is present involving the ligament structures of cervical spine to confirm absence of acute trauma as the underlying cause. A prior CT from 11/20/18 includes this area, and a similar degree of anterolisthesis of C3 on C4 is present, approximately 3 mm. Dictated by: Warren Aguilera M.D. on 03/25/2020 at 15:13 Approved by: Warren Aguilera M.D. 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 I suspect this is most likely caused by a hematoma. CT is negative for any fractures, CT head is negative acute cranial etiology. Patient denies any neck pain, nexus score of 0. There was incidental finding of cervical stenosis. However, patient denies any neck pain, full range of motion is present. She was encouraged to follow up with her PCP about this finding. No symptoms of a series concussion such as vomiting or syncope. No neurological changes. Patient did show a mild concussive symptoms such as a headache that started yesterday and continued on today, this was relieved with Tylenol. She is not on any blood thinners. She is encouraged to take Tylenol over the next few days and rest. Return precautions given for new or worsening symptoms. Follow-up discussed. Patient agreed to plan of care verbalized understanding. Discharge Plan Departure Patient Disposition: Home Clinical Impression: Contusion of face Qualifiers: Encounter type: initial encounter Qualified Code(s): S00.83XA - Contusion of other part of head, initial encounter Instructions: DI for Contusion Activity Restrictions/Additional Instructions: Thank you for entrusting me with your care today. As discussed, your CTs are negative for any fractures. There was some incidental findings of spinal stenosis and anterolisthesis of C3 and C4 of your neck noted on your CT. I suggest you follow-up with her primary care provider regarding this. You may have a headache and feel more tired for the next few days. The area around her eye may continue to bruise. Return emergency department if you develop any new or worsening symptoms such as severe pain, vomiting, dizziness, syncope, or any other concerns. Prescriptions: No Action nitroglycerin [Nitrostat] 0.4 mg Tablet, Sublingual 0.4 mg SUBLINGUAL Q5-15M PRN (Reason: Chest Pain) Qty: 0 RF: 0 fluoxetine 20 mg capsule 40 mg PO DAILY RF: 0 doxepin 25 mg capsule 25 mg PO BEDTIME RF: 0 furosemide 20 mg Tablet 60 mg PO DAILY Qty: 270 RF: 3 potassium chloride [Klor-Con M20] 20 mEq Tablet,Er Particles/Crystals 40 meq PO DAILYCC 90 Days Qty: 180 RF: 3 hydroxyzine HCl 25 mg tablet 25 mg PO BEDTIME Qty: 14 RF: 0 colchicine 0.6 mg tablet 0.6 mg PO BID Qty: 20 RF: 0 metformin 500 mg tablet 500 mg PO QAM RF: 0 esomeprazole magnesium 40 mg capsule,delayed release(DR/EC) 80 mg PO DAILY RF: 0 lovastatin 20 mg tablet 20 mg PO BEDTIME RF: 0 losartan 50 mg tablet 100 mg PO DAILY RF: 0 diltiazem HCl 180 mg capsule,extended release 24hr 360 mg PO DAILY RF: 0 Allergy Relief (cetirizine) 10 mg Capsule 10 mg PO DAILY PRN (Reason: maculopapular rashes) Qty: 30 RF: 1 Referrals: Mariajose Reyes MD [Primary Care Provider] - <Andreea Carter DO - Last Filed: 03/25/20 19:29> Cosign ED Attending Cosignature Attestation: I was immediately available in the department for consultation. Documentation has been reviewed. I agree with assessment and plan.
[2020-03-25] MEDS: ACETAMINOPHEN 325 MG TABLET 975 MG PO (15:02)
[2020-03-25 15:57] VITALS: BP 169/78; PULSE 67; RESP 14; O2SAT 96
== END 2020-03-25 16:03 | disposition home or self-care (01) ==
PROVIDERS: Emergency Provider Nurse Practitioner; Family Provider Dermatology; PCP Student in an Organized Health Care Education/Training Program
DX: S00.83XA Contusion of other part of head, initial encounter (principal); W22.8XXA Striking against or struck by other objects, initial encounter; C91.10 Chronic lymphocytic leukemia of B-cell type not having achieved remission; E11.9 Type 2 diabetes mellitus without complications; I10 Essential (primary) hypertension; E78.00 Pure hypercholesterolemia, unspecified
CPT/HCPCS: 70450; 70486; 99283; 99284

== ENCOUNTER → 2020-04-14 11:22 | Outpatient (CLI) | payer MEDICARE, SELFPAY ==
[2019-10-04 15:45] VITALS: BMI 28.7
--- NOTE | 2020-04-14 | DI.MRI.S_ITS ---
PROCEDURE: MR CERVICAL SPINE WO CON INDICATIONS: Concussion without loss of consciousness TECHNIQUE: Noncontrast sagittal T1 spin echo and T2 fast spin echo, sagittal STIR, foraminal oblique sagittal T2 fast spin echo, and axial gradient echo or T2 fast spin echo through the cervical spine. COMPARISON: None. FINDINGS: Image quality: Excellent. Alignment and Curvature: There is grade 1 anterolisthesis of C3 on C4, C7 on T1 grade 1 retrolisthesis of C4 on C5, C5 on C6. Bone Marrow: Marrow demonstrates normal overall signal. Spinal Cord: Visualized spinal cord has normal size and signal. No cerebellar tonsillar herniation. Paraspinous Soft Tissues: No paravertebral masses. Prevertebral soft tissues are normal in thickness. Discs: Moderate to severe desiccation is present throughout the cervical spine. C2-C3: No disc bulge or spinal stenosis. Minimal left foraminal narrowing with uncovertebral hypertrophy. C3-C4: Mild disc bulge with mild spinal stenosis. Moderate to severe right and moderate left foraminal narrowing with uncovertebral hypertrophy. C4-C5: Mild disc bulge with indentation of the anterior thecal sac and cord with overall [id number] spinal stenosis. Moderate to severe bilateral foraminal narrowing with uncovertebral hypertrophy. C5-C6: Mild disc bulge with indentation of the anterior thecal sac and cord as well as overall moderate spinal stenosis. Moderate to severe bilateral left foraminal narrowing with uncovertebral hypertrophy. C6-C7: Mild disc bulge with mild spinal stenosis. Severe right and moderate left foraminal narrowing with uncovertebral hypertrophy. C7-T1: Mild disc bulge without spinal stenosis. Moderate bilateral foraminal narrowing. IMPRESSION: 1. Multilevel disc bulges. 2. Multilevel spinal stenosis most severe at C5-6 secondary to disc bulge as well as retrolisthesis. 3. Multilevel moderate to severe foraminal narrowing predominantly secondary to uncovertebral arthropathy. Dictated by: Karen Guzman M.D. on 04/14/2020 at 15:07 Approved by: Karen Guzman M.D. on 04/14/2020 at 16:38
== END ==
PROVIDERS: Family Provider Dermatology; PCP Student in an Organized Health Care Education/Training Program; Referring Provider Student in an Organized Health Care Education/Training Program; Visit Provider Student in an Organized Health Care Education/Training Program
DX: S06.0X0D Concussion without loss of consciousness, subsequent encounter (principal); M43.12 Spondylolisthesis, cervical region; M50.21 Other cervical disc displacement, high cervical region; M47.812 Spondylosis without myelopathy or radiculopathy, cervical region; M48.02 Spinal stenosis, cervical region
CPT/HCPCS: 72141

== ENCOUNTER → 2020-05-30 09:53 | Outpatient (CLI) | payer MEDICARE, SELFPAY ==
[2019-10-04 15:45] VITALS: BMI 28.7
--- NOTE | 2020-05-30 | DI.RAD.S_ITS ---
PROCEDURE: XR KNEE RT 3V INDICATIONS: BILATERAL KNEE PAIN TECHNIQUE: 3 views of the knee were acquired. COMPARISON: [facility], , KNEE 3V RIGHT, 05/17/2017, 16:09. FINDINGS: Bones: No fractures or dislocations. No suspicious bony lesions. Right knee demonstrates a lateral knee hemiarthroplasty without evidence of hardware fracture or periprosthetic lucency. There is mild medial and patellofemoral compartment narrowing. There is mild lateral subluxation of the patella. Minimal periarticular osteophytes are present. No erosions. Soft tissues: No joint effusion. No suspicious soft tissue calcifications. IMPRESSION: Lateral hemiarthroplasty with medial and patellofemoral compartment narrowing consistent with arthritis. Dictated by: Karen Guzman M.D. on 05/30/2020 at 10:56 Approved by: Karen Guzman M.D. on 05/30/2020 at 10:57
--- NOTE | 2020-05-30 09:55 | DI.RAD.S_ITS ---
PROCEDURE: XR PELVIS 1-2V INDICATIONS: LOW BACK PAIN TECHNIQUE: 1 view(s) of the pelvis acquired. COMPARISON: None. FINDINGS: Bones: No fractures or dislocations. No suspicious bony lesions. Mild degenerative narrowing of the hip joints. Minimal periarticular osteophytes are present. No erosions. Soft tissues: Visualized bowel gas pattern is normal. No suspicious soft tissue calcifications. Moderate stool. IMPRESSION: Mild arthritic narrowing of the hip joints bilaterally. Dictated by: Karen Guzman M.D. on 05/30/2020 at 10:58 Approved by: Karen Guzman M.D. on 05/30/2020 at 10:59
--- NOTE | 2020-05-30 09:55 | DI.RAD.S_ITS ---
PROCEDURE: XR KNEE LT 3V INDICATIONS: BILATERAL KNEE PAIN TECHNIQUE: 3 views of the knee were acquired. COMPARISON: [facility], , KNEE 3V RIGHT, 05/17/2017, 16:09. FINDINGS: Bones: No fractures or dislocations. No suspicious bony lesions. There is a right knee hemiarthroplasty within the lateral compartment. There is bilateral mild to moderate medial compartment narrowing, left greater than right. Minimal left compartment narrowing is present. Bilateral mild patellofemoral compartment narrowing is present. Minimal periarticular osteophytes are present. No erosions. There is mild lateral subluxation of the patella bilaterally, left greater than right. Soft tissues: No joint effusion. No suspicious soft tissue calcifications. 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 Dictated by: Karen Guzman M.D. on 05/30/2020 at 10:45 Approved by: Karen Guzman M.D. on 05/30/2020 at 10:56
--- NOTE | 2020-05-30 09:55 | DI.RAD.S_ITS ---
PROCEDURE: XR LUMBAR SPINE 2-3V INDICATIONS: LOW BACK PAIN TECHNIQUE: 3 views of the lumbar spine were acquired. COMPARISON: [facility], , L-SPINE 2-3 VIEWS, 01/23/2013, 16:27. FINDINGS: Bones: 5 [id number] vertebrae are present. There is normal bony alignment. Severe disc space narrowing at L4-5, L5-S1, mild to moderate throughout 3 remaining lumbar spine. There is severe foraminal narrowing at L5-S1, moderate L4-5. It is notably progressive at L5-S1. Multilevel non bridging anterior osteophytes are present. No vertebral body compression fractures. No suspicious bony lesions. Soft tissues: Overlying bowel gas pattern is normal. No suspicious soft tissue calcifications. Atherosclerotic vascular calcifications are present. IMPRESSION: Degenerative changes noting progression at L5-S1 as above. Dictated by: Karen Guzman M.D. on 05/30/2020 at 10:57 Approved by: Karen Guzman M.D. on 05/30/2020 at 10:58
== END ==
PROVIDERS: Family Provider Dermatology; PCP Student in an Organized Health Care Education/Training Program; Referring Provider Student in an Organized Health Care Education/Training Program; Visit Provider Student in an Organized Health Care Education/Training Program
DX: M16.0 Bilateral primary osteoarthritis of hip (principal); M54.5 Low back pain; M25.559 Pain in unspecified hip; M79.669 Pain in unspecified lower leg; M51.37 Other intervertebral disc degeneration, lumbosacral region; M25.562 Pain in left knee; M25.561 Pain in right knee
CPT/HCPCS: 72100; 72170; 73562

== ENCOUNTER → 2020-07-08 11:24 | Outpatient (CLI) | payer MEDICARE, SELFPAY ==
[2019-10-04 15:45] VITALS: BMI 28.7
--- NOTE | 2020-07-08 11:26 | DI.RAD.S_ITS ---
PROCEDURE: XR CHEST 2V INDICATIONS: COUGH X 5 DAYS TECHNIQUE: 2 views of the chest were acquired. COMPARISON: [facility], CR, XR CHEST 1V, 12/10/2018, 8:22. [facility], CR, XR CHEST 2V, 09/15/2017, 8:13. FINDINGS: Surgical changes and devices: None. Lungs and pleura: Lungs are clear. No pleural effusions or pneumothorax. Mediastinum: Mediastinal contours are normal except for a large air-filled hiatal hernia behind the heart.. Heart size is normal. Bones and chest wall: No suspicious bony abnormalities. Soft tissues appear unremarkable. IMPRESSION: Large air-filled hiatal hernia behind the heart. A definite source of cough is not found. Dictated by: Warren Aguilera M.D. on 07/08/2020 at 12:34 Approved by: Warren Aguilera M.D. on 07/08/2020 at 12:34
== END ==
PROVIDERS: Family Provider Dermatology; PCP Student in an Organized Health Care Education/Training Program; Referring Provider Student in an Organized Health Care Education/Training Program; Visit Provider Student in an Organized Health Care Education/Training Program
DX: R05 Cough (principal); K44.9 Diaphragmatic hernia without obstruction or gangrene
CPT/HCPCS: 71046

== ENCOUNTER 2020-07-21 16:51 | Emergency (ER) | payer MEDICARE, SELFPAY ==
[2019-10-04 15:45] VITALS: BMI 28.7
[2020-07-21] VITALS (8 sets, daily range): BP systolic 176–195; BP diastolic 77–89; PULSE 68–88; RESP 14; TEMP 36.9; O2SAT 97–99
--- NOTE | 2020-07-21 18:45 | ED_ITS ---
HPI - Extremity Problem General Chief complaint: Extremity Problem,Nontraumatic Stated complaint: Pain in left arm Time Seen by Provider: 07/21/20 17:42 Source: patient Mode of arrival: Ambulatory Limitations: no limitations History of Present Illness HPI Narrative: This is an 85-year-old female comes in with complaint of pain in her left upper extremity for the last several days. She states intermittent it is worse with movement. Patient describes pain mostly localized to the wrist but does extend proximally as well. She states it is worse with movement and has significant difficulty with flexion extension of her wrist. She denies any numbness or tingling. She does not appreciate new weakness. She did not have any pain in her neck. She has not appreciated any swelling, she has an appreciate any skin color changes such as cyanosis, pallor erythema. She has not had any new rashes. Patient denies any chest pain or pressure. No shortness of breath. No fevers. She denies any nausea, vomiting other GI or urinary symptoms. Patient does have leukemia and follows with Dr. Price for her oncologist. She is currently on medications for this she does take medications for hypertension, borderline diabetes but denies any history of dyslipidemia. Patient does incidentally note some concerns about her housing situation, she was recommended to leave her current living situation secondary to second hand smoke but is concerned about findings financially viable housing. Related Data Home Medications Medication Instructions Recorded Confirmed nitroglycerin [Nitrostat] 0.4 mg SUBLINGUAL Q5-15M PRN #0 07/06/09 04/28/20 doxepin 25 mg capsule 25 mg PO BEDTIME 08/30/17 04/28/20 fluoxetine 20 mg capsule 40 mg PO DAILY 08/30/17 04/28/20 esomeprazole magnesium 80 mg PO DAILY 04/25/18 04/28/20 lovastatin 20 mg PO BEDTIME 04/25/18 04/28/20 metformin 500 mg PO QAM 04/25/18 04/28/20 diltiazem HCl 360 mg PO DAILY 04/17/19 04/28/20 losartan 100 mg PO DAILY 04/17/19 04/28/20 Previous Rx's Medication Instructions Recorded furosemide 60 mg PO DAILY #270 tab 12/15/18 potassium chloride [Klor-Con M20] 40 meq PO DAILYCC 90 Days #180 tab 12/15/18 cetirizine [Allergy Relief 10 mg PO DAILY PRN #30 cap 04/24/19 (cetirizine)] hydroxyzine HCl 25 mg PO BEDTIME #14 tab 04/26/19 colchicine 0.6 mg PO BID #20 tab 10/01/19 ferrous sulfate 325 mg PO DAILY #90 tab 04/28/20 hydrocodone-acetaminophen 1 tab PO Q6H PRN #10 tab 07/21/20 Allergies Allergy/AdvReac Type Severity Reaction Status Date / Time MJ Inhibitors Allergy Intermediate I dont Verified 07/21/20 18:16 remember guaifenesin Allergy Intermediate face Verified 07/21/20 18:16 swelling azithromycin Allergy Unknown I dont Verified 07/21/20 18:16 remember dextromethorphan Allergy Unknown I dont Verified 07/21/20 18:16 remember enalapril Allergy Unknown I dont Verified 07/21/20 18:16 remember meloxicam Allergy Unknown I dont Verified 07/21/20 18:16 remember pneumococcal vaccine Allergy Unknown face Verified 07/21/20 18:16 [From PNEUMOVAX 23] swelling morphine AdvReac Severe Nausea Verified 07/21/20 18:16 lidocaine AdvReac Unknown I dont Verified 07/21/20 18:16 remember Review of Systems Review of Systems ROS Unobtainable: All systems reviewed & are unremarkable except as noted in HPI and below Patient History Medical History (Updated 07/21/20 @ 21:44 by Tessa Daley DO) Diabetes mellitus type II, non insulin dependent HTN (hypertension) Hypercholesterolemia Surgical History History of bladder surgery History of cholecystectomy History of repair of hiatal hernia Status post hysterectomy Family History Sister Cancer Brother Cancer Sister Cancer Mother Cancer Social History household members: significant other Smoking Status: Never smoker alcohol intake: never Smoking Status: Never smoker alcohol intake frequency: holidays/special occasions only Substance Use Type: does not use Exam Narrative Exam Narrative: GEN: well nourished, well appearing elderly female, alert and oriented x 3, patient appears to be in mild distress. HEENT: Atraumatic, pupils are equal round reactive to light, extraocular movements are intact, nares are clear, throat is clear without any exudates, erythema, tonsillar enlargement or uvular deviation, no cervical vertebral tenderness. Full range of motion. HEART: Regular rate and rhythm without murmur, clicks, rubs. Pulses are equal in upper extremities LUNGS:Lungs clear to auscultation, no wheezes, rales, crackles, chest moves symmetrically ABD:bowel sounds normal, soft, non-tender, no guarding, rebound, rigidity, no masses noted, no hepatosplenomegaly MSCL: Patient has tenderness of the left wrist and has significant discomfort with trying to flex and extend the wrist, she has some mild tenderness some of all for metacarpals. No tenderness in the fingers she has not any bony tenderness of the elbow, humerus or shoulder, no muscle atrophy, muscles strength 5/5 upper extremities with full range of motion other than noted at the wrist. NEURO:CN 2-12 intact, sensation normall Initial Vital Signs Initial Vital Signs: Vital Signs Temperature 98.4 F 07/21/20 17:13 Pulse Rate 88 07/21/20 17:13 Respiratory Rate 14 07/21/20 17:13 Blood Pressure 195/86 H 07/21/20 17:13 Pulse Oximetry 99 07/21/20 17:13 Scores GCS Wray coma scale eye opening: Spontaneous Mckinley coma scale verbal response: Orientated Mckinley coma scale motor response: Obey commands Mckinley coma scale total score: 15 Course Orders Ordered: ED Orders 07/21/20 20:44 Troponin I Stat Consultations Consultation #1: Dr. Preston, follow up with office. cocked wrist/volar splint and patient may get an outpatient MRI after being seen in the office. Vital Signs Vital signs: Vital Signs - 8 hr 07/21/20 20:25 07/21/20 20:30 07/21/20 21:00 Pulse Rate 69 68 76 Blood Pressure 195/89 H 176/85 H Pulse Oximetry 98 98 97 07/21/20 21:04 07/21/20 21:30 07/21/20 21:57 Pulse Rate 77 78 74 Blood Pressure 176/85 H 181/77 H 176/82 H Pulse Oximetry 97 97 98 07/21/20 22:00 Pulse Rate 73 Blood Pressure 188/85 H Pulse Oximetry 99 MDM - Extremity (Nontraumatic) Lab Data Labs: Lab Results 07/21/20 Range/Units 20:44 Troponin I < 0.012 (0.01-0.034) ng/mL Imaging Data Extremity x-ray #1: Radiologist's Impression: [address] [id number] ReportSigned Patient: Deyanira Mauricio MMR#: [id number]: 8Acct:[id number]/Sex: 85 / FDate of Service: 07/21/20Loc: EDAccession Number: [id number] Procedure: XR wrist LT min 3V Ordering Provider: Tessa Daley D.O. PROCEDURE: XR WRIST LT MIN 3V INDICATIONS: wrist/arm pain TECHNIQUE: 4 views of the wrist were acquired. COMPARISON: [facility], , XR WRIST RT MIN 3V, 10/01/2019, 7:14. FINDINGS: Bones: There is poor visualization of the cortex of the triquetrum at the ulnar aspect of the wrist. Carpal bones are normally aligned. Severe joint space narrowing is seen at the 1st carpometacarpal joint with subchondral cystic changes. Mild triscaphe osteoarthrosis. Scaphoid view: Intact scaphoid. Soft tissues: No suspicious soft tissue calcifications. Soft tissue edema is seen surrounding the wrist. IMPRESSION: Focal loss of cortication at the ulnar aspect of the triquetrum could represent recent trauma versus an osseous erosion related to an inflammatory or septic arthritis. Recommend correlation with clinical findings. If septic arthritis is suspected, urgent joint aspiration should be performed. Further evaluation with MRI may be obtained if indicated. Dictated by: Magen Iniguez M.D. on 07/21/2020 at 20:49 Approved by: Magen Iniguez M.D. on 07/21/2020 at 20:52 US - DVT: Radiologist's Impression: [address] [id number] ReportSigned Patient: Deyanira Mauricio MMR#: [id number]: 8Acct:[id number]/Sex: 85 / FDate of Service: 07/21/20Loc: EDAccession Number: [id number] Procedure: US periph venous up extrem lt Ordering Provider: Tessa Daley D.O. PROCEDURE: US PERIPH VENOUS UP EXTREM LT INDICATIONS: SWELLING/PAIN LEUKEMIA TECHNIQUE: Real-time imaging, as well as color and pulse Doppler interrogation, was performed of the left upper extremity deep veins from the inferior neck to the antecubital fossa. COMPARISON: None. FINDINGS: The internal jugular vein, visualized portions of the subclavian vein, axillary, and brachial veins are free of intraluminal thrombus. Where physically possible, the veins are normally compressible. Color and pulse Doppler demonstrate normal intraluminal flow, with expected phasicity and pulsatility. Additional scanning of the cephalic and basilic veins of the superficial system demonstrate normal compressibility, without thrombus. IMPRESSION: Negative for deep venous thrombosis in the left upper extremity. Dictated by: Magen Iniguez M.D. on 07/21/2020 at 21:43 Approved by: Magen Iniguez M.D. on 07/21/2020 at 21:44 ECG Data Attestation EKG: I personally reviewed and interpreted this ECG as follows: Prior ECG tracings: not available for review Interpretation: Sinus rhythm rate of 79 UT 184 QRS is 76 and QTC of 465. No acute ST changes appreciated. MDM Narrative Medical decision making narrative: This is an 85-year-old female with of left upper extremity pain but particularly in the wrist. Patient had a labs drawn knows name patient earlier, troponin was added on. She has mild elevated her white count with an elevation in her atypical lymphocytes. She has low segm ented neutrophils and elevated eosinophils. Patient's troponin, renal function electrolytes do not show any major changes. Patient's DVT imaging is negative, this was obtained she is high risk secondary to her leukemia. X-ray of the wrist was also obtained she has some localized tenderness although she does not recall any traumatic incident. She does have changes in the triquetrum and this was reviewed with Orthopedic surgery. On physical exam she does not have findings consistent with a septic type arthritis and this was reviewed with the orthopedic surgeon who agrees with plan for a volar/cocked wrist splint full with Orthopedic surgery. Dr. Spain did state that patient may benefit from MRI as an outpatient. Discharge Plan Departure Patient Disposition: Home Clinical Impression: Arm pain, left Activity Restrictions/Additional Instructions: Follow up with Orthopedic surgery for recheck. Call for an appointment. Dr. Preston would like for you to follow up for further evaluation and possibly an MRI in the future after they have seen you. There are changes on your x-ray imaging which can possibly be traumatic verses a type of inflammatory or septic arthritis in the triquetrum bone of your wrist/hand. My suspicion for an infectious arthritis is low based on your examination today. You may continue home medications as prescribed. You may take pain medications as prescribed, this medication can make you sleepy do not drive, perform any hazardous activities or make any major decisions while taking them. This medication can make you constipated to make sure take a stool softener 1-2 tabs daily until stools are soft and regular. Prescription to [facility] [place] Please return for fevers, new redness, swelling of your arm wrist, increasing pain, new numbness or tingling, loss of sensation, new weakness, chest, shortness of breath or other new or concerning symptoms. Prescriptions: New hydrocodone-acetaminophen 5-325 mg tablet 1 tab PO Q6H PRN (Reason: pain) Qty: 10 RF: 0 No Action nitroglycerin [Nitrostat] 0.4 mg Tablet, Sublingual 0.4 mg SUBLINGUAL Q5-15M PRN (Reason: Chest Pain) Qty: 0 RF: 0 fluoxetine 20 mg capsule 40 mg PO DAILY RF: 0 doxepin 25 mg capsule 25 mg PO BEDTIME RF: 0 furosemide 20 mg Tablet 60 mg PO DAILY Qty: 270 RF: 3 potassium chloride [Klor-Con M20] 20 mEq Tablet,Er Particles/Crystals 40 meq PO DAILYCC 90 Days Qty: 180 RF: 3 hydroxyzine HCl 25 mg tablet 25 mg PO BEDTIME Qty: 14 RF: 0 colchicine 0.6 mg tablet 0.6 mg PO BID Qty: 20 RF: 0 metformin 500 mg tablet 500 mg PO QAM RF: 0 esomeprazole magnesium 40 mg capsule,delayed release(DR/EC) 80 mg PO DAILY RF: 0 lovastatin 20 mg tablet 20 mg PO BEDTIME RF: 0 losartan 50 mg tablet 100 mg PO DAILY RF: 0 diltiazem HCl 180 mg capsule,extended release 24hr 360 mg PO DAILY RF: 0 Allergy Relief (cetirizine) 10 mg Capsule 10 mg PO DAILY PRN (Reason: maculopapular rashes) Qty: 30 RF: 1 ferrous sulfate 325 mg (65 mg iron) Tablet 325 mg PO DAILY Qty: 90 RF: 3 Referrals: Mariajose Reyes MD [Primary Care Provider] - Tony Preston MD [Physician] -
--- NOTE | 2020-07-21 18:57 | DI.US.S_ITS ---
PROCEDURE: US PERIPH VENOUS UP EXTREM LT INDICATIONS: SWELLING/PAIN LEUKEMIA TECHNIQUE: Real-time imaging, as well as color and pulse Doppler interrogation, was performed of the left upper extremity deep veins from the inferior neck to the antecubital fossa. COMPARISON: None. FINDINGS: The internal jugular vein, visualized portions of the subclavian vein, axillary, and brachial veins are free of intraluminal thrombus. Where physically possible, the veins are normally compressible. Color and pulse Doppler demonstrate normal intraluminal flow, with expected phasicity and pulsatility. Additional scanning of the cephalic and basilic veins of the superficial system demonstrate normal compressibility, without thrombus. IMPRESSION: Negative for deep venous thrombosis in the left upper extremity. Dictated by: Magen Iniguez M.D. on 07/21/2020 at 21:43 Approved by: Magen Iniguez M.D. on 07/21/2020 at 21:44
--- NOTE | 2020-07-21 18:57 | DI.RAD.S_ITS ---
PROCEDURE: XR WRIST LT MIN 3V INDICATIONS: wrist/arm pain TECHNIQUE: 4 views of the wrist were acquired. COMPARISON: [facility], CR, XR WRIST RT MIN 3V, 10/01/2019, 7:14. FINDINGS: Bones: There is poor visualization of the cortex of the triquetrum at the ulnar aspect of the wrist. Carpal bones are normally aligned. Severe joint space narrowing is seen at the 1st carpometacarpal joint with subchondral cystic changes. Mild triscaphe osteoarthrosis. Scaphoid view: Intact scaphoid. Soft tissues: No suspicious soft tissue calcifications. Soft tissue edema is seen surrounding the wrist. IMPRESSION: Focal loss of cortication at the ulnar aspect of the triquetrum could represent recent trauma versus an osseous erosion related to an inflammatory or septic arthritis. Recommend correlation with clinical findings. If septic arthritis is suspected, urgent joint aspiration should be performed. Further evaluation with MRI may be obtained if indicated. Dictated by: Magen Iniguez M.D. on 07/21/2020 at 20:49 Approved by: Magen Iniguez M.D. on 07/21/2020 at 20:52
--- NOTE | 2020-07-21 19:43 | CM.SWNOTE ---
INSIGHT LEADER Note INSIGHT LEADER receives consult and meets with patient. Patient is 85 yo female presents to ED with pain in left arm. Patient is A/Ox4 and states that she is currently residing at [facility] with boyfriend and son Alberto. Patient states that son Alberto is supportive and provides transportation. Patient denies having a DPOA or advance directive, INSIGHT LEADER encourages discussing this with Dr. Price and Dr. Reyes. Patient states that she has Leukemia and sees Dr. Price for Oncology and has an appt next week. INSIGHT LEADER reviews chart and sees scheduled appt for 07/28/20. Patient states that her PCP is Dr. Reyes and she has nice doctors. Patient states that her boyfriend smokes cigarettes and she is trying to move out into a new home with her son. patient states that her son works and she receives SS and SSDI, patient does not report financial concern to this INSIGHT LEADER. When asked about relationship with boyfriend, patient did not want to disclose further information about how she feels moving away from him and a plan in the meantime to eliminate or decrease access to his cigarette smoke. Patient is taken to get Ultrasound when meeting with INSIGHT LEADER and INSIGHT LEADER is to follow up with patient upon her return to ED. INSIGHT LEADER calls Oncology INSIGHT LEADER Keyonatanya Richardsce-Ganga and leaves with patient update and requests return call. INSIGHT LEADER reviews the above with ED provider Dr. Daley and she indicates understanding and agreement. Plan: d/c to home when medically clear and patient to follow up with Oncology INSIGHT LEADER at appt on 07/28/20 NATE Hines
--- NOTE | 2020-07-21 20:15 | CM.SWNOTE ---
CHILD PROTECTIVE INVESTIGATOR note continued CHILD PROTECTIVE INVESTIGATOR follows up with patient when she returns from ultrasound. Patient states that she feels safe at home and reports no concerns. CHILD PROTECTIVE INVESTIGATOR provides patient with the senior resource guide and discusses [facility] and services available to her. Patient states that she feels financially stable with finding a place to rent with her and her son's income. CHILD PROTECTIVE INVESTIGATOR discusses the oncology CHILD PROTECTIVE INVESTIGATOR that will be notified to meet with patient at appt next week with Dr. Price. Patient indicates agreement and understanding. Patient states she has no further questions or concerns. Plan: d/c to home with oncology CHILD PROTECTIVE INVESTIGATOR follow up next week. NATE Hines
[2020-07-21 21:24] LABS: Troponin I < 0.012 ng/mL (0.01-0.034)
== END 2020-07-21 21:10 | disposition home or self-care (01) ==
PROVIDERS: Emergency Provider Emergency Medicine; Family Provider Dermatology; PCP Student in an Organized Health Care Education/Training Program
DX: M79.602 Pain in left arm (principal); R79.89 Other specified abnormal findings of blood chemistry
CPT/HCPCS: 36415; 73110; 84484; 93005; 93010; 93971; 99284

== ENCOUNTER → 2020-09-02 07:13 | Outpatient (CLI) | payer MEDICARE, SELFPAY ==
[2020-08-07 14:35] VITALS: BMI 28.7
--- NOTE | 2020-09-02 | DI.MRI.S_ITS ---
PROCEDURE: MR WRIST LT W CON INDICATIONS: Pain in left wrist TECHNIQUE: After the administration of 3-4 mL of dilute intra-articular Gadolinium contrast into the radiocarpal compartment, coronal T1 spin echo with fat saturation and T2 fast spin echo with fat saturation, axial T1 spin echo and T2 fast spin echo with fat saturation, sagittal T1 spin echo with and without fat saturation through the wrist. COMPARISON: [facility], CR, XR WRIST LT MIN 3V, 07/21/2020, 19:32. FINDINGS: Image quality: Excellent. Bones and cartilage: The carpal bones are normally aligned. Mild to moderate osteoarthritic changes throughout wrist joints are seen more prominent at 1st CMC joint. Nonspecific subcortical cystic areas are noted involving proximal portion of scaphoid and triquetrum. There is mild diffuse wrist soft tissue edema and swelling. No intra-articular loose body. No evidence of osteonecrosis. Nonspecific intraosseous cyst formation involving dorsal aspect of 1st metacarpal base is seen with mild surrounding edema without discrete fracture line. Subcortical cyst formation in the adjacent distal portion of the trapezium are also seen. No significant marrow edema. Carpal ligaments: There is focal perforation involving radial aspect of scapholunate ligament dorsal and central component with gadolinium extravasation into the mid-carpal compartment. The lunotriquetral ligament is intact. The radioscaphocapitate and radiolunotriquetral ligaments appear intact. The arcuate ligament and short radiolunate ligament also appear normal. The dorsal intercarpal and radiotriquetral ligaments appear intact. On sagittal images, the pisohamate ligament appears intact. Triangular fibrocartilage complex: The triangular fibrocartilage disc, with its styloid and foveal lamina, appears intact. No gadolinium extravasation into the distal radioulnar joint. The adjacent meniscal homolog appears normal. The ulnar collateral ligament appears intact. The extensor carpi ulnaris tendon is normal in location and morphology. Tendons and soft tissues: The carpal tunnel structures appear normal, including the median nerve. The ulnar nerve appears normal within Guyon's canal. All six extensor tendon compartments demonstrate normal morphology, without pathologic tendon sheath fluid. There is suggestion of a ganglion cyst involving volar and medial aspect of the wrist adjacent to tip of ulnar styloid and measures up to 1.4 x 0.9 x 1.4 cm in size. IMPRESSION: 1. Suggestion of focal full-thickness perforation involving dorsal and central component of scapholunate ligament with contrast extending to mid carpal compartment. Lunotriquetral ligament is intact. 2. Triangular fibrocartilage complex is intact. 3. Osteoarthritic changes throughout wrist joints more prominent involving 1st CMC joint. Nonspecific subcortical cyst formation in carpal bones and 1st metacarpal base as above, which may represent changes secondary to osteoarthritis. Erosion secondary to inflammatory arthropathy cannot be excluded. No fracture or dislocation. No evidence of osteonecrosis. No suspicious bony lesion. Nonspecific mild soft tissue swelling and edema surrounding wrist joints. 4. Suggestion of a ganglion cyst involving volar and medial aspect of wrist joint just distal to the ulnar styloid and measures 1.4 x 0.9 x 1.4 cm in size. 5. Extensor and flexor tendons are grossly intact. Dictated by: Abhilash Espinoza M.D. on 09/02/2020 at 13:07 Approved by: Abhilash Espinoza M.D. on 09/02/2020 at 13:14
--- NOTE | 2020-09-02 | DI.RAD.S_ITS ---
PROCEDURE: FL WRIST INJECTION MR/CT LT INDICATIONS: Pain in left wrist COMPARISON: [facility], , PERIPH VENOUS UP EXTREM LT, 07/21/2020, 19:39. TECHNIQUE: After informed consent had been obtained, the wrist was examined fluoroscopically, and a site chosen for injection of the radiocarpal compartment from a dorsal approach. Skin was prepped and draped in a sterile fashion and 1% lidocaine infiltrated from the skin down to the articular surface. A hypodermic needle was then introduced into the articular space and a modest amount of contrast medium was instilled confirming intra-articular needle tip placement. This was followed by approximately 4 mL of a dilute gadolinium solution. Needle was removed and dressing was applied. The patient experienced no complications throughout the procedure and left the fluoroscopic suite in no apparent distress. FINDINGS: A single fluoroscopic spot image demonstrates intra-articular location to injected iodinated contrast. IMPRESSION: Successful fluoroscopic-guided administration of dilute Gadolinium solution for wrist MR arthrogram. Dictated by: Emilee Marcelo M.D. on 09/02/2020 at 9:43 Approved by: Emilee Marcelo M.D. on 09/02/2020 at 9:44
== END ==
PROVIDERS: Family Provider Dermatology; PCP Student in an Organized Health Care Education/Training Program; Referring Provider Physical Medicine & Rehabilitation Pain Medicine; Visit Provider Physical Medicine & Rehabilitation Pain Medicine
DX: M25.532 Pain in left wrist (principal)
CPT/HCPCS: 20605; 73222; 76000

== ENCOUNTER 2020-09-18 13:58 | Emergency (ER) | payer MEDICARE, SELFPAY ==
[2020-08-07 14:35] VITALS: BMI 28.7
[2020-09-18 14:04] VITALS: BP 155/70; PULSE 77; RESP 17; TEMP 36.9; O2SAT 97
--- NOTE | 2020-09-18 16:06 | ED.HEATRA ---
HPI - Head Injury <Tavia Morales PA-C - Last Filed: 09/18/20 19:33> General Chief complaint: Head Injury Stated complaint: can vs head, + skin tear. No LOC Time Seen by Provider: 09/18/20 15:23 Source: EMS Mode of arrival: EMS History of Present Illness HPI Narrative: 85-year-old female PMH leukemia, on 81mg ASA who presents to the ER via EMS complaining of injury to the left cheek bone that occurred prior to arrival while reaching up to grab a can that then fell onto her face. Noted bleeding initially from the wound but denies LOC, headache, eye pain, vision change, epistaxis, nose pain, or mouth pain. Related Data Home Medications Medication Instructions Recorded Confirmed nitroglycerin 0.4 mg sublingual 0.4 mg SUBLINGUAL Q5-15M PRN #0 07/06/09 08/07/20 tablet (Nitrostat) doxepin 25 mg capsule 25 mg PO BEDTIME 08/30/17 08/07/20 fluoxetine 20 mg capsule 40 mg PO DAILY 08/30/17 08/07/20 esomeprazole magnesium 40 mg 80 mg PO DAILY 04/25/18 08/07/20 capsule,delayed release lovastatin 20 mg tablet 20 mg PO BEDTIME 04/25/18 08/07/20 metformin 500 mg tablet 500 mg PO QAM 04/25/18 08/07/20 diltiazem HCl 180 mg 360 mg PO DAILY 04/17/19 08/07/20 capsule,extended release 24 hr losartan 50 mg tablet 100 mg PO DAILY 04/17/19 08/07/20 aspirin 81 mg tablet,delayed 81 mg PO DAILY 08/07/20 08/07/20 release (Adult Aspirin Regimen) estradiol 0.5 mg tablet 0.5 mg PO DAILY 08/07/20 08/07/20 Previous Rx's Medication Instructions Recorded furosemide 20 mg tablet 60 mg PO DAILY #270 tab 12/15/18 potassium chloride 20 mEq 40 meq PO DAILYCC 90 Days #180 tab 12/15/18 tablet,extended release(part/cryst) (Klor-Con M) cetirizine 10 mg capsule (Allergy 10 mg PO DAILY PRN #30 cap 04/24/19 Relief (cetirizine)) hydroxyzine HCl 25 mg tablet 25 mg PO BEDTIME #14 tab 04/26/19 colchicine 0.6 mg tablet 0.6 mg PO BID #20 tab 10/01/19 ferrous sulfate 325 mg (65 mg 325 mg PO DAILY #90 tab 04/28/20 iron) tablet hydrocodone 5 mg-acetaminophen 325 1 tab PO Q6H PRN #10 tab 07/21/20 mg tablet Allergies Allergy/AdvReac Type Severity Reaction Status Date / Time MJ Inhibitors Allergy Intermediate I dont Verified 09/18/20 14:12 remember guaifenesin Allergy Intermediate face Verified 09/18/20 14:12 swelling azithromycin Allergy Unknown I dont Verified 09/18/20 14:12 remember dextromethorphan Allergy Unknown I dont Verified 09/18/20 14:12 remember enalapril Allergy Unknown I dont Verified 09/18/20 14:12 remember meloxicam Allergy Unknown I dont Verified 09/18/20 14:12 remember pneumococcal vaccine Allergy Unknown face Verified 09/18/20 14:12 [From PNEUMOVAX 23] swelling morphine AdvReac Severe Nausea Verified 09/18/20 14:12 lidocaine AdvReac Unknown I dont Verified 09/18/20 14:12 remember Review of Systems <Tavia Morales PA-C - Last Filed: 09/18/20 19:33> Review of Systems Narrative: General: denies fever, chills Head/Neck: denies headache, neck pain Eyes: Denies eye pain, vision change ENT: Denies epistaxis, mouth pain Cardio: denies chest pain, palpitations Respiratory: denies shortness of breath, cough GI: denies abdominal pain, vomiting : denies flank pain, hematuria MSK: denies joint pain, muscle weakness Skin: (+) laceration. Denies rash Neuro: denies LOC, numbness, weakness, loss of sensory/motor function Patient History <Tavia Morales PA-C - Last Filed: 09/18/20 19:33> Medical History (Updated 09/18/20 @ 17:30 by Tavia Morales PA-C) Diabetes mellitus type II, non insulin dependent HTN (hypertension) Hypercholesterolemia Surgical History History of bladder surgery History of cholecystectomy History of repair of hiatal hernia Status post hysterectomy Family History Sister Cancer Brother Cancer Sister Cancer Mother Cancer Hypertension Social History marital status: unmarried,living together household members: significant other Smoking Status: Never smoker alcohol intake: never Smoking Status: Never smoker alcohol intake frequency: holidays/special occasions only Substance Use Type: does not use Exam <Tavia Morales PA-C - Last Filed: 09/18/20 19:33> Narrative Exam Narrative: Independently reviewed vitals signs and nursing notes. General: Awake, alert, nontoxic, no cardiorespiratory distress Head/Neck: Neck full range of motion, atraumatic Face/Eyes: Approximately 1 cm by 2 cm superficial triangular shaped skin tear to the left maxillary region. No hyphema, conjunctival hemorrhage, eyelid laceration, or eye pain. Nonpainful EOMI. Ecchymosis below the L eye. No facial crepitus. Nose: nares patent, no rhinorrhea Cardio: Regular rate and rhythm, no peripheral edema Respiratory: respirations unlabored without wheezing, stridor, or rales. No retractions. GI: Abdomen soft, nondistended MSK: Moves all extremities, neurovascularly intact Skin: Normal capillary refill, no rash Neuro: Normal speech and cognition, normal gait Initial Vital Signs Initial Vital Signs: Vital Signs Temperature 98.4 F 09/18/20 14:04 Pulse Rate 77 09/18/20 14:04 Respiratory Rate 17 09/18/20 14:04 Blood Pressure 155/70 H 09/18/20 14:04 Pulse Oximetry 97 09/18/20 14:04 <Tessa Daley DO - Last Filed: 09/22/20 08:55> Initial Vital Signs Initial Vital Signs: Vital Signs Temperature 98.4 F 09/18/20 14:04 Pulse Rate 77 09/18/20 14:04 Respiratory Rate 17 09/18/20 14:04 Blood Pressure 155/70 H 09/18/20 14:04 Pulse Oximetry 97 09/18/20 14:04 Course <Tavia Morales PA-C - Last Filed: 09/18/20 19:33> Orders Ordered: Discontinued Medications Bacitracin (Bacitracin Oint 0.9 Gm Pckt) 2 applic TOP NOW ONE Stop: 09/18/20 16:23 Last Admin: 09/18/20 17:14 Dose: 2 applic Documented by: VIMAL Vital Signs Vital signs: Vital Signs - 8 hr 09/18/20 14:04 09/18/20 17:30 Temperature 98.4 F Pulse Rate 77 78 Respiratory Rate 17 17 Blood Pressure 155/70 H 138/76 Pulse Oximetry 97 99 <Tessa Daley DO - Last Filed: 09/22/20 08:55> Orders Ordered: Discontinued Medications Bacitracin (Bacitracin Oint 0.9 Gm Pckt) 2 applic TOP NOW ONE Stop: 09/18/20 16:23 Last Admin: 09/18/20 17:14 Dose: 2 applic Documented by: VIMAL Vital Signs Vital signs: Vital Signs - 8 hr 09/18/20 14:04 09/18/20 17:30 Temperature 98.4 F Pulse Rate 77 78 Respiratory Rate 17 17 Blood Pressure 155/70 H 138/76 Pulse Oximetry 97 99 MDM - Head Injury <Tavia Morales PA-C - Last Filed: 09/18/20 19:33> Medical Records Medical records narrative: Review of prior medical records significant for platelet count of 219. MDM Narrative Medical decision making narrative: No evidence of facial fracture, epistaxis, retrobulbar hematoma, hyphema, subconjunctival hemorrhage, ocular pathology, or deep laceration. Local wound care performed with bacitracin and gauze dressing. Please keep wound clean, dry, wash with soap and water at least twice a day. Follow-up with your PCP as directed within 1 week or sooner if new/worsening symptoms arise. Discharge Plan Departure Patient Disposition: Home Clinical Impression: Skin tear Contusion Qualifiers: Encounter type: initial encounter Contusion area: head Contusion of head detail: periocular area Laterality: left Qualified Code(s): S00.12XA - Contusion of left eyelid and periocular area, initial encounter Instructions: DI for Eye Contusion Activity Restrictions/Additional Instructions: *You have been diagnosed with [contusion, skin tear] *What to do: [ ] New medication prescriptions sent to your pharmacy: [ ] [ ] New medication written as a paper prescription [x ] No new medications given * Apply antibiotic ointment daily and apply clean dressings. Keep the areas clean, dry, and with a bandage. * Please follow-up with your primary care provider in 2-3 days, call for an appointment. Let them know you were seen in the emergency department and that we ask you to be seen in follow-up. * if you do not have a primary care provider, please contact the [facility] Resource line at [phone]. They will ask some questions about your medical history and help to get up with a doctor in the community. * Return to the if you should have any new, worsening, or concerning symptoms, such as [eye pain, vision change, redness, warmth, or signs of infection]. Prescriptions: No Action nitroglycerin [Nitrostat] 0.4 mg Tablet, Sublingual 0.4 mg SUBLINGUAL Q5-15M PRN (Reason: Chest Pain) Qty: 0 RF: 0 fluoxetine 20 mg capsule 40 mg PO DAILY RF: 0 doxepin 25 mg capsule 25 mg PO BEDTIME RF: 0 estradiol 0.5 mg tablet 0.5 mg PO DAILY RF: 0 aspirin [Adult Aspirin Regimen] 81 mg tablet,delayed release (DR/EC) 81 mg PO DAILY RF: 0 furosemide 20 mg Tablet 60 mg PO DAILY Qty: 270 RF: 3 potassium chloride [Klor-Con M20] 20 mEq Tablet,Er Particles/Crystals 40 meq PO DAILYCC 90 Days Qty: 180 RF: 3 hydroxyzine HCl 25 mg tablet 25 mg PO BEDTIME Qty: 14 RF: 0 colchicine 0.6 mg tablet 0.6 mg PO BID Qty: 20 RF: 0 hydrocodone-acetaminophen 5-325 mg tablet 1 tab PO Q6H PRN (Reason: pain) Qty: 10 RF: 0 metformin 500 mg tablet 500 mg PO QAM RF: 0 esomeprazole magnesium 40 mg capsule,delayed release(DR/EC) 80 mg PO DAILY RF: 0 lovastatin 20 mg tablet 20 mg PO BEDTIME RF: 0 losartan 50 mg tablet 100 mg PO DAILY RF: 0 diltiazem HCl 180 mg capsule,extended release 24hr 360 mg PO DAILY RF: 0 Allergy Relief (cetirizine) 10 mg Capsule 10 mg PO DAILY PRN (Reason: maculopapular rashes) Qty: 30 RF: 1 ferrous sulfate 325 mg (65 mg iron) Tablet 325 mg PO DAILY Qty: 90 RF: 3 Referrals: Mariajose Reyes MD [Primary Care Provider] - <Tessa Daley DO - Last Filed: 09/22/20 08:55> Cosign ED Attending Lucia Attestation: I was immediately available in the department for consultation. Documentation has been reviewed. Patient also seen initially by myself and agree with examination and plan.
[2020-09-18] MEDS: BACITRACIN OINT 0.9 GM PCKT 2 APPLIC TOP (17:14)
[2020-09-18 17:30] VITALS: BP 138/76; PULSE 78; RESP 17; O2SAT 99
== END 2020-09-18 17:30 | disposition home or self-care (01) ==
PROVIDERS: Emergency Provider Physician Assistant; Family Provider Dermatology; PCP Student in an Organized Health Care Education/Training Program
DX: S00.12XA Contusion of left eyelid and periocular area, initial encounter (principal); W22.8XXA Striking against or struck by other objects, initial encounter
CPT/HCPCS: 99282

== ENCOUNTER → 2020-12-10 16:00 | Outpatient (CLI) | payer MEDICARE, SELFPAY ==
[2020-08-07 14:35] VITALS: BMI 28.7
--- NOTE | 2020-12-10 | DI.MG.S_ITS ---
BILATERAL DIGITAL SCREENING MAMMOGRAM 3D/2D WITH CAD: 12/10/2020 CLINICAL: Routine screening. Family history of breast cancer. Comparison is made to exams dated: 03/20/2018 mammogram, 01/27/2017 mammogram, and 01/09/2015 mammogram - [facility]. The tissue of both breasts is heterogeneously dense. This may lower the sensitivity of mammography. Current study was also evaluated with a Computer Aided Detection (CAD) system. There are benign vascular calcifications in both breasts. No significant masses, calcifications, or other findings are seen in either breast. There has been no significant interval change. IMPRESSION: BENIGN There is no mammographic evidence of malignancy. A 1 year screening mammogram is recommended. This exam was interpreted at Station ID: [id number]. NOTE: For mammograms, a report in lay terms will be sent to the patient. Approximately 15% of breast malignancies will not be visualized mammographically. In the management of a palpable breast mass, a negative mammogram must not discourage biopsy of a clinically suspicious lesion. Electronically Signed By: Jer Vegas acr/penrad:12/10/2020 17:00:56 letter sent: Normal Exam ACR BI-RADS Category 2: Benign Finding(s) 3342F
== END ==
PROVIDERS: Family Provider Dermatology; PCP Student in an Organized Health Care Education/Training Program; Referring Provider Student in an Organized Health Care Education/Training Program; Visit Provider Student in an Organized Health Care Education/Training Program
DX: Z12.31 Encounter for screening mammogram for malignant neoplasm of breast (principal)
CPT/HCPCS: 77063; 77067

== ENCOUNTER → 2021-02-11 10:28 | Outpatient (CLI) | payer MEDICARE, SELFPAY ==
[2020-08-07 14:35] VITALS: BMI 28.7
[2021-02-11 11:20] LABS: BUN Creatinine Ratio 16.5 (6-22); Blood Urea Nitrogen 17 mg/dL (7-17); Estimated Glomerular Filt Rate 51.2 mL/min (>60)
--- NOTE | 2021-02-11 11:48 | DI.CT.S_ITS ---
PROCEDURE: CT ABDOMEN PELVIS W CON INDICATIONS: CLL, now with abdominal pain. TECHNIQUE: After the administration of oral and intravenous contrast, axial sections were acquired from the lung bases to the pubic symphysis. Coronal and sagittal reformats were performed. For radiation dose reduction, the following was used: automated exposure control, adjustment of mA and/or kV according to patient size. COMPARISON:[facility], , CT ABDOMEN W/WO CONTRAST, 04/10/2004, 11:17. FINDINGS: Image quality: Excellent. Lung bases: Mild bibasilar atelectasis. Large hiatal hernia is again noted. Hiatal hernia contains a large portion of the stomach. Heart: No significant findings. Coronary atherosclerosis. ABDOMEN: Liver: Unremarkable. Gallbladder: Status post cholecystectomy. Biliary ducts: Mild common bile duct prominence likely related to post cholecystectomy dilatation. Otherwise, no intrahepatic biliary ductal dilatation seen. Pancreas: Unremarkable. Spleen: Unremarkable. Adrenal Glands: Unremarkable. Kidneys and Ureters: Kidneys are symmetric in size and enhancement, and there is no obstructive uropathy. No perinephric inflammatory changes. Ureters are normal in course and caliber. There is a partially exophytic left renal cyst. Stomach and Bowel: Stomach, small bowel loops, and colon are unremarkable. Moderate amount of fecal material seen throughout the colon. Peritoneum: No abnormal intraperitoneal fluid. No free air. Ventral Wall: No hernia. Abdominal Nodes: No retroperitoneal or mesenteric adenopathy by size criteria. Vessels: Aorta and inferior vena cava are normal in size. Scattered atherosclerotic calcifications of the abdominal aorta and iliac vessels without aneurysmal dilatation. PELVIS: Pelvic Organs: Uterus is not visualized and presumably surgically absent. Bladder: Unremarkable. Pelvic Nodes: No enlarged lymph nodes. Miscellaneous: No inguinal hernias are seen. Bones: No acute vertebral body compression fractures. Multilevel spondylitic changes throughout the imaged spine. No suspicious osseous lesions. L5 pars defects with minimal grade 1 anterolisthesis of L5 on S1. IMPRESSION: 1. CT abdomen and pelvis without acute abnormalities. No suspicious mass lesions or adenopathy. 2. Large hiatal hernia containing a large portion of the patient's stomach. 3. Atherosclerotic vascular disease. 4. Status post cholecystectomy. Other chronic findings as above. Dictated by: Raul Reyes M.D. on 02/11/2021 at 15:07 Approved by: Raul Reyes M.D. on 02/11/2021 at 15:21
== END ==
PROVIDERS: Family Provider Dermatology; PCP Student in an Organized Health Care Education/Training Program; Referring Provider Internal Medicine Hematology & Oncology; Visit Provider Internal Medicine Hematology & Oncology
DX: C91.10 Chronic lymphocytic leukemia of B-cell type not having achieved remission (principal); R10.9 Unspecified abdominal pain; K44.9 Diaphragmatic hernia without obstruction or gangrene; I25.10 Atherosclerotic heart disease of native coronary artery without angina pectoris; Z90.49 Acquired absence of other specified parts of digestive tract
CPT/HCPCS: 36415; 74177; 82565; 84520

== ENCOUNTER 2021-04-04 00:32 | Inpatient (IN) | payer MEDICARE, SELFPAY ==
[2020-08-07 14:35] VITALS: BMI 28.7
[2021-04-04] VITALS (37 sets, daily range): BP systolic 129–202; BP diastolic 64–98; PULSE 66–100; RESP 10–22; TEMP 36.1–37.1; O2SAT 91–99; BMI 25.2; BMI 24.3
--- NOTE | 2021-04-04 | PATH_ITS ---
[facility] Accession Number: [id number] . 01 Material submitted: . colon - CECUM . 02 Diagnosis: Cecum, Segmental Resection: Acute ischemia with patchy erosions, secondary to clinical volvulus. Serosal adhesions. Proximal and distal margins appear viable. No evidence of dysplasia or malignancy. MRV 04/13/2021 1333 Local . 02 Electronically signed: . Gita Murrieta MD, Pathologist NPI- [id number] . 01 Gross description: . Received in formalin, labeled with the patient's name and additionally labeled cecum is a self-adherent segment of cecum measuring 12.0 x 11.0 x 7.0 cm. The apparent proximal and distal margins appear to be sealed with the same staple line spanning 8.5 cm in length. Along the central aspect of the staple line is an apparent os measuring 3.0 cm in greatest dimension with readily identified colonic mucosa exposed 0.5 cm from the staple line. The serosal surface is ibanez-brown, smooth and glistening. The area underneath the staple line is inked blue and the staple line is trimmed away revealing that the presumed os is most likely a rupture of the distal margin. The specimen is opened revealing a segment of terminal ileum measuring 5.5 cm in length by 4.5 cm in circumference. The ileal mucosa is ibanez with normal intestinal folds. The cecal mucosa is ibanez-brown and vaguely granular. No masses or lesions are identified. Marketing Operations Assistant sections are submitted as follows: . A1: Proximal margin. A2: Distal margin. A3: Ileocecal valve. A4: Cecum. (MS:[id number]) A5: Marketing Operations Assistant cecum. A6: 2 lymph nodes, bisected. /MRV 04/13/2021 1333 Local . 02 Pathologist provided ICD-10: K56.2 . 02 CPT . 331217 Performed at: [facility] [address] [place] [address], [place], [place] [id number] MD Donovan Holloway MD Phone: [phone] Performed at: [facility] [address] [place], [place] [id number] MD Gita Murrieta MD Phone: [phone]
--- NOTE | 2021-04-04 00:40 | DI.RAD.S_ITS ---
PROCEDURE: XR ACUTE ABDOMEN SERIES INDICATIONS: severe abdominal pain, N/V, decreased BM TECHNIQUE: One view chest and two views of the abdomen were acquired. COMPARISON: None. FINDINGS: Surgical changes and devices: surgical clips . Are seen in gallbladder fossa and left upper quadrant abdomen. Chest: Lungs are clear. Heart size is normal. No pleural effusions. No pneumoperitoneum. Abdomen: There is suggestion of a large hiatal hernia. Focal large air distended bowel loops in right lower quadrant abdomen is seen. Additional mildly distended small bowel loops also seen with a few air-fluid levels. Moderate fecal stasis in the colon is seen extending to the rectum. No suspicious calcifications. Visualized solid organ contours appear normal. Bones: No suspicious bony lesions. IMPRESSION: 1. Air distended bowel loop in right lower quadrant abdomen concerning for volvulus and distal small bowel obstruction. No gross peritoneal free air. Large hiatal hernia. Please correlate with CT of abdomen and pelvis findings. 2. No acute cardiopulmonary pathology. Dictated by: Abhilash Espinoza M.D. on 04/04/2021 at 1:30 Approved by: Abhilash Espinoza M.D. on 04/04/2021 at 1:34
--- NOTE | 2021-04-04 00:43 | ED.ABDPAIN ---
HPI - Abdominal Pain General Chief Complaint: Abdominal Pain Stated Complaint: severe cramps, nausea Time Seen by Provider: 04/04/21 00:33 History of Present Illness HPI narrative: 85-year-old female nonsmoker with history of leukemia, hiatal hernia, GERD presents with a chief complaint of decreased bowel movements over the past 4 5 days with increasing nausea. She has had increasing pain which is now severe and in her lower abdomen. She is describing as sharp, stabbing and crampy. She states that her pain is worse with motion and improves with rest but does have episodes were seems to ramp up without any obvious provocation. She has had no runny nose, sore throat or cough. She denies any fever or chills. She states she went to the pharmacy and was told by the pharmacist to try a Dulcolax suppository which she used and did have a decent size bowel movement but has ongoing cramping and pain if not worse than before. She denies urinary complaints such as dysuria, frequency or urgency. She denies any new medications or dietary change. She denies any history of bowel obstruction Related Data Home Medications Medication Instructions Recorded Confirmed nitroglycerin 0.4 mg sublingual 0.4 mg SUBLINGUAL Q5-15M PRN #0 07/06/09 02/19/21 tablet (Nitrostat) doxepin 25 mg capsule 25 mg PO BEDTIME 08/30/17 02/19/21 fluoxetine 20 mg capsule 40 mg PO DAILY 08/30/17 02/19/21 esomeprazole magnesium 40 mg 80 mg PO DAILY 04/25/18 02/19/21 capsule,delayed release lovastatin 20 mg tablet 20 mg PO BEDTIME 04/25/18 02/19/21 metformin 500 mg tablet 500 mg PO QAM 04/25/18 02/19/21 diltiazem HCl 180 mg 360 mg PO DAILY 04/17/19 02/19/21 capsule,extended release 24 hr losartan 50 mg tablet 100 mg PO DAILY 04/17/19 02/19/21 aspirin 81 mg tablet,delayed 81 mg PO DAILY 08/07/20 02/19/21 release (Adult Aspirin Regimen) estradiol 0.5 mg tablet 0.5 mg PO DAILY 08/07/20 02/19/21 Previous Rx's Medication Instructions Recorded furosemide 20 mg tablet 60 mg PO DAILY #270 tab 12/15/18 potassium chloride 20 mEq 40 meq PO DAILYCC 90 Days #180 tab 12/15/18 tablet,extended release(part/cryst) (Klor-Con M) cetirizine 10 mg capsule (Allergy 10 mg PO DAILY PRN #30 cap 04/24/19 Relief (cetirizine)) hydroxyzine HCl 25 mg tablet 25 mg PO BEDTIME #14 tab 04/26/19 colchicine 0.6 mg tablet 0.6 mg PO BID #20 tab 10/01/19 hydrocodone 5 mg-acetaminophen 325 1 tab PO Q6H PRN #10 tab 07/21/20 mg tablet Allergies Allergy/AdvReac Type Severity Reaction Status Date / Time MJ Inhibitors Allergy Intermediate I dont Verified 04/04/21 00:42 remember guaifenesin Allergy Intermediate face Verified 04/04/21 00:42 swelling azithromycin Allergy Unknown I dont Verified 04/04/21 00:42 remember dextromethorphan Allergy Unknown I dont Verified 04/04/21 00:42 remember enalapril Allergy Unknown I dont Verified 04/04/21 00:42 remember meloxicam Allergy Unknown I dont Verified 04/04/21 00:42 remember pneumococcal vaccine Allergy Unknown face Verified 04/04/21 00:42 [From PNEUMOVAX 23] swelling morphine AdvReac Severe Nausea Verified 04/04/21 00:42 lidocaine AdvReac Unknown I dont Verified 04/04/21 00:42 remember Review of Systems Review of Systems Narrative: GENERAL: Denies chills, fatigue, malaise, fever, sweats. HEENT: Denies sinus pain, ear pain, sore throat, difficulty swallowing, dizziness. RESPIRATORY: Denies dyspnea, cough, wheezing, hemoptysis, sputum. CARDIOVASCULAR: Denies chest pain, palpitations, orthopnea, edema, GASTROINTESTINAL: See HP had : Denies dysuria, frequency, incontinence, hematuria, urinary retention. MUSCULOSKELETAL: denies weakness, joint pain, or bony pain SKIN: Denies rash, skin lesions, or other NEUROLOGIC: Denies weakness, headache, numbness, change in speech, confusion, seizures, incoordination. PSYCHIATRIC: No concerning psychosocial issues. 12 point review of systems is negative except for those stated above Patient History Medical History (Updated 04/04/21 @ 01:50 by Jun Coon DO) Diabetes mellitus type II, non insulin dependent HTN (hypertension) Hypercholesterolemia Surgical History History of bladder surgery History of cholecystectomy History of repair of hiatal hernia Status post hysterectomy Family History Sister Cancer Brother Cancer Sister Cancer Mother Cancer Hypertension Social History marital status: unmarried,living together household members: significant other Smoking Status: Never smoker alcohol intake: never Smoking Status: Never smoker alcohol intake frequency: holidays/special occasions only Substance Use Type: does not use Exam Narrative Exam Narrative: GENERAL: [85 year old patient appears stated age. Well-developed patient, in obvious distress, rubbing her abdomen, holding an emesis bag HEAD: Atraumatic. Normocephalic. EYES: Pupils equal round and reactive. Extraocular motions intact. No scleral icterus. No injection or drainage. ENT: Nose without bleeding, purulent drainage. Throat without erythema, tonsillar hypertrophy or exudate. Airway patent. NECK: Trachea midline. Non tender CARDIOVASCULAR: Regular rate and rhythm without murmurs, gallops, or rubs. RESPIRATORY: Clear to auscultation. Breath sounds equal bilaterally. No wheezes, rales, or rhonchi. GASTROINTESTINAL: Abdomen distended, tender, decreased bowel sounds EXTREMITIES: No edema or joint tenderness. BACK: Nontender without deformity or crepitance. No flank tenderness. NEURO: AOx3. SKIN: No rash or erythema of visible areas Initial Vital Signs Initial Vital Signs: Vital Signs Temperature 96.9 F L 04/04/21 00:42 Pulse Rate 99 H 04/04/21 00:42 Respiratory Rate 20 04/04/21 00:42 Blood Pressure 202/98 H 04/04/21 00:42 Pulse Oximetry 96 04/04/21 00:42 Course Orders Ordered: ED Orders 04/04/21 00:40 XR acute abdomen series Stat 04/04/21 00:51 Complete Blood Count AUTO DIFF Stat Comprehensive Metabolic Panel Stat Lactate (Lactic Acid) Stat Lipase Stat 04/04/21 01:15 CT abdomen pelvis w con Stat 04/04/21 01:36 COVID19 -Nasal swab/Pre-Proc Stat Discontinued Medications Hydromorphone HCl (Hydromorphone 0.5 Mg Inj) 0.5 mg IV NOW ONE Stop: 04/04/21 00:41 Last Admin: 04/04/21 00:59 Dose: 0.5 mg Documented by: MART Sodium Chloride (Normal Saline 0.9%) 1,000 mls @ 1,000 mls/hr IV BOLUS ONE Stop: 04/04/21 01:39 Last Admin: 04/04/21 00:59 Dose: 1,000 mls/hr Documented by: MART Ondansetron HCl (Ondansetron 4 Mg/2 Ml Inj) 4 mg IV NOW ONE Stop: 04/04/21 00:41 Last Admin: 04/04/21 00:59 Dose: 4 mg Documented by: MART Consultations Consultation #1: discussed with Dr. Samuels (Gen. Surg) upon receipt of imaging. Keep NPO, fluids, treat pain, admit to hospitalist, OR in morning Consultation #2: call to Dr. Pratt Vital Signs Vital signs: Vital Signs - 8 hr 04/04/21 00:42 04/04/21 00:44 04/04/21 01:00 Temperature 96.9 F L Pulse Rate 99 H 86 83 Respiratory Rate 20 Blood Pressure 202/98 H Pulse Oximetry 96 97 96 04/04/21 01:01 04/04/21 01:30 Temperature Pulse Rate 83 77 Respiratory Rate Blood Pressure 193/87 H Pulse Oximetry 96 97 MDM - Abdominal Pain Lab Data Result diagrams: 04/04/21 00:51 04/04/21 00:51 Labs: Lab Results 04/04/21 04/04/21 04/04/21 Range/Units 00:51 00:51 00:51 WBC 16.7 H (4.5-11.0) X10^3/uL RBC 4.30 (4.0-5.2) X10^6/uL Hgb 13.3 (12.0-16.0) g/dL Hct 39.4 (36-46) % MCV 91.6 (80-100) fL MCH 31.0 (26-34) PG MCHC 33.8 (30-36) % RDW 13.3 (11.6-14.8) % Plt Count 225 (150-400) X10^3/uL Neut % (Auto) Not Reportable Lymph % (Auto) Not Reportable [place] % (Auto) Not Reportable Eos % (Auto) Not Reportable Baso % (Auto) Not Reportable Lymph # (Auto) Not Reportable [place] # (Auto) Not Reportable Baso # (Auto) Not Reportable Total Counted 100 Seg Neutrophils % 52.0 (38-70) % Lymphocytes % (Manual) 32.0 (25-45) % Atypical Lymphs % 12.0 H ( - 0) % Monocytes % (Manual) 2.0 (2-11) % Eosinophils % (Manual) 2.0 (2-4) % Neutrophils # (Manual) 8684 H (8590-2253) /uL Smudge Cells 1+ H RBC Morphology Normal morphology Sodium 133 L (137-145) mmol/L Potassium 3.8 (3.4-5.1) mmol/L Chloride 98 (98-107) mmol/L Carbon Dioxide 28 (22-32) mmol/L BUN 21 H (7-17) mg/dL Creatinine 0.96 (0.52-1.04) mg/dL Estimated GFR 55.5 L (>60) mL/min BUN/Creatinine Ratio 21.9 (6-22) Glucose 187 H (80-110) mg/dL Lactate 1.2 (0.7-2.1) mmol/L Calcium 9.9 (8.4-10.2) mg/dL Total Bilirubin 0.4 (0.2-1.3) mg/dL AST 23 (14-36) IU/L ALT 12 (<35) IU/L Alkaline Phosphatase 61 (38-126) U/L Total Protein 7.6 (6.3-8.2) g/dL Albumin 4.5 (3.5-5.0) g/dL Globulin 3.1 (1.7-4.1) g/dL Albumin/Globulin Ratio 1.5 (1.0-2.8) Lipase 94 (23-300) U/L SARS-CoV-2 (PCR) (Negative) 04/04/21 Range/Units 01:36 WBC (4.5-11.0) X10^3/uL RBC (4.0-5.2) X10^6/uL Hgb (12.0-16.0) g/dL Hct (36-46) % MCV (80-100) fL MCH (26-34) PG MCHC (30-36) % RDW (11.6-14.8) % Plt Count (150-400) X10^3/uL Neut % (Auto) Lymph % (Auto) [place] % (Auto) Eos % (Auto) Baso % (Auto) Lymph # (Auto) [place] # (Auto) Baso # (Auto) Total Counted Seg Neutrophils % (38-70) % Lymphocytes % (Manual) (25-45) % Atypical Lymphs % ( - 0) % Monocytes % (Manual) (2-11) % Eosinophils % (Manual) (2-4) % Neutrophils # (Manual) (6313-9073) /uL Smudge Cells RBC Morphology Sodium (137-145) mmol/L Potassium (3.4-5.1) mmol/L Chloride (98-107) mmol/L Carbon Dioxide (22-32) mmol/L BUN (7-17) mg/dL Creatinine (0.52-1.04) mg/dL Estimated GFR (>60) mL/min BUN/Creatinine Ratio (6-22) Glucose (80-110) mg/dL Lactate (0.7-2.1) mmol/L Calcium (8.4-10.2) mg/dL Total Bilirubin (0.2-1.3) mg/dL AST (14-36) IU/L ALT (<35) IU/L Alkaline Phosphatase (38-126) U/L Total Protein (6.3-8.2) g/dL Albumin (3.5-5.0) g/dL Globulin (1.7-4.1) g/dL Albumin/Globulin Ratio (1.0-2.8) Lipase (23-300) U/L SARS-CoV-2 (PCR) Negative (Negative) Imaging Data CT scan - abdomen/pelvis: Radiologist's Impression: Close Abdomen/Pelvis CT (Signed) Abhilash Espinoza - 04/04/21 Chest/Abdomen X-ray (Signed) Abhilash Espinoza - 04/04/21 Abdomen/Pelvis CT (Signed) Raul Reyes - 02/11/21 Mammogram Screening (Signed) Jer Vegas - 12/10/20 Wrist MRI (Signed) Abhilash Espinoza - 09/02/20 Injection for MRI Arthrogram (Signed) Wing Marcelo - 09/02/20 Wrist X-Ray (Signed) Magen Iniguez - 07/21/20 Peripheral Vascular Ultrasound (Signed) Magen Iniguez - 07/21/20 Outside EKG 07/21/20 Chest X-Ray (Signed) Warren Aguilera - 07/08/20 Pelvis X-Ray (Signed) Thomas,Karen - 05/30/20 Lumbar Spine X-Ray (Signed) Karen Guzman - 05/30/20 Knee X-Ray (Signed) Guzman,Karen - 05/30/20 Knee X-Ray (Signed) Karen Guzman - 05/30/20 Cervical Spine MRI (Signed) Karen Guzman - 04/14/[address] (Signed) Bertha Yanez - 03/25/[address] (Signed) Warren Aguilera - 03/25/20 Wrist X-Ray (Signed) Warren Aguilera - 10/01/19 Echocardiogram Ultrasound (Signed) Jewel Jenkins - 12/10/18 Telemetry Strips 12/10/18 Chest X-Ray (Signed) Donovan Lechuga - 12/10/18 Ankle X-Ray (Signed) Warren Aguilera - 12/01/18 Tibia/Fibula X-Ray (Signed) Bertha Yanez - 11/22/18 Ankle X-Ray (Signed) Bertha Yanez - 11/22/18 Tibia/Fibula X-Ray (Signed) LechugaDonovan cosby - 11/20/18 Foot X-Ray (Signed) Donovan Lechuga - 11/20/18 Vascular Ultrasound (Signed) Karen Guzman - 11/20/[address] (Signed) Darius Rizo - 11/20/[address] (Signed) Darius Rizo - 11/20/18 Wrist X-Ray (Signed) Abhilash Espinoza - 06/20/[address] [address] [address] Scan Report Signed Patient: Deyanira Mauricio MR#: [id number] : 1935 Acct:[id number] Age/Sex: 85 / F Date of Service: 04/04/21 Loc: ED Accession Number: [id number] ?? Procedure: CT abdomen pelvis w con Ordering Provider: Jun Coon D.O. PROCEDURE:? CT ABDOMEN PELVIS W CON ? INDICATIONS:? severe abdominal pain, N/V, no BM ? TECHNIQUE:? After the administration of intravenous contrast, axial sections acquired from the lung bases to the pubic symphysis.? Coronal and sagittal reformats were performed.? For radiation dose reduction, the following was used:? automated exposure control, adjustment of mA and/or kV according to patient size.? ? COMPARISON:? [facility], CT, CT ABDOMEN PELVIS W CON, 02/11/2021, 12:32. ? FINDINGS:? Image quality:? Excellent.? ? Lung bases:? Unremarkable. Heart:? No significant findings. ? ABDOMEN: Liver:? There is hepatomegaly, no discrete hepatic lesion.? ? Gallbladder:? Gallbladder is surgically absent. Biliary ducts:? Unremarkable.? ? Pancreas:? Unremarkable.? ? Spleen:? Unremarkable.? ? Adrenal Glands:? Unremarkable.? ? Kidneys and Ureters:? No renal stones or hydronephrosis.? Left renal cyst is again seen unchanged from prior study. ? Stomach and Bowel:? There is a large hiatal hernia unchanged from prior study.? Markedly distended bowel loop with air-fluid level is seen in right lower quadrant abdomen with swirled appearance of the associated mesenteric vessels likely involving cecum/terminal ileum most consistent with volvulus.? This is best seen on axial image 66 and coronal image 27. Mild fecal stasis in the colon is seen.? Peritoneum:? Small amount of free fluid is seen in abdomen and pelvis.? No free air.? Ventral Wall: ? No hernias.? Abdominal Nodes:? No retroperitoneal or mesenteric adenopathy by size criteria.? Vessels:? Aorta and inferior vena cava are normal in size.? ? PELVIS: Pelvic Organs:? Unremarkable.? ? Bladder:? Unremarkable.? ? Pelvic Nodes: No enlarged lymph nodes.? Miscellaneous: No hernias are seen. ? ? ? Bones:? No suspicious bony lesion.? No acute vertebral body compression fracture.? 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 ? ? IMPRESSION:? 1. Finding is most consistent with volvulus in right lower quadrant abdomen possibly involving terminal ileum or cecum.? Small amount of ascites fluid in abdomen and pelvis.? No gross free air. 2. Large hiatal hernia unchanged from prior study. 3.? No abdominal or pelvic lymphadenopathy by size criteria. ? ? Dictated by: Abhilash Espinoza M.D. on 04/04/2021 at 1:34 ? ? Approved by: Abhilash Espinoza M.D. on 04/04/2021 at 1:41? Discharge Plan Departure Patient Disposition: Admitted As Inpatient Clinical Impression: Cecal volvulus Admit Date/Time: 04/04/21 01:57 Admit Provider: Mauricio Pratt
[2021-04-04] MEDS: SODIUM CHLORIDE 0.9% 1,000 ML 1000 ML IV (00:59)
[2021-04-04] MEDS: ONDANSETRON 4 MG/2 ML INJ IV ×4 (00:59→15:14)
[2021-04-04] MEDS: HYDROMORPHONE 0.5 MG INJ IV ×5 (00:59→16:47)
[2021-04-04 01:05] LABS: Add Manual Diff / Slide Review YES; Hematocrit 39.4 % (36-46); Hemoglobin 13.3 g/dL (12.0-16.0); Mean Corpuscular HGB Conc 33.8 % (30-36); Mean Corpuscular Volume 91.6 fL (80-100); Platelet Count 225 X10^3/uL (150-400); Red Cell Distribution Width 13.3 % (11.6-14.8); White Blood Cell Count 16.7 X10^3/uL (4.5-11.0)
[2021-04-04 01:08] LABS: Alanine Aminotransferase 12 IU/L (<35); Albumin 4.5 g/dL (3.5-5.0); Albumin Globulin Ratio 1.5 (1.0-2.8); Alkaline Phosphatase 61 U/L (38-126); Aspartate Aminotransferase 23 IU/L (14-36); BUN Creatinine Ratio 21.9 (6-22); Bilirubin Total 0.4 mg/dL (0.2-1.3); Blood Urea Nitrogen 21 mg/dL (7-17); Calcium 9.9 mg/dL (8.4-10.2); Carbon Dioxide 28 mmol/L (22-32); Chloride 98 mmol/L (98-107); Estimated Glomerular Filt Rate 55.5 mL/min (>60); Globulin 3.1 g/dL (1.7-4.1); Glucose 187 mg/dL (80-110); HEMOLYSIS 17 (0-50); Lipase 94 U/L (23-300); Potassium 3.8 mmol/L (3.4-5.1); Sodium 133 mmol/L (137-145); Total Protein 7.6 g/dL (6.3-8.2)
[2021-04-04 01:09] LABS: Lactate (Lactic Acid) 1.2 mmol/L (0.7-2.1)
--- NOTE | 2021-04-04 01:15 | DI.CT.S_ITS ---
PROCEDURE: CT ABDOMEN PELVIS W CON INDICATIONS: severe abdominal pain, N/V, no BM TECHNIQUE: After the administration of intravenous contrast, axial sections acquired from the lung bases to the pubic symphysis. Coronal and sagittal reformats were performed. For radiation dose reduction, the following was used: automated exposure control, adjustment of mA and/or kV according to patient size. COMPARISON: [facility], CT, CT ABDOMEN PELVIS W CON, 02/11/2021, 12:32. FINDINGS: Image quality: Excellent. Lung bases: Unremarkable. Heart: No significant findings. ABDOMEN: Liver: There is hepatomegaly, no discrete hepatic lesion. Gallbladder: Gallbladder is surgically absent. Biliary ducts: Unremarkable. Pancreas: Unremarkable. Spleen: Unremarkable. Adrenal Glands: Unremarkable. Kidneys and Ureters: No renal stones or hydronephrosis. Left renal cyst is again seen unchanged from prior study. Stomach and Bowel: There is a large hiatal hernia unchanged from prior study. Markedly distended bowel loop with air-fluid level is seen in right lower quadrant abdomen with swirled appearance of the associated mesenteric vessels likely involving cecum/terminal ileum most consistent with volvulus. This is best seen on axial image 66 and coronal image 27. Mild fecal stasis in the colon is seen. Peritoneum: Small amount of free fluid is seen in abdomen and pelvis. No free air. Ventral Wall: No hernias. Abdominal Nodes: No retroperitoneal or mesenteric adenopathy by size criteria. Vessels: Aorta and inferior vena cava are normal in size. PELVIS: Pelvic Organs: Unremarkable. Bladder: Unremarkable. Pelvic Nodes: No enlarged lymph nodes. Miscellaneous: No hernias are seen. Bones: No suspicious bony lesion. No acute vertebral body compression fracture. 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 IMPRESSION: 1. Finding is most consistent with volvulus in right lower quadrant abdomen possibly involving terminal ileum or cecum. Small amount of ascites fluid in abdomen and pelvis. No gross free air. 2. Large hiatal hernia unchanged from prior study. 3. No abdominal or pelvic lymphadenopathy by size criteria. Dictated by: Abhilash Espinoza M.D. on 04/04/2021 at 1:34 Approved by: Abhilash Espinoza M.D. on 04/04/2021 at 1:41
[2021-04-04 01:33] LABS: Neutrophils Absolute Manual 8684 /uL (3000-5900); RBC Morphology Normal Morphology; Total Cells Counted 100
[2021-04-04 01:35] LABS: Smudge Cells 1+
[2021-04-04 02:00] LABS: COVID19 -Nasal RAPID Negative (Negative)
[2021-04-04] MEDS: SODIUM CHLORIDE 0.9% 1,000 ML 125 ML IV (03:46)
--- NOTE | 2021-04-04 05:02 | PC.NURSE ---
Addendum entered by Makyala Gonsalez R.N. 04/04/21 05:52: Patient C/O nausea and R side abd pain. Medicated with Zofran and Hydrocodone per EMAR. Patient states pain medication helped reduce pain to 3-4/10 for about an hour and a half. Original Note: 0325 Patient admitted to Room 226. C/O R side abd pain. Medicated with Hydrocodone per EMAR. Rates pain 7/10. Abd soft and distended. Patient oriented x 4. Patient oriented to room, hospital policies, and care plan. Encouraged patient to call for any needs or questions. Patient agreeable.
[2021-04-04] MEDS: PANTOPRAZOLE 40 MG VIAL 20 MG IV (08:38)
--- NOTE | 2021-04-04 08:54 | P.CONS_ITS ---
History of Present Illness Consult details Date Patient Seen: 04/04/21 Chief complaint: severe cramps, nausea Reason for consult: Cecal volvulus Narrative: Deyanira is an 85-year-old woman who presented with several days of abdominal pain that became much more severe yesterday. She has also had difficulty with bowel movements. She had to use a suppository to have a bowel movement the other day. She has been nauseous but she has not vomited although she states she cannot vomit due to her hiatal hernia repair. She had an open hiatal hernia repair in the remote past. The hiatal hernia has recurred. She has no recollection of having a cholecystectomy although she clearly has had a cholecystectomy. She has had a hysterectomy. 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 She is on an oral agent for the leukemia. Meds Home Medications and Allergies Home Medications Medication Instructions Recorded Confirmed Type nitroglycerin 0.4 mg sublingual 0.4 mg SUBLINGUAL Q5-15M PRN #0 07/06/09 04/04/21 History tablet (Nitrostat) doxepin 25 mg capsule 25 mg PO BEDTIME 08/30/17 04/04/21 History fluoxetine 20 mg capsule 40 mg PO DAILY 08/30/17 04/04/21 History esomeprazole magnesium 40 mg 80 mg PO DAILY 04/25/18 04/04/21 History capsule,delayed release lovastatin 20 mg tablet 20 mg PO BEDTIME 04/25/18 04/04/21 History metformin 500 mg tablet 500 mg PO QAM 04/25/18 04/04/21 History furosemide 20 mg tablet 60 mg PO DAILY #270 tab 12/15/18 04/04/21 Rx potassium chloride 20 mEq 40 meq PO DAILYCC 90 Days #180 tab 12/15/18 04/04/21 Rx tablet,extended release(part/cryst) (Klor-Con M) diltiazem HCl 180 mg 360 mg PO DAILY 04/17/19 04/04/21 History capsule,extended release 24 hr losartan 50 mg tablet 100 mg PO DAILY 04/17/19 04/04/21 History cetirizine 10 mg capsule (Allergy 10 mg PO DAILY PRN #30 cap 04/24/19 04/04/21 Rx Relief (cetirizine)) hydroxyzine HCl 25 mg tablet 25 mg PO BEDTIME #14 tab 04/26/19 04/04/21 Rx colchicine 0.6 mg tablet 0.6 mg PO BID #20 tab 10/01/19 04/04/21 Rx hydrocodone 5 mg-acetaminophen 325 1 tab PO Q6H PRN #10 tab 07/21/20 04/04/21 Rx mg tablet aspirin 81 mg tablet,delayed 81 mg PO DAILY 08/07/20 04/04/21 History release (Adult Aspirin Regimen) estradiol 0.5 mg tablet 0.5 mg PO DAILY 08/07/20 04/04/21 History Allergies Allergy/AdvReac Type Severity Reaction Status Date / Time MJ Inhibitors Allergy Intermediate I dont Verified 04/04/21 00:42 remember guaifenesin Allergy Intermediate face Verified 04/04/21 00:42 swelling azithromycin Allergy Unknown I dont Verified 04/04/21 00:42 remember dextromethorphan Allergy Unknown I dont Verified 04/04/21 00:42 remember enalapril Allergy Unknown I dont Verified 04/04/21 00:42 remember meloxicam Allergy Unknown I dont Verified 04/04/21 00:42 remember pneumococcal vaccine Allergy Unknown face Verified 04/04/21 00:42 [From PNEUMOVAX 23] swelling morphine AdvReac Severe Nausea Verified 04/04/21 00:42 lidocaine AdvReac Unknown I dont Verified 04/04/21 00:42 remember Exam Vital Signs (past 8 hours): - 04/04/21 01:00 04/04/21 01:01 04/04/21 01:30 Temperature Pulse Rate 83 83 77 Respiratory Rate Blood Pressure 193/87 H Pulse Oximetry 96 96 97 04/04/21 02:00 04/04/21 02:21 04/04/21 02:30 Temperature Pulse Rate 71 78 Respiratory Rate 16 17 Blood Pressure 177/80 H 188/75 H Pulse Oximetry 96 96 04/04/21 03:00 04/04/21 03:30 04/04/21 04:00 Temperature 97.6 F Pulse Rate 79 78 Respiratory Rate 18 18 Blood Pressure 180/81 H 177/77 H 153/71 H Pulse Oximetry 95 95 Oxygen Delivery Method Room Air Const General: frail appearing Resp Effort & Inspection: normal respiratory effort GI Other: Abdomen is distended and diffusely tender There is a midline surgical scar with no obvious ventral hernia Neuro General: patient alert and patient awake Objective Labs Result Diagrams: 04/04/21 00:51 04/04/21 00:51 Labs: Laboratory Results - last 24 hr 04/04/21 04/04/21 04/04/21 00:51 00:51 00:51 WBC 16.7 H RBC 4.30 Hgb 13.3 Hct 39.4 MCV 91.6 MCH 31.0 MCHC 33.8 RDW 13.3 Plt Count 225 Neut % (Auto) Not Reportable Lymph % (Auto) Not Reportable [place] % (Auto) Not Reportable Eos % (Auto) Not Reportable Baso % (Auto) Not Reportable Lymph # (Auto) Not Reportable [place] # (Auto) Not Reportable Baso # (Auto) Not Reportable Total Counted 100 Seg Neutrophils % 52.0 Lymphocytes % (Manual) 32.0 Atypical Lymphs % 12.0 H Monocytes % (Manual) 2.0 Eosinophils % (Manual) 2.0 Neutrophils # (Manual) 8684 H Smudge Cells 1+ H RBC Morphology Normal morphology Sodium 133 L Potassium 3.8 Chloride 98 Carbon Dioxide 28 BUN 21 H Creatinine 0.96 Estimated GFR 55.5 L BUN/Creatinine Ratio 21.9 Glucose 187 H Lactate 1.2 Calcium 9.9 Total Bilirubin 0.4 AST 23 ALT 12 Alkaline Phosphatase 61 Total Protein 7.6 Albumin 4.5 Globulin 3.1 Albumin/Globulin Ratio 1.5 Lipase 94 SARS-CoV-2 (PCR) 04/04/21 01:36 WBC RBC Hgb Hct MCV MCH MCHC RDW Plt Count Neut % (Auto) Lymph % (Auto) [place] % (Auto) Eos % (Auto) Baso % (Auto) Lymph # (Auto) [place] # (Auto) Baso # (Auto) Total Counted Seg Neutrophils % Lymphocytes % (Manual) Atypical Lymphs % Monocytes % (Manual) Eosinophils % (Manual) Neutrophils # (Manual) Smudge Cells RBC Morphology Sodium Potassium Chloride Carbon Dioxide BUN Creatinine Estimated GFR BUN/Creatinine Ratio Glucose Lactate Calcium Total Bilirubin AST ALT Alkaline Phosphatase Total Protein Albumin Globulin Albumin/Globulin Ratio Lipase SARS-CoV-2 (PCR) Negative [facility] Medical History (Updated 04/04/21 @ 01:50 by Jun Coon DO) Diabetes mellitus type II, non insulin dependent HTN (hypertension) Hypercholesterolemia Surgical History History of bladder surgery History of cholecystectomy History of repair of hiatal hernia Status post hysterectomy Family History Sister Cancer Brother Cancer Sister Cancer Mother Cancer Hypertension Social History marital status: unmarried,living together household members: significant other Tobacco & Substance Use Smoking Status: Never smoker alcohol intake: never Assessment & Plan Assessment and plan (1) Cecal volvulus: Status: Acute Plan 85-year-old woman with a cecal volvulus. She shows no signs of sepsis at this point. Recommend open right hemicolectomy. I reviewed the risks and benefits including the possibility of an ostomy. Given her age and comorbidities she has multiple risk factors for an adverse outcome. She understands the risks and wishes to proceed. Time Spent With Patient Critical Care time: I spent a total of [] minutes of critical care time on this patient's care today; this time is exclusive of procedural time.
--- NOTE | 2021-04-04 08:59 | PM.HP.1 ---
History of Present Illness History of Present Illness Date Patient Seen: 04/04/21 Time Patient Seen: 08:59 Chief complaint: severe cramps, nausea Narrative: With a history recent diagnosis of CLL GERD who presents with issues with increased abdominal pain nausea vomiting. Patient was in her usual state of health which recently has been constipated. She has had trouble with this over the last several weeks. She has been using [id number] liquid medicine. She took that yesterday and shortly thereafter began having pretty significant pain in her left lower quadrant. Shortly thereafter began vomiting. She describes the pain as sharp stabbing mostly in the left lower quadrant no radiation. Was increasingly severe and presented to the emergency room. She has had no fevers or chills. No urinary symptoms. No other changes. Otherwise patient is feeling well. Patient History Medical History Diabetes mellitus type II, non insulin dependent HTN (hypertension) Hypercholesterolemia Surgical History History of bladder surgery History of cholecystectomy History of repair of hiatal hernia Status post hysterectomy Family & Social History Family History Sister Cancer Brother Cancer Sister Cancer Mother Cancer Hypertension Social History: household members significant other Prior Living Arrangements Apartment/Condo Safety & Behavioral: Feels Safe in Current Yes Environment Suicidal Ideation Description None Tobacco & Substance use: Smoking Status Never smoker alcohol intake never alcohol intake frequency other Substance Use Type does not use Meds Home Medications and Allergies Home Medications Medication Instructions Recorded Confirmed Type nitroglycerin 0.4 mg sublingual 0.4 mg SUBLINGUAL Q5-15M PRN #0 07/06/09 04/04/21 History tablet (Nitrostat) doxepin 25 mg capsule 25 mg PO BEDTIME 08/30/17 04/04/21 History fluoxetine 20 mg capsule 40 mg PO DAILY 08/30/17 04/04/21 History esomeprazole magnesium 40 mg 80 mg PO DAILY 04/25/18 04/04/21 History capsule,delayed release lovastatin 20 mg tablet 20 mg PO BEDTIME 04/25/18 04/04/21 History metformin 500 mg tablet 500 mg PO QAM 04/25/18 04/04/21 History furosemide 20 mg tablet 60 mg PO DAILY #270 tab 12/15/18 04/04/21 Rx potassium chloride 20 mEq 40 meq PO DAILYCC 90 Days #180 tab 12/15/18 04/04/21 Rx tablet,extended release(part/cryst) (Klor-Con M) diltiazem HCl 180 mg 360 mg PO DAILY 04/17/19 04/04/21 History capsule,extended release 24 hr losartan 50 mg tablet 100 mg PO DAILY 04/17/19 04/04/21 History cetirizine 10 mg capsule (Allergy 10 mg PO DAILY PRN #30 cap 04/24/19 04/04/21 Rx Relief (cetirizine)) hydroxyzine HCl 25 mg tablet 25 mg PO BEDTIME #14 tab 04/26/19 04/04/21 Rx colchicine 0.6 mg tablet 0.6 mg PO BID #20 tab 10/01/19 04/04/21 Rx hydrocodone 5 mg-acetaminophen 325 1 tab PO Q6H PRN #10 tab 07/21/20 04/04/21 Rx mg tablet aspirin 81 mg tablet,delayed 81 mg PO DAILY 08/07/20 04/04/21 History release (Adult Aspirin Regimen) estradiol 0.5 mg tablet 0.5 mg PO DAILY 08/07/20 04/04/21 History Allergies Allergy/AdvReac Type Severity Reaction Status Date / Time MJ Inhibitors Allergy Intermediate I dont Verified 04/04/21 00:42 remember guaifenesin Allergy Intermediate face Verified 04/04/21 00:42 swelling azithromycin Allergy Unknown I dont Verified 04/04/21 00:42 remember dextromethorphan Allergy Unknown I dont Verified 04/04/21 00:42 remember enalapril Allergy Unknown I dont Verified 04/04/21 00:42 remember meloxicam Allergy Unknown I dont Verified 04/04/21 00:42 remember pneumococcal vaccine Allergy Unknown face Verified 04/04/21 00:42 [From PNEUMOVAX 23] swelling morphine AdvReac Severe Nausea Verified 04/04/21 00:42 lidocaine AdvReac Unknown I dont Verified 04/04/21 00:42 remember Review of Systems Review of Systems Narrative: Fall negative except above Exam Vital Signs (past 8 hours): - 04/04/21 01:00 04/04/21 01:01 04/04/21 01:30 Temperature Pulse Rate 83 83 77 Respiratory Rate Blood Pressure 193/87 H Pulse Oximetry 96 96 97 04/04/21 02:00 04/04/21 02:21 04/04/21 02:30 Temperature Pulse Rate 71 78 Respiratory Rate 16 17 Blood Pressure 177/80 H 188/75 H Pulse Oximetry 96 96 04/04/21 03:00 04/04/21 03:30 04/04/21 04:00 Temperature 97.6 F Pulse Rate 79 78 Respiratory Rate 18 18 Blood Pressure 180/81 H 177/77 H 153/71 H Pulse Oximetry 95 95 Oxygen Delivery Method Room Air Objective Labs Result Diagrams: 04/04/21 00:51 04/04/21 00:51 Labs: Laboratory Results - last 24 hr 04/04/21 04/04/21 04/04/21 00:51 00:51 00:51 WBC 16.7 H RBC 4.30 Hgb 13.3 Hct 39.4 MCV 91.6 MCH 31.0 MCHC 33.8 RDW 13.3 Plt Count 225 Neut % (Auto) Not Reportable Lymph % (Auto) Not Reportable [place] % (Auto) Not Reportable Eos % (Auto) Not Reportable Baso % (Auto) Not Reportable Lymph # (Auto) Not Reportable [place] # (Auto) Not Reportable Baso # (Auto) Not Reportable Total Counted 100 Seg Neutrophils % 52.0 Lymphocytes % (Manual) 32.0 Atypical Lymphs % 12.0 H Monocytes % (Manual) 2.0 Eosinophils % (Manual) 2.0 Neutrophils # (Manual) 8684 H Smudge Cells 1+ H RBC Morphology Normal morphology Sodium 133 L Potassium 3.8 Chloride 98 Carbon Dioxide 28 BUN 21 H Creatinine 0.96 Estimated GFR 55.5 L BUN/Creatinine Ratio 21.9 Glucose 187 H Lactate 1.2 Calcium 9.9 Total Bilirubin 0.4 AST 23 ALT 12 Alkaline Phosphatase 61 Total Protein 7.6 Albumin 4.5 Globulin 3.1 Albumin/Globulin Ratio 1.5 Lipase 94 SARS-CoV-2 (PCR) 04/04/21 01:36 WBC RBC Hgb Hct MCV MCH MCHC RDW Plt Count Neut % (Auto) Lymph % (Auto) [place] % (Auto) Eos % (Auto) Baso % (Auto) Lymph # (Auto) [place] # (Auto) Baso # (Auto) Total Counted Seg Neutrophils % Lymphocytes % (Manual) Atypical Lymphs % Monocytes % (Manual) Eosinophils % (Manual) Neutrophils # (Manual) Smudge Cells RBC Morphology Sodium Potassium Chloride Carbon Dioxide BUN Creatinine Estimated GFR BUN/Creatinine Ratio Glucose Lactate Calcium Total Bilirubin AST ALT Alkaline Phosphatase Total Protein Albumin Globulin Albumin/Globulin Ratio Lipase SARS-CoV-2 (PCR) Negative Assessment & Plan Assessment & Plan narrative: Cecal volvulus. Discussed with patient. Discussed with surgeon. Going to be taken for operative therapy. Questions were answered. As per surgeon. Hypertension. Clearly not an issue at this time. Will hold her medicine and reinstitute when possible. IV medicines if required. Fluid and electrolyte. On IV now. Will probably need for some time. Will watch closely I nose. Type 2 diabetes. Not requiring a lot of medicine. Will do sliding scale and follow. CLL. Early diagnosis. Not on treatment. Will follow. History of anemia. Stable. Secondary to CLL. Will need to follow but will probably not impact current hospitalization. History of hiatal hernia and reflux. Will cover with IV pantoprazole. Code status full. DVT prophylaxis SCDs today. Start Lovenox tomorrow. GI prophylaxis will be on pantoprazole. Disposition. Expect 4-5 day stay possibly longer. Appreciate Dr. Samuels.s input. Will follow closely. Greater than 40 minute spent on discussion with ER surgeon nurses patient dictating and order input Time Spent With Patient Critical Care time: I spent a total of [] minutes of critical care time on this patient's care today; this time is exclusive of procedural time. Quality VTE Deep Vein Thrombosis/Pulmonary Embolism Present on Admission: No
--- NOTE | 2021-04-04 10:08 | PC.NURSE ---
Day shift note Pt taken via bed to surgery at 1002, all jewelry except bracelet removed and placed in a bag with pt name label on it, left at bedside. Pt dental bridge placed in green container and left at bedside. No further pt contact at this time
--- NOTE | 2021-04-04 10:36 | SUR.HOLD ---
10:24 late entry: patient to holding area from room 226 in stable condition; vss; AAO X 4; c/o abdominal pain and nausea related to bowel obstruction; blood sugar 146.
[2021-04-04] MEDS: PIPERACILLIN/TAZO 3.375 GM in SODIUM CHLORIDE 0.9% 100 ML 25 ML IV ×2 (10:38→18:18)
--- NOTE | 2021-04-04 10:59 | SUR.OPER ---
Supine on padded OR bed, head on pillow, arms secured on padded arm boards at <90 degrees abduction, legs uncrossed, safety belt at thigh, tape over blanket over lower legs.
[2021-04-04] MEDS: BUPIVACAINE 0.25% (PF) VIAL 30 ML INJ (11:37)
[2021-04-04] MEDS: LACTATED RINGERS 1,000 ML 42 ML IV (12:58)
--- NOTE | 2021-04-04 14:36 | PM.OP.1 ---
Operative Date/Time/Diagnoses Date of procedure: 04/04/21 Time of procedure: 14:36 Pre-op diagnosis: Cecal volvulus Post-op diagnosis: other Procedure & Clinicians Procedure: Open ileocecectomy and extensive lysis of adhesions requiring greater than 3 hours of additional operative time 22 for extensive adhesiolysis Same procedure as scheduled: Yes Indications: Large bowel obstruction Surgeon: Roni Samuels Anesthesia Type: General Operative Notes Findings: Extensive, dense adhesions throughout the abdomen and an adhesive band across the pelvis trapping a twisted dilated cecum Procedure in detail: The patient was given Zosyn. The patient was brought to the operating room, placed on the table in the supine position with the arms out. Spinal anesthesia was administered. General endotracheal anesthesia was induced. A Win catheter was placed. The abdomen was prepped and draped in the usual fashion. We made a midline incision removing a portion of the scar. We carefully opened the fascia removing some old Ethibond sutures. Entered the abdomen layer by layer. We could see immediately that there were is dense adhesions of small bowel to the anterior abdominal wall. These were carefully taken down with Metzenbaum scissors under direct vision. There was 1 decompressed loop of bowel that was adherent to the abdominal wall and a small enterotomy was inadvertently created with cautery. We worked to mobilize the segment of small bowel and we closed the enterotomy in 2 layers with multiple interrupted 3-0 silk sutures. A 2nd smaller serosal tear was created and was repaired with 2 interrupted 3-0 silk sutures. Eventually we were able to take down enough adhesions to place the Bookwalter retractor. Further lysis of adhesions in the pelvis revealed a very distended cecum which was trapped under a band of adhesion going across the pelvis from right lower pelvic sidewall to the cecum. The adhesion was lysed with the LigaSure freeing the cecum. Although the cecum appeared viable it was very distended and thin walled. Decision was made to perform a resection. Initially, an attempt was made to perform a right hemicolectomy however that upon mobilizing the ascending colon and the hepatic flexure it became evident that the transverse colon was densely adherent in the gallbladder fossa and a decision was made to perform an ileocecectomy rather than risking injury to the transverse colon or duodenum. There was plenty of redundancy in the ascending colon to allow the creation of an ileocecal anastomosis. We performed the anastomosis in a [id number], functional end-to-end manner using the linear TERESA 75 mm stapler with blue load. The staple line was imbricated with multiple interrupted 3-0 silk sutures. The mesenteric defect was closed with a running 2-0 Vicryl. We irrigated the rest of the abdomen. Additional Marcaine was injected into the fascia and the fascia was closed with running 0 PDS suture and multiple interrupted 0 Vicryl internal retention sutures. EBL 50 mL Specimen terminal ileum and cecum. Note: There procedure warrants a modifier 22 due to the extensive lysis of adhesions required to access the cecum and right colon. Post-operative Condition: stable Disposition: PACU
--- NOTE | 2021-04-04 14:51 | SUR.PHASEI ---
Patient to PACU from OR with nursing staff and anesthesia in stable condition; resting with eyes closed, RR even and unlabored. Room air saturation 96%; no distress noted; vss; midline dressing to abdomen clean, dry and intact. Win catheter draining clear, yellow urine.
[2021-04-04] MEDS: fentaNYL 100 MCG/2 ML INJ IV (15:00)
--- NOTE | 2021-04-04 16:05 | PC.NURSE ---
Addendum entered by Rimma Porter R.N. 04/04/21 19:31: Called [facility] for orders. Rec'd and updated in May. Surgery also managing. Ordered obtained for pain control diet, IVF Original Note: 1536-Pt arrived from PACU @ 1536, midline aquacell CDI. Pt is shivering warm blankets applied. BP elevated, Pt reports mild pain rating 4/10 will check transfer orders. Spinal and general while down in Sx, report of significant adhesions in surgery.
[2021-04-04] MEDS: LACTATED RINGERS 1,000 ML 120 ML IV (19:51)
[2021-04-04] MEDS: METOPROLOL TARTRATE 5 MG/5 ML INJ IV (20:25)
[2021-04-05] VITALS (33 sets, daily range): BP systolic 145–200; BP diastolic 68–94; PULSE 67–95; RESP 14–25; TEMP 36.2–36.9; O2SAT 90–100
[2021-04-05] MEDS: METOPROLOL TARTRATE 5 MG/5 ML INJ IV ×4 (01:07→23:53)
[2021-04-05] MEDS: PIPERACILLIN/TAZO 3.375 GM in SODIUM CHLORIDE 0.9% 100 ML 25 ML IV (02:08)
[2021-04-05] MEDS: LACTATED RINGERS 1,000 ML 120 ML IV ×3 (04:25→21:03)
[2021-04-05 05:35] LABS: Add Manual Diff / Slide Review NO; Basophils Absolute Auto 100 /uL (0-100); Basophils Percent Auto 0.4 % (0-2); Eosinophils Absolute Auto 100 /uL (0-450); Eosinophils Percent Auto 0.4 % (2-4); Hemoglobin 11.2 g/dL (12.0-16.0); Lymphocytes Absolute Auto 7800 /uL (1100-4500); Lymphocytes Percent Auto 47.2 % (25-40); Mean Corpuscular Hemoglobin 30.4 PG (26-34); Mean Corpuscular Volume 92.1 fL (80-100); Monocytes Absolute Auto 700 /uL (0-900); Monocytes Percent Auto 3.9 % (3-14); Neutrophils Absolute Auto 8000 /uL (1500-7000); Neutrophils Percent Auto 48.1 % (50-75); Platelet Count 222 X10^3/uL (150-400); Red Blood Cell Count 3.69 X10^6/uL (4.0-5.2); Red Cell Distribution Width 13.4 % (11.6-14.8); White Blood Cell Count 16.6 X10^3/uL (4.5-11.0)
[2021-04-05] MEDS: HYDROMORPHONE 0.5 MG INJ IV ×4 (05:36→21:01)
[2021-04-05 05:46] LABS: Alanine Aminotransferase 12 IU/L (<35); Albumin 3.1 g/dL (3.5-5.0); Albumin Globulin Ratio 1.2 (1.0-2.8); Alkaline Phosphatase 29 U/L (38-126); Aspartate Aminotransferase 22 IU/L (14-36); BUN Creatinine Ratio 16.7 (6-22); Bilirubin Total 0.4 mg/dL (0.2-1.3); Blood Urea Nitrogen 17 mg/dL (7-17); Calcium 8.4 mg/dL (8.4-10.2); Carbon Dioxide 30 mmol/L (22-32); Chloride 103 mmol/L (98-107); Estimated Glomerular Filt Rate 51.8 mL/min (>60); Globulin 2.5 g/dL (1.7-4.1); Glucose 128 mg/dL (80-110); HEMOLYSIS < 15 (0-50); Potassium 4.1 mmol/L (3.4-5.1); Sodium 133 mmol/L (137-145); Total Protein 5.6 g/dL (6.3-8.2)
--- NOTE | 2021-04-05 06:13 | PC.NURSE ---
Shift Note Patient fell asleep, on O2 at 2lpm by nasal cannula, afebrile, patient has good tolerance to pain and encourage to report pain when needed, pain meds given once during this shift. Patient denies shortness of breath. Lungs are clear, diminished bases. Sinus rhythm in the monitor, vital signs are within normal limits. Midabdominal dressing maintained with minimal shadowing, no active bleeding noted. buckley cath in placed with adequate urine output. Encouraged deep breathing exercise and increase activity/mobility. Will continue to monitor.
[2021-04-05] MEDS: ONDANSETRON 4 MG/2 ML INJ IV ×4 (07:57→21:24)
--- NOTE | 2021-04-05 09:39 | PM.PN.1 ---
Subjective Subjective Date Patient Seen: 04/05/21 Time Patient Seen: 09:39 Interval history: Patient seen in follow-up for hypertension cecal volvulus other issues. Overall is feeling okay. Slightly better than yesterday. Surgery apparently went well. No other changes. Blood pressure was elevated yesterday and IV metoprolol was started okay control. Taking p.o. this morning. Exam Vital Signs (past 8 hours): - 04/05/21 03:00 04/05/21 07:00 Temperature 98.4 F 97.8 F Pulse Rate 67 82 Respiratory Rate 16 21 Blood Pressure 147/68 H 163/72 H Pulse Oximetry 97 100 Oxygen Delivery Method Nasal Cannula Oxygen Flow Rate 2 Narrative Exam Narrative: Alert elderly female lying in bed no acute distress. Lungs are clear. Heart regular rate and rhythm. Abdomen is tender. Midline incision appears dry. Minimal by sounds. Extremities are normal. Objective Labs Result Diagrams: 04/05/21 04:55 04/05/21 04:55 Labs: Laboratory Results - last 24 hr 04/04/21 04/05/21 04/05/21 22:27 04:55 04:55 WBC 16.6 H RBC 3.69 L Hgb 11.2 L Hct 34.0 L MCV 92.1 MCH 30.4 MCHC 33.0 RDW 13.4 Plt Count 222 Neut % (Auto) 48.1 L Lymph % (Auto) 47.2 H [place] % (Auto) 3.9 Eos % (Auto) 0.4 L Baso % (Auto) 0.4 Neut # (Auto) 8000 H Lymph # (Auto) 7800 H [place] # (Auto) 700 Eos # (Auto) 100 Baso # (Auto) 100 Sodium 133 L Potassium 4.1 Chloride 103 Carbon Dioxide 30 BUN 17 Creatinine 1.02 Estimated GFR 51.8 L BUN/Creatinine Ratio 16.7 Glucose 128 H Calcium 8.4 Total Bilirubin 0.4 AST 22 ALT 12 Alkaline Phosphatase 29 L Total Protein 5.6 L Albumin 3.1 L Globulin 2.5 Albumin/Globulin Ratio 1.2 Nasal Screen MRSA (PCR) Positive for mrsa [facility] Medical History Diabetes mellitus type II, non insulin dependent HTN (hypertension) Hypercholesterolemia Surgical History History of bladder surgery History of cholecystectomy History of repair of hiatal hernia Status post hysterectomy Family History Sister Cancer Brother Cancer Sister Cancer Mother Cancer Hypertension Social History marital status: unmarried,living together household members: significant other Smoking Status: Never smoker alcohol intake: never Assessment & Plan Assessment & Plan narrative: Hypertension. Moderately well controlled on metoprolol. Will switch to her usual medicines orally and follow. Will give Cardizem today and losartan tomorrow. And will be back on usual meds. Cecal volvulus released yesterday with partial colectomy. As per surgeon. Seems to be doing well. Type 2 diabetes early minimal need for oral medicines will hold metformin for a few days and then restart. CLL. Stable. History of anemia. Actually seems to be doing well will follow. History of hiatal hernia on IV pantoprazole. Will continue for a day and switch to oral tomorrow. Code status full. DVT prophylaxis on Lovenox. GI prophylaxis on pantoprazole Disposition. Will see how her bowel function returns. Suspect it will take 3-4 days but will see how it goes. Time Spent With Patient Critical Care time: I spent a total of [] minutes of critical care time on this patient's care today; this time is exclusive of procedural time. Quality VTE Deep Vein Thrombosis/Pulmonary Embolism Present on Admission: No
[2021-04-05] MEDS: ENOXAPARIN 40 MG/0.4 ML SYRINGE SUBCUT (09:40)
[2021-04-05] MEDS: PIPERACILLIN/TAZO 3.375 GM in SODIUM CHLORIDE 0.9% 100 ML IV (09:40)
[2021-04-05] MEDS: dilTIAZem CD 180 MG CAP 360 MG PO (10:41)
--- NOTE | 2021-04-05 11:32 | PM.PN.1 ---
Subjective Subjective Date Patient Seen: 04/05/21 Time Patient Seen: 11:33 Interval history: Complains of some abdominal incisional pain. Minimal appetite. Exam Vital Signs (past 8 hours): - 04/05/21 07:00 Temperature 97.8 F Pulse Rate 82 Respiratory Rate 21 Blood Pressure 163/72 H Pulse Oximetry 100 Oxygen Delivery Method Nasal Cannula Oxygen Flow Rate 2 Narrative Exam Narrative: Abdomen is soft but tender to palpation near the incision. Dressings are dry and intact Objective Labs Result Diagrams: 04/05/21 04:55 04/05/21 04:55 Labs: Laboratory Results - last 24 hr 04/04/21 04/05/21 04/05/21 22:27 04:55 04:55 WBC 16.6 H RBC 3.69 L Hgb 11.2 L Hct 34.0 L MCV 92.1 MCH 30.4 MCHC 33.0 RDW 13.4 Plt Count 222 Neut % (Auto) 48.1 L Lymph % (Auto) 47.2 H [place] % (Auto) 3.9 Eos % (Auto) 0.4 L Baso % (Auto) 0.4 Neut # (Auto) 8000 H Lymph # (Auto) 7800 H [place] # (Auto) 700 Eos # (Auto) 100 Baso # (Auto) 100 Sodium 133 L Potassium 4.1 Chloride 103 Carbon Dioxide 30 BUN 17 Creatinine 1.02 Estimated GFR 51.8 L BUN/Creatinine Ratio 16.7 Glucose 128 H Calcium 8.4 Total Bilirubin 0.4 AST 22 ALT 12 Alkaline Phosphatase 29 L Total Protein 5.6 L Albumin 3.1 L Globulin 2.5 Albumin/Globulin Ratio 1.2 Nasal Screen MRSA (PCR) Positive for mrsa H [facility] Medical History (Updated 04/05/21 @ 11:34 by Roni Samuels MD) Diabetes mellitus type II, non insulin dependent HTN (hypertension) Hypercholesterolemia Surgical History History of bladder surgery History of cholecystectomy History of repair of hiatal hernia Status post hysterectomy Family History Sister Cancer Brother Cancer Sister Cancer Mother Cancer Hypertension Social History marital status: unmarried,living together household members: significant other Smoking Status: Never smoker alcohol intake: never Assessment & Plan Assessment and plan (1) Postoperative examination: Status: Acute Plan Doing well on postop day 1 following exploratory laparotomy, lysis of adhesions and ileocecectomy for bowel obstruction Hold Lovenox for an additional day because she had some bleeding from the left rectus muscle Stay with sips of clear liquids for now. Time Spent With Patient Critical Care time: I spent a total of [] minutes of critical care time on this patient's care today; this time is exclusive of procedural time. Quality VTE Deep Vein Thrombosis/Pulmonary Embolism Present on Admission: No
--- NOTE | 2021-04-05 12:28 | CM.DPC ---
Addendum entered by NATE Delacruz 04/05/21 14:58: ADD: SW attempted bedside assessment with pt but pt was retching and clearly having nausea and was just given Zofran but pt not medically appropriate for d/c discussion at this time. Per RN, Surgeon anticipating that pt may have an illeus but will continue to monitor. BF Original Note: DCP Cont: Per MD and Surgeon, pt tolerated surgical procedure well with some pain to abdomen and midline dressing and pt has buckley cath for urination at this time and able to tolerate some po intake but remains on sips of clear liquids today and oxygen. Pt likely slow recovery and will be here at least a couple to few more days pending progress. Plan: SW to follow for advancing diet and ambulation to confirm safe d/c home when medically stable and any further identified needs. NATE Delacruz
[2021-04-05] MEDS: INSULIN LISPRO 100 UNIT/ML 3ML VIAL SUBCUT ×2 (12:40→18:30)
--- NOTE | 2021-04-05 13:23 | PC.NURSE ---
Day shift note: Pt resting in bed, c/o pain 5/10 and nausea, medicated as ordered. Currently on 2 L NC SpO2 96-100, does not require O2 at baseline, lungs are clear, diminished in the bases, pt denies SOB. Tele shows SR, VSS, midline incision is covered with aquacell dressing with slight drainage/shadowing. Win patent with adequate u/o, diet advanced to clear liquids, with some nausea. Encouraging pt to deep breath and increase activity in the bed. Bed low and locked with alarm on, call light within reach, will continue to monitor.
[2021-04-05] MEDS: LORazepam 2 MG/ML INJ 1 MG IV (15:02)
[2021-04-06] VITALS (13 sets, daily range): BP systolic 135–218; BP diastolic 63–100; PULSE 69–98; RESP 16–22; TEMP 36.2–37.2; O2SAT 93–98
[2021-04-06] MEDS: HYDROMORPHONE 0.5 MG INJ IV ×5 (00:18→22:02)
[2021-04-06] MEDS: ONDANSETRON 4 MG/2 ML INJ IV ×3 (03:02→11:50)
--- NOTE | 2021-04-06 03:54 | PC.NURSE ---
Shift Note-Patient has had nausea and belching throughout the night, no emesis, medicated with IV Zofran per prn with minimal effect, notified Dr Last, IV Ativan prn ordered and patient made NPO. IV Dilaudid given for abdominal pain which has been effective. Bowel sounds hypoactive, denies flatus. Scheduled IV metoprolol for HTN, NSR, afebrile.
[2021-04-06] MEDS: LORazepam 2 MG/ML INJ 1 MG IV ×2 (05:30→12:31)
[2021-04-06] MEDS: LACTATED RINGERS 1,000 ML 120 ML IV ×3 (05:30→21:16)
[2021-04-06 05:38] LABS: Alanine Aminotransferase 12 IU/L (<35); Albumin 3.5 g/dL (3.5-5.0); Albumin Globulin Ratio 1.2 (1.0-2.8); Alkaline Phosphatase 35 U/L (38-126); Aspartate Aminotransferase 25 IU/L (14-36); BUN Creatinine Ratio 24.2 (6-22); Bilirubin Total 0.5 mg/dL (0.2-1.3); Blood Urea Nitrogen 16 mg/dL (7-17); Calcium 8.8 mg/dL (8.4-10.2); Carbon Dioxide 28 mmol/L (22-32); Chloride 103 mmol/L (98-107); Estimated Glomerular Filt Rate > 60.0 mL/min (>60); Globulin 2.9 g/dL (1.7-4.1); Glucose 149 mg/dL (80-110); Potassium 4.2 mmol/L (3.4-5.1); Sodium 134 mmol/L (137-145); Total Protein 6.4 g/dL (6.3-8.2)
[2021-04-06] MEDS: METOPROLOL TARTRATE 5 MG/5 ML INJ IV (05:52)
[2021-04-06 05:56] LABS: HEMOLYSIS 57 (0-50)
[2021-04-06 06:58] LABS: Add Manual Diff / Slide Review NO; Basophils Absolute Auto 100 /uL (0-100); Basophils Percent Auto 0.4 % (0-2); Eosinophils Absolute Auto 0 /uL (0-450); Eosinophils Percent Auto 0.2 % (2-4); Hematocrit 35.4 % (36-46); Hemoglobin 11.7 g/dL (12.0-16.0); Lymphocytes Absolute Auto 8500 /uL (1100-4500); Lymphocytes Percent Auto 42.6 % (25-40); Mean Corpuscular HGB Conc 33.1 % (30-36); Mean Corpuscular Hemoglobin 30.5 PG (26-34); Mean Corpuscular Volume 92.1 fL (80-100); Monocytes Absolute Auto 700 /uL (0-900); Monocytes Percent Auto 3.5 % (3-14); Neutrophils Absolute Auto 10600 /uL (1500-7000); Neutrophils Percent Auto 53.3 % (50-75); Platelet Count 233 X10^3/uL (150-400); Red Blood Cell Count 3.85 X10^6/uL (4.0-5.2); White Blood Cell Count 19.9 X10^3/uL (4.5-11.0)
--- NOTE | 2021-04-06 07:57 | PM.PN.1 ---
Subjective Subjective Date Patient Seen: 04/06/21 Time Patient Seen: 07:57 Interval history: Patient with increased pain. Not feeling great. No other significant changes. Not a lot of flatus. Otherwise no change. Apparently can not get IV metoprolol. Exam Vital Signs (past 8 hours): - 04/06/21 01:50 04/06/21 05:20 04/06/21 07:52 Temperature 97.1 F L 98.8 F Pulse Rate 69 86 Respiratory Rate 16 18 Blood Pressure 169/79 H 218/94 H Pulse Oximetry 96 95 93 Oxygen Delivery Method Room Air Oxygen Flow Rate 1 Narrative Exam Narrative: Alert female in no acute distress Lungs are clear. Heart regular rate and rhythm. Abdomen with minimal bowel sounds. Slightly distended. Moderately tender. Extremities without edema Objective Labs Result Diagrams: 04/06/21 06:40 04/06/21 04:43 Labs: Laboratory Results - last 24 hr 04/06/21 04/06/21 04:43 06:40 WBC 19.9 H RBC 3.85 L Hgb 11.7 L Hct 35.4 L MCV 92.1 MCH 30.5 MCHC 33.1 RDW 13.0 Plt Count 233 Neut % (Auto) 53.3 Lymph % (Auto) 42.6 H [place] % (Auto) 3.5 Eos % (Auto) 0.2 L Baso % (Auto) 0.4 Neut # (Auto) 88418 H Lymph # (Auto) 8500 H [place] # (Auto) 700 Eos # (Auto) 0 Baso # (Auto) 100 Sodium 134 L Potassium 4.2 Chloride 103 Carbon Dioxide 28 BUN 16 Creatinine 0.66 Estimated GFR > 60.0 BUN/Creatinine Ratio 24.2 H Glucose 149 H Calcium 8.8 Total Bilirubin 0.5 AST 25 ALT 12 Alkaline Phosphatase 35 L Total Protein 6.4 Albumin 3.5 Globulin 2.9 Albumin/Globulin Ratio 1.2 [facility] Medical History (Updated 04/05/21 @ 11:34 by Roni Samuels MD) Diabetes mellitus type II, non insulin dependent HTN (hypertension) Hypercholesterolemia Surgical History History of bladder surgery History of cholecystectomy History of repair of hiatal hernia Status post hysterectomy Family History Sister Cancer Brother Cancer Sister Cancer Mother Cancer Hypertension Social History marital status: unmarried,living together household members: significant other Smoking Status: Never smoker alcohol intake: never Assessment & Plan Assessment & Plan narrative: hypertension. Not well controlled. Would like to give p.o. medicines but surgeon has requested no medicines orally. Metoprolol not working now we do not have It in house.. Will start with hydralazine. Will see how that goes. Follow closely. Reassess this afternoon. Oral medicine soon as possible. Cecal volvulus. Slight increase in white count. Slight increase in pain. Otherwise no real change. Will continue to follow. As per surgeons. Type 2 diabetes. Stable. Continue sliding scale. Fluids and electrolytes. I think were okay on fluids. Will continue to follow. She is on 120 of LR. Will continue that for now. Until taking p.o.. No and re-evaluate. Labs look good. History of anemia. Stable. History of hiatal hernia on IV pantoprazole.? Will continue for a day and switch to oral tomorrow. Code status full. DVT prophylaxis on Lovenox.? GI prophylaxis on pantoprazole Disposition. Clearly going to be taking some time to get better. Mostly as per surgical care. Will evaluate blood pressure later this afternoon. Time Spent With Patient Critical Care time: I spent a total of [] minutes of critical care time on this patient's care today; this time is exclusive of procedural time. Quality VTE Deep Vein Thrombosis/Pulmonary Embolism Present on Admission: No
[2021-04-06] MEDS: INSULIN LISPRO 100 UNIT/ML 3ML VIAL SUBCUT ×3 (07:59→17:53)
[2021-04-06] MEDS: HYDRALAZINE 20 MG/ML VIAL 10 MG IV ×2 (08:02→21:09)
[2021-04-06] MEDS: SODIUM CHLORIDE 0.9% FLUSH 10 ML IV ×2 (08:03→21:10)
[2021-04-06] MEDS: dilTIAZem 5 MG/ML SDV 20 MG IV ×2 (10:47→17:49)
--- NOTE | 2021-04-06 12:57 | DI.RAD.S_ITS ---
PROCEDURE: XR KUB INDICATIONS: nausea TECHNIQUE: One view of the abdomen acquired. COMPARISON: [facility], CR, XR ACUTE ABDOMEN SERIES, 04/04/2021, 0:44. FINDINGS: Surgical changes and devices: Surgical clips are seen in gallbladder fossa. [place] are also noted along right side of abdomen. Bowel: Moderate air distended bowel loops are noted throughout the abdomen. No gross peritoneal free air. Soft tissues: No suspicious abdominal calcifications. Visualized solid organ contours appear normal in size. Bones: No suspicious bony lesions. IMPRESSION: Finding may represent postop ileus versus distal small bowel obstruction. No gross free air. Dictated by: Abhilash Espinoza M.D. on 04/06/2021 at 13:59 Approved by: Abhilash Espinoza M.D. on 04/06/2021 at 14:05
--- NOTE | 2021-04-06 15:23 | CM.DPC ---
DCP Cont: Per MD, pt continues to have ongoing retching and n/v throughout the night and this morning and increased pain and pt changed to NPO at this time. Per RN, pt quite sick and somewhat confused due to her medical condition and still not yet appropriate to be able to participate in bedside discussion. SW attempted to call pt's son Alberto to gather additional information about pt's baseline and supports but no answer and vague message on vm so no message left. Pt not appropriate for PT eval either but could benefit once more medically appropriate to participate. Plan: SW to follow closely for bedside assessment and likely PT eval when more stable towards determining d/c planning needs and safe discharge. NATE Delacruz
[2021-04-06] MEDS: METOCLOPRAMIDE 10 MG/2 ML INJ 5 MG IV ×2 (16:09→22:02)
--- NOTE | 2021-04-06 17:03 | P.PN_ITS ---
Subjective Subjective Date Patient Seen: 04/06/21 Interval history: She has been nauseous and she tends to become sedated after certain medications. She is not complaining of significant abdominal pain. No flatus. Exam Vital Signs (past 8 hours): - 04/06/21 11:53 04/06/21 16:00 Temperature 97.8 F 98.6 F Pulse Rate 80 92 H Respiratory Rate 18 22 Blood Pressure 176/83 H 170/77 H Pulse Oximetry 97 98 Oxygen Delivery Method Nasal Cannula Oxygen Flow Rate 2 Narrative Exam Narrative: Soft, minimally tender Dressings are clean dry and intact Objective Labs Result Diagrams: 04/06/21 06:40 04/06/21 04:43 Labs: Laboratory Results - last 24 hr 04/06/21 04/06/21 04:43 06:40 WBC 19.9 H RBC 3.85 L Hgb 11.7 L Hct 35.4 L MCV 92.1 MCH 30.5 MCHC 33.1 RDW 13.0 Plt Count 233 Neut % (Auto) 53.3 Lymph % (Auto) 42.6 H [place] % (Auto) 3.5 Eos % (Auto) 0.2 L Baso % (Auto) 0.4 Neut # (Auto) 63444 H Lymph # (Auto) 8500 H [place] # (Auto) 700 Eos # (Auto) 0 Baso # (Auto) 100 Sodium 134 L Potassium 4.2 Chloride 103 Carbon Dioxide 28 BUN 16 Creatinine 0.66 Estimated GFR > 60.0 BUN/Creatinine Ratio 24.2 H Glucose 149 H Calcium 8.8 Total Bilirubin 0.5 AST 25 ALT 12 Alkaline Phosphatase 35 L Total Protein 6.4 Albumin 3.5 Globulin 2.9 Albumin/Globulin Ratio 1.2 [facility] Medical History (Updated 04/05/21 @ 11:34 by Roni Samuels MD) Diabetes mellitus type II, non insulin dependent HTN (hypertension) Hypercholesterolemia Surgical History History of bladder surgery History of cholecystectomy History of repair of hiatal hernia Status post hysterectomy Family History Sister Cancer Brother Cancer Sister Cancer Mother Cancer Hypertension Social History marital status: unmarried,living together household members: significant other Smoking Status: Never smoker alcohol intake: never Assessment & Plan Assessment and plan (1) Postoperative examination: Status: Acute Plan Suspect ileus Await bowel function before advancing diet. Time Spent With Patient Critical Care time: I spent a total of [] minutes of critical care time on this patient's care today; this time is exclusive of procedural time. Quality VTE Deep Vein Thrombosis/Pulmonary Embolism Present on Admission: No
--- NOTE | 2021-04-06 17:30 | PC.NURSE ---
Day Shift Note Pt restless and confused this morning, could not accurately state where she was, reported feeling terrible and nauseated. Reoriented to place and situation. Medicated with Zofran and Dilaudid. Attempted to wean off O2 but desats to 88-89% when sleeping, on 2L and SpO2 high 90s. BP in the 200s systolic, orders received from Dr. Pratt for scheduled diltiazem, SBP down to 170s which is ok per MD. Pt NPO per surgery so no PO meds given at this time. Ativan administered after Zofran ineffective, pt drowsy and slightly confused after administration but reported nausea improved. Reviewed pt symptoms with Dr. Samuels, no NG tube at this time and orders received for reglan which was given and effective. Win in place and draining clear yellow urine. Bed alarm on for safety, call light within reach.
[2021-04-07] VITALS (14 sets, daily range): BP systolic 133–172; BP diastolic 62–77; PULSE 83–108; RESP 14–18; TEMP 36.9–37.2; O2SAT 91–98
[2021-04-07] MEDS: dilTIAZem 5 MG/ML SDV 20 MG IV ×2 (00:19→05:50)
[2021-04-07] MEDS: HYDROMORPHONE 0.5 MG INJ IV ×6 (03:03→21:32)
[2021-04-07] MEDS: ONDANSETRON 4 MG/2 ML INJ IV ×2 (03:13→09:37)
[2021-04-07] MEDS: HYDRALAZINE 20 MG/ML VIAL 10 MG IV ×2 (04:20→13:14)
[2021-04-07 05:23] LABS: Add Manual Diff / Slide Review NO; Basophils Absolute Auto 200 /uL (0-100); Basophils Percent Auto 0.9 % (0-2); Eosinophils Absolute Auto 200 /uL (0-450); Eosinophils Percent Auto 0.9 % (2-4); Hematocrit 33.5 % (36-46); Hemoglobin 10.9 g/dL (12.0-16.0); Lymphocytes Absolute Auto 12200 /uL (1100-4500); Lymphocytes Percent Auto 49.3 % (25-40); Mean Corpuscular HGB Conc 32.4 % (30-36); Mean Corpuscular Hemoglobin 29.9 PG (26-34); Mean Corpuscular Volume 92.3 fL (80-100); Monocytes Absolute Auto 1100 /uL (0-900); Monocytes Percent Auto 4.4 % (3-14); Neutrophils Absolute Auto 11000 /uL (1500-7000); Neutrophils Percent Auto 44.5 % (50-75); Platelet Count 288 X10^3/uL (150-400); Red Blood Cell Count 3.63 X10^6/uL (4.0-5.2); Red Cell Distribution Width 13.2 % (11.6-14.8); White Blood Cell Count 24.8 X10^3/uL (4.5-11.0)
--- NOTE | 2021-04-07 05:29 | PC.NURSE ---
Shift Note: Patient remained confused and disoriented, patient safety maintained. O2 support by nasal cannula at 2lpm maintained. Afebrile, vital signs within normal limits. Patient complained of pain and nausea/vomiting, no emesis noted, prn meds given as ordered. Abdominal dressing was intact, dry and clean with minimal shadowing, no bleeding noted, bowel sounds still hypoactive. Win cath maintained with adequate urine output. No signs of distress noted. Will continue to monitor.
[2021-04-07 05:31] LABS: Alanine Aminotransferase 11 IU/L (<35); Albumin 3.3 g/dL (3.5-5.0); Albumin Globulin Ratio 1.2 (1.0-2.8); Alkaline Phosphatase 38 U/L (38-126); Aspartate Aminotransferase 23 IU/L (14-36); BUN Creatinine Ratio 26.8 (6-22); Bilirubin Total 0.5 mg/dL (0.2-1.3); Blood Urea Nitrogen 19 mg/dL (7-17); Calcium 8.9 mg/dL (8.4-10.2); Carbon Dioxide 28 mmol/L (22-32); Chloride 103 mmol/L (98-107); Estimated Glomerular Filt Rate > 60.0 mL/min (>60); Globulin 2.8 g/dL (1.7-4.1); Glucose 129 mg/dL (80-110); HEMOLYSIS 34 (0-50); Potassium 3.4 mmol/L (3.4-5.1); Sodium 136 mmol/L (137-145); Total Protein 6.1 g/dL (6.3-8.2)
[2021-04-07] MEDS: LACTATED RINGERS 1,000 ML 120 ML IV ×2 (05:55→18:01)
[2021-04-07] MEDS: INSULIN LISPRO 100 UNIT/ML 3ML VIAL SUBCUT ×2 (06:00→18:03)
[2021-04-07] MEDS: METOCLOPRAMIDE 10 MG/2 ML INJ 5 MG IV (07:20)
[2021-04-07] MEDS: SODIUM CHLORIDE 0.9% FLUSH 10 ML IV ×3 (07:21→21:22)
--- NOTE | 2021-04-07 08:38 | PM.PN.1 ---
Subjective Subjective Date Patient Seen: 04/07/21 Time Patient Seen: 08:38 Interval history: Patient feeling better. Still moderate amount of pain. But controlled. No nausea or vomiting. Has passed gas. Thirsty. Exam Vital Signs (past 8 hours): - 04/07/21 04:00 04/07/21 04:20 04/07/21 04:50 Temperature 98.7 F Pulse Rate 87 89 Respiratory Rate 14 Blood Pressure 156/65 H 156/65 H 148/67 H Pulse Oximetry 97 04/07/21 05:50 04/07/21 07:55 Temperature 98.6 F Pulse Rate 90 101 H Respiratory Rate 15 Blood Pressure 158/67 H 169/77 H Pulse Oximetry 92 Oxygen Delivery Method Nasal Cannula Oxygen Flow Rate 0 Narrative Exam Narrative: Alert elderly female in no acute distress sitting in chair. Much less fatigued than yesterday. Lungs appear clear. Heart regular rate and rhythm. Abdomen is soft Improved bowel sounds. Incision seems clean and dry. Extremities without cyanosis clubbing edema.. Objective Labs Result Diagrams: 04/07/21 05:00 04/07/21 05:00 Labs: Laboratory Results - last 24 hr 04/07/21 04/07/21 05:00 05:00 WBC 24.8 H RBC 3.63 L Hgb 10.9 L Hct 33.5 L MCV 92.3 MCH 29.9 MCHC 32.4 RDW 13.2 Plt Count 288 Neut % (Auto) 44.5 L Lymph % (Auto) 49.3 H [place] % (Auto) 4.4 Eos % (Auto) 0.9 L Baso % (Auto) 0.9 Neut # (Auto) 97128 H Lymph # (Auto) 90166 H [place] # (Auto) 1100 H Eos # (Auto) 200 Baso # (Auto) 200 H Sodium 136 L Potassium 3.4 Chloride 103 Carbon Dioxide 28 BUN 19 H Creatinine 0.71 Estimated GFR > 60.0 BUN/Creatinine Ratio 26.8 H Glucose 129 H Calcium 8.9 Total Bilirubin 0.5 AST 23 ALT 11 Alkaline Phosphatase 38 Total Protein 6.1 L Albumin 3.3 L Globulin 2.8 Albumin/Globulin Ratio 1.2 PFSH Medical History (Updated 04/05/21 @ 11:34 by Roni Samuels MD) Diabetes mellitus type II, non insulin dependent HTN (hypertension) Hypercholesterolemia Surgical History History of bladder surgery History of cholecystectomy History of repair of hiatal hernia Status post hysterectomy Family History Sister Cancer Brother Cancer Sister Cancer Mother Cancer Hypertension Social History marital status: unmarried,living together household members: significant other Smoking Status: Never smoker alcohol intake: never Assessment & Plan Assessment & Plan narrative: Hypertension. Control is improved with IV Cardizem and hydralazine. Hoping to go to oral medication today will see how things go. Certainly stable. No symptoms. Will continue to follow. Adjust as needed. Elevated white count. Trending upward. No fever. Clinically patient looks slightly better today. Will continue to follow recheck tomorrow. No evidence of significant issue at this time no evidence of pulmonary issue will check urine if any change. Cecal volvulus. As per surgeon. Hopefully will get some orals in today. She is passing gas. Will see how things go. Looks better today. Will follow. Type 2 diabetes.? Stable.? Continue sliding scale.? Fluids and electrolytes.? I think were okay on fluids.? Will continue to follow.? She is on 120 of LR.? Will continue that for now.? Until taking p.o..? No and re-evaluate.? Labs look good.? History of anemia.? Stable.? History of hiatal hernia on IV pantoprazole.? Will continue for a day and switch to oral tomorrow. Code status full. DVT prophylaxis on Lovenox.? GI prophylaxis on pantoprazole Disposition. Still have significant ways to go. Sure it will be days will continue to follow. Time Spent With Patient Critical Care time: I spent a total of [] minutes of critical care time on this patient's care today; this time is exclusive of procedural time. Quality VTE Deep Vein Thrombosis/Pulmonary Embolism Present on Admission: No
[2021-04-07] MEDS: dilTIAZem CD 180 MG CAP 360 MG PO (08:44)
[2021-04-07] MEDS: LOSARTAN 50 MG TABLET 100 MG PO (08:44)
--- NOTE | 2021-04-07 08:44 | P.PN_ITS ---
Subjective Subjective Date Patient Seen: 04/07/21 Time Patient Seen: 08:44 Interval history: Feeling better. Has passed some gas. Want to drink liquids Exam Vital Signs (past 8 hours): - 04/07/21 04:00 04/07/21 04:20 04/07/21 04:50 Temperature 98.7 F Pulse Rate 87 89 Respiratory Rate 14 Blood Pressure 156/65 H 156/65 H 148/67 H Pulse Oximetry 97 04/07/21 05:50 04/07/21 07:55 Temperature 98.6 F Pulse Rate 90 101 H Respiratory Rate 15 Blood Pressure 158/67 H 169/77 H Pulse Oximetry 92 Oxygen Delivery Method Nasal Cannula Oxygen Flow Rate 0 Narrative Exam Narrative: Abdomen soft Objective Labs Result Diagrams: 04/07/21 05:00 04/07/21 05:00 Labs: Laboratory Results - last 24 hr 04/07/21 04/07/21 05:00 05:00 WBC 24.8 H RBC 3.63 L Hgb 10.9 L Hct 33.5 L MCV 92.3 MCH 29.9 MCHC 32.4 RDW 13.2 Plt Count 288 Neut % (Auto) 44.5 L Lymph % (Auto) 49.3 H [place] % (Auto) 4.4 Eos % (Auto) 0.9 L Baso % (Auto) 0.9 Neut # (Auto) 17654 H Lymph # (Auto) 53200 H [place] # (Auto) 1100 H Eos # (Auto) 200 Baso # (Auto) 200 H Sodium 136 L Potassium 3.4 Chloride 103 Carbon Dioxide 28 BUN 19 H Creatinine 0.71 Estimated GFR > 60.0 BUN/Creatinine Ratio 26.8 H Glucose 129 H Calcium 8.9 Total Bilirubin 0.5 AST 23 ALT 11 Alkaline Phosphatase 38 Total Protein 6.1 L Albumin 3.3 L Globulin 2.8 Albumin/Globulin Ratio 1.2 [facility] Medical History (Updated 04/05/21 @ 11:34 by Roni Samuels MD) Diabetes mellitus type II, non insulin dependent HTN (hypertension) Hypercholesterolemia Surgical History History of bladder surgery History of cholecystectomy History of repair of hiatal hernia Status post hysterectomy Family History Sister Cancer Brother Cancer Sister Cancer Mother Cancer Hypertension Social History marital status: unmarried,living together household members: significant other Smoking Status: Never smoker alcohol intake: never Assessment & Plan Assessment and plan (1) Postoperative examination: Status: Acute Plan Clear liquid diet Time Spent With Patient Critical Care time: I spent a total of [] minutes of critical care time on this patient's care today; this time is exclusive of procedural time. Quality VTE Deep Vein Thrombosis/Pulmonary Embolism Present on Admission: No
[2021-04-07] MEDS: ENOXAPARIN 40 MG/0.4 ML SYRINGE SUBCUT (09:37)
[2021-04-07] MEDS: POTASSIUM CHLORIDE IN WATER 10 MEQ/100 ML PIGGYBACK 100 MEQ IV ×4 (09:40→13:14)
[2021-04-07] MEDS: LORazepam 2 MG/ML INJ 1 MG IV ×2 (16:19→23:52)
--- NOTE | 2021-04-07 16:31 | DIET.CONS ---
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 Pt with postop ileus and frequent nausea though pt passed significant amount of gas today per nursing. RD attempted bedside interview, however, pt with tangential conversation and visit was brief secondary to this and pt's nausea. Pt has ONS Yonas at bedside from lunch with ~100cc consumed. Pt reports liking the beverage, just having difficulty consuming secondary to nausea. Pts increasing flatulence good sign ileus may be resolving. Pt will need additional education on bowel textures which may change now that ileocecal junction removed. Ht: 157.48 cm Wt: 61 kg BMI: 25.2 UBW: 61-65kg x2y Last BM: 04/09/21 (04/04/21 12:46) MNA: 6 Ankush Score: 17 Diet: 04/07/21 Breakfast Clear Liquid Diet Diet Modifications: diabetic diet Nutrition Percent Meal Consumed 0% 04/06/21 10:12 Labs: RBC 3.63 X10^6/uL (4.0-5.2) L 04/07/21 05:00 Hgb 10.9 g/dL (12.0-16.0) L 04/07/21 05:00 Hct 33.5 % (36-46) L 04/07/21 05:00 Creatinine 0.71 mg/dL (0.52-1.04) 04/07/21 05:00 Lactate 1.2 mmol/L (0.7-2.1) 04/04/21 00:51 Nutrition Diagnosis: inadequate oral intake r/t persistent nausea aeb 0-25% clear liquid trays x2d, pt with increased PO needs for post-surgical healing. Interventions: 1. Recc continue ONS Yonas bid to support protein and micronutrient needs for postsurgical healing. EER: 1800kcals (30kcal/kg per postsurgical), 78g PRO (1.3g/kg per postsurgical) Monitoring/Evaluations: ONS acceptance, POs Electronically Signed by: Corinna Agustin 04/07/21 16:31 Clinical Dietitian [address] [id number]
[2021-04-08] VITALS (46 sets, daily range): BP systolic 92–190; BP diastolic 47–124; PULSE 89–125; RESP 14–45; TEMP 36.7–37.6; O2SAT 2–100
[2021-04-08] MEDS: HYDROMORPHONE 0.5 MG INJ IV ×4 (01:59→12:42)
[2021-04-08] MEDS: LACTATED RINGERS 1,000 ML 120 ML IV ×2 (03:52→12:51)
[2021-04-08] MEDS: HYDRALAZINE 20 MG/ML VIAL 10 MG IV ×3 (04:27→19:00)
[2021-04-08] MEDS: ONDANSETRON 4 MG/2 ML INJ IV ×3 (05:00→20:27)
[2021-04-08 05:32] LABS: Add Manual Diff / Slide Review NO; Basophils Absolute Auto 300 /uL (0-100); Basophils Percent Auto 1.2 % (0-2); Eosinophils Absolute Auto 200 /uL (0-450); Eosinophils Percent Auto 0.8 % (2-4); Hematocrit 31.2 % (36-46); Hemoglobin 10.3 g/dL (12.0-16.0); Lymphocytes Absolute Auto 11400 /uL (1100-4500); Lymphocytes Percent Auto 53.5 % (25-40); Mean Corpuscular HGB Conc 33.2 % (30-36); Mean Corpuscular Hemoglobin 30.6 PG (26-34); Mean Corpuscular Volume 92.2 fL (80-100); Monocytes Absolute Auto 900 /uL (0-900); Monocytes Percent Auto 4.2 % (3-14); Neutrophils Absolute Auto 8600 /uL (1500-7000); Neutrophils Percent Auto 40.3 % (50-75); Platelet Count 337 X10^3/uL (150-400); Red Blood Cell Count 3.38 X10^6/uL (4.0-5.2); Red Cell Distribution Width 13.2 % (11.6-14.8); White Blood Cell Count 21.3 X10^3/uL (4.5-11.0)
[2021-04-08 05:40] LABS: Alanine Aminotransferase 14 IU/L (<35); Albumin 3.4 g/dL (3.5-5.0); Albumin Globulin Ratio 1.3 (1.0-2.8); Alkaline Phosphatase 42 U/L (38-126); Aspartate Aminotransferase 28 IU/L (14-36); BUN Creatinine Ratio 28.4 (6-22); Bilirubin Total 0.4 mg/dL (0.2-1.3); Blood Urea Nitrogen 19 mg/dL (7-17); Calcium 8.7 mg/dL (8.4-10.2); Carbon Dioxide 29 mmol/L (22-32); Chloride 104 mmol/L (98-107); Estimated Glomerular Filt Rate > 60.0 mL/min (>60); Globulin 2.7 g/dL (1.7-4.1); Glucose 130 mg/dL (80-110); HEMOLYSIS < 15 (0-50); Potassium 3.6 mmol/L (3.4-5.1); Sodium 136 mmol/L (137-145); Total Protein 6.1 g/dL (6.3-8.2)
--- NOTE | 2021-04-08 05:40 | PC.NURSE ---
Shift Note: Patient was confused and restless throughout the shift, complained of abdominal and nausea, prn meds given and verbalized relief. Maintained at O2 support at 2lpm by nasal cannula when asleep, O2 sat remained >90%. Afebrile, vital signs within normal limits. Midabdominal dressing clean, dry and intact. Urinary incontinent, voided twice. Bowel sounds still hypoactive. IV fluids LR at 120mls/hr maintained. Will continue to monitor.
[2021-04-08] MEDS: INSULIN LISPRO 100 UNIT/ML 3ML VIAL SUBCUT ×2 (06:13→12:49)
--- NOTE | 2021-04-08 08:38 | DI.RAD.S_ITS ---
PROCEDURE: XR CHEST 1V INDICATIONS: hypoxia TECHNIQUE: One view of the chest was acquired. COMPARISON: [facility], CR, XR CHEST 2V, 07/08/2020, 11:37. FINDINGS: Surgical changes and devices: Abdominal surgical vertical skin padmini. Lungs and pleura: Lungs are grossly clear. No pleural effusions or pneumothorax. Mediastinum: Mediastinal contours appear normal. Lordotic technique exaggerates cardiac diameter, possibly mildly enlarged. Large hiatal hernia. Bones and chest wall: No suspicious bony lesions. Overlying soft tissues appear unremarkable. IMPRESSION: Large hiatal hernia. Question cardiomegaly. Grossly clear lung maldonado. Dictated by: Darius Rizo M.D. on 04/08/2021 at 9:44 Approved by: Darius Rizo M.D. on 04/08/2021 at 9:46
[2021-04-08] MEDS: LORazepam 2 MG/ML INJ 1 MG IV (08:55)
--- NOTE | 2021-04-08 08:55 | PM.PN.1 ---
Subjective Subjective Date Patient Seen: 04/08/21 Time Patient Seen: 08:55 Interval history: Patient confused this morning. Uncomfortable. But does not know where she is uncomfortable. No other changes. No fever. No other changes. Patient has been on 2 L of oxygen since basically surgery. Has not changed a great deal. Otherwise no change. Exam Vital Signs (past 8 hours): - 04/08/21 04:27 04/08/21 04:38 04/08/21 04:57 Temperature 98.0 F Pulse Rate 89 Respiratory Rate 16 Blood Pressure 173/78 H 173/78 H 157/47 H Pulse Oximetry 97 Oxygen Delivery Method Nasal Cannula Oxygen Flow Rate 2 Narrative Exam Narrative: Alert somewhat confused female asking for help. Seems to be nauseated this morning. Lungs are clear. Heart regular rate and rhythm. Abdomen is distended soft minimal tenderness mostly right upper quadrant. Incision is clean. Extremities without cyanosis clubbing edema. Objective Labs Result Diagrams: 04/08/21 05:08 04/08/21 05:08 Labs: Laboratory Results - last 24 hr 04/08/21 04/08/21 05:08 05:08 WBC 21.3 H RBC 3.38 L Hgb 10.3 L Hct 31.2 L MCV 92.2 MCH 30.6 MCHC 33.2 RDW 13.2 Plt Count 337 Neut % (Auto) 40.3 L Lymph % (Auto) 53.5 H [place] % (Auto) 4.2 Eos % (Auto) 0.8 L Baso % (Auto) 1.2 Neut # (Auto) 8600 H Lymph # (Auto) 56163 H [place] # (Auto) 900 Eos # (Auto) 200 Baso # (Auto) 300 H Sodium 136 L Potassium 3.6 Chloride 104 Carbon Dioxide 29 BUN 19 H Creatinine 0.67 Estimated GFR > 60.0 BUN/Creatinine Ratio 28.4 H Glucose 130 H Calcium 8.7 Total Bilirubin 0.4 AST 28 ALT 14 Alkaline Phosphatase 42 Total Protein 6.1 L Albumin 3.4 L Globulin 2.7 Albumin/Globulin Ratio 1.3 [facility] Medical History (Updated 04/05/21 @ 11:34 by Roni Samuels MD) Diabetes mellitus type II, non insulin dependent HTN (hypertension) Hypercholesterolemia Surgical History History of bladder surgery History of cholecystectomy History of repair of hiatal hernia Status post hysterectomy Family History Sister Cancer Brother Cancer Sister Cancer Mother Cancer Hypertension Social History marital status: unmarried,living together household members: significant other Smoking Status: Never smoker alcohol intake: never Assessment & Plan Assessment & Plan narrative: Metabolic encephalopathy. Certainly concerning for possible infection. Will check urine. Chest x-ray. White count has been slightly increased. Abdomen seems to be okay certainly could be partly dehydration. I think this is a combination of multiple issues but we need to make sure infection is not occurring. No evidence of neurologic change of his in her confusion. She is moving all 4 extremities and seems to be alert. Doubt central issue. Well she is mildly hypoxic I do not think this is the issue. Will follow closely recheck at lunch. Once we get urine and chest x-ray. May just be but I do not think that is the cause and will have to follow closely. Elevated white count. Will make sure chest x-ray and urine looks good. Certainly incision looks appropriate. Will need to follow. Slightly improved today but with worsening mental status concern for infection. Fluid and electrolytes. I think were dry at this point. She has been taking minimal and will give 500 cc bolus and re-evaluate at lunch. Electrolytes are appropriate. Will see how she responds with output to bolus. Will foot Win in to watch output better. Currently with incontinence unable to follow. Type 2 diabetes. Stable. Continue sliding scale. Certainly not an issue at this time. History of anemia. Slight decrease but not things significant will follow. History of hiatal hernia will continue IV pantoprazole. Code status full. DVT prophylaxis on Lovenox. GI prophylaxis on pantoprazole. Disposition. Certainly not going the right direction. Appears if she will be here for several more days. Certainly need to figure out exactly what is going on at this time. Will follow and see what happens. Ill at this time. But hopefully will turn core. Establish with not shows infection. Time Spent With Patient Critical Care time: I spent a total of [] minutes of critical care time on this patient's care today; this time is exclusive of procedural time. Quality VTE Deep Vein Thrombosis/Pulmonary Embolism Present on Admission: No
[2021-04-08] MEDS: LOSARTAN 50 MG TABLET 100 MG PO (08:56)
[2021-04-08] MEDS: ENOXAPARIN 40 MG/0.4 ML SYRINGE SUBCUT (08:56)
[2021-04-08] MEDS: METOCLOPRAMIDE 10 MG/2 ML INJ 5 MG IV (08:57)
[2021-04-08] MEDS: dilTIAZem CD 180 MG CAP 360 MG PO (08:57)
[2021-04-08] MEDS: SODIUM CHLORIDE 0.9% FLUSH 10 ML IV (09:17)
[2021-04-08] MEDS: SODIUM CHLORIDE 0.9% 1,000 ML 500 ML IV (09:21)
[2021-04-08 11:00] LABS: Add Manual Diff / Slide Review NO; Basophils Absolute Auto 100 /uL (0-100); Basophils Percent Auto 0.5 % (0-2); Eosinophils Absolute Auto 100 /uL (0-450); Eosinophils Percent Auto 0.7 % (2-4); Hematocrit 31.8 % (36-46); Hemoglobin 10.4 g/dL (12.0-16.0); Lymphocytes Absolute Auto 10900 /uL (1100-4500); Lymphocytes Percent Auto 51.6 % (25-40); Mean Corpuscular HGB Conc 32.6 % (30-36); Mean Corpuscular Hemoglobin 30.1 PG (26-34); Mean Corpuscular Volume 92.3 fL (80-100); Monocytes Absolute Auto 1100 /uL (0-900); Monocytes Percent Auto 5.2 % (3-14); Neutrophils Absolute Auto 8900 /uL (1500-7000); Platelet Count 362 X10^3/uL (150-400); Red Blood Cell Count 3.44 X10^6/uL (4.0-5.2); Red Cell Distribution Width 13.1 % (11.6-14.8); White Blood Cell Count 21.1 X10^3/uL (4.5-11.0)
[2021-04-08 11:11] LABS: Alanine Aminotransferase 14 IU/L (<35); Albumin 3.4 g/dL (3.5-5.0); Albumin Globulin Ratio 1.3 (1.0-2.8); Alkaline Phosphatase 43 U/L (38-126); Aspartate Aminotransferase 31 IU/L (14-36); BUN Creatinine Ratio 28.4 (6-22); Bilirubin Total 0.6 mg/dL (0.2-1.3); Blood Urea Nitrogen 19 mg/dL (7-17); Calcium 8.6 mg/dL (8.4-10.2); Carbon Dioxide 27 mmol/L (22-32); Chloride 105 mmol/L (98-107); Estimated Glomerular Filt Rate > 60.0 mL/min (>60); Globulin 2.7 g/dL (1.7-4.1); Glucose 145 mg/dL (80-110); HEMOLYSIS < 15 (0-50); Potassium 3.6 mmol/L (3.4-5.1); Sodium 138 mmol/L (137-145); Total Protein 6.1 g/dL (6.3-8.2)
[2021-04-08 14:40] LABS: Appearance Urine UA CLEAR; Bilirubin Urine UA 1+ (NEGATIVE); Color Urine UA YELLOW; Glucose Urine UA NEGATIVE (Negative); Ketones Urine UA 1+ (NEGATIVE); Leukocyte Esterase Urine UA NEGATIVE (NEGATIVE); Nitrite Urine UA NEGATIVE (Negative); Occult Blood Urine UA TRACE-LYSED (Negative); Protein Urine UA 1+ (Negative); Urobilinogen Urine UA 0.2 E.U./dL (0.2)
[2021-04-08 14:44] LABS: pH Urine UA 5.5 (4.5-8.0)
[2021-04-08 14:56] LABS: Amorphous Sediment Urine 2+; Bacteria Urine None Seen; Ictotest Urine Negative (Negative); RBC Urine 0-1/HPF (0-5/HPF); Squamous Epithelial Cell Urine 0-1 /HPF (0-5/HPF); WBC Urine 5-10/HPF (0-5/HPF)
[2021-04-08 14:57] LABS: Culture Indicated Urine Specimen Cultured; Mucus Urine 1+ (Negative)
--- NOTE | 2021-04-08 15:25 | PM.PN.1 ---
Subjective Subjective Date Patient Seen: 04/08/21 Time Patient Seen: 15:25 Interval history: Deyanira has been rather confused and irritable today. She had urinary retention and the Win was replaced with significant urine output. She did receive Ativan this morning and last night. Exam Vital Signs (past 8 hours): - 04/08/21 08:00 04/08/21 08:01 04/08/21 08:30 Temperature 98.4 F Pulse Rate 125 H 125 H 110 H Respiratory Rate 43 H 38 H 33 H Blood Pressure 169/76 H 179/124 H Pulse Oximetry 81 L 82 L 100 04/08/21 08:31 04/08/21 08:45 04/08/21 09:00 Temperature Pulse Rate 113 H 110 H Respiratory Rate 39 H 22 Blood Pressure 172/79 H 174/73 H Pulse Oximetry 92 98 42 L 04/08/21 09:30 04/08/21 09:31 04/08/21 10:00 Temperature Pulse Rate 95 H 95 H 107 H Respiratory Rate 16 16 17 Blood Pressure 160/72 H Pulse Oximetry 96 97 97 04/08/21 10:01 04/08/21 10:30 04/08/21 10:31 Temperature Pulse Rate 105 H 115 H 113 H Respiratory Rate 16 33 H 27 H Blood Pressure 176/70 H 179/77 H Pulse Oximetry 97 95 96 04/08/21 11:00 04/08/21 11:01 04/08/21 12:00 Temperature 99.7 F H Pulse Rate 111 H 111 H 108 H Respiratory Rate 28 H 23 27 H Blood Pressure 160/72 H 170/74 H Pulse Oximetry 96 97 97 04/08/21 12:10 Temperature Pulse Rate 92 H Respiratory Rate Blood Pressure 160/72 H Pulse Oximetry Oxygen Delivery Method Nasal Cannula Oxygen Flow Rate 2 Narrative Exam Narrative: Agitated confused Abdomen soft, nontender Incision clean dry and intact Objective Labs Result Diagrams: 04/08/21 10:54 04/08/21 10:54 Labs: Laboratory Results - last 24 hr 04/08/21 04/08/21 04/08/21 05:08 05:08 10:54 WBC 21.3 H 21.1 H RBC 3.38 L 3.44 L Hgb 10.3 L 10.4 L Hct 31.2 L 31.8 L MCV 92.2 92.3 MCH 30.6 30.1 MCHC 33.2 32.6 RDW 13.2 13.1 Plt Count 337 362 Neut % (Auto) 40.3 L 42.0 L Lymph % (Auto) 53.5 H 51.6 H [place] % (Auto) 4.2 5.2 Eos % (Auto) 0.8 L 0.7 L Baso % (Auto) 1.2 0.5 Neut # (Auto) 8600 H 8900 H Lymph # (Auto) 50777 H 21445 H [place] # (Auto) 900 1100 H Eos # (Auto) 200 100 Baso # (Auto) 300 H 100 Sodium 136 L Potassium 3.6 Chloride 104 Carbon Dioxide 29 BUN 19 H Creatinine 0.67 Estimated GFR > 60.0 BUN/Creatinine Ratio 28.4 H Glucose 130 H Calcium 8.7 Total Bilirubin 0.4 AST 28 ALT 14 Alkaline Phosphatase 42 Total Protein 6.1 L Albumin 3.4 L Globulin 2.7 Albumin/Globulin Ratio 1.3 Urine Color Urine Appearance Urine pH Ur Specific [place] Urine Protein Urine Glucose (UA) Urine Ketones Urine Occult Blood Urine Nitrate Urine Bilirubin Ur Bilirubin Confirm Urine Urobilinogen Ur Leukocyte Esterase Urine RBC Urine WBC Ur Squamous Epith Cells Amorphous Sediment Urine Bacteria Urine Mucus Ur Culture Indicated? 04/08/21 04/08/21 10:54 14:00 WBC RBC Hgb Hct MCV MCH MCHC RDW Plt Count Neut % (Auto) Lymph % (Auto) [place] % (Auto) Eos % (Auto) Baso % (Auto) Neut # (Auto) Lymph # (Auto) [place] # (Auto) Eos # (Auto) Baso # (Auto) Sodium 138 Potassium 3.6 Chloride 105 Carbon Dioxide 27 BUN 19 H Creatinine 0.67 Estimated GFR > 60.0 BUN/Creatinine Ratio 28.4 H Glucose 145 H Calcium 8.6 Total Bilirubin 0.6 AST 31 ALT 14 Alkaline Phosphatase 43 Total Protein 6.1 L Albumin 3.4 L Globulin 2.7 Albumin/Globulin Ratio 1.3 Urine Color Yellow Urine Appearance Clear Urine pH 5.5 Ur Specific [place] 1.010 Urine Protein 1+ H Urine Glucose (UA) Negative Urine Ketones 1+ H Urine Occult Blood Trace-lysed Urine Nitrate Negative Urine Bilirubin 1+ H Ur Bilirubin Confirm Negative Urine Urobilinogen 0.2 Ur Leukocyte Esterase Negative Urine RBC 0-1/hpf Urine WBC 5-10/hpf H Ur Squamous Epith Cells 0-1 /hpf Amorphous Sediment 2+ Urine Bacteria None seen Urine Mucus 1+ H Ur Culture Indicated? Specimen cultured [facility] Medical History (Updated 04/05/21 @ 11:34 by Roni Samuels MD) Diabetes mellitus type II, non insulin dependent HTN (hypertension) Hypercholesterolemia Surgical History History of bladder surgery History of cholecystectomy History of repair of hiatal hernia Status post hysterectomy Family History Sister Cancer Brother Cancer Sister Cancer Mother Cancer Hypertension Social History marital status: unmarried,living together household members: significant other Smoking Status: Never smoker alcohol intake: never Assessment & Plan Assessment and plan (1) Postoperative examination: Status: Acute Plan Stop Ativan and start IM Zyprexa for agitation Time Spent With Patient Critical Care time: I spent a total of [] minutes of critical care time on this patient's care today; this time is exclusive of procedural time. Quality VTE Deep Vein Thrombosis/Pulmonary Embolism Present on Admission: No
[2021-04-08] MEDS: OLANZapine 10 MG VIAL 5 MG IM (16:01)
[2021-04-08] MEDS: HALOPERIDOL 5 MG/ML VIAL 2 MG IV (20:04)
[2021-04-08] MEDS: QUETIAPINE 100 MG TABLET 12.5 MG PO (20:25)
[2021-04-08] MEDS: LACTATED RINGERS 1,000 ML 150 ML IV (23:45)
[2021-04-09] VITALS (18 sets, daily range): BP systolic 125–191; BP diastolic 56–100; PULSE 91–148; RESP 16–20; TEMP 36.3–37.2; O2SAT 1–99
[2021-04-09] MEDS: METOCLOPRAMIDE 10 MG/2 ML INJ 5 MG IV ×2 (00:41→08:38)
[2021-04-09] MEDS: HYDROMORPHONE 0.5 MG INJ IV ×4 (01:00→15:46)
[2021-04-09] MEDS: LACTATED RINGERS 1,000 ML 150 ML IV (03:18)
[2021-04-09] MEDS: ONDANSETRON 4 MG/2 ML INJ IV ×3 (04:47→21:02)
--- NOTE | 2021-04-09 08:40 | P.PN_ITS ---
Subjective Subjective Date Patient Seen: 04/09/21 Time Patient Seen: 08:40 Interval history: Patient much more alert today. Complaining of nausea. Minimal pain. would like to get up. No other changes. No cough. No shortness of breath. Output has been pretty good over the last 12 hours. Exam Vital Signs (past 8 hours): - 04/09/21 01:11 04/09/21 03:56 Temperature 98.0 F Pulse Rate 97 H 96 H Respiratory Rate 16 Blood Pressure 137/56 L 156/73 H Pulse Oximetry 97 Oxygen Delivery Method Nasal Cannula Oxygen Flow Rate 2 Narrative Exam Narrative: Alert female much less fatigued in appearance in no acute distress Lungs are clear. Heart regular rate and rhythm. Abdomen is soft positive bowel sounds mildly distended Minimal tenderness. Patient is alert and oriented today.. Objective Labs Result Diagrams: 04/08/21 10:54 04/08/21 10:54 Labs: Laboratory Results - last 24 hr 04/08/21 04/08/21 04/08/21 10:54 10:54 14:00 WBC 21.1 H RBC 3.44 L Hgb 10.4 L Hct 31.8 L MCV 92.3 MCH 30.1 MCHC 32.6 RDW 13.1 Plt Count 362 Neut % (Auto) 42.0 L Lymph % (Auto) 51.6 H [place] % (Auto) 5.2 Eos % (Auto) 0.7 L Baso % (Auto) 0.5 Neut # (Auto) 8900 H Lymph # (Auto) 58966 H [place] # (Auto) 1100 H Eos # (Auto) 100 Baso # (Auto) 100 Sodium 138 Potassium 3.6 Chloride 105 Carbon Dioxide 27 BUN 19 H Creatinine 0.67 Estimated GFR > 60.0 BUN/Creatinine Ratio 28.4 H Glucose 145 H Calcium 8.6 Total Bilirubin 0.6 AST 31 ALT 14 Alkaline Phosphatase 43 Total Protein 6.1 L Albumin 3.4 L Globulin 2.7 Albumin/Globulin Ratio 1.3 Urine Color Yellow Urine Appearance Clear Urine pH 5.5 Ur Specific [place] 1.010 Urine Protein 1+ H Urine Glucose (UA) Negative Urine Ketones 1+ H Urine Occult Blood Trace-lysed Urine Nitrate Negative Urine Bilirubin 1+ H Ur Bilirubin Confirm Negative Urine Urobilinogen 0.2 Ur Leukocyte Esterase Negative Urine RBC 0-1/hpf Urine WBC 5-10/hpf H Ur Squamous Epith Cells 0-1 /hpf Amorphous Sediment 2+ Urine Bacteria None seen Urine Mucus 1+ H Ur Culture Indicated? Specimen cultured [facility] Medical History (Updated 04/05/21 @ 11:34 by Roni Samuels MD) Diabetes mellitus type II, non insulin dependent HTN (hypertension) Hypercholesterolemia Surgical History History of bladder surgery History of cholecystectomy History of repair of hiatal hernia Status post hysterectomy Family History Sister Cancer Brother Cancer Sister Cancer Mother Cancer Hypertension Social History marital status: unmarried,living together household members: significant other Smoking Status: Never smoker alcohol intake: never Assessment & Plan Assessment & Plan narrative: Metabolic encephalopathy. Improved today. Did respond to Zyprexa yesterday. I think this was a combination of hypoxia from not breathing deeply and urine retention and being in the hospital. She seems better today. Still possibility of infection will have to watch closely. Hopefully as we mobilized should be doing better. Get her up and moving and will improve her lung function. Will see how things go. Elevated white count. Still mildly elevated. From baseline. No fevers. No evidence of abnormality on chest x-ray urines negative abdomen seems benign. At this point will continue to follow recheck white count tomorrow and watch clinically. But clinically better today. Fluids electrolytes. Output is somewhat better. Need to take her more oral. Will see what the day does. I am going to decrease back to 125 cc an hour and follow. If she does not start taking p.o. better she may need to consider TPN. Will leave surgeon to discuss this. Hypertension. Control is better. Back on oral dose. May need to change medication to more aggressive therapy but right now she seems to be doing well. Will continue on her usual home medicines. Cecal volvulus status post colectomy. Partial. Doing well. Seems to be stabilizing. Will follow from here. Generalized weakness. Secondary to surgery. Will mobilize today. Hopefully that will help bowel function physical therapy consulted. Type 2 diabetes. Stable at this time. History of anemia. Stable. History of hiatal hernia seems to be doing well on and throat is all. Code status full. DVT prophylaxis on Lovenox. Disposition. Hopefully will get up mobilize today. Bowel function will improve. Still think she will be here 3 or 4 more days. But certainly trending in the right direction. Depending on response may need sniff. Time Spent With Patient Critical Care time: I spent a total of [] minutes of critical care time on this patient's care today; this time is exclusive of procedural time. Quality VTE Deep Vein Thrombosis/Pulmonary Embolism Present on Admission: No
[2021-04-09] MEDS: LOSARTAN 50 MG TABLET 100 MG PO (09:29)
[2021-04-09] MEDS: SODIUM CHLORIDE 0.9% FLUSH 10 ML IV ×2 (09:29→21:00)
[2021-04-09] MEDS: dilTIAZem CD 180 MG CAP 360 MG PO (09:29)
[2021-04-09] MEDS: ENOXAPARIN 40 MG/0.4 ML SYRINGE SUBCUT (09:29)
[2021-04-09] MEDS: LACTATED RINGERS 1,000 ML 125 ML IV ×2 (09:32→19:34)
--- NOTE | 2021-04-09 11:35 | PT.IIE ---
Current Diagnoses Volvulus (04/04/21) Encounter for follow-up examination after completed treatment for conditions other than malignant neoplasm (04/04/21) Surgery Performed Operation Date: 04/04/21 10:30 Actual Procedures p ILEOCECECTOMY, Lysis of Adhesions(Right) - Roni Samuels MD Medical History (Last Reviewed 04/04/21 @ 09:03 by Mauricio Pratt MD) Diabetes mellitus type II, non insulin dependent HTN (hypertension) Hypercholesterolemia Physical Therapy Inpatient Evaluation/Re-Eval M1 PT/OT-IP Prior Functional Status Start: 04/09/21 13:25 Freq: NEEDED Status: Active Protocol: Document 04/09/21 11:35 AB (Rec: 04/09/21 13:56 AB [email or web address]) Medical Review Prior Functional Status Medical History Reviewed Yes Communication with confusion and lethargic and needs constant cues to stay awake Mobility and Gait pt stated that she is independent with all mobilities and ambulation without AD Social History Household Members significant other,children Living Arrangements Apartment/Condo Number of Floors (Floors) One Floor Number of Stairs To Enter/Railing? no steps to enter Home Environment Standard Height Toilet,Walk in Shower Home Equipment Grab Bars In Shower Additional Social History Comment pt stated that she lives with her BF and son. Her BF will not be able to assist her due to his own medicall issues and her son goes to work and will not be able to assist her as well M2 PT-IP Current Condition Start: 04/09/21 13:25 Freq: NEEDED Status: Active Protocol: Document 04/09/21 11:35 AB (Rec: 04/09/21 13:56 AB [email or web address]) Physical Therapy Current Condition Current Condition Evaluation Date 04/09/21 Treatment Diagnosis s/p colectomy; difficulty in walking Onset Date 04/04/21 M3 PT-IP Subjective Start: 04/09/21 13:25 Freq: NEEDED Status: Active Protocol: Document 04/09/21 11:35 AB (Rec: 04/09/21 13:56 AB [email or web address]) Subjective Physical Therapy Visit Type Type Initial Evaluation Visit Start Time 11:35 Visit Stop Time 12:25 Total Visit Minutes 50 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 Physical Therapy Visit Comments Patient Comments pt is agreeable to do PT Therapy Pain Assessment Pain Present Pain Present Denied Pain M4 PT-IP Mobility and Gait Start: 04/09/21 13:25 Freq: NEEDED Status: Active Protocol: Document 04/09/21 11:35 AB (Rec: 04/09/21 13:56 AB [email or web address]) PT-Bed Mobility Assessment Rolling Type of Rolling Log Rolling Level of Assist Maximal Assistance Supine to Sit Supine to Sit Maximum Assistance Scooting Scooting to Edge of Bed Maximum Assistance PT-Transfer Assessment Sit to and From Stand Sit to and from Stand Maximum Assistance,1 Person Assistance,Use of Upper Extremities Equipment Transfer Assistive Device Gait Belt,Front Wheeled Walker Orthotic/Prosthetic Devices or Brace: No Transfers Transfer Destination Chair Transfer Technique Stand Step Pivot Transfer Ability Level of Assist Maximum Assistance,1 Person Assistance,Use of Upper Extremities Comments Mobility Comments pt agreeable to do PT but needs constant cues to keep eyes open. pt stated that she wanted to move. educated on abdominal precautions and log roll bed mobility. completed supine to sit HOB elevated log roll max A and max cues. required mod A for sitting on EOB. completed sit to stand max A and cues. sat back down as pt is closing her eyes during activity. educated pt on safety and to keep eyes open and pt understood. completed step transfer to chair max A and max cues using FWW. pt agreed to ambulate. completed sit to stand from chair max A and max cues, ambulated ~ 2 ft using FWW max A and max cues. pt with difficulty following instructions. sat back on chair. positioned on chair max A. call light and table placed within reach. informed nurse regarding pt's mobility and need for a chair alarm. Gait Assessment Gait Gait Assistance Required: Maximum Assistance Distance (Feet) 2 Able to Maintain Weight Bearing Status Yes During Gait Assistive Devices Assistive Device Gait Belt,Front Wheeled Walker Orthotic/Prosthetic Devices or Brace: No Gait Deviations General Gait Pattern Decreased Stride Length, Decreased Feet Clearance,Step- to Gait Factors Limiting Gait Function Factors Limiting Gait Function Decreased Activity Tolerance, Decreased Strength,Difficulty Following Directions,Limited Range of Motion,Poor Balance, Poor Safety Awareness, Respiratory Distress PT-Balance Assessment Sitting Balance and Reactions Static Sitting Balance Ability Fair Dynamic Sitting Balance Ability Fair Standing Balance and Reactions Static Standing Balance Ability Poor Dynamic Standing Balance Ability Poor Device Used FWW M5 PT-IP Objective Assessments Start: 04/09/21 13:25 Freq: NEEDED Status: Active Protocol: Document 04/09/21 11:35 AB (Rec: 04/09/21 13:56 AB [email or web address]) Orientation Orientation/Cognition Level of Alertness Lethargic Orientation Name Safety Awareness Decreased Safety Awareness Memory Description Short Term Impaired,Embedded Engineer Impaired Gross Range of Motion Lower Extremity ROM Assessment Within Functional Limits Strength Lower Extremity Strength Assessment Bilaterally Impaired Hip 3+/5 Knee 4-/5 Sensation Assessment Sensation Gross Sensation WNL Muscle Tone Muscle Tone WNL Yes M6 PT-IP Treatment Start: 04/09/21 13:25 Freq: NEEDED Status: Active Protocol: Document 04/09/21 11:35 AB (Rec: 04/09/21 13:56 AB [email or web address]) Physical Therapy Treatment Education Education Provided Precautions,Safety M7 PT-IP Assessment and Plan Start: 04/09/21 13:25 Freq: NEEDED Status: Active Protocol: Document 04/09/21 11:35 AB (Rec: 04/09/21 13:56 AB [email or web address]) PT Summary Assessment and Plan Potential Rehabilitation Potential Good Status of Condition at Evaluation Evolving Summary Impairments Pain,ROM,Strength,Balance, Coordination,Sensation,Tone, Cognition,Bed Mobility, Transfers,Gait,Activity Tolerance Assessment Summary pt requiring max A and max cues with all tasks. pt with confusion and also lethargic requiring constant cues to complete all tasks but pt willing to move and do PT. pt will need 24/ assist availability to safely go home and at this time will require SNF rehab to improve strength and independence. Goals Bed Mobility Goal Minimal Assistance Transfer Goal Minimal Assistance,Front Wheeled Walker Gait Goal Minimal Assistance,Front Wheel Walker Gait Distance 50 Other Goals improve bed mobility SBA, transfers SBA using FWW, ambulation SBA using FWW 100 ft Days to Meet Goals 10 Frequency of Treatment Frequency Of Treatment Once a Day Treatment Plan Physical Therapy Treatment Plan Bed Mobility Training,Transfer Training,Gait Training, Therapeutic Exercise,Balance Retraining,Post Op Education, Discharge Planning,Hot or Cold Pack,Neuromuscular Re-ed, Coordination Retraining,Manual Therapy Precautions Abdominal Surgery Precautions Log Roll,Lifting Restrictions, Gait Belt above Incisional Area Recommendations To Nursing Amount of Assist Needed 2 Person Assist Discharge Recommendations PT Discharge Recommendations SNF Rehab Transportation Needs at Discharge Wheelchair/Cabulance
--- NOTE | 2021-04-09 11:58 | PC.NURSE ---
Dr. li called d/t nausea unrelieved with
--- NOTE | 2021-04-09 12:26 | PC.NURSE ---
Dr. Isabel called d/t nausea unrelieved by ordered anti-emetics. Pt very fidgety in bed, c/o severe nausea, unrelieved by any activity or position change. Pt given dilaudid as ordered with some relief. Dr. Isabel to bedside, states that since pt is passing gas, she likely has an ileus and not an obstruction, he did not want any additional imaging at this time but did order a repeat CBC. Will continue to monitor.
[2021-04-09] MEDS: HALOPERIDOL 5 MG/ML VIAL 2 MG IV (13:25)
[2021-04-09 14:31] LABS: Add Manual Diff / Slide Review NO; Basophils Absolute Auto 100 /uL (0-100); Basophils Percent Auto 0.7 % (0-2); Eosinophils Absolute Auto 100 /uL (0-450); Eosinophils Percent Auto 0.8 % (2-4); Hematocrit 32.6 % (36-46); Hemoglobin 10.8 g/dL (12.0-16.0); Lymphocytes Absolute Auto 9000 /uL (1100-4500); Lymphocytes Percent Auto 49.4 % (25-40); Mean Corpuscular HGB Conc 33.2 % (30-36); Mean Corpuscular Hemoglobin 30.6 PG (26-34); Mean Corpuscular Volume 92.1 fL (80-100); Monocytes Absolute Auto 900 /uL (0-900); Monocytes Percent Auto 5.1 % (3-14); Neutrophils Absolute Auto 8000 /uL (1500-7000); Platelet Count 373 X10^3/uL (150-400); Red Blood Cell Count 3.54 X10^6/uL (4.0-5.2); Red Cell Distribution Width 12.9 % (11.6-14.8); White Blood Cell Count 18.2 X10^3/uL (4.5-11.0)
--- NOTE | 2021-04-09 15:07 | PM.PN.1 ---
Subjective Subjective Date Patient Seen: 04/09/21 Time Patient Seen: 15:07 Interval history: Agitation and delirium have improved with atypical antipsychotics. Passing some gas. Exam Vital Signs (past 8 hours): - 04/09/21 08:15 04/09/21 09:29 04/09/21 10:30 Temperature 98.1 F Pulse Rate 91 H 91 H Respiratory Rate 18 Blood Pressure 161/78 H 161/78 H Pulse Oximetry 98 1 L 04/09/21 11:50 Temperature 98.9 F Pulse Rate 103 H Respiratory Rate 18 Blood Pressure 183/88 H Pulse Oximetry 99 Oxygen Delivery Method Nasal Cannula Oxygen Flow Rate 1.5 Narrative Exam Narrative: Soft, nontender Objective Labs Result Diagrams: 04/09/21 14:24 04/08/21 10:54 Labs: Laboratory Results - last 24 hr 04/09/21 14:24 WBC 18.2 H RBC 3.54 L Hgb 10.8 L Hct 32.6 L MCV 92.1 MCH 30.6 MCHC 33.2 RDW 12.9 Plt Count 373 Neut % (Auto) 44.0 L Lymph % (Auto) 49.[address] [place] % (Auto) 5.1 Eos % (Auto) 0.8 L Baso % (Auto) 0.7 Neut # (Auto) 8000 H Lymph # (Auto) [address] [place] # (Auto) 900 Eos # (Auto) 100 Baso # (Auto) 100 PFSH Medical History (Updated 04/05/21 @ 11:34 by Roni Samuels MD) Diabetes mellitus type II, non insulin dependent HTN (hypertension) Hypercholesterolemia Surgical History History of bladder surgery History of cholecystectomy History of repair of hiatal hernia Status post hysterectomy Family History Sister Cancer Brother Cancer Sister Cancer Mother Cancer Hypertension Social History marital status: unmarried,living together household members: significant other and children Smoking Status: Never smoker alcohol intake: never Assessment & Plan Assessment and plan (1) Postoperative examination: Status: Acute Plan Improved after atypical antipsychotics Will advance diet to full liquids Time Spent With Patient Critical Care time: I spent a total of [] minutes of critical care time on this patient's care today; this time is exclusive of procedural time. Quality VTE Deep Vein Thrombosis/Pulmonary Embolism Present on Admission: No
[2021-04-09] MEDS: HYDRALAZINE 20 MG/ML VIAL 10 MG IV ×2 (15:11→20:18)
[2021-04-09] MEDS: INSULIN LISPRO 100 UNIT/ML 3ML VIAL SUBCUT (18:41)
[2021-04-09] MEDS: METOPROLOL IR 25 MG TABLET PO (20:00)
[2021-04-09 20:48] LABS: NT-proBNP (BNP-Adult 18+) 2900 pg/mL (<450)
[2021-04-09] MEDS: dilTIAZem 5 MG/ML SDV 25 MG IV (21:32)
--- NOTE | 2021-04-09 21:51 | PC.NURSE ---
Addendum entered by Олег Barbosa R.N. 04/10/21 02:14: Labetolol 10mg IV PRN and 20mg Furosemide IV ordered. Administered and neither HR nor BP changed after 45 minutes. Provider contacted and ordered to transfer patient to ICU and start a Diltiazem drip. During patient transfer, HR sustained at 85-95. Transfer cancelled. Continuing to monitor HR with suspicion. Patient resting comfortably. Original Note: Alerted by coordinator that patient was slipping into V-tach. Went into room, patient was alert, complaining of nausea, mild chest pain, and dizziness. HR ranging from 135-160, BP 168/100. Provider notified and ordered EKG, BNP draw, metoprolol 25mg PO IR one time. EKG showed A. fib with tachycardia. Patient chief's complaint continued to be nausea. Diltiazem 10mg IV and Hydralazine 10mg IV given. NG tube placement recommended by this RN, provider agreed. 850mL out immediately and contents continue to suction at low int. Patient stated immediate relief and immediate decrease in restlessness. HR now 90-110, BP 89/56. Provider aware. LR running @ 125. Patient resting comfortably.
--- NOTE | 2021-04-09 22:29 | PM.PN.1 ---
Subjective Subjective Date Patient Seen: 04/09/21 Time Patient Seen: 20:20 Interval history: Called by nursing for afib with RVR. Ordered PO Metorpolol tartrate and came to bedside at 2030pm at which point not much improvement. Pt received further 10 IV of diltiazem and prn hydralazine to not much effect, then NG tube was placed with impressive output 1100mL and improved comfort. A further 10mg of IV labetalol was administered and pt was able to get comfortably to sleep in sinus rhythm in the 90s by 2225pm at which time I left bedside. I suspect that abdominal discomfort related to her hiatal hernia was an inciting factor here and advise scant portions for the short term future. Exam Vital Signs (past 8 hours): - 04/09/21 15:11 04/09/21 15:41 04/09/21 18:50 Temperature 97.9 F Pulse Rate 102 H 106 H 104 H Respiratory Rate 18 Blood Pressure 191/89 H 183/85 H 166/81 H Pulse Oximetry 98 04/09/21 19:35 04/09/21 20:18 04/09/21 20:48 Temperature 97.8 F Pulse Rate 111 H 140 H 141 H Respiratory Rate 20 Blood Pressure 181/89 H 168/100 H 138/76 Pulse Oximetry 99 04/09/21 21:32 Temperature Pulse Rate 148 H Respiratory Rate Blood Pressure 168/100 H Pulse Oximetry Oxygen Delivery Method Nasal Cannula Oxygen Flow Rate 2 Objective Labs Result Diagrams: 04/09/21 14:24 04/08/21 10:54 Labs: Laboratory Results - last 24 hr 04/09/21 04/09/21 14:24 20:18 WBC 18.2 H RBC 3.54 L Hgb 10.8 L Hct 32.6 L MCV 92.1 MCH 30.6 MCHC 33.2 RDW 12.9 Plt Count 373 Neut % (Auto) 44.0 L Lymph % (Auto) 49.4 H [place] % (Auto) 5.1 Eos % (Auto) 0.8 L Baso % (Auto) 0.7 Neut # (Auto) 8000 H Lymph # (Auto) 9000 H [place] # (Auto) 900 Eos # (Auto) 100 Baso # (Auto) 100 NT-Pro-B Natriuret Pep 2900 H [facility] Medical History (Updated 01/23/22 @ 11:34 by Roni Samuels MD) Diabetes mellitus type II, non insulin dependent HTN (hypertension) Hypercholesterolemia Surgical History History of bladder surgery History of cholecystectomy History of repair of hiatal hernia Status post hysterectomy Family History Sister Cancer Brother Cancer Sister Cancer Mother Cancer Hypertension Social History marital status: unmarried,living together household members: significant other and children Smoking Status: Never smoker alcohol intake: never Assessment & Plan Time Spent With Patient Critical Care time: I spent a total of [] minutes of critical care time on this patient's care today; this time is exclusive of procedural time. Quality VTE Deep Vein Thrombosis/Pulmonary Embolism Present on Admission: No
[2021-04-09] MEDS: FUROSEMIDE 20 MG/2 ML VIAL IV (23:32)
[2021-04-10] VITALS (12 sets, daily range): BP systolic 138–191; BP diastolic 62–94; PULSE 70–148; RESP 16–18; TEMP 36.9–37.2; O2SAT 93–97
[2021-04-10] MEDS: LABETALOL 20 MG/4 ML SYRINGE 10 MG IV ×2 (00:25→19:59)
[2021-04-10] MEDS: QUETIAPINE 100 MG TABLET 12.5 MG PO ×2 (00:49→21:38)
[2021-04-10] MEDS: HYDROMORPHONE 0.5 MG INJ IV (01:16)
[2021-04-10 05:29] LABS: Hematocrit 29.1 % (36-46); Hemoglobin 9.6 g/dL (12.0-16.0); Mean Corpuscular HGB Conc 32.9 % (30-36); Mean Corpuscular Hemoglobin 30.1 PG (26-34); Mean Corpuscular Volume 91.6 fL (80-100); Platelet Count 336 X10^3/uL (150-400); Red Blood Cell Count 3.18 X10^6/uL (4.0-5.2); Red Cell Distribution Width 12.9 % (11.6-14.8); White Blood Cell Count 19.5 X10^3/uL (4.5-11.0)
[2021-04-10 05:30] LABS: Add Manual Diff / Slide Review YES
[2021-04-10 05:35] LABS: BUN Creatinine Ratio 22.7 (6-22); Blood Urea Nitrogen 17 mg/dL (7-17); Calcium 7.9 mg/dL (8.4-10.2); Carbon Dioxide 34 mmol/L (22-32); Chloride 104 mmol/L (98-107); Estimated Glomerular Filt Rate > 60.0 mL/min (>60); Glucose 114 mg/dL (80-110); HEMOLYSIS < 15 (0-50); Sodium 136 mmol/L (137-145)
[2021-04-10 06:52] LABS: Neutrophils Absolute Manual 11310 /uL (3000-5900); Total Cells Counted 100
[2021-04-10 06:53] LABS: Smudge Cells 2+
[2021-04-10] MEDS: LOSARTAN 50 MG TABLET 100 MG PO (09:19)
[2021-04-10] MEDS: dilTIAZem CD 180 MG CAP 360 MG PO (09:19)
[2021-04-10] MEDS: ENOXAPARIN 40 MG/0.4 ML SYRINGE SUBCUT (09:19)
[2021-04-10] MEDS: SODIUM CHLORIDE 0.9% FLUSH 10 ML IV ×2 (09:20→21:05)
--- NOTE | 2021-04-10 09:22 | P.PN_ITS ---
Subjective Subjective Date Patient Seen: 04/10/21 Time Patient Seen: 08:45 Interval history: CC: volvulus, afib with RVR Can I get this tube out of my nose? Pt resting comfortably this morning in sinus rhythm good rate. OK to remove NGT and provide small portions of clear liquids. resume fluids at 84mL for now. Exam Vital Signs (past 8 hours): - 04/10/21 04:06 04/10/21 08:15 04/10/21 08:18 Temperature 98.9 F 98.7 F Pulse Rate 84 96 H Respiratory Rate 16 18 Blood Pressure 140/67 163/73 H Pulse Oximetry 93 97 97 04/10/21 09:19 Temperature Pulse Rate 97 H Respiratory Rate Blood Pressure 163/73 H Pulse Oximetry Oxygen Delivery Method Room Air Oxygen Flow Rate 0 Narrative Exam Narrative: alert elder lying in bed Const General: cooperative and frail appearing Resp Auscultation: clear to auscultation bilaterally Cardio Other: regular rate, S1/S2 GI Other: under dressing, i can hear some light bowel sounds Neuro General: patient alert, patient awake, moves all extremities and CN's II-XI intact bilaterally Psych Other: interactive and conversational looks much more comfortable and stable today Objective Labs Result Diagrams: 04/10/21 05:01 04/10/21 05:01 Labs: Laboratory Results - last 24 hr 04/09/21 04/09/21 04/10/21 14:24 20:18 05:01 WBC 18.2 H 19.5 H RBC 3.54 L 3.18 L Hgb 10.8 L 9.6 L Hct 32.6 L 29.1 L MCV 92.1 91.6 MCH 30.6 30.1 MCHC 33.2 32.9 RDW 12.9 12.9 Plt Count 373 336 Neut % (Auto) 44.0 L Not Reportable Lymph % (Auto) 49.4 H Not Reportable [place] % (Auto) 5.1 Not Reportable Eos % (Auto) 0.8 L Not Reportable Baso % (Auto) 0.7 Not Reportable Neut # (Auto) 8000 H Lymph # (Auto) 9000 H Not Reportable [place] # (Auto) 900 Not Reportable Eos # (Auto) 100 Baso # (Auto) 100 Not Reportable Total Counted 100 Seg Neutrophils % 57.0 Band Neutrophils % 1.0 L Lymphocytes % (Manual) 31.0 Atypical Lymphs % 3.0 H Monocytes % (Manual) 4.0 Eosinophils % (Manual) 3.0 Metamyelocytes % 1.0 H Neutrophils # (Manual) 52790 H Smudge Cells 2+ H RBC Morphology See below Sodium Potassium Chloride Carbon Dioxide BUN Creatinine Estimated GFR BUN/Creatinine Ratio Glucose Calcium NT-Pro-B Natriuret Pep 2900 H 04/10/21 05:01 WBC RBC Hgb Hct MCV MCH MCHC RDW Plt Count Neut % (Auto) Lymph % (Auto) [place] % (Auto) Eos % (Auto) Baso % (Auto) Neut # (Auto) Lymph # (Auto) [place] # (Auto) Eos # (Auto) Baso # (Auto) Total Counted Seg Neutrophils % Band Neutrophils % Lymphocytes % (Manual) Atypical Lymphs % Monocytes % (Manual) Eosinophils % (Manual) Metamyelocytes % Neutrophils # (Manual) Smudge Cells RBC Morphology Sodium 136 L Potassium 3.0 L Chloride 104 Carbon Dioxide 34 H BUN 17 Creatinine 0.75 Estimated GFR > 60.0 BUN/Creatinine Ratio 22.7 H Glucose 114 H Calcium 7.9 L NT-Pro-B Natriuret Pep [facility] Medical History (Updated 04/05/21 @ 11:34 by Roni Samuels MD) Diabetes mellitus type II, non insulin dependent HTN (hypertension) Hypercholesterolemia Surgical History History of bladder surgery History of cholecystectomy History of repair of hiatal hernia Status post hysterectomy Family History Sister Cancer Brother Cancer Sister Cancer Mother Cancer Hypertension Social History marital status: unmarried,living together household members: significant other and children Smoking Status: Never smoker alcohol intake: never Assessment & Plan Assessment & Plan narrative: #Cecal volvulus status post colectomy Partial.? Doing well.? Seems to be stabilizing.? POD 6 with flatus. #Metabolic encephalopathy Improving continue meds and mobilize as tolerated #Elevated white count? Elevation persists in WBCs I do note lowish neutrophils possible CLL picture? #Electrolytes.? I see consideration has been made for TPN which may be necessary if she is unable to resume enteral feeding successfully continue fluids at 84 with small portions wait for surgical input #Hypertension Control is better.? Back on oral dose.? May need to change medication to more aggressive therapy but right now she seems to be doing well.? Will continue on her usual home medicines. #Generalized weakness Likely 2/2 surgery continue to mobilize as tolerated #Type 2 diabetes Stable #History of anemia Stable.? #History of hiatal hernia may be contributing factor to issues last overnight stocker Code status full.? DVT prophylaxis on Lovenox.? Time Spent With Patient Critical Care time: I spent a total of [] minutes of critical care time on this patient's care today; this time is exclusive of procedural time. Quality VTE Deep Vein Thrombosis/Pulmonary Embolism Present on Admission: No
[2021-04-10] MEDS: SODIUM CHLORIDE 0.9% 1,000 ML 84 ML IV (09:45)
[2021-04-10] MEDS: POTASSIUM CHLORIDE 20 MEQ TAB 40 MEQ PO (10:00)
--- NOTE | 2021-04-10 11:00 | PT.IPTN ---
Current Diagnoses Volvulus (04/04/21) Encounter for follow-up examination after completed treatment for conditions other than malignant neoplasm (04/04/21) Surgery Performed Operation Date: 04/04/21 10:30 Actual Procedures p ILEOCECECTOMY, Lysis of Adhesions(Right) - Roni Samuels MD Physical Therapy Treatment Note M2 PT-IP Current Condition Start: 04/09/21 13:25 Freq: NEEDED Status: Active Protocol: Document 04/09/21 11:35 AB (Rec: 04/09/21 13:56 AB [id number]) Physical Therapy Current Condition Current Condition Evaluation Date 04/09/21 Treatment Diagnosis s/p colectomy; difficulty in walking Onset Date 04/04/21 M3 PT-IP Subjective Start: 04/09/21 13:25 Freq: NEEDED Status: Active Protocol: Document 04/10/21 10:29 KS (Rec: 04/10/21 12:23 KS [id number]) Subjective Physical Therapy Visit Type Type Treatment Note Visit Start Time 10:29 Visit Stop Time 11:00 Total Visit Minutes 31 Number of BATH DESIGN SALES CONSULTANT Visits 1 Physical Therapy Visit Comments Patient Comments pt is agreeable to do PT M4 PT-IP Mobility and Gait Start: 04/09/21 13:25 Freq: NEEDED Status: Active Protocol: Document 04/10/21 10:29 KS (Rec: 04/10/21 12:23 KS [id number]) PT-Bed Mobility Assessment Rolling Type of Rolling Log Rolling Level of Assist Moderate Assistance,1 Person Assistance Supine to Sit Supine to Sit Minimal Assistance,1 Person Assistance Scooting Scooting to Edge of Bed Minimal Assistance PT-Transfer Assessment Sit to and From Stand Sit to and from Stand Minimal Assistance,1 Person Assistance,Use of Upper Extremities Equipment Transfer Assistive Device Gait Belt,Front Wheeled Walker Orthotic/Prosthetic Devices or Brace: No Transfers Transfer Destination Chair Transfer Technique Pt ambulated w/ FWW Transfer Ability Level of Assist Minimal Assistance,Moderate Assistance,1 Person Assistance ,Use of Upper Extremities Comments Mobility Comments Pt in bed upon arrival and requesting to sit in chair. Mod A and max cues for logroll and Min A for sup<>sit w/ HOB slightly elevated. Pt able to scoot EOB Min A but with max cues and increased time to perform. Pt sit<>Stand from bed Mod A and ambulated ~10 ft from bed to chair. Mod A for slow descent. Pt then requested to use commode and sit<>stand w/ FWW Min A and stand step pivot to BSC Min A max cues. Min A max cues for sit<>stand and stand step pivot back to chair. CARE TRANSITION MANAGER arrived and assisted w/ scooting pt higher in chair, Max A x2. Pt reported feeling of fatigue. Left in chair w/ alarm on and all needs in reach. Gait Assessment Gait Gait Assistance Required: Minimum Assistance,1 Person Assist Distance (Feet) 12 Able to Maintain Weight Bearing Status Yes During Gait Assistive Devices Assistive Device Gait Belt,Front Wheeled Walker Orthotic/Prosthetic Devices or Brace: No Gait Deviations General Gait Pattern Decreased Stride Length, Decreased Feet Clearance,Step- to Gait Factors Limiting Gait Function Factors Limiting Gait Function Decreased Activity Tolerance, Decreased Strength,Difficulty Following Directions,Limited Range of Motion,Poor Balance, Poor Safety Awareness, Respiratory Distress Comments Gait Comments Pt ambulated `12 ft total w/ FWW and Min A w/ Mod cues for FWW management and to keep her eyes open. Pt is high fall risk due to poor safety awareness and poor use of FWW. PT-Balance Assessment Sitting Balance and Reactions Static Sitting Balance Ability Fair Dynamic Sitting Balance Ability Fair Standing Balance and Reactions Static Standing Balance Ability Poor Dynamic Standing Balance Ability Poor Device Used FWW M5 PT-IP Objective Assessments Start: 04/09/21 13:25 Freq: NEEDED Status: Active Protocol: Document 04/09/21 11:35 AB (Rec: 04/09/21 13:56 AB [id number]) Orientation Orientation/Cognition Level of Alertness Lethargic Orientation Name Safety Awareness Decreased Safety Awareness Memory Description Short Term Impaired,Snf Impaired Gross Range of Motion Lower Extremity ROM Assessment Within Functional Limits Strength Lower Extremity Strength Assessment Bilaterally Impaired Hip 3+/5 Knee 4-/5 Sensation Assessment Sensation Gross Sensation WNL Muscle Tone Muscle Tone WNL Yes M6 PT-IP Treatment Start: 04/09/21 13:25 Freq: NEEDED Status: Active Protocol: Document 04/10/21 10:29 KS (Rec: 04/10/21 12:23 KS [id number]) Physical Therapy Treatment Education Education Provided Precautions,Safety M7 PT-IP Assessment and Plan Start: 04/09/21 13:25 Freq: NEEDED Status: Active Protocol: Document 04/10/21 10:29 KS (Rec: 04/10/21 12:23 KS [id number]) PT Summary Assessment and Plan Potential Rehabilitation Potential Good Status of Condition at Evaluation Evolving Summary Impairments Pain,ROM,Strength,Balance, Coordination,Sensation,Tone, Cognition,Bed Mobility, Transfers,Gait,Activity Tolerance Assessment Summary Pt showed some improvement w/ mobility today requiring Mod A for logroll, Min A for sup<> sit and Min A for sit<>stand, however she requires Mod to Max cues w/ all tasks as well as cues for proper FWW management and safety (keeping her eyes open). She is unsafe and limited by weakness and will need SNF to improve strength and functional mobility independence but at very least will need / care . Goals Bed Mobility Goal Minimal Assistance Transfer Goal Minimal Assistance,Front Wheeled Walker Gait Goal Minimal Assistance,Front Wheel Walker Gait Distance 50 Other Goals improve bed mobility SBA, transfers SBA using FWW, ambulation SBA using FWW 100 ft Days to Meet Goals 10 Frequency of Treatment Frequency Of Treatment Once a Day Treatment Plan Physical Therapy Treatment Plan Bed Mobility Training,Transfer Training,Gait Training, Therapeutic Exercise,Balance Retraining,Post Op Education, Discharge Planning,Hot or Cold Pack,Neuromuscular Re-ed, Coordination Retraining,Manual Therapy Precautions Abdominal Surgery Precautions Log Roll,Lifting Restrictions, Gait Belt above Incisional Area Recommendations To Nursing Amount of Assist Needed 2 Person Assist Discharge Recommendations PT Discharge Recommendations SNF Rehab Transportation Needs at Discharge Wheelchair/Cabulance
--- NOTE | 2021-04-10 11:06 | PM.PNPO.1 ---
Subjective Subjective Date Patient Seen: 04/10/21 Time Patient Seen: 11:06 Interval history: POD 6 R colectomy for volvulus. +flatus NGT removed this AM. No BM. Mentation improved. Exam Vital Signs (past 8 hours): - 04/10/21 04:06 04/10/21 08:15 04/10/21 08:18 Temperature 98.9 F 98.7 F Pulse Rate 84 96 H Respiratory Rate 16 18 Blood Pressure 140/67 163/73 H Pulse Oximetry 93 97 97 04/10/21 09:19 Temperature Pulse Rate 97 H Respiratory Rate Blood Pressure 163/73 H Pulse Oximetry Oxygen Delivery Method Room Air Oxygen Flow Rate 0 Narrative Exam Narrative: Gen-Elderly woman alert and oriented Abdomen-Soft mild distention, appropriately tender to palpation. Objective Labs Result Diagrams: 04/10/21 05:01 04/10/21 05:01 Labs: Laboratory Results - last 24 hr 04/09/21 04/09/21 04/10/21 14:24 20:18 05:01 WBC 18.2 H 19.5 H RBC 3.54 L 3.18 L Hgb 10.8 L 9.6 L Hct 32.6 L 29.1 L MCV 92.1 91.6 MCH 30.6 30.1 MCHC 33.2 32.9 RDW 12.9 12.9 Plt Count 373 336 Neut % (Auto) 44.0 L Not Reportable Lymph % (Auto) 49.4 H Not Reportable [place] % (Auto) 5.1 Not Reportable Eos % (Auto) 0.8 L Not Reportable Baso % (Auto) 0.7 Not Reportable Neut # (Auto) 8000 H Lymph # (Auto) 9000 H Not Reportable [place] # (Auto) 900 Not Reportable Eos # (Auto) 100 Baso # (Auto) 100 Not Reportable Total Counted 100 Seg Neutrophils % 57.0 Band Neutrophils % 1.0 L Lymphocytes % (Manual) 31.0 Atypical Lymphs % 3.0 H Monocytes % (Manual) 4.0 Eosinophils % (Manual) 3.0 Metamyelocytes % 1.0 H Neutrophils # (Manual) 12927 H Smudge Cells 2+ H RBC Morphology See below Sodium Potassium Chloride Carbon Dioxide BUN Creatinine Estimated GFR BUN/Creatinine Ratio Glucose Calcium NT-Pro-B Natriuret Pep 2900 H 04/10/21 05:01 WBC RBC Hgb Hct MCV MCH MCHC RDW Plt Count Neut % (Auto) Lymph % (Auto) [place] % (Auto) Eos % (Auto) Baso % (Auto) Neut # (Auto) Lymph # (Auto) [place] # (Auto) Eos # (Auto) Baso # (Auto) Total Counted Seg Neutrophils % Band Neutrophils % Lymphocytes % (Manual) Atypical Lymphs % Monocytes % (Manual) Eosinophils % (Manual) Metamyelocytes % Neutrophils # (Manual) Smudge Cells RBC Morphology Sodium 136 L Potassium 3.0 L Chloride 104 Carbon Dioxide 34 H BUN 17 Creatinine 0.75 Estimated GFR > 60.0 BUN/Creatinine Ratio 22.7 H Glucose 114 H Calcium 7.9 L NT-Pro-B Natriuret Pep PFSH Medical History (Updated 04/05/21 @ 11:34 by Roni Samuels MD) Diabetes mellitus type II, non insulin dependent HTN (hypertension) Hypercholesterolemia Surgical History History of bladder surgery History of cholecystectomy History of repair of hiatal hernia Status post hysterectomy Family History Sister Cancer Brother Cancer Sister Cancer Mother Cancer Hypertension Social History marital status: unmarried,living together household members: significant other and children Smoking Status: Never smoker alcohol intake: never Assessment & Plan Post-op Postoperative Procedures: Procedures Operation Date: 04/04/21 10:30 Actual Procedure Side Surgeon p ILEOCECECTOMY, Lysis of Adhesions Right Roni Samuels MD Postoperative status narrative: 85 F POD 6 sp R colectomy for volvulus. Improving. Ileus resolved. -Advance diet as tolerated -Out of bed ambulate PT/OT -SCDs and pLovenox -Leukocytosis noted has improved without antibitoics baseline is elevated secondary to CLL Quality VTE Deep Vein Thrombosis/Pulmonary Embolism Present on Admission: No
--- NOTE | 2021-04-10 15:45 | CM.DPNOTE ---
Addendum entered by NATE Arce 04/11/21 14:07: ADD: [facility] can accept Tuesday. Patient needs to be pooping an peeing in order to be considered. Needs updated COVID (within 24 hrs) and verification of C19 vaccination is required. JW Original Note: DCP Note [facility] reviewing this referral for likely SNF need upon DC JW
[2021-04-10] MEDS: HYDROMORPHONE 1 MG INJ 0.5 MG IV (17:05)
[2021-04-10] MEDS: HYDRALAZINE 20 MG/ML VIAL 10 MG IV (19:41)
[2021-04-11] VITALS (16 sets, daily range): BP systolic 124–184; BP diastolic 64–98; PULSE 88–104; RESP 17–19; TEMP 35.5–36.8; O2SAT 94–100
[2021-04-11] MEDS: LABETALOL 20 MG/4 ML SYRINGE 10 MG IV (00:36)
[2021-04-11] MEDS: SODIUM CHLORIDE 0.9% 1,000 ML 84 ML IV (00:42)
[2021-04-11] MEDS: HYDRALAZINE 20 MG/ML VIAL 10 MG IV (01:34)
[2021-04-11] MEDS: HALOPERIDOL 5 MG/ML VIAL 2 MG IV (02:18)
[2021-04-11 04:46] LABS: HEMOLYSIS < 15 (0-50); Potassium 3.4 mmol/L (3.4-5.1)
[2021-04-11] MEDS: LOSARTAN 50 MG TABLET 100 MG PO (09:08)
[2021-04-11] MEDS: dilTIAZem CD 180 MG CAP 360 MG PO (09:08)
--- NOTE | 2021-04-11 09:24 | PT.IPTN ---
Current Diagnoses Volvulus (04/04/21) Encounter for follow-up examination after completed treatment for conditions other than malignant neoplasm (04/04/21) Surgery Performed Operation Date: 04/04/21 10:30 Actual Procedures p ILEOCECECTOMY, Lysis of Adhesions(Right) - Roni Samuels MD Physical Therapy Treatment Note M2 PT-IP Current Condition Start: 04/09/21 13:25 Freq: NEEDED Status: Active Protocol: Document 04/09/21 11:35 AB (Rec: 04/09/21 13:56 AB [id number]) Physical Therapy Current Condition Current Condition Evaluation Date 04/09/21 Treatment Diagnosis s/p colectomy; difficulty in walking Onset Date 04/04/21 M3 PT-IP Subjective Start: 04/09/21 13:25 Freq: NEEDED Status: Active Protocol: Document 04/11/21 09:05 KS (Rec: 04/11/21 10:31 KS [id number]) Subjective Physical Therapy Visit Type Type Treatment Note Visit Start Time 09:05 Visit Stop Time 09:24 Total Visit Minutes 19 Number of IT PORTFOLIO MANAGER Visits 2 Physical Therapy Visit Comments Patient Comments pt is agreeable to do PT M4 PT-IP Mobility and Gait Start: 04/09/21 13:25 Freq: NEEDED Status: Active Protocol: Document 04/11/21 09:05 KS (Rec: 04/11/21 10:31 KS [id number]) PT-Bed Mobility Assessment Scooting Scooting to Edge of Bed Minimal Assistance PT-Transfer Assessment Sit to and From Stand Sit to and from Stand Moderate Assistance,1 Person Assistance,Use of Upper Extremities Equipment Transfer Assistive Device Gait Belt,Front Wheeled Walker Orthotic/Prosthetic Devices or Brace: No Transfers Transfer Destination Chair Transfer Technique Pt ambulated w/ FWW Transfer Ability Level of Assist Minimal Assistance,Moderate Assistance,1 Person Assistance ,Use of Upper Extremities Comments Mobility Comments Pt in chair upon arrival from therapy and agreeable to try ambulation. Mod A and max cues for hand placement and sequencing for sit<>stand w/ FWW. Pt needs frequent cues to keep her yes upon to which she replied I know, I keep wanting to fall asleep as she is standing up. She was able to complete [address] before requesting to rest. She took 1 min seated rest break and then sit<.stand Mod A w/ cues and took 3 steps forward and back and reported fatigue and wanting to sleep, but was able to perform 1x10 bilateral seatd knee extension and ankle pumps. Pt Max A x2 for scooting up in chair and left in chair w/ all needs in reach . Gait Assessment Gait Gait Assistance Required: Minimum Assistance,1 Person Assist Distance (Feet) 5 Able to Maintain Weight Bearing Status Yes During Gait Assistive Devices Assistive Device Gait Belt,Front Wheeled Walker Orthotic/Prosthetic Devices or Brace: No Gait Deviations General Gait Pattern Decreased Stride Length, Decreased Feet Clearance,Step- to Gait Factors Limiting Gait Function Factors Limiting Gait Function Decreased Activity Tolerance, Decreased Strength,Difficulty Following Directions,Limited Range of Motion,Poor Balance, Poor Safety Awareness, Respiratory Distress Comments Gait Comments Please refer to mobility section for details. Only 3 steps fwd/bwd d/t fatigue. PT-Balance Assessment Sitting Balance and Reactions Static Sitting Balance Ability Fair Dynamic Sitting Balance Ability Fair Standing Balance and Reactions Static Standing Balance Ability Poor Dynamic Standing Balance Ability Poor Device Used FWW M5 PT-IP Objective Assessments Start: 04/09/21 13:25 Freq: NEEDED Status: Active Protocol: Document 04/09/21 11:35 AB (Rec: 04/09/21 13:56 AB [id number]) Orientation Orientation/Cognition Level of Alertness Lethargic Orientation Name Safety Awareness Decreased Safety Awareness Memory Description Short Term Impaired,Fdc Impaired Gross Range of Motion Lower Extremity ROM Assessment Within Functional Limits Strength Lower Extremity Strength Assessment Bilaterally Impaired Hip 3+/5 Knee 4-/5 Sensation Assessment Sensation Gross Sensation WNL Muscle Tone Muscle Tone WNL Yes M6 PT-IP Treatment Start: 04/09/21 13:25 Freq: NEEDED Status: Active Protocol: Document 04/11/21 09:05 ND (Rec: 04/11/21 10:31 ND [id number]) Physical Therapy Treatment Education Education Provided Precautions,Safety M7 PT-IP Assessment and Plan Start: 04/09/21 13:25 Freq: NEEDED Status: Active Protocol: Document 04/11/21 09:05 ND (Rec: 04/11/21 10:31 ND [id number]) PT Summary Assessment and Plan Potential Rehabilitation Potential Good Status of Condition at Evaluation Evolving Summary Impairments Pain,ROM,Strength,Balance, Coordination,Sensation,Tone, Cognition,Bed Mobility, Transfers,Gait,Activity Tolerance Assessment Summary Pt Mod A for sit<>stand and needs frequent cues for safety and sequencing. She reported high level of fatigue and needs cues to keep her eyes open when performing tasks, especially because she is more unsteady in standing with eyes closed. She was able to perform [address] and LE exercises to promote blood flow and strengthening, however was not able to improve ambulatio distance today due to fatigue. She will require SNF to improve strength and functional independence. Goals Bed Mobility Goal Minimal Assistance Transfer Goal Minimal Assistance,Front Wheeled Walker Gait Goal Minimal Assistance,Front Wheel Walker Gait Distance 50 Other Goals improve bed mobility SBA, transfers SBA using FWW, ambulation SBA using FWW 100 ft Days to Meet Goals 10 Frequency of Treatment Frequency Of Treatment Once a Day Treatment Plan Physical Therapy Treatment Plan Bed Mobility Training,Transfer Training,Gait Training, Therapeutic Exercise,Balance Retraining,Post Op Education, Discharge Planning,Hot or Cold Pack,Neuromuscular Re-ed, Coordination Retraining,Manual Therapy Precautions Abdominal Surgery Precautions Log Roll,Lifting Restrictions, Gait Belt above Incisional Area Recommendations To Nursing Amount of Assist Needed 2 Person Assist Discharge Recommendations PT Discharge Recommendations SNF Rehab Transportation Needs at Discharge Wheelchair/Cabulance
[2021-04-11] MEDS: ENOXAPARIN 40 MG/0.4 ML SYRINGE SUBCUT (09:51)
[2021-04-11] MEDS: SODIUM CHLORIDE 0.9% FLUSH 10 ML IV ×2 (09:52→21:06)
--- NOTE | 2021-04-11 09:54 | PM.PNPO.1 ---
Subjective Subjective Date Patient Seen: 04/11/21 Time Patient Seen: 09:55 Interval history: Interval +Flatus Tolerating liquids Mentation improved Exam Vital Signs (past 8 hours): - 04/11/21 02:07 04/11/21 02:09 04/11/21 03:07 Temperature 98.3 F Pulse Rate 94 H 94 H 88 Respiratory Rate 18 Blood Pressure 177/83 H 177/83 H 164/82 H Pulse Oximetry 95 04/11/21 08:05 Temperature 97.4 F L Pulse Rate 98 H Respiratory Rate 17 Blood Pressure 178/98 H Pulse Oximetry 96 Oxygen Delivery Method Room Air Oxygen Flow Rate 0 Narrative Exam Narrative: Gen-Elderly woman alert and not in distress Abdomen-Soft non distended incision CDI with padmini Objective Labs Result Diagrams: 04/10/21 05:01 04/11/21 04:16 Labs: Laboratory Results - last 24 hr 04/11/21 04:16 Potassium 3.4 PFSH Medical History (Updated 04/05/21 @ 11:34 by Roni Samuels MD) Diabetes mellitus type II, non insulin dependent HTN (hypertension) Hypercholesterolemia Surgical History History of bladder surgery History of cholecystectomy History of repair of hiatal hernia Status post hysterectomy Family History Sister Cancer Brother Cancer Sister Cancer Mother Cancer Hypertension Social History marital status: unmarried,living together household members: significant other and children Smoking Status: Never smoker alcohol intake: never Assessment & Plan Post-op Postoperative Procedures: Procedures Operation Date: 04/04/21 10:30 Actual Procedure Side Surgeon p ILEOCECECTOMY, Lysis of Adhesions Right Roni Samuels MD Postoperative status narrative: POD 7 sp ileocectomy for volvulus has return of bowel function -Regular diet -DC IVF and buckley -SNF planning - Quality VTE Deep Vein Thrombosis/Pulmonary Embolism Present on Admission: No
--- NOTE | 2021-04-11 11:08 | PC.NURSE ---
ina cole'serina at 1030. pt states, I will be able to use the bathroom.
[2021-04-11] MEDS: METOPROLOL IR 25 MG TABLET PO ×2 (12:32→21:06)
[2021-04-11] MEDS: INSULIN LISPRO 100 UNIT/ML 3ML VIAL SUBCUT (12:33)
--- NOTE | 2021-04-11 14:48 | PM.PN.1 ---
Subjective Subjective Date Patient Seen: 04/11/21 Time Patient Seen: 10:00 Interval history: The pt reports that she feels tired this morning. She has very little appetite. She is happy to have all her tubes out. She denies any specific complaints today. Exam Vital Signs (past 8 hours): - 04/11/21 08:05 04/11/21 09:00 04/11/21 09:16 Temperature 97.4 F L Pulse Rate 98 H 98 H Respiratory Rate 17 17 Blood Pressure 178/98 H Pulse Oximetry 96 95 95 04/11/21 12:00 Temperature 97.9 F Pulse Rate 104 H Respiratory Rate 17 Blood Pressure 155/74 H Pulse Oximetry 96 Oxygen Delivery Method Room Air Oxygen Flow Rate 0 Narrative Exam Narrative: Gen: NAD, sitting comfortably in chair CV: RRR, no murmurs Resp: clear to auscultation bilaterally Abd: soft, appropriately tender, incision c/d/i with padmini in place Ext: trace edema Objective Labs Result Diagrams: 04/10/21 05:01 04/11/21 04:16 Labs: Laboratory Results - last 24 hr 04/11/21 04:16 Potassium 3.4 PFSH Medical History (Updated 04/05/21 @ 11:34 by Roni Samuels MD) Diabetes mellitus type II, non insulin dependent HTN (hypertension) Hypercholesterolemia Surgical History History of bladder surgery History of cholecystectomy History of repair of hiatal hernia Status post hysterectomy Family History Sister Cancer Brother Cancer Sister Cancer Mother Cancer Hypertension Social History marital status: unmarried,living together household members: significant other and children Smoking Status: Never smoker alcohol intake: never Assessment & Plan Assessment & Plan narrative: Pt is an 85yo woman with HTN, Type 2 DM, chronic anemia, hiatal hernia, CLL who presented with abdominal pain, now POD #7 s/p ileocectomy for volvulus. #Cecal volvulus status post ileocectomy: Bowel function returning. - Continue to appreciate care from surgery - Regular diet - D/C IVF and buckley #Metabolic encephalopathy: Resolved - Continue with regular orientation #Atrial fibrillation: Seems to have been precipitated by abdominal distension - Not candidate for anticoagulation at this point in time, consider as an outpatient - Telemetry for now - Metoprolol as below #Elevated white count: Most likely due to CLL #Electrolytes: Potassium normalized - Continue to trend #Hypertension: Blood pressures quite elevated - Continue home Diltiazem, Hydralazine, Losartan - Start Metoprolol 25mg BID #Generalized weakness Likely 2/2 surgery continue to mobilize as tolerated #Type 2 diabetes Stable #History of anemia: Stable Diet: Regular Code: Full DVT PPx: On Lovenox Dispo: Pending surgical clearance, improvement in BPs. Pt will require placement in SNF. Time Spent With Patient Critical Care time: I spent a total of [] minutes of critical care time on this patient's care today; this time is exclusive of procedural time. Quality VTE Deep Vein Thrombosis/Pulmonary Embolism Present on Admission: No
[2021-04-11] MEDS: QUETIAPINE 100 MG TABLET 12.5 MG PO (21:06)
--- NOTE | 2021-04-12 02:05 | PC.NURSE ---
Noted blood in stool, per Dr. Isabel that is pretty normal after a cecal volvulus. No new lab/orders.
[2021-04-12 03:36] VITALS: BP 143/69; PULSE 77; RESP 18; TEMP 36.4; O2SAT 94
[2021-04-12 06:05] LABS: BUN Creatinine Ratio 32.8 (6-22); Blood Urea Nitrogen 22 mg/dL (7-17); Calcium 9.1 mg/dL (8.4-10.2); Carbon Dioxide 30 mmol/L (22-32); Chloride 100 mmol/L (98-107); Estimated Glomerular Filt Rate > 60.0 mL/min (>60); Glucose 128 mg/dL (80-110); HEMOLYSIS 19 (0-50); Potassium 3.4 mmol/L (3.4-5.1); Sodium 134 mmol/L (137-145)
[2021-04-12 08:30] VITALS: O2SAT 94
[2021-04-12] MEDS: LOSARTAN 50 MG TABLET 100 MG PO (08:56)
[2021-04-12] MEDS: dilTIAZem CD 180 MG CAP 360 MG PO (08:56)
[2021-04-12 08:57] VITALS: BP 154/65; PULSE 74; RESP 16; TEMP 37.2; O2SAT 94
[2021-04-12] MEDS: METOPROLOL IR 25 MG TABLET PO (08:57)
[2021-04-12] MEDS: SODIUM CHLORIDE 0.9% FLUSH 10 ML IV (08:57)
[2021-04-12] MEDS: ENOXAPARIN 40 MG/0.4 ML SYRINGE SUBCUT (08:57)
[2021-04-12 09:25] VITALS: PULSE 74; RESP 16; O2SAT 94
--- NOTE | 2021-04-12 10:38 | CM.DPC ---
Addendum entered by NATE Delacruz 04/12/21 11:24: ADD: Return call from [facility] that they can transport at 1230 and REILLY faxed signed med rec, script, COVID vax, d/c, MD orders and awaiting updated COVID swab pending. REILLY provided RN report number to RN and updated on d/c. BF Original Note: DCP Discharge SNF Per MD and Surgeon, pt is medically stable to d/c to SNF today and no identified barriers to discharge. RN aware that updated COVID swab needed and SW placed order per MD request. REILLY printed off copy of pt's COVID vax status and completed PASRR. REILLY called [facility] admissions and confirmed they can accept pt today and anticipate around 1230 but will call with confirmation. REILLY attempted to call pt's son Alberto with update, phone was answered but no one said anything and then hung up and then did not lemon picker phone call again after that. REILLY attempted to call pt's Sig Khadijah Young with listed home number but no answer and no vm. REILLY updated [employer]IL [employer]REATER and convict guard and will begin faxing d/c packet to [facility] when available today. Plan: Patient to d/c to [facility] rehab today prior to safe return home. NATE Delacruz
--- NOTE | 2021-04-12 11:06 | P.PN_ITS ---
Subjective Subjective Date Patient Seen: 04/12/21 Time Patient Seen: 11:07 Interval history: Tolerating diet, bowel movement and flatus Pain is appropriately controlled Exam Vital Signs (past 8 hours): - 04/12/21 03:36 04/12/21 08:57 04/12/21 09:25 Temperature 97.6 F 99 F Pulse Rate 77 74 74 Respiratory Rate 18 16 16 Blood Pressure 143/69 H 154/65 H Pulse Oximetry 94 94 94 Oxygen Delivery Method Room Air Oxygen Flow Rate 0 Narrative Exam Narrative: General elderly woman alert in no acute distress Chest nonlabored respiration Abdomen soft minimally tender. Incision clean dry intact with padmini Objective Labs Result Diagrams: 04/10/21 05:01 04/12/21 05:00 Labs: Laboratory Results - last 24 hr 04/12/21 05:00 Sodium 134 L Potassium 3.4 Chloride 100 Carbon Dioxide 30 BUN 22 H Creatinine 0.67 Estimated GFR > 60.0 BUN/Creatinine Ratio 32.8 H Glucose 128 H Calcium 9.1 PFSH Medical History (Updated 04/05/21 @ 11:34 by Roni Samuels MD) Diabetes mellitus type II, non insulin dependent HTN (hypertension) Hypercholesterolemia Surgical History History of bladder surgery History of cholecystectomy History of repair of hiatal hernia Status post hysterectomy Family History Sister Cancer Brother Cancer Sister Cancer Mother Cancer Hypertension Social History marital status: unmarried,living together household members: significant other and children Smoking Status: Never smoker alcohol intake: never Assessment & Plan Post-op Postoperative Procedures: Procedures Operation Date: 04/04/21 10:30 Actual Procedure Side Surgeon p ILEOCECECTOMY, Lysis of Adhesions Right Roni Samuels MD Postoperative status narrative: 85-year-old woman postoperative day 8 status post ileocecectomy secondary to cecal volvulus. She is recovering from the operation appropriately no further hospital needs. -appropriate for discharge to nursing home facility when available -follow up with surgical clinic 1 week Quality VTE Deep Vein Thrombosis/Pulmonary Embolism Present on Admission: No
[2021-04-12 11:36] LABS: COVID19 -Nasal RAPID Negative (Negative)
--- NOTE | 2021-04-12 12:10 | PM.DS.1 ---
History of Present Illness History of Present Illness Date Patient Seen: 04/12/21 Time Patient Seen: 09:45 Chief complaint: severe cramps, nausea Narrative: With a history recent diagnosis of CLL GERD who presents with issues with increased abdominal pain nausea vomiting.? Patient was in her usual state of health which recently has been constipated.? She has had trouble with this over the last several weeks.? She has been using [id number] liquid medicine.? She took that yesterday and shortly thereafter began having pretty significant pain in her left lower quadrant.? Shortly thereafter began vomiting.? She describes the pain as sharp stabbing mostly in the left lower quadrant no radiation.? Was increasingly severe and presented to the emergency room.? She has had no fevers or chills.? No urinary symptoms.? No other changes.? Otherwise patient is feeling well. Discharge Providers Provider Date of admission: 04/04/21 01:57 Discharge Date: 04/12/21 Primary care physician: Mariajose Reyes MD Consults: 04/04/21 03:17 Consult to General Surgery Urgent Comment: Consulting Provider: Roni Samuels Reason for consultation: Cecal Volvulus Has provider been notified: Yes 04/06/21 16:39 Consult to Dietitian, Adult Routine Comment: NPO, post-op ileus Reason For Exam: assessed at high risk per Ankush scale 04/09/21 08:39 Consult to Physical Therapy Evaluate & Treat Comment: Physician Instructions: Evaluate and Treat Discharge provider: Makayla Reynaga MD Summary Hospital Course Hospital Course: The pt was admitted with cecal volvulus and was taken to the operative room for surgical correction. She underwent open ileocecectomy and lysis of adhesions on 04/04/21 without complications. Her blood pressure was initially elevated after surgery, but responded to IV Hydralazine and Diltiazem. The pts WBC count began to rise, and she became more confused. Infectious work-up was negative. Win catheter was placed due to urinary retention, and the pts mentation did improve. She was also started on Zyprexa with good response. The elevated WBC count was thought to be due to her CLL. The pts bowel function gradually returned and her diet was advanced slowly. On 04/09 the pt went into atrial fibrillation with RVR. She received IV Diltiazem without response. NG tube was then placed with significant output. She then received IV Labetalol, and her HR normalized and was back into sinus rhythm. The NG tube was removed again on 04/10, and the pt had no recurrence of symptoms. The pt continued to progress and improve. She was restarted on home medications. The day prior to d/c, her BP was up and she was started on PO Metoprolol with good response. She was stable at the time of discharge, and will need f/u in 1 week with surgery. Exam Vital Signs (past 8 hours): - 04/12/21 08:30 04/12/21 08:57 04/12/21 09:25 Temperature 99 F Pulse Rate 74 74 Respiratory Rate 16 16 Blood Pressure 154/65 H Pulse Oximetry 94 94 94 Oxygen Delivery Method Room Air Oxygen Flow Rate 0 Narrative Exam Narrative: Gen:? NAD, laying comfortably in bed CV:? RRR, no murmurs Resp:? clear to auscultation bilaterally Abd:? soft, appropriately tender, incision c/d/i with padmini in place Ext:? trace edema Objective Labs Result Diagrams: 04/10/21 05:01 04/12/21 05:00 Labs: Laboratory Results - last 24 hr 04/12/21 04/12/21 05:00 11:00 Sodium 134 L Potassium 3.4 Chloride 100 Carbon Dioxide 30 BUN 22 H Creatinine 0.67 Estimated GFR > 60.0 BUN/Creatinine Ratio 32.8 H Glucose 128 H Calcium 9.1 SARS-CoV-2 (PCR) Negative [facility] Medical History (Updated 04/05/21 @ 11:34 by Roni Samuels MD) Diabetes mellitus type II, non insulin dependent HTN (hypertension) Hypercholesterolemia Surgical History History of bladder surgery History of cholecystectomy History of repair of hiatal hernia Status post hysterectomy Family History Sister Cancer Brother Cancer Sister Cancer Mother Cancer Hypertension Social History marital status: unmarried,living together household members: significant other and children Smoking Status: Never smoker alcohol intake: never Discharge Plan Discharge Plan Patient Disposition: SNF Transfer to: [facility] Discharge orders & Medications Prescriptions: New losartan 50 mg Tablet 100 mg PO DAILY Qty: 30 0RF diltiazem HCl [Cardizem CD] 180 mg Capsule,Extended Release 24hr 360 mg PO DAILY Qty: 30 0RF quetiapine [Seroquel] 100 mg Tablet 12.5 mg PO BEDTIME Qty: 30 0RF metoprolol tartrate 25 mg Tablet 50 mg PO BID Qty: 60 0RF hydrocodone-acetaminophen 5-325 mg tablet 1 tab PO Q6H PRN (Reason: pain) Qty: 30 0RF Continued fluoxetine 20 mg capsule 40 mg PO DAILY 0RF doxepin 25 mg capsule 25 mg PO BEDTIME 0RF hydroxyzine HCl 25 mg tablet 25 mg PO BEDTIME Qty: 14 0RF colchicine 0.6 mg tablet 0.6 mg PO BID Qty: 20 0RF metformin 500 mg tablet 500 mg PO QAM 0RF Label Comments: TK 1 T PO D BEFORE BREAKFAST FOR DIABETES esomeprazole magnesium 40 mg capsule,delayed release(DR/EC) 80 mg PO DAILY 0RF Label Comments: TK 2 CS PO QD FOR ACID REFLUX. lovastatin 20 mg tablet 20 mg PO BEDTIME 0RF Label Comments: TK 1 T PO QD HS FOR CHOLESTEROL Allergy Relief (cetirizine) 10 mg Capsule 10 mg PO DAILY PRN (Reason: maculopapular rashes) Qty: 30 1RF Discontinued nitroglycerin [Nitrostat] 0.4 mg Tablet, Sublingual 0.4 mg SUBLINGUAL Q5-15M PRN (Reason: Chest Pain) Qty: 0 0RF estradiol 0.5 mg tablet 0.5 mg PO DAILY 0RF Label Comments: States no longer taking Rx Instructions: off 5 days; repeat cycle aspirin [Adult Aspirin Regimen] 81 mg tablet,delayed release (DR/EC) 81 mg PO DAILY 0RF furosemide 20 mg Tablet 60 mg PO DAILY Qty: 270 3RF potassium chloride [Klor-Con M20] 20 mEq Tablet,Er Particles/Crystals 40 meq PO DAILYCC 90 Days Qty: 180 3RF Rx Instructions: This medication was discontinued hydrocodone-acetaminophen 5-325 mg tablet 1 tab PO Q6H PRN (Reason: pain) Qty: 10 0RF losartan 50 mg tablet 100 mg PO DAILY 0RF diltiazem HCl 180 mg capsule,extended release 24hr 360 mg PO DAILY 0RF Follow up/Referrals: Mariajose Reyes MD [Primary Care Provider] - 2 Weeks Diet/Activity/Treatments Diet: Diet as Tolerated and Carb-consistent/Diabetic [facility] Reason for rehabilitation: Post-operative therapy Rehab type: Physical therapy and Occupational therapy Discharge Data Primary Care Provider: Mariajose Reyes Quality VTE Deep Vein Thrombosis/Pulmonary Embolism Present on Admission: No
[2021-04-12] MEDS: INSULIN LISPRO 100 UNIT/ML 3ML VIAL SUBCUT (12:29)
[2021-04-12 12:31] VITALS: BP 162/72; PULSE 83; RESP 16; O2SAT 96
== END 2021-04-12 12:40 | DRG 329 ==
LOC: ED 01:50 → AC 01:58 → ICU 03:07 → AC 04-08 22:26 → ICU 04-09 20:56 → AC 04-09 21:31
PROVIDERS: Family Medicine; Surgery; Admitting Provider Family Medicine; Emergency Provider Emergency Medicine; Family Provider Dermatology; PCP Student in an Organized Health Care Education/Training Program; Referring Provider Emergency Medicine; Visit Provider Family Medicine
PROC: 0DTH0ZZ Resection of Cecum, Open Approach (ICD-10-PCS; CPT 49000; principal; 2021-04-04 10:30)
DX: K56.2 Volvulus (principal); G93.41 Metabolic encephalopathy; C91.10 Chronic lymphocytic leukemia of B-cell type not having achieved remission; K56.50 Intestinal adhesions [bands], unspecified as to partial versus complete obstruction; E86.0 Dehydration; R09.02 Hypoxemia; R33.9 Retention of urine, unspecified; I48.91 Unspecified atrial fibrillation; K56.7 Ileus, unspecified; I10 Essential (primary) hypertension; K21.9 Gastro-esophageal reflux disease without esophagitis; K44.9 Diaphragmatic hernia without obstruction or gangrene; E11.9 Type 2 diabetes mellitus without complications; E78.00 Pure hypercholesterolemia, unspecified; Z79.84 Long term (current) use of oral hypoglycemic drugs; Z20.822 Contact with and (suspected) exposure to COVID-19
CPT/HCPCS: 36415; 44140; 71045; 74018; 74022; 74177; 80048; 80053; 81001; 81003; 82962; 83605; 83690; 83880; 84132; 85007; 85025; 87086; 87635; 87797; 93005; 94760; 96361; 96374; 97162; 97530; 99223; 99232; 99238; 99284; C9803; C9113; J0330; J0360; J1170; J1630; J1650; J1815; J1940; J2060; J2274; J2405; J2543; J2704; J2765; J3010; Q9967; S0166

== ENCOUNTER 2021-04-15 10:54 | Inpatient (IN) | payer MEDICARE, SELFPAY ==
[2021-04-04 03:58] VITALS: BMI 25.2
[2021-04-15] VITALS (52 sets, daily range): BP systolic 57–176; BP diastolic 30–85; PULSE 51–84; RESP 16–30; TEMP 35.7–36.6; O2SAT 80–100; BMI 31.7
--- NOTE | 2021-04-15 | DI.RAD.S_ITS ---
PROCEDURE: XR CHEST 1V INDICATIONS: NG TUBE PLACEMENT TECHNIQUE: One view of the chest was acquired. COMPARISON: [facility], CT, CT ABDOMEN PELVIS W CON, 04/04/2021, 1:20. [facility], CR, XR CHEST 1V, 04/08/2021, 9:17. FINDINGS: Surgical changes and devices: Nasogastric tube is coiled in the superior mediastinum at the level of the thoracic inlet and extends retrograde into the neck. Lungs and pleura: There are medial bibasilar opacities likely representing atelectasis. Small bilateral pleural effusions are redemonstrated. No pneumothorax. Mediastinum: A large gas distended hiatal hernia is present. Heart size is normal. Bones and chest wall: No suspicious bony lesions. There is marked gaseous distention of the stomach and multiple loops of bowel within the abdomen. IMPRESSION: 1. Coiling of the nasogastric tube which extends retrograde into the neck with the tip not included on the current study. Findings discussed with Dr. Fonseca on 04/15/2021 at 1:27 p.m.. 2. Marked gaseous distention of a large hiatal hernia as well as distention of multiple loops of bowel in the visualized abdomen consistent with findings on recent CT. 3. Small bilateral pleural effusions and bibasilar atelectasis. Dictated by: Donovan Lechuga M.D. on 04/15/2021 at 13:25 Approved by: Donovan Lechuga M.D. on 04/15/2021 at 13:30
--- NOTE | 2021-04-15 | DI.RAD.S_ITS ---
PROCEDURE: XR CHEST 1V INDICATIONS: CENTRAL LINE PLACEMENT TECHNIQUE: One view of the chest was acquired. COMPARISON: [facility], CR, XR CHEST 1V, 04/15/2021, 13:06. FINDINGS: Surgical changes and devices: Right internal jugular central venous catheter tip is in the region of lower SVC/right atrium.. Lungs and pleura: Mild atelectasis along medial aspect of right lower lung field adjacent to patient's known hiatal hernia is again seen. No focal infiltrate. No pleural effusions or pneumothorax. Mediastinum: Mediastinal contours appear normal. Heart size is enlarged. Bones and chest wall: No suspicious bony lesions. Large hiatal hernia is again seen. Overlying soft tissues appear unremarkable. IMPRESSION: Right internal jugular central venous catheter tip is in the region of lower SVC/right atrium. Cardiomegaly and large hiatal hernia with adjacent right basilar atelectasis. No focal infiltrate or pneumothorax. Dictated by: Abhilash Espinoza M.D. on 04/15/2021 at 19:14 Approved by: Abhilash Espinoza M.D. on 04/15/2021 at 19:16
--- NOTE | 2021-04-15 11:05 | ED_ITS ---
HPI - General Adult General Chief complaint: Abdominal Pain Stated complaint: hypotension, post-op complications Time Seen by Provider: 04/15/21 11:02 Source: patient Mode of arrival: EMS Limitations: no limitations History of Present Illness HPI narrative: Patient is an 85-year-old female. In the past 2 weeks she was seen here at this emergency department admitted to the hospital with a cecal volvulus. Had erik enrrique with resection. Subsequently discharged. She returns emergency department today for concerns of hypotension and altered mental status and abdominal distension and also loose bowel movements. Patient states she is having some nausea. ?Some ?abdominal pain. Has had loose bowel movements for she reports over the past 24 hours. No vomiting. No fevers. Related Data Home Medications Medication Instructions Recorded Confirmed doxepin 25 mg capsule 25 mg PO BEDTIME 08/30/17 04/04/21 fluoxetine 20 mg capsule 40 mg PO DAILY 08/30/17 04/04/21 esomeprazole magnesium 40 mg 80 mg PO DAILY 04/25/18 04/04/21 capsule,delayed release lovastatin 20 mg tablet 20 mg PO BEDTIME 04/25/18 04/04/21 metformin 500 mg tablet 500 mg PO QAM 04/25/18 04/04/21 Previous Rx's Medication Instructions Recorded cetirizine 10 mg capsule (Allergy 10 mg PO DAILY PRN #30 cap 04/24/19 Relief (cetirizine)) hydroxyzine HCl 25 mg tablet 25 mg PO BEDTIME #14 tab 04/26/19 colchicine 0.6 mg tablet 0.6 mg PO BID #20 tab 10/01/19 diltiazem HCl 180 mg 360 mg PO DAILY #30 cap 04/12/21 capsule,extended release 24 hr (Cardizem CD) hydrocodone 5 mg-acetaminophen 325 1 tab PO Q6H PRN #30 tab 04/12/21 mg tablet losartan 50 mg tablet 100 mg PO DAILY #30 tab 04/12/21 metoprolol tartrate 25 mg tablet 50 mg PO BID #60 tab 04/12/21 quetiapine 100 mg tablet (Seroquel) 12.5 mg PO BEDTIME #30 tab 04/12/21 Allergies Allergy/AdvReac Type Severity Reaction Status Date / Time MJ Inhibitors Allergy Intermediate I dont Verified 04/15/21 12:10 remember guaifenesin Allergy Intermediate face Verified 04/15/21 12:10 swelling azithromycin Allergy Unknown I dont Verified 04/15/21 12:10 remember dextromethorphan Allergy Unknown I dont Verified 04/15/21 12:10 remember enalapril Allergy Unknown I dont Verified 04/15/21 12:10 remember meloxicam Allergy Unknown I dont Verified 04/15/21 12:10 remember pneumococcal vaccine Allergy Unknown face Verified 04/15/21 12:10 [From PNEUMOVAX 23] swelling morphine AdvReac Severe Nausea Verified 04/15/21 12:10 lidocaine AdvReac Unknown I dont Verified 04/15/21 12:10 remember Review of Systems Constitutional Constitutional: Denies headache(s) ENT Ears, Nose, Mouth, and Throat: Denies headache(s) Cardiovascular Cardiovascular: Denies chest pain and Denies dyspnea Respiratory Respiratory: Denies dyspnea Gastrointestinal Gastrointestinal: Reports abdominal pain, Reports diarrhea and Reports nausea Genitourinary Genitourinary: Reports system reviewed and no additional complaints, except as documented Integumentary/Breasts Skin/Breast: Reports system reviewed and no additional complaints, except as documented Neurologic Neurologic: Denies headache(s) Hematologic/Lymphatic On Anticoagulants: No Patient History Medical History (Updated 04/15/21 @ 14:19 by Soren Isabel MD) Diabetes mellitus type II, non insulin dependent HTN (hypertension) Hypercholesterolemia Surgical History History of bladder surgery History of cholecystectomy History of repair of hiatal hernia Status post hysterectomy Family History Sister Cancer Brother Cancer Sister Cancer Mother Cancer Hypertension Social History marital status: unmarried,living together household members: significant other and children Smoking Status: Never smoker alcohol intake: never Smoking Status: Never smoker alcohol intake frequency: other Substance Use Type: does not use Exam Initial Vital Signs Initial Vital Signs: Vital Signs Blood Pressure 129/60 04/15/21 10:55 Const General: ill appearing HENMT Head: normal to inspection and normocephalic Resp Effort & Inspection: normal respiratory effort Auscultation: clear to auscultation bilaterally Cardio Rate: bradycardic Rhythm: regular rhythm GI Inspection: distended Palpation: firm, No guarding and tender Skin General: no rashes or lesions noted Neuro General: patient alert, patient awake, moves all extremities and patient confused Extrem General: normal to inspection and capillary refill normal Psych Appearance: grossly normal and well kempt Course Orders Ordered: ED Orders 04/15/21 10:59 EKG-12 Lead Stat 04/15/21 11:00 COVID19 -Nasal swab/Pre-Proc Stat 04/15/21 11:09 CT abdomen pelvis w con Stat 04/15/21 11:10 Complete Blood Count AUTO DIFF Stat Comprehensive Metabolic Panel Stat Lactate (Lactic Acid) Stat Lipase Stat Partial Thromboplastin Time Stat Procalcitonin Stat Prothrombin Time INR Stat Troponin & CK Cardiac Panel Stat 04/15/21 11:11 Consult to General Surgery Stat 04/15/21 12:05 Blood Culture Stat 04/15/21 13:40 EKG-12 Lead Stat Enoxaparin Sodium (Enoxaparin 30 Mg/0.3 Ml Syringe) 30 mg SUBCUT DAILY LUL Fentanyl (Fentanyl 100 Mcg/2 Ml Inj) 0 mcg IV Q5M PRN PRN Reason: Pain, Moderate (4-6) Hydromorphone HCl (Hydromorphone 2 Mg Inj) 0 mg IV Q5M PRN PRN Reason: Pain, Severe (7-10) Hydromorphone HCl (Hydromorphone 1 Mg Inj) 0.5 mg IV Q6HR PRN PRN Reason: Pain, Moderate (4-6) Sodium Chloride (Normal Saline 0.9%) 1,000 mls @ 100 mls/hr IV CONT LUL Last Infusion: 04/15/21 14:28 Dose: 0 mls/hr Documented by: Admin: 04/15/21 13:33 Dose: 100 mls/hr Documented by: ACE Lactated Ringer's (Lactated Ringers) 1,000 mls @ 42 mls/hr IV CONT LUL Last Admin: 04/15/21 17:52 Dose: 42 mls/hr Documented by: [email or web address] Infusion: 04/15/21 17:52 Dose: 42 mls/hr Documented by: [email or web address] Infusion: 04/15/21 17:51 Dose: 42 mls/hr Documented by: [email or web address] Admin: 04/15/21 16:17 Dose: 42 mls/hr Documented by: CHRISTIE Naloxone HCl (Naloxone 0.4 Mg/Ml Vial) 0.2 mg IV Q2MIN PRN PRN Reason: Opiate Reversal Discontinued Medications Hydromorphone HCl (Hydromorphone 0.5 Mg Inj) 0.5 mg IV NOW ONE Stop: 04/15/21 12:09 Last Admin: 04/15/21 12:17 Dose: 0.5 mg Documented by: ACE Hydromorphone HCl (Hydromorphone 0.5 Mg Inj) 0.5 mg IV NOW ONE Stop: 04/15/21 13:39 Last Admin: 04/15/21 13:41 Dose: 0.5 mg Documented by: ACE Hydromorphone HCl (Hydromorphone 0.5 Mg Inj) 0.5 mg IV NOW ONE Stop: 04/15/21 14:33 Hydromorphone HCl (Hydromorphone 2 Mg Inj) 0.5 mg IV NOW ONE Stop: 04/15/21 14:42 Last Admin: 04/15/21 14:42 Dose: 0.5 mg Documented by: CLIVE Sodium Chloride (Normal Saline 0.9%) 1,000 mls @ 1,000 mls/hr IV BOLUS ONE Stop: 04/15/21 11:58 Last Infusion: 04/15/21 12:38 Dose: 0 mls/hr Documented by: Admin: 04/15/21 11:10 Dose: 1,000 mls/hr Documented by: JOSEP Piperacillin Sod/Tazobactam (Sod 4.5 gm/ Sodium Chloride) 100 mls @ 200 mls/hr IV NOW ONE Stop: 04/15/21 13:09 Last Infusion: 04/15/21 14:12 Dose: 0 mls/hr Documented by: Admin: 04/15/21 13:33 Dose: 200 mls/hr Documented by: ACE Methylprednisolone (Methylprednisolone 125 Mg/2 Ml Vial) 125 mg IV NOW ONE Stop: 04/15/21 17:54 Ondansetron HCl (Ondansetron 4 Mg/2 Ml Inj) 4 mg IV NOW ONE Stop: 04/15/21 11:00 Last Admin: 04/15/21 11:15 Dose: 4 mg Documented by: JOSEP Vital Signs Vital signs: Vital Signs - 8 hr 04/15/21 10:55 04/15/21 10:56 04/15/21 10:59 Temperature 97.8 F Pulse Rate 54 L 76 Respiratory Rate 21 24 Blood Pressure 129/60 117/59 L 69/34 L Pulse Oximetry 98 93 04/15/21 11:00 04/15/21 11:04 04/15/21 11:10 Temperature 96.3 F L Pulse Rate 54 L 54 L 54 L Respiratory Rate 21 18 20 Blood Pressure 118/55 L 129/60 Pulse Oximetry 99 98 98 04/15/21 11:13 04/15/21 11:15 04/15/21 11:20 Temperature Pulse Rate 54 L 53 L 52 L Respiratory Rate 20 20 19 Blood Pressure 125/59 L 116/56 L 116/59 L Pulse Oximetry 98 98 98 04/15/21 11:25 04/15/21 11:30 04/15/21 11:35 Temperature Pulse Rate 51 L 51 L 51 L Respiratory Rate 19 20 21 Blood Pressure 116/56 L 119/60 120/60 Pulse Oximetry 98 98 98 04/15/21 11:40 04/15/21 11:44 04/15/21 11:56 Temperature Pulse Rate 52 L 53 L 59 L Respiratory Rate 22 24 23 Blood Pressure 124/60 115/58 L Pulse Oximetry 98 98 96 04/15/21 12:00 04/15/21 12:03 04/15/21 12:05 Temperature Pulse Rate 57 L 57 L 55 L Respiratory Rate 24 26 H 24 Blood Pressure 166/68 H 150/67 H Pulse Oximetry 100 100 100 04/15/21 12:10 04/15/21 12:15 04/15/21 12:20 Temperature Pulse Rate 55 L 55 L 54 L Respiratory Rate 26 H 29 H 30 H Blood Pressure 153/69 H 148/67 H 135/60 Pulse Oximetry 100 100 100 04/15/21 12:26 04/15/21 12:30 04/15/21 12:40 Temperature Pulse Rate 63 68 52 L Respiratory Rate 23 23 27 H Blood Pressure 158/85 H 176/77 H Pulse Oximetry 97 91 98 04/15/21 12:41 04/15/21 12:45 04/15/21 12:50 Temperature Pulse Rate 52 L 52 L 52 L Respiratory Rate 26 H 26 H 27 H Blood Pressure 119/59 L 112/56 L 127/56 L Pulse Oximetry 98 98 97 Medical Decision Making Medical Records Medical records reviewed: Yes I reviewed the patient's medical records. Lab Data Lab results reviewed: Yes I reviewed the patient's lab results. Result diagrams: 04/15/21 11:10 04/15/21 11:10 Labs: Lab Results 04/15/21 04/15/21 04/15/21 Range/Units 11:00 11:10 11:10 WBC 26.4 H (4.5-11.0) X10^3/uL RBC 3.44 L (4.0-5.2) X10^6/uL Hgb 10.5 L (12.0-16.0) g/dL Hct 31.9 L (36-46) % MCV 92.9 (80-100) fL MCH 30.5 (26-34) PG MCHC 32.8 (30-36) % RDW 13.5 (11.6-14.8) % Plt Count 435 H (150-400) X10^3/uL Neut % (Auto) 48.2 L (50-75) % Lymph % (Auto) 47.6 H (25-40) % Ector % (Auto) 3.4 (3-14) % Eos % (Auto) 0.6 L (2-4) % Baso % (Auto) 0.2 (0-2) % Neut # (Auto) 47673 H (6447-2883) /uL Lymph # (Auto) 72073 H (8628-1818) /uL Ector # (Auto) 900 (0-900) /uL Eos # (Auto) 100 (0-450) /uL Baso # (Auto) 0 (0-100) /uL PT 12.1 (10.1-12.7) SECONDS INR 1.1 (0.9-1.3) APTT 23 L D (26.4-36.2) SECONDS Sodium (137-145) mmol/L Potassium (3.4-5.1) mmol/L Chloride (98-107) mmol/L Carbon Dioxide (22-32) mmol/L BUN (7-17) mg/dL Creatinine (0.52-1.04) mg/dL Estimated GFR (>60) mL/min BUN/Creatinine Ratio (6-22) Glucose (80-110) mg/dL Lactate (0.7-2.1) mmol/L Calcium (8.4-10.2) mg/dL Total Bilirubin (0.2-1.3) mg/dL AST (14-36) IU/L ALT (<35) IU/L Alkaline Phosphatase (38-126) U/L Total Creatine Kinase (30-135) U/L CK-MB (CK-2) (<2.37) ng/mL CK-MB (CK-2) Rel Index (1.5-5.0) % Troponin I (0.01-0.034) ng/mL Total Protein (6.3-8.2) g/dL Albumin (3.5-5.0) g/dL Globulin (1.7-4.1) g/dL Albumin/Globulin Ratio (1.0-2.8) Lipase (23-300) U/L Procalcitonin (<0.5) ng/mL SARS-CoV-2 (PCR) Negative (Negative) Blood Type Antibody Screen 04/15/21 04/15/21 04/15/21 Range/Units 11:10 11:10 11:10 WBC (4.5-11.0) X10^3/uL RBC (4.0-5.2) X10^6/uL Hgb (12.0-16.0) g/dL Hct (36-46) % MCV (80-100) fL MCH (26-34) PG MCHC (30-36) % RDW (11.6-14.8) % Plt Count (150-400) X10^3/uL Neut % (Auto) (50-75) % Lymph % (Auto) (25-40) % Ector % (Auto) (3-14) % Eos % (Auto) (2-4) % Baso % (Auto) (0-2) % Neut # (Auto) (2607-1062) /uL Lymph # (Auto) (4841-5010) /uL Ector # (Auto) (0-900) /uL Eos # (Auto) (0-450) /uL Baso # (Auto) (0-100) /uL PT (10.1-12.7) SECONDS INR (0.9-1.3) APTT (26.4-36.2) SECONDS Sodium 131 L (137-145) mmol/L Potassium 3.2 L (3.4-5.1) mmol/L Chloride 102 (98-107) mmol/L Carbon Dioxide 17 L (22-32) mmol/L BUN 32 H (7-17) mg/dL Creatinine 1.41 H (0.52-1.04) mg/dL Estimated GFR 35.6 L (>60) mL/min BUN/Creatinine Ratio 22.7 H (6-22) Glucose 113 H (80-110) mg/dL Lactate 1.9 (0.7-2.1) mmol/L Calcium 7.7 L (8.4-10.2) mg/dL Total Bilirubin 0.5 (0.2-1.3) mg/dL AST 29 (14-36) IU/L ALT 16 (<35) IU/L Alkaline Phosphatase 49 (38-126) U/L Total Creatine Kinase 126 (30-135) U/L CK-MB (CK-2) 7.78 H (<2.37) ng/mL CK-MB (CK-2) Rel Index 6.2 H* (1.5-5.0) % Troponin I 0.033 (0.01-0.034) ng/mL Total Protein 5.8 L (6.3-8.2) g/dL Albumin 3.3 L (3.5-5.0) g/dL Globulin 2.5 (1.7-4.1) g/dL Albumin/Globulin Ratio 1.3 (1.0-2.8) Lipase 208 (23-300) U/L Procalcitonin 0.24 (<0.5) ng/mL SARS-CoV-2 (PCR) (Negative) Blood Type A Positive Antibody Screen Negative Imaging Data CT scan - abdomen/pelvis: Radiologist's Impression: [address] [address] [address] Scan Report Signed Patient: Deyanira Mauricio MR#: [id number] : 1935 Acct:[id number] Age/Sex: 85 / F Date of Service: 04/15/21 Loc: 90A-1 Accession Number: [id number] ?? Procedure: CT abdomen pelvis w con Ordering Provider: Twan Fonseca D.O. PROCEDURE:? CT ABDOMEN PELVIS W CON ? INDICATIONS:? History of bowel resection, distended abdomen nausea ? TECHNIQUE:? After the administration of oral and IV contrast, axial sections were acquired from the lung bases to the pubic symphysis.? Coronal and sagittal reformats were performed.? For radiation dose reduction, the following was used:? automated exposure control, adjustment of mA and/or kV according to patient size. ? COMPARISON:? [facility], CT, CT ABDOMEN PELVIS W CON, 04/04/2021, 1:20. ? FINDINGS:? Image quality:? Excellent.? ? Lung bases:? There are small bilateral pleural effusions with compressive atelectasis in the lower lobes.? ? Heart:? Heart is normal in size.? There is a large fluid distended hiatal hernia. ? ? ABDOMEN: Liver:? There is portal venous gas demonstrated within the left hepatic lobe.? Gallbladder:? Surgically absent. Biliary ducts:? No biliary ductal dilatation.? ? Pancreas:? Unremarkable.? ? Spleen:? Normal in size.? ? Adrenal Glands:? There is thickening of the adrenal glands bilaterally. Kidneys and Ureters:? No hydronephrosis.? ? ? Stomach and Bowel:? There is marked distention of the stomach and multiple loops of small bowel with air-fluid levels.? A discrete single transition point is not visualized.? There are bowel sutures in the right lower quadrant consistent with prior partial resection.? There is pneumatosis demonstrated within the bowel most prominent within a loop in the lower abdomen as seen on series 2, image 75. This segment of small bowel also demonstrates hypoenhancement of the bowel wall.? The findings are consistent with bowel ischemia.? The colon is nondistended distally.? Peritoneum:? A small amount of free fluid is demonstrated within the lower abdomen and pelvis.? No free air.? ? Ventral Wall: ? There is partial herniation of the anterior wall of a small bowel loop along the surgical incision site.? No evidence of associated bowel obstruction or strangulation.? There is subcutaneous edema bilaterally suggestive of anasarca.? Abdominal Nodes:? No retroperitoneal or mesenteric adenopathy by size criteria.? Vessels:? Aorta and inferior vena cava are normal in size.? There is gas within the portal and superior mesenteric veins as well as within smaller mesenteric venous branches. ? PELVIS: Pelvic Organs:? The uterus is surgically absent.? ? Bladder:? Unremarkable.? ? Pelvic Nodes: No enlarged lymph nodes.? Miscellaneous: No inguinal hernias are seen. ? ? ? Bones:? Visualized osseous structures demonstrate no suspicious focal lesions. ? ? IMPRESSION:? ? 1. Portal venous gas, pneumatosis, and hypoenhancement of a few bowel segments consistent with bowel ischemia. ? 2. Diffuse distention of the small bowel with air-fluid levels without a definite single transition point identified.? The findings suggest an ileus or functional obstruction secondary to bowel ischemia although a mechanical postsurgical obstruction cannot be excluded. ? Findings reported to the emergency room on 04/15/2021 at 12:55 p.m. and discussed with Dr. Fonseca 1:07 p.m.. ? 3. Small bilateral pleural effusions. ? 4. Small amount of free fluid within the lower abdomen and pelvis is nonspecific and may be reactive.? No free air. ? 5. Large hiatal hernia.? ? Dictated by: Donovan Lechuga M.D. on 04/15/2021 at 13:12 ? ? Approved by: Donovan Lechuga M.D. on 04/15/2021 at 13:20?? Chest x-ray: Radiologist's Impression: [place] [address] XRay Report Signed Patient: Deyanira Mauricio MR#: [id number] : 1935 Acct:[id number] Age/Sex: 85 / F Date of Service: 04/15/21 Loc: 90A-1 Accession Number: [id number] ?? Procedure: XR chest 1V Ordering Provider: Twan Fonseca D.O. PROCEDURE:? XR CHEST 1V ? INDICATIONS:? NG TUBE PLACEMENT ? TECHNIQUE:? One view of the chest was acquired.? ? COMPARISON:? [facility], CT, CT ABDOMEN PELVIS W CON, 04/04/2021, 1:20.? [facility], CR, XR CHEST 1V, 04/08/2021, 9:17. ? FINDINGS:? ? Surgical changes and devices:? Nasogastric tube is coiled in the superior mediastinum at the level of the thoracic inlet and extends retrograde into the neck. ? Lungs and pleura:? There are medial bibasilar opacities likely representing atelectasis.? Small bilateral pleural effusions are redemonstrated.? No pneumothorax. ? Mediastinum:? A large gas distended hiatal hernia is present.? Heart size is normal.? ? Bones and chest wall:? No suspicious bony lesions.? There is marked gaseous distention of the stomach and multiple loops of bowel within the abdomen. ? IMPRESSION:? ? 1. Coiling of the nasogastric tube which extends retrograde into the neck with the tip not included on the current study.? Findings discussed with Dr. Fonseca on at 1:27 p.m.. ? 2. Marked gaseous distention of a large hiatal hernia as well as distention of multiple loops of bowel in the visualized abdomen consistent with findings on recent CT. ? 3. Small bilateral pleural effusions and bibasilar atelectasis.? ? ? Dictated by: Donovan Lechuga M.D. on 04/15/2021 at 13:25 ? ? Approved by: Donovan Lechuga M.D. on 04/15/2021 at 13:30? ECG Data Attestation: I personally reviewed and interpreted this ECG as follows: Interpretation: Sinus bradycardia some ventricular rate of 55 Normal axis Normal QRS QTC [address] T wave changes Repeat chest x-ray Sinus bradycardia Ventricular rate of 53 Normal QRS QTC [address] T wave changes MDM Narrative Medical decision making narrative: Patient does have a distended abdomen however reports very minimal discomfort. Has nausea but no vomiting. Recent abdominal surgery. Discussed the case with Dr. Samuels with general surgery upon arrival. Recommended labs and CT scan. He did evaluate the patient here in the emergency department. We did discuss the CT scan findings. We did have some difficulty with passage of a NG tube. General surgery was involved with this. Patient was started on antibiotics. Discussed the case with Dr. Reyes who is the patient's primary provider who will admit with surgery consultation. Discharge Plan Departure Patient Disposition: Admitted As Inpatient Clinical Impression: Small bowel obstruction Admit Date/Time: 04/15/21 12:51 Admit Provider: Mariajose Reyes
--- NOTE | 2021-04-15 11:09 | DI.CT.S_ITS ---
PROCEDURE: CT ABDOMEN PELVIS W CON INDICATIONS: History of bowel resection, distended abdomen nausea TECHNIQUE: After the administration of oral and IV contrast, axial sections were acquired from the lung bases to the pubic symphysis. Coronal and sagittal reformats were performed. For radiation dose reduction, the following was used: automated exposure control, adjustment of mA and/or kV according to patient size. COMPARISON: [facility], CT, CT ABDOMEN PELVIS W CON, 04/04/2021, 1:20. FINDINGS: Image quality: Excellent. Lung bases: There are small bilateral pleural effusions with compressive atelectasis in the lower lobes. Heart: Heart is normal in size. There is a large fluid distended hiatal hernia. ABDOMEN: Liver: There is portal venous gas demonstrated within the left hepatic lobe. Gallbladder: Surgically absent. Biliary ducts: No biliary ductal dilatation. Pancreas: Unremarkable. Spleen: Normal in size. Adrenal Glands: There is thickening of the adrenal glands bilaterally. Kidneys and Ureters: No hydronephrosis. Stomach and Bowel: There is marked distention of the stomach and multiple loops of small bowel with air-fluid levels. A discrete single transition point is not visualized. There are bowel sutures in the right lower quadrant consistent with prior partial resection. There is pneumatosis demonstrated within the bowel most prominent within a loop in the lower abdomen as seen on series 2, image 75. This segment of small bowel also demonstrates hypoenhancement of the bowel wall. The findings are consistent with bowel ischemia. The colon is nondistended distally. Peritoneum: A small amount of free fluid is demonstrated within the lower abdomen and pelvis. No free air. Ventral Wall: There is partial herniation of the anterior wall of a small bowel loop along the surgical incision site. No evidence of associated bowel obstruction or strangulation. There is subcutaneous edema bilaterally suggestive of anasarca. Abdominal Nodes: No retroperitoneal or mesenteric adenopathy by size criteria. Vessels: Aorta and inferior vena cava are normal in size. There is gas within the portal and superior mesenteric veins as well as within smaller mesenteric venous branches. PELVIS: Pelvic Organs: The uterus is surgically absent. Bladder: Unremarkable. Pelvic Nodes: No enlarged lymph nodes. Miscellaneous: No inguinal hernias are seen. Bones: Visualized osseous structures demonstrate no suspicious focal lesions. IMPRESSION: 1. Portal venous gas, pneumatosis, and hypoenhancement of a few bowel segments consistent with bowel ischemia. 2. Diffuse distention of the small bowel with air-fluid levels without a definite single transition point identified. The findings suggest an ileus or functional obstruction secondary to bowel ischemia although a mechanical postsurgical obstruction cannot be excluded. Findings reported to the emergency room on 04/15/2021 at 12:55 p.m. and discussed with Dr. Fonseca 1:07 p.m.. 3. Small bilateral pleural effusions. 4. Small amount of free fluid within the lower abdomen and pelvis is nonspecific and may be reactive. No free air. 5. Large hiatal hernia. Dictated by: Donovan Lechuga M.D. on 04/15/2021 at 13:12 Approved by: Donovan Lechuga M.D. on 04/15/2021 at 13:20
[2021-04-15] MEDS: SODIUM CHLORIDE 0.9% 1,000 ML 1000 ML IV (11:10)
[2021-04-15] MEDS: ONDANSETRON 4 MG/2 ML INJ IV (11:15)
[2021-04-15 11:25] LABS: COVID19 -Nasal RAPID Negative (Negative)
[2021-04-15 11:41] LABS: Add Manual Diff / Slide Review NO; Basophils Absolute Auto 0 /uL (0-100); Basophils Percent Auto 0.2 % (0-2); Eosinophils Absolute Auto 100 /uL (0-450); Eosinophils Percent Auto 0.6 % (2-4); Hematocrit 31.9 % (36-46); Hemoglobin 10.5 g/dL (12.0-16.0); Lymphocytes Absolute Auto 12600 /uL (1100-4500); Lymphocytes Percent Auto 47.6 % (25-40); Mean Corpuscular HGB Conc 32.8 % (30-36); Mean Corpuscular Hemoglobin 30.5 PG (26-34); Mean Corpuscular Volume 92.9 fL (80-100); Monocytes Absolute Auto 900 /uL (0-900); Monocytes Percent Auto 3.4 % (3-14); Neutrophils Absolute Auto 12800 /uL (1500-7000); Neutrophils Percent Auto 48.2 % (50-75); Platelet Count 435 X10^3/uL (150-400); Red Blood Cell Count 3.44 X10^6/uL (4.0-5.2); Red Cell Distribution Width 13.5 % (11.6-14.8); White Blood Cell Count 26.4 X10^3/uL (4.5-11.0)
[2021-04-15 11:48] LABS: INR 1.1 (0.9-1.3); Prothrombin Time 12.1 SECONDS (10.1-12.7)
[2021-04-15 11:50] LABS: PTT Partial Thromboplastin Tim 23 SECONDS (26.4-36.2)
[2021-04-15 11:54] LABS: Alanine Aminotransferase 16 IU/L (<35); Albumin 3.3 g/dL (3.5-5.0); Albumin Globulin Ratio 1.3 (1.0-2.8); Alkaline Phosphatase 49 U/L (38-126); Aspartate Aminotransferase 29 IU/L (14-36); BUN Creatinine Ratio 22.7 (6-22); Bilirubin Total 0.5 mg/dL (0.2-1.3); Blood Urea Nitrogen 32 mg/dL (7-17); Calcium 7.7 mg/dL (8.4-10.2); Carbon Dioxide 17 mmol/L (22-32); Chloride 102 mmol/L (98-107); Creatine Kinase 126 U/L (30-135); Estimated Glomerular Filt Rate 35.6 mL/min (>60); Globulin 2.5 g/dL (1.7-4.1); Glucose 113 mg/dL (80-110); HEMOLYSIS 25 (0-50); Lipase 208 U/L (23-300); Potassium 3.2 mmol/L (3.4-5.1); Sodium 131 mmol/L (137-145); Total Protein 5.8 g/dL (6.3-8.2)
[2021-04-15 11:55] LABS: Lactate (Lactic Acid) 1.9 mmol/L (0.7-2.1)
[2021-04-15 12:04] LABS: Troponin I 0.033 ng/mL (0.01-0.034)
[2021-04-15 12:09] LABS: Procalcitonin 0.24 ng/mL (<0.5)
[2021-04-15] MEDS: HYDROMORPHONE 0.5 MG INJ IV ×4 (12:17→23:34)
[2021-04-15 12:29] LABS: Creatine Kinase MB 7.78 ng/mL (<2.37)
[2021-04-15 12:31] LABS: CKMB % Relative Index 6.2 % (1.5-5.0)
[2021-04-15] MEDS: SODIUM CHLORIDE 0.9% 1,000 ML 100 ML IV (13:33)
[2021-04-15] MEDS: PIPERACILLIN/TAZO 4.5 GM in SODIUM CHLORIDE 0.9% 100 ML 200 ML IV (13:33)
--- NOTE | 2021-04-15 14:00 | PC.NURSE ---
multiple attempts for an NG tube by 2 RNs, Dr. Fonseca, Dr. Samuels and Dr. Isabel without success. patient tolerated well.
--- NOTE | 2021-04-15 14:04 | P.PN_ITS ---
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 She was discharged from hospital several days ago and today presented with severe epigastric pain nausea and diarrhea. On admission afebrile vital signs are within normal limits. WBC 26, hematocrit 32, creatinine 1.4 from (0.7) lactate 1.9, CK-MB 7.8. CT A/P demonstrates samll bowel obstruction w few areas of pneumo intestinalis, and pneumobilium. She is recieving Zosyn currently and IVF. Exam Vital Signs (past 8 hours): - 04/15/21 10:55 04/15/21 10:56 04/15/21 11:00 Temperature Pulse Rate 54 L 54 L Respiratory Rate 21 21 Blood Pressure 129/60 117/59 L 118/55 L Pulse Oximetry 98 99 04/15/21 11:04 04/15/21 11:10 04/15/21 11:13 Temperature 96.3 F L Pulse Rate 54 L 54 L 54 L Respiratory Rate 18 20 20 Blood Pressure 129/60 125/59 L Pulse Oximetry 98 98 98 04/15/21 11:15 04/15/21 11:20 04/15/21 11:25 Temperature Pulse Rate 53 L 52 L 51 L Respiratory Rate 20 19 19 Blood Pressure 116/56 L 116/59 L 116/56 L Pulse Oximetry 98 98 98 04/15/21 11:30 04/15/21 11:35 04/15/21 11:40 Temperature Pulse Rate 51 L 51 L 52 L Respiratory Rate 20 21 22 Blood Pressure 119/60 120/60 124/60 Pulse Oximetry 98 98 98 04/15/21 11:44 04/15/21 11:56 04/15/21 12:00 Temperature Pulse Rate 53 L 59 L 57 L Respiratory Rate 24 23 24 Blood Pressure 115/58 L Pulse Oximetry 98 96 100 04/15/21 12:03 04/15/21 12:05 04/15/21 12:10 Temperature Pulse Rate 57 L 55 L 55 L Respiratory Rate 26 H 24 26 H Blood Pressure 166/68 H 150/67 H 153/69 H Pulse Oximetry 100 100 100 04/15/21 12:15 04/15/21 12:20 04/15/21 12:26 Temperature Pulse Rate 55 L 54 L 63 Respiratory Rate 29 H 30 H 23 Blood Pressure 148/67 H 135/60 158/85 H Pulse Oximetry 100 100 97 04/15/21 12:30 04/15/21 12:40 04/15/21 12:41 Temperature Pulse Rate 68 52 L 52 L Respiratory Rate 23 27 H 26 H Blood Pressure 176/77 H 119/59 L Pulse Oximetry 91 98 98 04/15/21 12:45 04/15/21 12:50 04/15/21 12:56 Temperature Pulse Rate 52 L 52 L 59 L Respiratory Rate 26 H 27 H 25 H Blood Pressure 112/56 L 127/56 L 135/65 Pulse Oximetry 98 97 94 04/15/21 13:00 04/15/21 13:06 04/15/21 13:10 Temperature Pulse Rate 55 L 54 L 53 L Respiratory Rate 25 H 24 28 H Blood Pressure 118/58 L 136/62 Pulse Oximetry 94 95 96 04/15/21 13:11 04/15/21 13:15 04/15/21 13:20 Temperature Pulse Rate 52 L 53 L 53 L Respiratory Rate 28 H 25 H 24 Blood Pressure 117/56 L 116/59 L Pulse Oximetry 98 97 86 L 04/15/21 13:21 04/15/21 13:25 04/15/21 13:30 Temperature Pulse Rate 52 L 52 L 52 L Respiratory Rate 24 23 24 Blood Pressure 115/57 L 131/65 137/63 Pulse Oximetry 81 L 96 96 04/15/21 13:35 04/15/21 13:40 Temperature Pulse Rate 52 L 52 L Respiratory Rate 20 22 Blood Pressure 122/59 L 127/62 Pulse Oximetry 99 99 Oxygen Delivery Method Nasal Cannula Oxygen Flow Rate 2 Narrative Exam Narrative: Gen-Elderly woman alert and in aucte distress Chest-Labored resp Cardiac-Sinus bradycardia Abdomen-Significant distention. Midline incision CDI with padmini. Severe pain superior to prior incision and right of midline. Ext-Warm. Objective Labs Result Diagrams: 04/15/21 11:10 04/15/21 11:10 Labs: Laboratory Results - last 24 hr 04/15/21 04/15/21 04/15/21 11:00 11:10 11:10 WBC 26.4 H RBC 3.44 L Hgb 10.5 L Hct 31.9 L MCV 92.9 MCH 30.5 MCHC 32.8 RDW 13.5 Plt Count 435 H Neut % (Auto) 48.2 L Lymph % (Auto) 47.6 H [place] % (Auto) 3.4 Eos % (Auto) 0.6 L Baso % (Auto) 0.2 Neut # (Auto) 99027 H Lymph # (Auto) 92136 H [place] # (Auto) 900 Eos # (Auto) 100 Baso # (Auto) 0 PT 12.1 INR 1.1 APTT 23 L D Sodium Potassium Chloride Carbon Dioxide BUN Creatinine Estimated GFR BUN/Creatinine Ratio Glucose Lactate Calcium Total Bilirubin AST ALT Alkaline Phosphatase Total Creatine Kinase CK-MB (CK-2) CK-MB (CK-2) Rel Index Troponin I Total Protein Albumin Globulin Albumin/Globulin Ratio Lipase Procalcitonin SARS-CoV-2 (PCR) Negative 04/15/21 04/15/21 11:10 11:10 WBC RBC Hgb Hct MCV MCH MCHC RDW Plt Count Neut % (Auto) Lymph % (Auto) [place] % (Auto) Eos % (Auto) Baso % (Auto) Neut # (Auto) Lymph # (Auto) [place] # (Auto) Eos # (Auto) Baso # (Auto) PT INR APTT Sodium 131 L Potassium 3.2 L Chloride 102 Carbon Dioxide 17 L BUN 32 H Creatinine 1.41 H Estimated GFR 35.6 L BUN/Creatinine Ratio 22.7 H Glucose 113 H Lactate 1.9 Calcium 7.7 L Total Bilirubin 0.5 AST 29 ALT 16 Alkaline Phosphatase 49 Total Creatine Kinase 126 CK-MB (CK-2) 7.78 H CK-MB (CK-2) Rel Index 6.2 H* Troponin I 0.033 Total Protein 5.8 L Albumin 3.3 L Globulin 2.5 Albumin/Globulin Ratio 1.3 Lipase 208 Procalcitonin 0.24 SARS-CoV-2 (PCR) [facility], [facility] Medical History (Updated 04/15/21 @ 14:19 by Soren Isabel MD) Diabetes mellitus type II, non insulin dependent HTN (hypertension) Hypercholesterolemia Surgical History History of bladder surgery History of cholecystectomy History of repair of hiatal hernia Status post hysterectomy Family History Sister Cancer Brother Cancer Sister Cancer Mother Cancer Hypertension Social History marital status: unmarried,living together household members: significant other and children Smoking Status: Never smoker alcohol intake: never Assessment & Plan Assessment and plan (1) Acute abdomen: Status: Acute Assessment & Plan narrative: 85-year-old woman 1 1/2 weeks after a ileocecectomy for cecal volvulus readmitted to the hospital with a small-bowel obstruction and possible intestinal ischemia. Hemodynamically stable at this time CT demonstrates a small bowel obstruction with portal venous gas and pneumatosis intestinalis. I discussed these findings with the patient and recommended that she undergo emergent exploratory laparotomy possible bowel resection possible ostomy. We discussed that the operation is very high risk for morbidity and mortality. She understands that if she does have intestinal ischemia without surgical intervention there is a severe risk of mortality. Operative risks including bleeding, infection, damage to surrounding structures, myocardial infarcation and were discussed. Questions have been answered and will proceed. Time Spent With Patient Critical Care time: I spent a total of [] minutes of critical care time on this patient's care today; this time is exclusive of procedural time.
[2021-04-15] MEDS: HYDROMORPHONE 2 MG INJ 0.5 MG IV (14:42)
[2021-04-15] MEDS: LACTATED RINGERS 1,000 ML 42 ML IV ×2 (16:17→17:52)
--- NOTE | 2021-04-15 18:23 | PM.HP.1 ---
History of Present Illness History of Present Illness Date Patient Seen: 04/15/21 Chief complaint: Nausea and abdominal pain Narrative: Deyanira is an 85-year-old woman who underwent an exploratory laparotomy 11 days ago for an internal hernia involving her cecum which was caught under band of scar tissue. She had extensive adhesions from a prior surgery possibly her open hiatal hernia repair. She did well and was discharged to a shelter facility but returned today because of altered mental status at the nursing facility, abdominal distension and loose watery bowel movements. She was noted to be hypertensive in the emergency vehicle but was normotensive in the ER here. CT scan in the emergency department was concerning for a bowel obstruction. The radiologist reported concerns of ischemia because of pneumatosis intestinalis, portal venous gas and decreased enhancement of the mucosa. Multiple attempts to place an NG tube were unsuccessful due to her altered anatomy. Patient History Medical History (Updated 04/15/21 @ 14:19 by Soren Isabel MD) Diabetes mellitus type II, non insulin dependent HTN (hypertension) Hypercholesterolemia Surgical History History of bladder surgery History of cholecystectomy History of repair of hiatal hernia Status post hysterectomy Family & Social History Family History Sister Cancer Brother Cancer Sister Cancer Mother Cancer Hypertension Social History: household members significant other,children Tobacco & Substance use: Smoking Status Never smoker alcohol intake never alcohol intake frequency other Substance Use Type does not use Meds Home Medications and Allergies Home Medications Medication Instructions Recorded Confirmed Type doxepin 25 mg capsule 25 mg PO BEDTIME 08/30/17 04/04/21 History fluoxetine 20 mg capsule 40 mg PO DAILY 08/30/17 04/04/21 History esomeprazole magnesium 40 mg 80 mg PO DAILY 04/25/18 04/04/21 History capsule,delayed release lovastatin 20 mg tablet 20 mg PO BEDTIME 04/25/18 04/04/21 History metformin 500 mg tablet 500 mg PO QAM 04/25/18 04/04/21 History cetirizine 10 mg capsule (Allergy 10 mg PO DAILY PRN #30 cap 04/24/19 04/04/21 Rx Relief (cetirizine)) hydroxyzine HCl 25 mg tablet 25 mg PO BEDTIME #14 tab 04/26/19 04/04/21 Rx colchicine 0.6 mg tablet 0.6 mg PO BID #20 tab 10/01/19 04/04/21 Rx diltiazem HCl 180 mg 360 mg PO DAILY #30 cap 04/12/21 Rx capsule,extended release 24 hr (Cardizem CD) hydrocodone 5 mg-acetaminophen 325 1 tab PO Q6H PRN #30 tab 04/12/21 Rx mg tablet losartan 50 mg tablet 100 mg PO DAILY #30 tab 04/12/21 Rx metoprolol tartrate 25 mg tablet 50 mg PO BID #60 tab 04/12/21 Rx quetiapine 100 mg tablet (Seroquel) 12.5 mg PO BEDTIME #30 tab 04/12/21 Rx Allergies Allergy/AdvReac Type Severity Reaction Status Date / Time MJ Inhibitors Allergy Intermediate I dont Verified 04/15/21 12:10 remember guaifenesin Allergy Intermediate face Verified 04/15/21 12:10 swelling azithromycin Allergy Unknown I dont Verified 04/15/21 12:10 remember dextromethorphan Allergy Unknown I dont Verified 04/15/21 12:10 remember enalapril Allergy Unknown I dont Verified 04/15/21 12:10 remember meloxicam Allergy Unknown I dont Verified 04/15/21 12:10 remember pneumococcal vaccine Allergy Unknown face Verified 04/15/21 12:10 [From PNEUMOVAX 23] swelling morphine AdvReac Severe Nausea Verified 04/15/21 12:10 lidocaine AdvReac Unknown I dont Verified 04/15/21 12:10 remember Exam Vital Signs (past 8 hours): - 04/15/21 10:55 04/15/21 10:56 04/15/21 10:59 Temperature Pulse Rate 54 L 74 Respiratory Rate 21 24 Blood Pressure 129/60 117/59 L 75/40 L Pulse Oximetry 98 90 L 04/15/21 11:00 04/15/21 11:04 04/15/21 11:10 Temperature 96.3 F L Pulse Rate 54 L 54 L 54 L Respiratory Rate 21 18 20 Blood Pressure 118/55 L 129/60 Pulse Oximetry 99 98 98 04/15/21 11:13 04/15/21 11:15 04/15/21 11:20 Temperature Pulse Rate 54 L 53 L 52 L Respiratory Rate 20 20 19 Blood Pressure 125/59 L 116/56 L 116/59 L Pulse Oximetry 98 98 98 04/15/21 11:25 04/15/21 11:30 04/15/21 11:35 Temperature Pulse Rate 51 L 51 L 51 L Respiratory Rate 19 20 21 Blood Pressure 116/56 L 119/60 120/60 Pulse Oximetry 98 98 98 04/15/21 11:40 04/15/21 11:44 04/15/21 11:56 Temperature Pulse Rate 52 L 53 L 59 L Respiratory Rate 22 24 23 Blood Pressure 124/60 115/58 L Pulse Oximetry 98 98 96 04/15/21 12:00 04/15/21 12:03 04/15/21 12:05 Temperature Pulse Rate 57 L 57 L 55 L Respiratory Rate 24 26 H 24 Blood Pressure 166/68 H 150/67 H Pulse Oximetry 100 100 100 04/15/21 12:10 04/15/21 12:15 04/15/21 12:20 Temperature Pulse Rate 55 L 55 L 54 L Respiratory Rate 26 H 29 H 30 H Blood Pressure 153/69 H 148/67 H 135/60 Pulse Oximetry 100 100 100 04/15/21 12:26 04/15/21 12:30 04/15/21 12:40 Temperature Pulse Rate 63 68 52 L Respiratory Rate 23 23 27 H Blood Pressure 158/85 H 176/77 H Pulse Oximetry 97 91 98 04/15/21 12:41 04/15/21 12:45 04/15/21 12:50 Temperature Pulse Rate 52 L 52 L 52 L Respiratory Rate 26 H 26 H 27 H Blood Pressure 119/59 L 112/56 L 127/56 L Pulse Oximetry 98 98 97 04/15/21 12:56 04/15/21 13:00 04/15/21 13:06 Temperature Pulse Rate 59 L 55 L 54 L Respiratory Rate 25 H 25 H 24 Blood Pressure 135/65 118/58 L 136/62 Pulse Oximetry 94 94 95 04/15/21 13:10 04/15/21 13:11 04/15/21 13:15 Temperature Pulse Rate 53 L 52 L 53 L Respiratory Rate 28 H 28 H 25 H Blood Pressure 117/56 L 116/59 L Pulse Oximetry 96 98 97 04/15/21 13:20 04/15/21 13:21 04/15/21 13:25 Temperature Pulse Rate 53 L 52 L 52 L Respiratory Rate 24 24 23 Blood Pressure 115/57 L 131/65 Pulse Oximetry 86 L 81 L 96 04/15/21 13:30 04/15/21 13:35 04/15/21 13:40 Temperature Pulse Rate 52 L 52 L 52 L Respiratory Rate 24 20 22 Blood Pressure 137/63 122/59 L 127/62 Pulse Oximetry 96 99 99 04/15/21 14:34 04/15/21 17:41 04/15/21 17:53 Temperature 97.5 F L 97.4 F L Pulse Rate 53 L 79 75 Respiratory Rate 22 23 20 Blood Pressure 111/58 L 57/33 L 76/36 L Pulse Oximetry 96 80 L 95 04/15/21 17:56 Temperature 97.7 F Pulse Rate 74 Respiratory Rate 26 H Blood Pressure 68/32 L Pulse Oximetry Oxygen Delivery Method Simple Mask Oxygen Flow Rate 2 Const General: frail appearing and lethargic Resp Effort & Inspection: labored GI Other: Significantly distended No peritoneal signs Incision intact Objective Labs Result Diagrams: 04/15/21 11:10 04/15/21 11:10 Labs: Laboratory Results - last 24 hr 04/15/21 04/15/21 04/15/21 11:00 11:10 11:10 WBC 26.4 H RBC 3.44 L Hgb 10.5 L Hct 31.9 L MCV 92.9 MCH 30.5 MCHC 32.8 RDW 13.5 Plt Count 435 H Neut % (Auto) 48.2 L Lymph % (Auto) 47.6 H [place] % (Auto) 3.4 Eos % (Auto) 0.6 L Baso % (Auto) 0.2 Neut # (Auto) 09107 H Lymph # (Auto) 90594 H [place] # (Auto) 900 Eos # (Auto) 100 Baso # (Auto) 0 PT 12.1 INR 1.1 APTT 23 L D Sodium Potassium Chloride Carbon Dioxide BUN Creatinine Estimated GFR BUN/Creatinine Ratio Glucose Lactate Calcium Total Bilirubin AST ALT Alkaline Phosphatase Total Creatine Kinase CK-MB (CK-2) CK-MB (CK-2) Rel Index Troponin I Total Protein Albumin Globulin Albumin/Globulin Ratio Lipase Procalcitonin SARS-CoV-2 (PCR) Negative Blood Type Antibody Screen 04/15/21 04/15/21 04/15/21 11:10 11:10 11:10 WBC RBC Hgb Hct MCV MCH MCHC RDW Plt Count Neut % (Auto) Lymph % (Auto) [place] % (Auto) Eos % (Auto) Baso % (Auto) Neut # (Auto) Lymph # (Auto) [place] # (Auto) Eos # (Auto) Baso # (Auto) PT INR APTT Sodium 131 L Potassium 3.2 L Chloride 102 Carbon Dioxide 17 L BUN 32 H Creatinine 1.41 H Estimated GFR 35.6 L BUN/Creatinine Ratio 22.7 H Glucose 113 H Lactate 1.9 Calcium 7.7 L Total Bilirubin 0.5 AST 29 ALT 16 Alkaline Phosphatase 49 Total Creatine Kinase 126 CK-MB (CK-2) 7.78 H CK-MB (CK-2) Rel Index 6.2 H* Troponin I 0.033 Total Protein 5.8 L Albumin 3.3 L Globulin 2.5 Albumin/Globulin Ratio 1.3 Lipase 208 Procalcitonin 0.24 SARS-CoV-2 (PCR) Blood Type A Positive Antibody Screen Negative Assessment & Plan Assessment and plan (1) Small bowel obstruction: Status: Acute Plan Dr. Isabel discussed the risks and benefits of surgery with patient and a decision was made to proceed to the operating room for exploratory laparotomy Time Spent With Patient Critical Care time: I spent a total of [] minutes of critical care time on this patient's care today; this time is exclusive of procedural time.
--- NOTE | 2021-04-15 18:36 | P.OP_ITS ---
Operative Date/Time/Diagnoses Date of procedure: 04/15/21 Time of procedure: 18:37 Pre-op diagnosis: Postoperative bowel obstruction Post-op diagnosis: same Procedure & Clinicians Procedure: Exploratory laparotomy, gastrostomy tube Same procedure as scheduled: Yes Surgeon: Roni Samuels [employer] Worker: Soren Isabel Anesthesia Type: General Operative Notes Procedure in detail: The patient is an 85 year old woman who was 11 days postoperative from exploratory laparotomy for an adhesive small bowel obstruction involving the cecum. She underwent an ileocecectomy. She did well and was discharged to a long-term facility but returned with significant abdominal distension and concerning CT scan findings including pneumatosis intestinalis and portal venous air. Decision was made to proceed to the operating room for exploration. The patient was started on Zosyn in the ER. The patient was brought to the operating room and general endotracheal anesthesia was induced. The old incision was opened. There were significant adhesions both new and old. There was no evidence of necrotic bowel. There was significant bowel distention. Because of the severity of the adhesions the bowel could not be run and no obvious transition point was encountered. The stomach was substantially distended and was decompressed and a gastrostomy tube was placed through the abdominal wall in the left upper quadrant and into the stomach. The stomach was pursestring sutured around gastrostomy tube with a 2-0 silk suture. There was some spillage and so the upper abdomen was irrigated with 6 L of warm saline. A 19 round Rafal drain was placed into the left upper quadrant and brought out through left lower quadrant stab incision. Finally, the abdominal incision was closed with running 0 PDS and interrupted 0 Vicryl sutures. Skin was closed wi th padmini EBL was 20 mL. Post-operative Condition: stable Disposition: PACU
[2021-04-15] MEDS: NOREPINEPHRINE BITARTRATE/D5W 4 MG/250 ML PLAST..BAG 30 MG IV (18:57)
--- NOTE | 2021-04-15 19:09 | PM.PROC.1 ---
Procedures Date/Time Date of procedure: 04/15/21 Time of procedure: 19:00 Central Line Placement Time out performed: Yes Patient placed on monitor/pulse ox: Yes MD prep: mask, gown and gloves Central line prep: Chlorhexidine scrub Local anesthesia used: lidocaine 1% Amount of anesthesia used (ml): 1 Ultrasound used for placement: No Central line lumen inserted: triple Post procedure: sutured in place, good blood return, all ports aspirated, flushed, capped and sterile dressing applied Post procedure x-ray: no pneumothorax seen and other (Post position x ray showed the catheter in a bit too far. I pulled it back 3 cm and re dressed catheter using sterile technique.) Patient tolerated procedure: well (Even though the patient was mentating well. Responding to questions appropriately. Her BP remained persistently low despite adequate fluids. I decieded to place a central line in case any pressors needed in her post op care in the ICU.) Additional comments: We started a low dose Levophed in the PACU. BP responded nicely to 8 mcg/min. MAP's coming up into the 50-80's. RR 20, O2 Sats 96% on FM O2. She is being sent from recovery room to ICU care now.
--- NOTE | 2021-04-15 19:30 | SUR.PHASEI ---
Note: pt B/P unstable on arrival to PACU, 200cc boluses given total of 600cc with no improvement. Anesthesiologist at bedside. Ephedrine given x 2 by Anesthesiologist with no improvement in B/P/ . Pt placed on a levophed gtt starting at 8mcg/min in 18 gauge AC until Central line placed and confirmed placement by xray. Pt also needed supplemental 02 placed on 15 liters via simple facemask changed to a NRB 10 liters prior to departure to ICU airway supported and 02 sats 996-100%. G tube placed to gravity drainage via surgeon Dr Samuels. Drsg to G tube saturated serosang reinforced per Dr Samuels. Rafal tube to bulb suction serosang minimal output 30cc. Win out put in PACU 10cc. Pt stablized and transferred to floor with monitor, 02 and 2 RNs. Report given to SCREW CUTTERDEX Malcolm
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
--- NOTE | 2021-04-15 20:11 | P.TELICUCN_ITS ---
History of Present Illness Consult details Chief complaint: Nausea and abdominal pain :: This patient was seen via real time interactive two-way audiovisual telecommunication. Narrative: Ms. Mauricio is an 85 year old woman who recently underwent exploratory lapa rotomy lysis of adhesions and ileocecotomy secondary to small bowel obstruction 11 dayss ago who was discharged to SNF. She presents back with worsening abdominal distention, loos BM, and hypotension. CT abdomen showed pneumoatosis intestinalis and portal venous air. Patient was taken emergently for exploratory laporatomy and found no evidence of necrotic bowel. A gastrostomy tube was place and brought back to ICU extubated on 2 liters NC. At the time of round patient was on levophed 9 mcg with LR running at 150cc/hr. Resumed zosyn and checked renal panel/CBC/Mg. [facility] Medical History (Updated 04/15/21 @ 14:19 by Soren Isabel MD) Diabetes mellitus type II, non insulin dependent HTN (hypertension) Hypercholesterolemia Surgical History History of bladder surgery History of cholecystectomy History of repair of hiatal hernia Status post hysterectomy Family History Sister Cancer Brother Cancer Sister Cancer Mother Cancer Hypertension Social History marital status: unmarried,living together household members: significant other and children Smoking Status: Never smoker alcohol intake: never Current Medications Current Medications Medications: Home Medications doxepin 25 mg capsule 25 mg PO BEDTIME 08/30/17 [History Confirmed 04/04/21] fluoxetine 20 mg capsule 40 mg PO DAILY 08/30/17 [History Confirmed 04/04/21] esomeprazole magnesium 40 mg capsule,delayed release 80 mg PO DAILY 04/25/18 [History Confirmed 04/04/21] lovastatin 20 mg tablet 20 mg PO BEDTIME 04/25/18 [History Confirmed 04/04/21] metformin 500 mg tablet 500 mg PO QAM 04/25/18 [History Confirmed 04/04/21] cetirizine 10 mg capsule (Allergy Relief (cetirizine)) 10 mg PO DAILY PRN #30 cap 04/24/19 [Rx Confirmed 04/04/21] hydroxyzine HCl 25 mg tablet 25 mg PO BEDTIME #14 tab 04/26/19 [Rx Confirmed 04/04/21] colchicine 0.6 mg tablet 0.6 mg PO BID #20 tab 10/01/19 [Rx Confirmed 04/04/21] diltiazem HCl 180 mg capsule,extended release 24 hr (Cardizem CD) 360 mg PO DAILY #30 cap 04/12/21 [Rx] hydrocodone 5 mg-acetaminophen 325 mg tablet 1 tab PO Q6H PRN #30 tab 04/12/21 [Rx] losartan 50 mg tablet 100 mg PO DAILY #30 tab 04/12/21 [Rx] metoprolol tartrate 25 mg tablet 50 mg PO BID #60 tab 04/12/21 [Rx] quetiapine 100 mg tablet (Seroquel) 12.5 mg PO BEDTIME #30 tab 04/12/21 [Rx] Visit Medications (administered) Generic Name Dose Route Start Last Admin Trade Name Freq PRN Reason Stop Dose Admin NOREPINEPHRINE BITARTRATE/D5W 4 mg in 250 mls @ 30 mls/hr 04/15/21 19:00 04/15/21 19:10 Levophed IV 9 mcg/min TITRATE LUL 33.75 mls/hr Titration Protocol 8 MCG/MIN Exam Vital Signs (past 8 hours): - 04/15/21 12:15 04/15/21 12:20 04/15/21 12:26 Temperature Pulse Rate 55 L 54 L 63 Respiratory Rate 29 H 30 H 23 Blood Pressure 148/67 H 135/60 158/85 H Pulse Oximetry 100 100 97 04/15/21 12:30 04/15/21 12:40 04/15/21 12:41 Temperature Pulse Rate 68 52 L 52 L Respiratory Rate 23 27 H 26 H Blood Pressure 176/77 H 119/59 L Pulse Oximetry 91 98 98 04/15/21 12:45 04/15/21 12:50 04/15/21 12:56 Temperature Pulse Rate 52 L 52 L 59 L Respiratory Rate 26 H 27 H 25 H Blood Pressure 112/56 L 127/56 L 135/65 Pulse Oximetry 98 97 94 04/15/21 13:00 04/15/21 13:06 04/15/21 13:10 Temperature Pulse Rate 55 L 54 L 53 L Respiratory Rate 25 H 24 28 H Blood Pressure 118/58 L 136/62 Pulse Oximetry 94 95 96 04/15/21 13:11 04/15/21 13:15 04/15/21 13:20 Temperature Pulse Rate 52 L 53 L 53 L Respiratory Rate 28 H 25 H 24 Blood Pressure 117/56 L 116/59 L Pulse Oximetry 98 97 86 L 04/15/21 13:21 04/15/21 13:25 04/15/21 13:30 Temperature Pulse Rate 52 L 52 L 52 L Respiratory Rate 24 23 24 Blood Pressure 115/57 L 131/65 137/63 Pulse Oximetry 81 L 96 96 04/15/21 13:35 04/15/21 13:40 04/15/21 14:34 Temperature 97.5 F L Pulse Rate 52 L 52 L 53 L Respiratory Rate 20 22 22 Blood Pressure 122/59 L 127/62 111/58 L Pulse Oximetry 99 99 96 04/15/21 17:41 04/15/21 17:53 04/15/21 17:56 Temperature 97.4 F L 97.7 F Pulse Rate 79 75 74 Respiratory Rate 23 20 26 H Blood Pressure 57/33 L 76/36 L 68/32 L Pulse Oximetry 80 L 95 04/15/21 18:24 04/15/21 18:54 04/15/21 19:13 Temperature 97.7 F 97.8 F Pulse Rate 74 76 79 Respiratory Rate 24 17 19 Blood Pressure 64/30 L 91/46 L 80/47 L Pulse Oximetry 95 99 96 04/15/21 19:29 Temperature Pulse Rate 78 Respiratory Rate 16 Blood Pressure 106/54 L Pulse Oximetry 100 Oxygen Delivery Method Non -Rebreather Oxygen Flow Rate 10 Narrative Exam Narrative: Lying in bed w/ complaints of abdominal pain. Objective Labs Result Diagrams: 04/15/21 11:10 04/15/21 11:10 Labs: Laboratory Results - last 24 hr 04/15/21 04/15/21 04/15/21 11:00 11:10 11:10 WBC 26.4 H RBC 3.44 L Hgb 10.5 L Hct 31.9 L MCV 92.9 MCH 30.5 MCHC 32.8 RDW 13.5 Plt Count 435 H Neut % (Auto) 48.2 L Lymph % (Auto) 47.6 H [place] % (Auto) 3.4 Eos % (Auto) 0.6 L Baso % (Auto) 0.2 Neut # (Auto) 92024 H Lymph # (Auto) 28601 H [place] # (Auto) 900 Eos # (Auto) 100 Baso # (Auto) 0 PT 12.1 INR 1.1 APTT 23 L D Sodium Potassium Chloride Carbon Dioxide BUN Creatinine Estimated GFR BUN/Creatinine Ratio Glucose Lactate Calcium Total Bilirubin AST ALT Alkaline Phosphatase Total Creatine Kinase CK-MB (CK-2) CK-MB (CK-2) Rel Index Troponin I Total Protein Albumin Globulin Albumin/Globulin Ratio Lipase Procalcitonin SARS-CoV-2 (PCR) Negative Blood Type Antibody Screen 04/15/21 04/15/21 04/15/21 11:10 11:10 11:10 WBC RBC Hgb Hct MCV MCH MCHC RDW Plt Count Neut % (Auto) Lymph % (Auto) [place] % (Auto) Eos % (Auto) Baso % (Auto) Neut # (Auto) Lymph # (Auto) [place] # (Auto) Eos # (Auto) Baso # (Auto) PT INR APTT Sodium 131 L Potassium 3.2 L Chloride 102 Carbon Dioxide 17 L BUN 32 H Creatinine 1.41 H Estimated GFR 35.6 L BUN/Creatinine Ratio 22.7 H Glucose 113 H Lactate 1.9 Calcium 7.7 L Total Bilirubin 0.5 AST 29 ALT 16 Alkaline Phosphatase 49 Total Creatine Kinase 126 CK-MB (CK-2) 7.78 H CK-MB (CK-2) Rel Index 6.2 H* Troponin I 0.033 Total Protein 5.8 L Albumin 3.3 L Globulin 2.5 Albumin/Globulin Ratio 1.3 Lipase 208 Procalcitonin 0.24 SARS-CoV-2 (PCR) Blood Type A Positive Antibody Screen Negative Assessment & Plan Assessment & Plan narrative: NEURO: # Decondition -- Seek PT/OT consultation RESP: # Acute hypoxemia respiratory failure -- Secondary to atelectasis due to splinting and abdominal pain -- Pain control as below -- Encourage IS -- Seek early mobility as tolerated -- Goal SpO2 > 88% CVS: # Distributive shock -- Secondary to intraabdominal infection -- s/p ex-lap with no evidence of bowel ischemia -- Resume zosyn -- Check lactic acid -- Cont IVF -- On levophed to maintain MAP goal > 65 -- Will add vasopressin if levophed above 15 mcg : # LUDA -- Secondary to sepsis and dehydration -- Cont IVF -- Avoid nephrotoxin agents -- Monitor UOP -- Daily BMP GI: # Intestinalis pneumatosis -- S/p ex-lap -- On zosyn -- Pain control w/ dilaudid 0.5 mg q3hr prn severe pain -- Management per primary surgery team ID: # Septic shock -- Secondary to intraabdominal infection -- Blood culture sent -- On zosyn ENDO: -- Goal BS < 180 D/w RN and patient at bedside. Time Spent With Patient Critical Care time: I spent a total of [] minutes of critical care time on this patient's care today; this time is exclusive of procedural time.
[2021-04-15] MEDS: PIPERACILLIN/TAZO 3.375 GM in SODIUM CHLORIDE 0.9% 100 ML 25 ML IV (20:54)
[2021-04-15 21:29] LABS: Add Manual Diff / Slide Review YES; Hematocrit 32.3 % (36-46); Hemoglobin 10.5 g/dL (12.0-16.0); Mean Corpuscular HGB Conc 32.6 % (30-36); Mean Corpuscular Hemoglobin 30.5 PG (26-34); Mean Corpuscular Volume 93.5 fL (80-100); Platelet Count 376 X10^3/uL (150-400); Red Blood Cell Count 3.45 X10^6/uL (4.0-5.2); Red Cell Distribution Width 13.4 % (11.6-14.8); White Blood Cell Count 15.4 X10^3/uL (4.5-11.0)
[2021-04-15 21:32] LABS: Albumin 2.2 g/dL (3.5-5.0); BUN Creatinine Ratio 23.9 (6-22); Blood Urea Nitrogen 33 mg/dL (7-17); Calcium 6.6 mg/dL (8.4-10.2); Carbon Dioxide 20 mmol/L (22-32); Chloride 105 mmol/L (98-107); Estimated Glomerular Filt Rate 36.5 mL/min (>60); Glucose 93 mg/dL (80-110); HEMOLYSIS < 15 (0-50); Magnesium 1.3 mg/dL (1.6-2.3); Phosphorous 4.2 mg/dL (2.8-4.1); Potassium 3.2 mmol/L (3.4-5.1); Sodium 130 mmol/L (137-145)
[2021-04-15 22:04] LABS: Neutrophils Absolute Manual 5236 /uL (3000-5900); Total Cells Counted 100
[2021-04-15 22:05] LABS: RBC Morphology Normal Morphology; Smudge Cells 2+
[2021-04-15 22:06] LABS: Platelet Morphology Comment NOTE
[2021-04-15 22:10] LABS: Lactate (Lactic Acid) 2.3 mmol/L (0.7-2.1)
[2021-04-15] MEDS: MAGNESIUM SULFATE 2 GM/50 ML PIGGYBACK IV (22:12)
[2021-04-16] VITALS (37 sets, daily range): BP systolic 59–195; BP diastolic 36–100; PULSE 0–85; RESP 13–35; TEMP 36.2–36.6; O2SAT 83–99
[2021-04-16 00:03] LABS: Reflexed Lactate in 2 Hours Y
[2021-04-16] MEDS: POTASSIUM CHLORIDE IN WATER 10 MEQ/100 ML PIGGYBACK 100 MEQ IV ×2 (00:17→01:23)
[2021-04-16] MEDS: NOREPINEPHRINE BITARTRATE/D5W 4 MG/250 ML PLAST..BAG 45 MG IV (00:35)
[2021-04-16 00:37] LABS: Lactate 2HR (Lactic Acid Rflx) 1.6 mmol/L (0.7-2.1)
[2021-04-16] MEDS: VASOPRESSIN 20 UNIT in SODIUM CHLORIDE 0.9% 100 ML 9.09 ML IV (00:43)
[2021-04-16] MEDS: VASOPRESSIN 40 UNIT in SODIUM CHLORIDE 0.9% 100 ML IV (01:04)
[2021-04-16] MEDS: HYDROMORPHONE 0.5 MG INJ IV (02:28)
[2021-04-16] MEDS: LACTATED RINGERS 1,000 ML 125 ML IV (03:06)
[2021-04-16] MEDS: ONDANSETRON 4 MG/2 ML INJ IV (03:10)
--- NOTE | 2021-04-16 03:49 | PC.NURSE ---
Addendum entered by Yun Marquez R.N. 04/16/21 04:08: 2030-Rounds with [employer] Dr Day, orders received, labs drawn. 2gm Mg+ sulfate ordered. 0-G-tube to gravity into Win bag came apart during turning, moderated amount of brown liquid fluid with chunks was expelled, secured tubing with tape, cleansed patient, changed drsg. 2305-Notified Dr Reyes about IVF and potassium, order received for LR @ 125ml/hr and 20meq K+ rider. 0025-Reported low UOP of approximately 85ml since admit, orders received to start Vasopressin at 0.03units/min continuous. 0330-Spoke with Dr Samuels about patients increase in abdominal pain, 0.5mg IV Dilaudid prn changed from Q3h to Q1h, Zofran also given for nausea. Mg+ rider and K+ riders complete, Levophed gtt continues, attempting to titrate down, see vital trends and Emar. Original Note: Shift Notes- 1929-Patient admitted to ICU room 228, drowsy, oriented to person and place. Levophed gtt infusing at 9mcg/min, SR, afebrile, RR 20, SpO2 99% on 10L NRB, LS clear. ML abdominal Aquacel D/I with few spots of shadow drainage, ABD drsg to G-tube intact with small shadow drainage, Rafal drain patent and compressed with small serous-sang fluid, Win patent with scant drainage.
[2021-04-16] MEDS: HYDROMORPHONE 1 MG INJ 0.5 MG IV ×3 (04:00→09:32)
[2021-04-16] MEDS: PIPERACILLIN/TAZO 3.375 GM in SODIUM CHLORIDE 0.9% 100 ML 25 ML IV (05:02)
[2021-04-16 05:29] LABS: Hematocrit 34.3 % (36-46); Hemoglobin 11.2 g/dL (12.0-16.0); Mean Corpuscular HGB Conc 32.7 % (30-36); Mean Corpuscular Hemoglobin 30.6 PG (26-34); Mean Corpuscular Volume 93.5 fL (80-100); Platelet Count 363 X10^3/uL (150-400); Red Blood Cell Count 3.67 X10^6/uL (4.0-5.2); Red Cell Distribution Width 13.5 % (11.6-14.8); White Blood Cell Count 22.4 X10^3/uL (4.5-11.0)
[2021-04-16 05:32] LABS: Add Manual Diff / Slide Review YES
[2021-04-16 05:55] LABS: Magnesium 1.8 mg/dL (1.6-2.3)
[2021-04-16 05:58] LABS: BUN Creatinine Ratio 21.9 (6-22); Blood Urea Nitrogen 35 mg/dL (7-17); Calcium 6.9 mg/dL (8.4-10.2); Carbon Dioxide 18 mmol/L (22-32); Chloride 106 mmol/L (98-107); Estimated Glomerular Filt Rate 30.8 mL/min (>60); Glucose 113 mg/dL (80-110); HEMOLYSIS < 15 (0-50); Potassium 3.9 mmol/L (3.4-5.1); Sodium 129 mmol/L (137-145)
[2021-04-16 06:03] LABS: NT-proBNP (BNP-Adult 18+) 8490 pg/mL (<450)
[2021-04-16] MEDS: NOREPINEPHRINE BITARTRATE/D5W 4 MG/250 ML PLAST..BAG 26.25 MG IV (06:57)
--- NOTE | 2021-04-16 06:59 | PM.PN.1 ---
Subjective Subjective Date Patient Seen: 04/16/21 Time Patient Seen: 06:59 Interval history: Sleeping at time of interview. Exam Vital Signs (past 8 hours): - 04/15/21 23:00 04/16/21 01:00 04/16/21 02:00 Temperature 97.0 F L 97.1 F L 97.2 F L Pulse Rate 77 81 80 Respiratory Rate 20 21 23 Blood Pressure 83/49 L 81/51 L 113/58 L Pulse Oximetry 99 98 97 04/16/21 03:00 04/16/21 04:00 04/16/21 05:00 Temperature 97.6 F 97.4 F L Pulse Rate 84 78 77 Respiratory Rate 31 H 24 26 H Blood Pressure 104/73 111/68 120/67 Pulse Oximetry 95 94 97 04/16/21 06:00 Temperature Pulse Rate 80 Respiratory Rate 26 H Blood Pressure 117/71 Pulse Oximetry 95 Oxygen Delivery Method Nasal Cannula Oxygen Flow Rate 2 Narrative Exam Narrative: GENERAL:? Sleeping. HEENT:? Head normocephalic/atraumatic. LUNGS: ? Diminished inspiratory effort, no audible wheezes, rhonchi, or rales. CV:? Normal S1 and S2 with regular rate and rhythm, no audible murmurs, rubs or gallops.? Central line in place. ABDOMEN:? ? Soft, non-distended.? Gastric tube with overlying dressing in place. ? Few bowel sounds in all 4 quadrants. EXTREMITIES:? 1+ edema, bilateral lower extremities. NEURO:? Not able to be tested. PSYCH:? Not able to be tested. SKIN:? No concerning lesions. Objective Labs Result Diagrams: 04/16/21 04:50 04/16/21 04:50 Labs: Laboratory Results - last 24 hr 04/15/21 04/15/21 04/15/21 11:00 11:10 11:10 WBC 26.4 H RBC 3.44 L Hgb 10.5 L Hct 31.9 L MCV 92.9 MCH 30.5 MCHC 32.8 RDW 13.5 Plt Count 435 H Neut % (Auto) 48.2 L Lymph % (Auto) 47.6 H Towner % (Auto) 3.4 Eos % (Auto) 0.6 L Baso % (Auto) 0.2 Neut # (Auto) 30745 H Lymph # (Auto) 55649 H Towner # (Auto) 900 Eos # (Auto) 100 Baso # (Auto) 0 Total Counted Seg Neutrophils % Band Neutrophils % Lymphocytes % (Manual) Monocytes % (Manual) Neutrophils # (Manual) Smudge Cells Plt Morphology Comment RBC Morphology PT 12.1 INR 1.1 APTT 23 L D Sodium Potassium Chloride Carbon Dioxide BUN Creatinine Estimated GFR BUN/Creatinine Ratio Glucose Lactate Calcium Phosphorus Magnesium Total Bilirubin AST ALT Alkaline Phosphatase Total Creatine Kinase CK-MB (CK-2) CK-MB (CK-2) Rel Index Troponin I NT-Pro-B Natriuret Pep Total Protein Albumin Globulin Albumin/Globulin Ratio Lipase Procalcitonin Nasal Screen MRSA (PCR) SARS-CoV-2 (PCR) Negative Blood Type Antibody Screen 04/15/21 04/15/21 04/15/21 11:10 11:10 11:10 WBC RBC Hgb Hct MCV MCH MCHC RDW Plt Count Neut % (Auto) Lymph % (Auto) Towner % (Auto) Eos % (Auto) Baso % (Auto) Neut # (Auto) Lymph # (Auto) Towner # (Auto) Eos # (Auto) Baso # (Auto) Total Counted Seg Neutrophils % Band Neutrophils % Lymphocytes % (Manual) Monocytes % (Manual) Neutrophils # (Manual) Smudge Cells Plt Morphology Comment RBC Morphology PT INR APTT Sodium 131 L Potassium 3.2 L Chloride 102 Carbon Dioxide 17 L BUN 32 H Creatinine 1.41 H Estimated GFR 35.6 L BUN/Creatinine Ratio 22.7 H Glucose 113 H Lactate 1.9 Calcium 7.7 L Phosphorus Magnesium Total Bilirubin 0.5 AST 29 ALT 16 Alkaline Phosphatase 49 Total Creatine Kinase 126 CK-MB (CK-2) 7.78 H CK-MB (CK-2) Rel Index 6.2 H* Troponin I 0.033 NT-Pro-B Natriuret Pep Total Protein 5.8 L Albumin 3.3 L Globulin 2.5 Albumin/Globulin Ratio 1.3 Lipase 208 Procalcitonin 0.24 Nasal Screen MRSA (PCR) SARS-CoV-2 (PCR) Blood Type A Positive Antibody Screen Negative 04/15/21 04/15/21 04/15/21 20:00 20:38 20:58 WBC 15.4 H RBC 3.45 L Hgb 10.5 L Hct 32.3 L MCV 93.5 MCH 30.5 MCHC 32.6 RDW 13.4 Plt Count 376 Neut % (Auto) Not Reportable Lymph % (Auto) Not Reportable Towner % (Auto) Not Reportable Eos % (Auto) Not Reportable Baso % (Auto) Not Reportable Neut # (Auto) Lymph # (Auto) Not Reportable Towner # (Auto) Not Reportable Eos # (Auto) Baso # (Auto) Not Reportable Total Counted 100 Seg Neutrophils % 32.0 L Band Neutrophils % 2.0 L Lymphocytes % (Manual) 65.0 H Monocytes % (Manual) 1.0 L Neutrophils # (Manual) 5236 Smudge Cells 2+ H Plt Morphology Comment Note RBC Morphology Normal morphology PT INR APTT Sodium Potassium Chloride Carbon Dioxide BUN Creatinine Estimated GFR BUN/Creatinine Ratio Glucose Lactate 2.3 H Calcium Phosphorus Magnesium Total Bilirubin AST ALT Alkaline Phosphatase Total Creatine Kinase CK-MB (CK-2) CK-MB (CK-2) Rel Index Troponin I NT-Pro-B Natriuret Pep Total Protein Albumin Globulin Albumin/Globulin Ratio Lipase Procalcitonin Nasal Screen MRSA (PCR) Positive for mrsa H SARS-CoV-2 (PCR) Blood Type Antibody Screen 04/15/21 04/16/21 04/16/21 20:58 00:15 04:50 WBC 22.4 H RBC 3.67 L Hgb 11.2 L Hct 34.3 L MCV 93.5 MCH 30.6 MCHC 32.7 RDW 13.5 Plt Count 363 Neut % (Auto) Not Reportable Lymph % (Auto) Not Reportable Towner % (Auto) Not Reportable Eos % (Auto) Not Reportable Baso % (Auto) Not Reportable Neut # (Auto) Lymph # (Auto) Not Reportable Towner # (Auto) Not Reportable Eos # (Auto) Baso # (Auto) Not Reportable Total Counted Seg Neutrophils % Band Neutrophils % Lymphocytes % (Manual) Monocytes % (Manual) Neutrophils # (Manual) Smudge Cells Plt Morphology Comment RBC Morphology PT INR APTT Sodium 130 L Potassium 3.2 L Chloride 105 Carbon Dioxide 20 L BUN 33 H Creatinine 1.38 H Estimated GFR 36.5 L BUN/Creatinine Ratio 23.9 H Glucose 93 Lactate 1.6 Calcium 6.6 L Phosphorus 4.2 H Magnesium 1.3 L Total Bilirubin AST ALT Alkaline Phosphatase Total Creatine Kinase CK-MB (CK-2) CK-MB (CK-2) Rel Index Troponin I NT-Pro-B Natriuret Pep Total Protein Albumin 2.2 L Globulin Albumin/Globulin Ratio Lipase Procalcitonin Nasal Screen MRSA (PCR) SARS-CoV-2 (PCR) Blood Type Antibody Screen 04/16/21 04/16/21 04:50 04:50 WBC RBC Hgb Hct MCV MCH MCHC RDW Plt Count Neut % (Auto) Lymph % (Auto) Towner % (Auto) Eos % (Auto) Baso % (Auto) Neut # (Auto) Lymph # (Auto) Towner # (Auto) Eos # (Auto) Baso # (Auto) Total Counted Seg Neutrophils % Band Neutrophils % Lymphocytes % (Manual) Monocytes % (Manual) Neutrophils # (Manual) Smudge Cells Plt Morphology Comment RBC Morphology PT INR APTT Sodium 129 L Potassium 3.9 Chloride 106 Carbon Dioxide 18 L BUN 35 H Creatinine 1.60 H Estimated GFR 30.8 L BUN/Creatinine Ratio 21.9 Glucose 113 H Lactate Calcium 6.9 L Phosphorus Magnesium 1.8 Total Bilirubin AST ALT Alkaline Phosphatase Total Creatine Kinase CK-MB (CK-2) CK-MB (CK-2) Rel Index Troponin I NT-Pro-B Natriuret Pep 8490 H Total Protein Albumin Globulin Albumin/Globulin Ratio Lipase Procalcitonin Nasal Screen MRSA (PCR) SARS-CoV-2 (PCR) Blood Type Antibody Screen [facility] Medical History (Updated 04/15/21 @ 14:19 by Soren Isabel MD) Diabetes mellitus type II, non insulin dependent HTN (hypertension) Hypercholesterolemia Surgical History History of bladder surgery History of cholecystectomy History of repair of hiatal hernia Status post hysterectomy Family History Sister Cancer Brother Cancer Sister Cancer Mother Cancer Hypertension Social History marital status: unmarried,living together household members: significant other and children Smoking Status: Never smoker alcohol intake: never Assessment & Plan Assessment & Plan narrative: 1.? Small bowel obstruction, acute -No surgical evidence of bowel ischemia Plan:? G-tube in place.? NPO per surgery currently. 2.? Shock, distributive and septic secondary to infection -WBC climbing, cultures pending, CLL component -Lactic acid has normalized -MAP at goal Plan:? Tele-ICU consulting, appreciate their management of drips including levophed and vasopressin. Goal MAP > 65.? Continue IVF and Zosyn.? Holding home anti-hypertensives.? Will continue to trend labs. Remains critical. 3.? Acute hypoxemic respiratory failure secondary to splinting from abdominal pain and atalectasis Plan:? Remains on 2 L, no change. Will continue to titrate oxygen to keep saturations > 88%.? IS. 4.? Leukocytosis, worse in last 10 days Plan:? Continue zosyn, will trend CBC. 5.? Acute kidney injury secondary to dehydration and sepsis, worsened Plan:? Patient has had several major surgeries, IV contrast, and is in shock, anticipate several days for her kidneys to recover. Continue fluids.? Will trend labs. 6.? Anemia, normoocytic/normorochomic. mild -Status post IV iron in 2019 -Dr. Price, oncology consulting Plan:? Will continue ferrous sulfate when able to start oral/tube feeding and trend labs. 7.? Elevated CK-MB and index Plan:? Cardiac telemetry.? Possible that patient had an TN, not a candidate for a cath.? Will medically manage. 8.? Thrombophillia, acute Plan:? Likely acute phase reactant, will trend labs. 9.? Atrial fibrillation with diastolic heart failure Plan:? Patient is hypotensive and on pressors, will continue to watch closely and restart metoprolol, diltiazem, and furosemide when again stable. 10.? Diabetes mellitus type 2 Plan:? SSI when taking oral/tube feeds.? Goal BS < 180. 11.? CLL Plan:? Dr. Price consulting as outpatient. 12.? Hiatal hernia with GERD Plan:? IV famotodine. 13.? PMR Plan: Continue home meds when taking PO. 14.? Hyperlipidemia Plan:? Continue home lovastatin when taking PO. 15.? Weakness, acute Plan:? PT when able. 16.? Hypokalemia, acute, resolved Plan:? Status post repletion, will trend labs. 17. Hypomagnesemia, acute, resolved Plan: Status post repletion, trending labs. 18. Protein calorie malnutrition Plan: Nutrition consult. 19. Elevated BNP Plan: Suspect this is secondary to acute kidney injury and possible myocardial injury. Patient is at risk for heart failure due to her atrial fibrillation. Will proceed cautiously with fluids today and trend labs. Patient is in a positive fluid balance, but has not had 24 hours since her surgery yet. Will trend daily weights and monitor I/Os. Code:? Full COVID:? negative DVT prophylasix:? SCDs GI prophylaxis:? pepcid FEN:? NS @ 50 cc/hour, NPO Disposition:? Anticipate at least 2 nights.
[2021-04-16 07:04] LABS: Total Cells Counted 100
[2021-04-16 07:05] LABS: Neutrophils Absolute Manual 15456 /uL (3000-5900); Nucleated Red Blood Cells 2 #/Diff
[2021-04-16 07:06] LABS: Toxic Granulation Present
[2021-04-16] MEDS: SODIUM CHLORIDE 0.9% 1,000 ML 50 ML IV (08:22)
[2021-04-16] MEDS: FAMOTIDINE 20 MG/2 ML VIAL IV (09:31)
--- NOTE | 2021-04-16 10:14 | PM.PN.EICU ---
Subjective Subjective :: This patient was seen via real time interactive two-way audiovisual telecommunication. Ms. Mauricio is an 85 year old woman who recently underwent exploratory laparotomy lysis of adhesions and ileocecotomy secondary to small bowel obstruction 11 dayss ago who was discharged to SNF. She presents back with worsening abdominal distention, loos BM, and hypotension. CT abdomen showed pneumoatosis intestinalis and portal venous air. Patient was taken emergently for exploratory laporatomy and found no evidence of necrotic bowel. A gastrostomy tube was place and brought back to ICU extubated on 2 liters NC. At the time of round patient was on levophed 4 mcg/ min, Vaso with NS running at 50cc/hr ssessment & Plan narrative: NEURO: # Decondition -- Seek PT/OT consultation RESP: # Acute hypoxemia respiratory failure -- Secondary to atelectasis due to splinting and abdominal pain -- Pain control as below -- Encourage IS -- Seek early mobility as tolerated -- Goal SpO2 > 88% CVS: # Distributive shock -- Secondary to intraabdominal sepsis -- s/p ex-lap with no evidence of bowel ischemia -- Continue zosyn? -- Check lactic acid -- Switch IVF to LR at 50 ml/hr -- On levophed & VAso to maintain MAP goal > 65 -- Will add albumin 25% total 200 ml to wean off pressors : # LUDA 2/2 ATN/ sepsis -- Secondary to sepsis and dehydration -- Cont IVF, UOP improving last was 50ml/hr -- Avoid nephrotoxin agents -- Monitor UOP -- Daily BMP GI: # Intestinalis pneumatosis -- S/p ex-lap -- On zosyn -- Pain control w/ dilaudid 0.5 mg q3hr prn severe pain -- Management per primary surgery team ID: # Septic shock -- Secondary to intraabdominal infection -- Blood culture sent -- On zosyn ENDO: -- Goal BS < 180 D/w RN CCT 40 min Current Medications Current Medications Medications: Home Medications doxepin 25 mg capsule 25 mg PO BEDTIME 08/30/17 [History Confirmed 04/16/21] fluoxetine 20 mg capsule 40 mg PO DAILY 08/30/17 [History Confirmed 04/16/21] esomeprazole magnesium 40 mg capsule,delayed release 80 mg PO DAILY 04/25/18 [History Confirmed 04/16/21] lovastatin 20 mg tablet 20 mg PO BEDTIME 04/25/18 [History Confirmed 04/16/21] metformin 500 mg tablet 500 mg PO QAM 04/25/18 [History Confirmed 04/16/21] cetirizine 10 mg capsule (Allergy Relief (cetirizine)) 10 mg PO DAILY PRN #30 cap 04/24/19 [Rx Confirmed 04/16/21] hydroxyzine HCl 25 mg tablet 25 mg PO BEDTIME #14 tab 04/26/19 [Rx Confirmed 04/16/21] colchicine 0.6 mg tablet 0.6 mg PO BID #20 tab 10/01/19 [Rx Confirmed 04/16/21] diltiazem HCl 180 mg capsule,extended release 24 hr (Cardizem CD) 360 mg PO DAILY #30 cap 04/12/21 [Rx Confirmed 04/16/21] hydrocodone 5 mg-acetaminophen 325 mg tablet 1 tab PO Q6H PRN #30 tab 04/12/21 [Rx Confirmed 04/16/21] losartan 50 mg tablet 100 mg PO DAILY #30 tab 04/12/21 [Rx Confirmed 04/16/21] metoprolol tartrate 25 mg tablet 50 mg PO BID #60 tab 04/12/21 [Rx Confirmed 04/16/21] quetiapine 100 mg tablet (Seroquel) 12.5 mg PO BEDTIME #30 tab 04/12/21 [Rx Confirmed 04/16/21] nystatin 100,000 unit/mL oral suspension 100,000 unit PO 04/16/21 [History] Visit Medications (administered) Generic Name Dose Route Start Last Admin Trade Name Freq PRN Reason Stop Dose Admin Famotidine 20 mg 04/16/21 09:00 04/16/21 09:31 Famotidine 20 Mg/2 Ml Vial IV 20 mg DAILY LUL Administration Hydromorphone HCl 0.5 mg 04/16/21 03:51 04/16/21 09:32 Hydromorphone 1 Mg Inj IV 0.5 mg Q1H PRN Administration Pain, Moderate (4-6) NOREPINEPHRINE BITARTRATE/D5W 4 mg in 250 mls @ 30 mls/hr 04/15/21 19:00 04/16/21 09:32 Levophed IV 4 mcg/min TITRATE LUL 15 mls/hr Titration Protocol 8 MCG/MIN Piperacillin Sod/Tazobactam 100 mls @ 25 mls/hr 04/15/21 21:00 04/16/21 09:05 Sod 3.375 gm/ Sodium Chloride IV Infused Q8H LUL Infusion Potassium Chloride 20 meq/ 1,010 mls @ 50 mls/hr 04/15/21 22:00 04/16/21 00:18 Sodium Chloride IV Not Given CONT LUL Vasopressin 40 unit/ Sodium 102 mls @ 4.5 mls/hr 04/16/21 01:00 04/16/21 01:04 Chloride IV 4.5 mls/hr CONT LUL Administration Sodium Chloride 1,000 mls @ 50 mls/hr 04/16/21 07:30 04/16/21 08:22 Normal Saline 0.9% IV 50 mls/hr CONT LUL Administration Ondansetron HCl 4 mg 04/15/21 20:18 04/16/21 03:10 Ondansetron 4 Mg/2 Ml Inj IV 4 mg Q6HR PRN Administration Nausea And Vomiting Objective Labs Result Diagrams: 04/16/21 04:50 04/16/21 04:50 Labs: Laboratory Results - last 24 hr 04/15/21 04/15/21 04/15/21 11:00 11:10 11:10 WBC 26.4 H RBC 3.44 L Hgb 10.5 L Hct 31.9 L MCV 92.9 MCH 30.5 MCHC 32.8 RDW 13.5 Plt Count 435 H Neut % (Auto) 48.2 L Lymph % (Auto) 47.6 H Dougherty % (Auto) 3.4 Eos % (Auto) 0.6 L Baso % (Auto) 0.2 Neut # (Auto) 38391 H Lymph # (Auto) 52995 H Dougherty # (Auto) 900 Eos # (Auto) 100 Baso # (Auto) 0 Total Counted Seg Neutrophils % Band Neutrophils % Lymphocytes % (Manual) Monocytes % (Manual) Metamyelocytes % Myelocytes % Neutrophils # (Manual) Nucleated RBCs Smudge Cells Toxic Granulation Plt Morphology Comment RBC Morphology PT 12.1 INR 1.1 APTT 23 L D Sodium Potassium Chloride Carbon Dioxide BUN Creatinine Estimated GFR BUN/Creatinine Ratio Glucose Lactate Calcium Phosphorus Magnesium Total Bilirubin AST ALT Alkaline Phosphatase Total Creatine Kinase CK-MB (CK-2) CK-MB (CK-2) Rel Index Troponin I NT-Pro-B Natriuret Pep Total Protein Albumin Globulin Albumin/Globulin Ratio Lipase Procalcitonin Nasal Screen MRSA (PCR) SARS-CoV-2 (PCR) Negative Blood Type Antibody Screen 04/15/21 04/15/21 04/15/21 11:10 11:10 11:10 WBC RBC Hgb Hct MCV MCH MCHC RDW Plt Count Neut % (Auto) Lymph % (Auto) Dougherty % (Auto) Eos % (Auto) Baso % (Auto) Neut # (Auto) Lymph # (Auto) Dougherty # (Auto) Eos # (Auto) Baso # (Auto) Total Counted Seg Neutrophils % Band Neutrophils % Lymphocytes % (Manual) Monocytes % (Manual) Metamyelocytes % Myelocytes % Neutrophils # (Manual) Nucleated RBCs Smudge Cells Toxic Granulation Plt Morphology Comment RBC Morphology PT INR APTT Sodium 131 L Potassium 3.2 L Chloride 102 Carbon Dioxide 17 L BUN 32 H Creatinine 1.41 H Estimated GFR 35.6 L BUN/Creatinine Ratio 22.7 H Glucose 113 H Lactate 1.9 Calcium 7.7 L Phosphorus Magnesium Total Bilirubin 0.5 AST 29 ALT 16 Alkaline Phosphatase 49 Total Creatine Kinase 126 CK-MB (CK-2) 7.78 H CK-MB (CK-2) Rel Index 6.2 H* Troponin I 0.033 NT-Pro-B Natriuret Pep Total Protein 5.8 L Albumin 3.3 L Globulin 2.5 Albumin/Globulin Ratio 1.3 Lipase 208 Procalcitonin 0.24 Nasal Screen MRSA (PCR) SARS-CoV-2 (PCR) Blood Type A Positive Antibody Screen Negative 04/15/21 04/15/21 04/15/21 20:00 20:38 20:58 WBC 15.4 H RBC 3.45 L Hgb 10.5 L Hct 32.3 L MCV 93.5 MCH 30.5 MCHC 32.6 RDW 13.4 Plt Count 376 Neut % (Auto) Not Reportable Lymph % (Auto) Not Reportable Dougherty % (Auto) Not Reportable Eos % (Auto) Not Reportable Baso % (Auto) Not Reportable Neut # (Auto) Lymph # (Auto) Not Reportable Dougherty # (Auto) Not Reportable Eos # (Auto) Baso # (Auto) Not Reportable Total Counted 100 Seg Neutrophils % 32.0 L Band Neutrophils % 2.0 L Lymphocytes % (Manual) 65.0 H Monocytes % (Manual) 1.0 L Metamyelocytes % Myelocytes % Neutrophils # (Manual) 5236 Nucleated RBCs Smudge Cells 2+ H Toxic Granulation Plt Morphology Comment Note RBC Morphology Normal morphology PT INR APTT Sodium Potassium Chloride Carbon Dioxide BUN Creatinine Estimated GFR BUN/Creatinine Ratio Glucose Lactate 2.3 H Calcium Phosphorus Magnesium Total Bilirubin AST ALT Alkaline Phosphatase Total Creatine Kinase CK-MB (CK-2) CK-MB (CK-2) Rel Index Troponin I NT-Pro-B Natriuret Pep Total Protein Albumin Globulin Albumin/Globulin Ratio Lipase Procalcitonin Nasal Screen MRSA (PCR) Positive for mrsa H SARS-CoV-2 (PCR) Blood Type Antibody Screen 04/15/21 04/16/21 04/16/21 20:58 00:15 04:50 WBC 22.4 H RBC 3.67 L Hgb 11.2 L Hct 34.3 L MCV 93.5 MCH 30.6 MCHC 32.7 RDW 13.5 Plt Count 363 Neut % (Auto) Not Reportable Lymph % (Auto) Not Reportable Dougherty % (Auto) Not Reportable Eos % (Auto) Not Reportable Baso % (Auto) Not Reportable Neut # (Auto) Lymph # (Auto) Not Reportable Dougherty # (Auto) Not Reportable Eos # (Auto) Baso # (Auto) Not Reportable Total Counted 100 Seg Neutrophils % 34.0 L Band Neutrophils % 35.0 H Lymphocytes % (Manual) 18.0 L Monocytes % (Manual) 3.0 Metamyelocytes % 7.0 H Myelocytes % 3.0 H Neutrophils # (Manual) 12084 H Nucleated RBCs 2 H Smudge Cells Toxic Granulation Present H Plt Morphology Comment RBC Morphology See below PT INR APTT Sodium 130 L Potassium 3.2 L Chloride 105 Carbon Dioxide 20 L BUN 33 H Creatinine 1.38 H Estimated GFR 36.5 L BUN/Creatinine Ratio 23.9 H Glucose 93 Lactate 1.6 Calcium 6.6 L Phosphorus 4.2 H Magnesium 1.3 L Total Bilirubin AST ALT Alkaline Phosphatase Total Creatine Kinase CK-MB (CK-2) CK-MB (CK-2) Rel Index Troponin I NT-Pro-B Natriuret Pep Total Protein Albumin 2.2 L Globulin Albumin/Globulin Ratio Lipase Procalcitonin Nasal Screen MRSA (PCR) SARS-CoV-2 (PCR) Blood Type Antibody Screen 04/16/21 04/16/21 04:50 04:50 WBC RBC Hgb Hct MCV MCH MCHC RDW Plt Count Neut % (Auto) Lymph % (Auto) Dougherty % (Auto) Eos % (Auto) Baso % (Auto) Neut # (Auto) Lymph # (Auto) Dougherty # (Auto) Eos # (Auto) Baso # (Auto) Total Counted Seg Neutrophils % Band Neutrophils % Lymphocytes % (Manual) Monocytes % (Manual) Metamyelocytes % Myelocytes % Neutrophils # (Manual) Nucleated RBCs Smudge Cells Toxic Granulation Plt Morphology Comment RBC Morphology PT INR APTT Sodium 129 L Potassium 3.9 Chloride 106 Carbon Dioxide 18 L BUN 35 H Creatinine 1.60 H Estimated GFR 30.8 L BUN/Creatinine Ratio 21.9 Glucose 113 H Lactate Calcium 6.9 L Phosphorus Magnesium 1.8 Total Bilirubin AST ALT Alkaline Phosphatase Total Creatine Kinase CK-MB (CK-2) CK-MB (CK-2) Rel Index Troponin I NT-Pro-B Natriuret Pep 8490 H Total Protein Albumin Globulin Albumin/Globulin Ratio Lipase Procalcitonin Nasal Screen MRSA (PCR) SARS-CoV-2 (PCR) Blood Type Antibody Screen Exam Vital Signs (past 8 hours): - 04/16/21 03:00 04/16/21 04:00 04/16/21 05:00 Temperature 97.6 F 97.4 F L Pulse Rate 84 78 77 Respiratory Rate 31 H 24 26 H Blood Pressure 104/73 111/68 120/67 Pulse Oximetry 95 94 97 04/16/21 06:00 Temperature Pulse Rate 80 Respiratory Rate 26 H Blood Pressure 117/71 Pulse Oximetry 95 Oxygen Delivery Method Nasal Cannula Oxygen Flow Rate 2 Assessment & Plan Time Spent With Patient Critical Care time: I spent a total of [] minutes of critical care time on this patient's care today; this time is exclusive of procedural time.
--- NOTE | 2021-04-16 11:01 | CM.DANOTE ---
Addendum entered by Rachel Bui R.N. 04/16/21 13:40: Patient . There is no family contact. Attempted to call patient's son, Alberto Mauricio, who lives in [place], but was a generic voice mail. Dr. Reyes came by the office, mentioned, that her significant other is her ex, he has some developmental delays. Had attempted to contact him when they were performing CPR, no answer. Called [facility] animal treatment investigator program for advice about the situation, since no family can be contacted. He was in agreement, that local police department should be contacted for further advice. Called police department, spoke with officer Eugene. Updated him that patient , and unable to get in touch with next of kin. He stated that he could make some phone calls and call back. Gave him patient's name, and son, Alberto, who is listed. Let him know that her original residence is at [facility]. Officer Eugene called back and looked up other numbers. He attempted to contact a grand son, Twan, unable to get in touch with. He encouraged that bus cleaner be called. Had him talk to Dr. Reyes, and she will contact bus cleaner in the mean time. Updated nurse coordinator, Odette. Addendum entered by Rachel Bui R.N. 04/16/21 12:44: Patient coded here in the hospital, they are doing CPR on patient. Attempted to get in touch with son, Alberto. Left a message for him to call, but did not leave a detailed message, as was a generic voice mail. Called Significant other, Hector Jasso, and phone kept ringing. Aditi at [facility] will attempt to see if they have other numbers available. Original Note: DCP: Case received, EMR reviewed. Patient was sleeping, was unable to converse with her as of yet. Did call over at [facility] and spoke to Aditi briefly, since patient came from there. Was able to complete DCP assessment based upon information currently available. Patient is an 85 year old female who admitted yesterday afternoon to the care of the hospitalist team. PCP: Dr. Reyes. Payer: Medicare/[employer]ARP. Patient came to the hospital via ambulance from [facility] secondary to having hypotension, and post-op complications. Patient had been here recently for a surgical procedure, and was discharged to [facility]. Patient was recently discharged from here. She holds current diagnosis of small bowel obstruction. Attempted to meet with patient, but was sleeping, some confusion, according to nurse. Patient did come from [facility], confirmed with August that she can accept back. Prior to last admission, patient came from home, here in [place]. According to notes, she has been residing with her significant other. She has a son in [place]. P: DCP to continue to follow for any needs. Patient should be able to return back to [facility] when she is medically stable. Rachel Bui RN/Pulley Mortiser Operator Discharge Planning/Care Management CM Discharge Assessment Start: 04/16/21 10:55 Freq: Status: Active Protocol: Document 04/16/21 10:56 (Rec: 04/16/21 10:58 [id number]) Discharge Planning Assessment Assigned Para Educator Rachel Bui RN/Pulley Mortiser Operator Advance Directives? No Advance Directives on File POLST in Chart History Provided By Medical Record Prior Living Arrangements Apartment/Condo Household Members significant other,children Type of transporation used prior to Relies on Others admit Independent with ADL's Yes Is patient alert and oriented? Yes Needs Assistance With Bathing,Meal Prep,Toileting, Managing Medications,Home Chores / Shopping Caregiver for Another No DME Already Rented / Owned Wheelchair,FWW / Walker,Cane Comment Patient came from [facility] Patient/Family Preference Correction Facility Comment Back to [facility] Discharge Plan Correction Facility Transportation Arrangement Facility Referrals Initiated None needed Whiteboard Updated in Patient Room with Yes name and ext. # of Para Educator Review Status In Process Next Review Type Continued Stay Review
[2021-04-16] MEDS: LACTATED RINGERS 1,000 ML 50 ML IV (11:07)
[2021-04-16] MEDS: DOPAMINE HCL IN DEXTROSE 5 % 400 MG/250 ML PLAST..BAG 14.775 MG IV (12:50)
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
--- NOTE | 2021-04-16 14:54 | PC.NURSE ---
Pt noted to be increasingly confused on afternoon assessment. During 1215 assessment, pt noted to have decreased HR and precipitous decrease in BP. Obtained 12 lead EKG showing conversion to junctional rhythm. HR 40s with occ PVCs. Notified tele tire repair mechanic and instruction received to increase levophed to support bp and increase HR. Despite upward titration, HR remained bradycardic rates 40s, junctional. Tele tire repair mechanic gave VORB to start dopamine IV and titrate to HR greater than 60. While obtaining dopamine and prior to administration, pt developed asystole. Dr. Samuels rounding at this time aware of pt's bradycardia converting to asystole. Dr. Samuels states there is nothing surgically he can do for the patient and defers code to ED physician. Abdullahi Torrez was called at 1235. Chest compressions were started immediately and code team, RT, pharmacy and ED doctor arrived to bedside. After starting compressions, pt was noted to be regurgitating a large amount of brown, fecal smelling liquid from oropharynx. Suction was performed and oral airway placed by RT. Code flow sheet is as follows: 1235- Code Blue. 1240- 1 mg epinephrine IV 1241- HR 0, no palpable pulse, CPR continued 1243- 1 mg epinephrine IV 1247- HR 0, no palpable pulse, CPR continued, 1 mg epinephrine IV 1248- Calcium chloride IV 1249- 1 amp of bicarb IV 1250- Bedside US performed by Dr. Fonseca. Pt noted to be in PEA, no palpable pulse, 1 mg 1253- Cardiac US performed by Dr. Fonseca, pulse palpable, CPR stopped. 1255- BP 190/79 HR 47. Unable to obtain SPO2. Respirations are bradypneic, irregular. 1258- Dr. Fonseca intubated pt. Colormetric color change noted. Bilateral breath sounds present. 1259- Pt bimal'd down to aystole. No palpable pulse. CPR started. 1300- 1 mg epinephrine IV 1302- Dr. Fonseca performed cardiac ultrasound and states no cardiac activity. Pt is pulseless and asystole is noted on the bedside monitor. Dr. Fonseca calls time of . Dr. Reyes arrived to bedside shortly after Abdullahi Torrez called. Dr. Reyes made several attempts to notify family/next of kin. I attempted to reach Alberto, listed as next of kin ~1030 today to obtain consent for albumin administration per pt request. I was unable to reach him at that time and left a voice message to return call. Dr. Reyes contacted the House Worker's office. Case management, coordinator, and oil field equipment mechanic supervisor aware of circumstances.
--- NOTE | 2021-04-16 17:22 | PM.EVENT ---
Event Note Date Patient Seen: 04/16/21 Time Patient Seen: 17:22 Event Note: Extensive efforts to locate next of kin from time of code at 12:46 until 16:30 have been unsuccessful. Have called [place] Police, [place] Police, [facility], patient's apartment complex, and patient's neighbor to try to obtain alternative contact information for family. Per records, patient has 6 children but has only listed one as a contact, her son, Alberto Tucker. His number does not take messages, unclear if it works. Estimate about 30 attempts have been made to this number by multiple members of the care team. The police were able to provide two alternative numbers, neither worked. Police were also able to link patient to a possible grandson, Twan Mauricio, and possible daughter, Malika Mauricio. However, neither of the associated contact numbers worked. [employer]ister In stated that patient would be picked up by them after a period of time if no family members called back to make arrangements. Patient would then be considered an abandoned adult. Additional efforts by the swing saw operator's office will be made to identify next of kin if this does not happen in the hospital. If no kin come forward, body will be cremated. Information has been communicated back to care management, nursing accounting supervisor and handed off to on-call physician. Will continue to be available for communication from care team. Will receive call from next of kin if it comes. Greater than 224 minutes was spent in physician prolonged services from 12:46 to 16:30.
--- NOTE | 2021-04-16 19:15 | ED.CONSULT ---
ED Provider Consult/Code Note General Date Patient Seen: 04/16/21 Reason for Admission: Nausea and abdominal pain Events leading to Consult/Code: Patient had surgery yesterday. Was in the ICU. On multiple pressors. Per report had what appeared to be a Joni asystolic arrest. Code blue was called. Cardiac Rhythm: Asystole Respiratory ET Tube Size: 7.5 Tube Secured Depth (cm): 26 Tube Secured Location: teeth Tube Placement Confirmation: Visualized tube passing through cords and Confirmation by capnometry Care Provided Description of care provided: Patient asystolic upon rest. CPR started. ACLS algorithm followed. Patient received a total of 5 mg of epi, bicarb, calcium. After 4 rounds of epinephrine we did have ROSC. This is when the patient was intubated. Soon after intubation we once again lost pulses. One further round of CPR was followed. Bedside ultrasound showed no cardiac activity. Resuscitative efforts stopped. Outcome Outcome:
== END 2021-04-16 20:05 | disposition expired | DRG 326 ==
LOC: ED 12:50 → AC 12:52 → ICU 14:19
PROVIDERS: Internal Medicine Pulmonary Disease; Surgery; Admitting Provider Student in an Organized Health Care Education/Training Program; Emergency Provider Emergency Medicine; Family Provider Dermatology; PCP Student in an Organized Health Care Education/Training Program; Referring Provider Emergency Medicine; Visit Provider Student in an Organized Health Care Education/Training Program
PROC: (CPT 49000; principal; 2021-04-15 14:30)
DX: K56.50 Intestinal adhesions [bands], unspecified as to partial versus complete obstruction (principal); R65.21 Severe sepsis with septic shock; J96.01 Acute respiratory failure with hypoxia; N17.9 Acute kidney failure, unspecified; C91.10 Chronic lymphocytic leukemia of B-cell type not having achieved remission; E87.1 Hypo-osmolality and hyponatremia; K31.0 Acute dilatation of stomach; B99.9 Unspecified infectious disease; I48.91 Unspecified atrial fibrillation; E86.0 Dehydration; E87.6 Hypokalemia; K63.89 Other specified diseases of intestine; K21.9 Gastro-esophageal reflux disease without esophagitis; K44.9 Diaphragmatic hernia without obstruction or gangrene; E78.5 Hyperlipidemia, unspecified; E83.42 Hypomagnesemia; I46.9 Cardiac arrest, cause unspecified; Z20.822 Contact with and (suspected) exposure to COVID-19
CPT/HCPCS: 36415; 36592; 49000; 49440; 71045; 74177; 80048; 80053; 80069; 82550; 82553; 82962; 83605; 83690; 83735; 83880; 84145; 84484; 85007; 85025; 85610; 85730; 86850; 86900; 86901; 87040; 87635; 87797; 92950; 93005; 94799; 96361; 96365; 96375; 96376; 99285; C9803; J0171; J0330; J1170; J2250; J2405; J2543; J2704; J3010; J3475; Q9967